=== PATIENT | female | born 1975 | race Caucasian/White ===

== ENCOUNTER → 2022-05-06 | Outpatient (CLI) | payer BC, SELFPAY ==
[2022-05-06 10:30] LABS: Anion Gap 6 (5-15); BUN 9 mg/dL (7-18); BUN/Creat Ratio 14.8 RATIO (10-20); Calcium,Total 8.9 mg/dL (8.5-10.1); Chloride 103 mmol/L (98-107); Creatinine, Serum 0.61 mg/dL (0.55-1.02); EST Glomerular Filtration Rate 112 mL/min (>60); Est Glom Filt Rate - Afr Amer 135 mL/min (>60); Glucose 79 mg/dL (74-106); Potassium 4.4 mmol/L (3.5-5.1); Sodium Level 136 mmol/L (136-145)
== END | disposition home or self-care (01) ==
LOC: MTLAB 08:48
PROVIDERS: PCP Internal Medicine; Referring Provider Urology; Visit Provider Urology
DX: R35.1 Nocturia (principal)
CPT/HCPCS: 36415; 80048

== ENCOUNTER → 2022-05-27 | Outpatient (CLI) | payer BC, SELFPAY ==
[2022-05-27 10:25] LABS: Anion Gap 8 (5-15); BUN 15 mg/dL (7-18); BUN/Creat Ratio 20.7 RATIO (10-20); Calcium,Total 9.2 mg/dL (8.5-10.1); Chloride 109 mmol/L (98-107); Creatinine, Serum 0.72 mg/dL (0.55-1.02); EST Glomerular Filtration Rate 91 mL/min (>60); Est Glom Filt Rate - Afr Amer 110 mL/min (>60); Glucose 100 mg/dL (74-106); Potassium 4.6 mmol/L (3.5-5.1); Sodium Level 141 mmol/L (136-145)
== END | disposition home or self-care (01) ==
LOC: MTLAB 07:46
PROVIDERS: PCP Internal Medicine; Referring Provider Urology; Visit Provider Urology
DX: N32.81 Overactive bladder (principal); N39.41 Urge incontinence
CPT/HCPCS: 36415; 80048

== ENCOUNTER → 2022-09-02 | Outpatient (CLI) | payer BC, SELFPAY ==
[2022-09-02 10:19] LABS: Anion Gap 3 (5-15); BUN 14 mg/dL (7-18); BUN/Creat Ratio 19.2 RATIO (10-20); Calcium,Total 9.6 mg/dL (8.5-10.1); Chloride 103 mmol/L (98-107); Creatinine, Serum 0.73 mg/dL (0.55-1.02); EST Glomerular Filtration Rate 91 mL/min (>60); Est Glom Filt Rate - Afr Amer 110 mL/min (>60); Glucose 106 mg/dL (74-106); Sodium Level 136 mmol/L (136-145)
== END | disposition home or self-care (01) ==
LOC: MTLAB 08:19
PROVIDERS: PCP Internal Medicine; Referring Provider Urology; Visit Provider Urology
DX: R35.1 Nocturia (principal)
CPT/HCPCS: 36415; 80048

== ENCOUNTER → 2022-12-17 | Outpatient (CLI) | payer BC, SELFPAY | END | disposition home or self-care (01) | PROVIDERS: PCP Nurse Practitioner Family; Referring Provider Nurse Practitioner Family; Visit Provider Nurse Practitioner Family | DX: R06.83 Snoring (principal); E66.01 Morbid (severe) obesity due to excess calories; Z68.41 Body mass index [BMI] 40.0-44.9, adult; I10 Essential (primary) hypertension; G47.30 Sleep apnea, unspecified | CPT/HCPCS: 95806 ==

== ENCOUNTER → 2023-09-08 | Outpatient (CLI) | payer BC, SELFPAY ==
[2023-09-08 10:16] LABS: Anion Gap 5 (5-15); BUN 17 mg/dL (7-18); Calcium,Total 9.6 mg/dL (8.5-10.1); Chloride 110 mmol/L (98-107); Creatinine, Serum 0.81 mg/dL (0.55-1.02); EST Glomerular Filtration Rate 80 mL/min (>60); Est Glom Filt Rate - Afr Amer 97 mL/min (>60); Glucose 91 mg/dL (74-106); Potassium 4.2 mmol/L (3.5-5.1); Sodium Level 141 mmol/L (136-145)
== END | disposition home or self-care (01) ==
LOC: MTLAB 08:29
PROVIDERS: PCP Nurse Practitioner Family; Referring Provider Urology; Visit Provider Urology
DX: R35.1 Nocturia (principal)
CPT/HCPCS: 36415; 80048

== ENCOUNTER → 2024-09-13 | Outpatient (CLI) | payer BC, SELFPAY ==
[2024-09-13 11:06] LABS: Anion Gap 11 (5-15); BUN 19 mg/dL (4-19); BUN/Creat Ratio 22.1 RATIO (10-20); Carbon Dioxide 25.6 mmol/L (21.0-32.0); Chloride 103 mmol/L (98-108); Creatinine, Serum 0.84 mg/dL (0.70-1.20); EST Glomerular Filtration Rate 85 (>60); Glucose 86 mg/dL (70-99); Potassium 4.4 mmol/L (3.3-5.1); Sodium Level 139 mmol/L (133-145)
== END | disposition home or self-care (01) ==
LOC: MTLAB 08:19
PROVIDERS: PCP Nurse Practitioner Family; Referring Provider Urology; Visit Provider Urology
DX: R35.1 Nocturia (principal)
CPT/HCPCS: 36415; 80048

== ENCOUNTER 2024-10-28 06:37 | Day surgery (SDC) | payer BC, SELFPAY ==
[2024-10-28] VITALS (9 sets, daily range): BP systolic 112–139; BP diastolic 63–87; PULSE 74–82; RESP 16; TEMP 36.2–36.6; O2SAT 96–100; BMI 32.8
--- OUTSIDE RECORDS SUMMARY | 2024-10-28 06:43 | XMS RPT_ITS | CCD ---
Author Organization [facility] Team Providers Care Inspector Aluminum Boat Name Role Phone Helen Guthrie Unavailable Zack Garcia S Unavailable Marcie Beaulieu Unavailable Unavailable Unavailable Unavailable Helen Guthrie Unavailable Jose Zack S Unavailable Melisa Mario Unavailable Unavailable Unavailable Unavailable Rafal Harris Unavailable Unavailable Messenger, Marcie Unavailable Unavailable Xuan Davidson E Unavailable Agnes Kennedy Unavailable Unavailable Rafal Dixon Unavailable Unavailable Luna Pastrana Unavailable Rafal Harris Unavailable Unavailable Gris Harris L Unavailable Unavailable Stuart NOLASCO, Nereyda Unavailable Zack Garcia DO S Unavailable Rafal Dixon LPN Unavailable Unavailable Luna Pastrana MD Unavailable Unavailable Unavailable Sanaz Byers MA Unavailable Unavailable Unavailable Unavailable Stuart Xuan Unavailable Luna Pastrana MD Primary Care Provider Pascual Mccall CNP Attending Unavailable Pascual Mccall CNP Referring Unavailable Pascual Mccall CNP Consulting Unavailable Pascual Mccall CNP Unavailable Pascual Mccall CNP Unavailable [phone] Jose Luo MA Unavailable Unavailable Xuan Davidson Unavailable Luna Pastrana MD Primary Care Provider [phone] Slarb DIRECTOR, Ayesha Unavailable Unavailable Cal KITCHEN UTILITY ASSOCIATE, Pascual Primary Care Provider Cal MAMMOGRAPHY TECHNOLOGIST-C, Pascual Primary Care Provider Cal MAMMOGRAPHY TECHNOLOGIST-C, Pascual Referring Provider Kain MAMMOGRAPHY TECHNOLOGIST-C, Jennifer Attending Provider Bethany STROUD, Dr. Calle Attending Provider [phone] Alva Sims MD Referring Provider Cal, Pascual Primary Care Unavailable Alva Sims Referring Unavailable Alva Sims Attending Unavailable Cal, Pascual Primary Care Unavailable Tony Melgar Attending Unavailable Cal, Pascual Primary Care Unavailable Jennifer Finnegan Attending Unavailable Cal, Pascual Referring Unavailable MONROYANA HERNÁNDEZ Attending Unavailable CAL, PASCUAL Primary Care Unavailable MONROYANA HERNÁNDEZ Attending Unavailable CAL, PASCUAL Primary Care Unavailable ANA MONROY Attending Unavailable CAL, PASCUAL Primary Care Unavailable JUAN FRANCISCO MELVIN Attending Unavailable CAL, PASCUAL Primary Care Unavailable ANA MONROY Attending Unavailable CAL, PASCUAL Primary Care Unavailable CAL, PASCUAL Referring Unavailable CAL, PASCUAL Primary Care Unavailable AMPARO VERA Attending Unavailable AMPARO VERA Referring Unavailable CAL, PASCUAL Primary Care Unavailable Allergies Allergy Classification Reported Allergen(s) Allergy Type Date of Onset Reaction(s) Facility Adhesive Tape (1 source) Adhesive Tape; Translations: [Adhesive Tape] Substance Allergy [facility]; [facility] Work Phone: Comment on above: paper tape (20 sources) Adhesive Tape; Translations: [Adhesive Tape] allergy to substance 09-09-19 25 Rash [facility] Work Phone: Comment on above: paper tape (20 sources) Morphine Derivatives; Translations: [Morphine Derivatives] allergy to substance [facility] Work Phone: Comment on above: Elevated heart rate, chest pain (20 sources) Morphine; Translations: [MORPHINE] Drug Allergy 02-04-20 05 GI Upset [facility] Work Phone: (10 sources) PAPER TAPE [Other] Propensity to adverse reactions 07-28-19 07 Hives, Itching [facility] Work Phone: (12 sources) Adhesive Tape; Translations: [ADHESIVE TAPE (ROSINS)] Allergy to substance 03-26-20 Itching [facility] Work Phone: (1 source) Morphine Drug Allergy 09-09-19 [facility] Repository Medications Current Medications Medication Drug Class(es) Dates Sig (Normalized) Sig (Original) amLODIPine 5 mg / olmesartan medoxomil 20 mg oral tablet (20 sources) Dihydropyridine Calcium Channel Pelon, Angiotensin 2 Receptor Pelon Start: 02-21-2021 End: 01-27-2023 take 1 tablet by mouth once daily amlodipine-olmes jeyson 5-20 mg oral tablet 1 (one) Tablet daily for 0 days Quantity: 90 {Tablet} Refills: 3 Ordered: 27-Jan-2023 Ayesha Zambrano LPN Start : 16-Apr-2022 End : 27-Jan-2023 Inactive Comment on above: Take 1 tablet by akbar th once daily. 24 hr buPROPion hydrochloride 300 mg extended release oral tablet (11 sources) Aminoketone Start: 04-22-2024 take 1 tablet by mouth once daily in the morning buPROPion XL (WELLBUTRIN XL) 300 mg 24 hr tablet Take 300 mg by mouth every morning. 04/22/2024 Active Start: 09-02-2023 End: 06-24-2024 buPROPion XL (WELLBUTRIN XL) 150 mg 24 hr tablet 09/02/2023 06/24/2024 Discontinued cholecalciferol 0.125 mg oral capsule (3 sources) Vitamin D Start: 09-08-2024 take 1 capsule by mouth once daily Cholecalciferol (Vitamin D3) 125 mcg (5,000 unit) capsule Active 125 ug PO daily September 08, 2024 12:00am Start: 12-31-2022 End: 09-08-2024 take 1 capsule by mouth once daily Cholecalciferol (Vitamin D3) 250 mcg (10,000 unit) capsule Discontinued 250 ug PO DAILY December 31, 2022 12:00am September 08, 2024 8:15am cholecalciferol, vitamin D3, (VITAMIN D3 ORAL) (20 sources) cholecalciferol, vitamin D3, (VITAMIN D3 ORAL) Take by mouth once daily. Active cholecalciferol, vitamin D3, (VITAMIN D3 ORAL) Take by mouth once daily. 0 Active cholecalciferol, vitamin D3, (VITAMIN D3 ORAL) Vitamin D3 Active 0 Active Comment on above: Vitamin D3 Active Take by mouth once d aily. Cranberry (1 source) Non-Standardized Food Allergenic Extract, Non-Standardized Plant Allergenic Extract Start: 09-09-19 take 1 capsule by mouth twice daily at mealtime Cranberry 500 mg capsule Active 500 mg PO TWICE A DAY September 08, 2024 12:00am administer with meals desmopressin acetate 0.2 mg oral tablet (20 sources) Vasopressin Analog, Factor VIII Activator Start: 01-01-20 take 1 tablet by mouth at bedtime Desmopressin 0.2 mg tablet Active 0.4 mg PO AT BEDTIME December 31, 2022 12:00am Start: 12-31-2022 take 0.4 mg by mouth at bedtim e Desmopressin Active 0.4 MG PO AT BEDTIME December 31, 2022 12:00am take 0.1 mg by mouth once daily at bedtime desmopressin acetate (DDAVP) 0.2 mg tablet Take 0.1 mg by mouth daily at bedtime. 2 tabs Active take 2 tablets by mo uth once daily at bedtime desmopressin 0.2 mg oral tablet 2 qhs (0.2 mg) Active Comment on above: Take 0.1 mg by mouth daily at bedtime. 2 tabs docusate sodium 100 mg oral capsule (1 source) Start: 09-09-19 take 2 capsules by mouth at bedtime Docusate Sodium (Colace) 100 mg capsule Active 200 mg PO AT BEDTIME September 08, 2024 12:00am docusate sodium 50 mg / sennosides, prison 8.6 mg oral tablet (4 sources) take 1 tablet by mouth once daily senna-docusate (SENNA-S) 8.6-50 mg per tablet Take 1 tablet by mouth once daily. Active famotidine 40 mg oral tablet (3 sources) Histamine-2 Receptor Antagonist Start: 09-09-19 take 1 tablet by mouth once daily at bedtime famotidine (PEPCID) 40 mg tablet Take 40 mg by mouth daily at bedtime. 09/08/2024 Active 24 hr fesoterodine fumarate 4 mg extended release oral tablet (4 sources) Start: 06-19-19 take 1 tablet by mouth once daily at breakfast fesoterodine (TOVIAZ) 4 mg Tb24 extended release tablet Take 4 mg by mouth daily with breakfast. 06/19/2024 Active levomefolate (DEPLIN) 7.5 mg capsule (1 source) End: 09-24-19 take 2 capsules by mouth once daily levomefolate (DEPLIN) 7.5 mg capsule Take 15 mg by mouth once daily. 0 09/23/2022 Discontinued Comment on above: Take 15 mg by mouth once daily. 24 hr metFORMIN hydrochloride 500 mg extended release oral tablet (20 sources) Biguanide Start: 03-24-20 End: 03-15-20 take 40-44.9 tablets by mouth twice daily at mealtime metFORMIN ER (GLUCOPHAGE XR) 500 mg 24 hr tablet Indications: IFG (impaired fasting glucose) , Class 3 severe obesity with serious comorbidity and body mass index (BMI) of 40.0 to 44.9 in adult, unspecified obesity type (HCC) Take 2 tablets by mouth two times a day with meals. 360 tablet 1 09/16/2024 03/15/2025 Active Start: 03-26-2023 End: 03-24-2024 take 40-44.9 tablets by mouth twice daily at mealtime metFORMIN (GLUCOPHAGE) 1,000 mg tablet Indications: Essential hypertension , Gastroesophageal reflux disease without esophagitis , IFG (impaired fasting glucose) , Class 3 severe obesity with serious comorbidity and body mass index (BMI) of 40.0 to 44.9 in adult, unspecified obesity type (HCC) Take 1 tablet by mouth two times a day with meals. 180 tablet 1 09/24/2023 03/24/2024 Discontinued Start: 12-31-2022 End: 09-08-2024 take 1 tablet by mouth three times daily Metformin 500 mg tablet Discontinued 500 mg PO THREE TIMES A DAY December 31, 2022 12:00am September 08, 2024 8:17am Start: 11-07-2022 End: 04-02-2023 take 40-44.9 tablets by mouth twice daily at mealtime metFORMIN (GLUCOPHAGE) 500 mg tablet Indications: Essential hypertension , Gastroesophageal reflux disease without esophagitis , IFG (impaired fasting glucose) , Class 3 severe obesity with serious comorbidity and body mass index (BMI) of 40.0 to 44.9 in adult, unspecified obesity type (HCC) Take 2 tablets by mouth twice daily with meals. 360 tablet 0 01/02/2023 03/26/2023 Discontinued take 4 tablets by mo ut once daily metFORMIN 500 mg oral tablet 4 tabs daily (500 mg) Active Comment on above: Take 1 tablet by akbar th twice daily with meals. Take 2 tablets by mo [facility] twice daily with meals. Take 1 tablet by akbar th two times a day with meals. 24 hr mirabegron 50 mg extended release oral tablet (1 source) beta3-Adrenergic Agonist Start: 09-16-2024 take 1 tablet by mouth once daily mirabegron (MYRBETRIQ) 50 mg Tb24 Take 1 tablet by mouth once daily. 09/16/2024 Active Multi Vitamin 9 mg iron/15 mL oral liquid (2 sources) Start: 04-16-2022 End: 01-27-2023 Multi Vitamin 9 mg iron/15 mL oral liquid for 0 days Refills: 0 Ordered: 27-Jan-2023 Ayesha Zambrano LPN Start : 16-Apr-2022 End : 27-Jan-2023 Inactive Multivitamin (Daily Multi-Vitamin) tablet (2 sources) Start: 12-31-2022 Multivitamin (Daily Multi-Vitamin) tablet Active 1 {tbl} PO DAILY December 31, 2022 12:00am Start: 12-31-2022 take 1 tablet by akbar once daily Multivitamin (Daily Multi-Vitamin) tablet Active 1 TABLET PO DAILY December 31, 2022 12:00am multivitamins(DAILY MULTIPLE TAB) (20 sources) Start: 07-06-2008 multivitamins(DAILY MULTIPLE TAB) Take one(1) tablet daily. 0 07/06/2008 Active Comment on above: Take one(1) tablet d aily. pantoprazole 40 mg delayed release oral tablet (20 sources) Proton Pump Inhibitor Start: 09-08-2024 take 1 tablet by mouth twice daily 30 minutes before breakfast pantoprazole DR (PROTONIX) 40 mg tablet TAKE 1 TABLET BY MOUTH TWICE A DAY TAKE 30 MINUTES BEFORE BREAKFAST AND DINNER 09/08/2024 Active Start: 09-08-2024 End: 09-08-2024 take 1 tablet by mouth once daily in the morning Pantoprazole 40 mg tablet,delayed release (DR/EC) Discontinued 40 mg PO EVERY MORNING September 08, 2024 12:00am September 08, 2024 8:33am Start: 06-22-2008 End: 11-09-2012 PROTONIX, 40MG (Oral Tablet Delayed Release) Tablet DR QD for 0 days Quantity: 90 {Tablet_DR} Refills: 3 Ordered: 09-Nov-2012 NARCISO Melvin LPN Start : 22-Jun-2008 End : 09-Nov-2012 Inactive Start: 06-22-2008 End: 11-09-2012 PROTONIX, 40MG (Oral Tablet Delayed Release) Tablet DR QD for 0 days Quantity: 90 {Tablet_DR} Refills: 3 Ordered: 09-Nov-2012 NARCISO Melvin Start : 22-Jun-2008 End : 09-Nov-2012 Inactive phentermine hydrochloride 15 mg oral capsule (20 sources) Sympathomimetic Amine Anorectic Start: 06-24-2024 End: 12-15-2024 take 40-44.9 capsules by mouth once daily before breakfast Phentermine HCl 15 mg capsule Indications: MICHELLE on CPAP , Essential hypertension , Gastroesophageal reflux disease without esophagitis , IFG (impaired fasting glucose) , Binge eating disorder, unspecified severity , Class 3 severe obesity with serious comorbidity and body mass index (BMI) of 40.0 to 44.9 in adult, unspecified obesity type (HCC) Take 1 capsule by mouth daily before breakfast for 90 days. 90 capsule 09/16/2024 12/15/2024 Active Start: 02-06-2023 End: 06-22-2024 take 40-44.9 capsules by mouth once daily before breakfast Phentermine HCl 15 mg capsule Indications: MICHELLE on CPAP , Essential hypertension , Gastroesophageal reflux disease without esophagitis , IFG (impaired fasting glucose) , Binge eating disorder , Class 3 severe obesity with serious comorbidity and body mass index (BMI) of 40.0 to 44.9 in adult, unspecified obesity type (HCC) Take 1 capsule by mouth daily before breakfast for 90 days. 90 capsule 12/24/2023 03/23/2024 Discontinued Start: 12-31-2022 take 15 mg by mouth once daily Phentermine Active 15 MG PO daily December 31, 2022 12:00am Start: 10-10-2022 End: 02-01-2023 take 40-44.9 capsules by mouth once daily before breakfast Phentermine HCl 15 mg capsule Indications: Class 3 severe obesity with serious comorbidity and body mass index (BMI) of 40.0 to 44.9 in adult, unspecified obesity type (HCC) , IFG (impaired fasting glucose) , Gastroesophageal reflux disease without esophagitis , Essential hypertension Take 1 capsule by mouth daily before breakfast for 30 days. 30 capsule 0 12/05/2022 01/02/2023 Discontinued Start: 10-17-2019 End: 11-16-2019 take 1 tablet by mouth in the morning Adipex-P 37.5 MG Oral Tablet 1 (one) Tablet in am for 30 days Quantity: 30 {Tablet} Refills: 0 Ordered: 17-Oct-2019 Helen Guthrie DO Start : 17-Oct-2019 End : 16-Nov-2019 Inactive Comments: bmi 40.47 Start: 07-07-2018 End: 08-06-2018 take 1 capsule by mouth once daily in the morning Phentermine HCl 37.5 MG Oral Capsule 1 (one) Capsule qam for 30 days Quantity: 30 {Capsule} Refills: 0 Ordered: 07-Jul-2018 Helen Guthrie DO Start : 07-Jul-2018 End : 06-Aug-2018 Inactive Comments: thirtyBMI 37wt 225R63.5BMI 36WT 218 Start: 06-10-2018 take 1 capsule by mo uth once daily in the morning Phentermine HCl 37.5 MG Oral Capsule 1 (one) Capsule qam for 30 days Quantity: 30 {Capsule} Refills: 0 Ordered: 10-Jun-2018 Melisa Mario Start : 10-Jun-2018 Active Comments: thirtyBMI 37wt 225R63.5 Start: 05-13-2018 take 1 capsule by mo uth once daily in the morning Phentermine HCl 37.5 MG Oral Capsule 1 (one) Capsule Capsule qam for 0 days Quantity: 30 {Capsule} Refills: 0 Ordered: 13-May-2018 Melisa Mario Start : 13-May-2018 Active Comments: thirtyBMI 38wt 232R63.5 Start: 06-11-2016 End: 05-13-2018 take 1 tablet by mouth in the morning Adipex-P 37.5 MG Oral Tablet 1 (one) Tablet in am for 0 days Quantity: 30 {Tablet} Refills: 0 Ordered: 13-May-2018 Marcie Beaulieu LPN Start : 11-Jun-2016 End : 13-May-2018 Inactive Comments: thirty BMI: 37weigtht 222wt 210 bmi 34 Comment on above: thirtyBMI 38wt 232R6 3.5 thirty BMI: 37weigth t 222wt 210 bmi 34 thirtyBMI 37wt 225R6 3.5 thirtyBMI 37wt 225R6 3.5BMI 36WT 218 bmi 40.47 Take 1 capsule by mo uth daily before breakfast for 30 days. Ana Saravia Take 1 capsule by mo uth daily before breakfast for 90 days. Take 1 capsule by mo uth daily before breakfast for 60 days. Phentermine 15 mg tablet,disintegratin g (1 source) Start: 01-01-20 take 1 tablet by mouth once daily Phentermine 15 mg tablet,disintegrating Active 15 mg PO daily December 31, 2022 12:00am topiramate 50 mg oral tablet (20 sources) Start: 09-24-19 End: 03-15-20 take 40-44.9 tablets by mouth twice daily topiramate (TOPAMAX) 50 mg tablet Indications: Essential hypertension , Gastroesophageal reflux disease without esophagitis , IFG (impaired fasting glucose) , Binge eating disorder, unspecified severity , Class 3 severe obesity with serious comorbidity and body mass index (BMI) of 40.0 to 44.9 in adult, unspecified obesity type (HCC) Take 1 tablet by mouth two times a day. 180 tablet 1 09/16/2024 03/15/2025 Active Start: 12-31-2022 take 1 capsule by mo uth twice daily Topiramate 25 mg capsule, sprinkle Active 25 mg PO TWICE A DAY December 31, 2022 12:00am Start: 10-10-2022 End: 11-07-2023 take 40-44.9 tablets by mouth once daily at bedtime topiramate (TOPAMAX) 25 mg tablet Indications: Class 3 severe obesity with serious comorbidity and body mass index (BMI) of 40.0 to 44.9 in adult, unspecified obesity type (HCC) , Binge eating disorder , IFG (impaired fasting glucose) , Gastroesophageal reflux disease without esophagitis , Essential hypertension Take 2 tablets by mouth daily at bedtime. 180 tablet 3 11/07/2022 09/23/2023 Discontinued take 2 tablets by mo uth once daily topiramate 25 mg oral tablet 2 daily (25 mg) Active Comment on above: Take 2 tablets by [facility] daily at bedtime. VITAMIN B COMPLEX ORAL (3 sources) End: 09-23-2022 VITAMIN B COMPLEX ORAL Vitamin B complex Active 0 09/23/2022 Discontinued VITAMIN B COMPLE X ORAL Vitamin B complex Active 0 Active Comment on above: Vitamin B complex Ac tive Completed/Discontinued Medications Medication Drug Class(es) Dates Sig (Normalized) Sig (Original) [id number] 200 actuat albuterol 0.09 mg/actuat metered dose inhaler (20 sources) beta2-Adrenergic Agonist Start: 02-20-2020 End: 03-28-2022 Proventil HFA 108 (90 Base) MCG/ACT Inhalation Aerosol Solution 2 (two) Aerosol Soln tid prn for 0 days Quantity: 1 {Inhaler} Refills: 0 Ordered: 28-Mar-2022 Pascual Mccall CNP Start : 20-Feb-2020 End : 28-Mar-2022 Discontinued Start: 02-20-2020 Proventil HFA 108 (90 Base) MCG/ACT Inhalation Aerosol Solution 2 (two) Aerosol Soln tid prn for 0 days Quantity: 1 {Inhaler} Refills: 0 Ordered: 20-Feb-2020 Luna Pastrana MD Start : 20-Feb-2020 Active Start: 05-28-2009 End: 11-09-2012 PROVENTIL HFA, 108 (90 Base) MCG/ACT (Inhalation Aerosol Solution) 2 (two) Aerosol Soln tid prn for 0 days Quantity: 1 {Aerosol_Soln} Refills: 0 Ordered: 09-Nov-2012 NARCISO Melvin LPN Start : 28-May-2009 End : 09-Nov-2012 Inactive amLODIPine 5 mg oral tablet (20 sources) Dihydropyridine Calcium Channel Pelon Start: 02-04-2021 End: 02-21-2021 take 1 tablet by mouth once daily Norvasc 5 MG Oral Tablet 1 (one) Tablet daily as directed for 0 days Quantity: 30 {Tablet} Refills: 2 Ordered: 21-Feb-2021 Ayesha Zambrano LPN Start : 04-Feb-2021 End : 21-Feb-2021 Inactive Comments: or generic Start: 03-07-2016 End: 05-13-2018 take 1 tablet by mouth once daily AmLODIPine Besylate 5 MG Oral Tablet 1 (one) Tablet Tablet qd for 0 days Quantity: 30 {Tablet} Refills: 2 Ordered: 13-May-2018 Marcie Beaulieu RN Start : 07-Mar-2016 End : 13-May-2018 Inactive Comment on above: or generic amLODIPine 5 mg / atorvastatin 20 mg oral tablet (2 sources) Dihydropyridine Calcium Channel Pelon, HMG-CoA Reductase Inhibitor Start: 12-31-2022 End: 03-18-2023 Amlodipine-Atorvastatin 5-20 mg tablet Discontinued 1 {tbl} PO DAILY December 31, 2022 12:00am March 18, 2023 8:35am Start: 12-31-2022 End: 03-18-2023 take 1 tablet by mouth once daily Amlodipine-Atorvastatin Discontinued 1 TABLET PO DAILY December 31, 2022 12:00am March 18, 2023 8:35am amoxicillin 875 mg / clavulanate 125 mg oral tablet (20 sources) Penicillin-class Antibacterial Start: 06-11-2016 End: 05-13-2018 take 1 tablet by mouth twice daily Augmentin 875-125 MG Oral Tablet 1 (one) Tablet bid for 0 days Quantity: 20 {Tablet} Refills: 0 Ordered: 13-May-2018 Marcie Beaulieu RN Start : 11-Jun-2016 End : 13-May-2018 Inactive Atropine / Benzoate / Hyoscyamine / Methenamine / Methylene blue / phenyl salicylate (20 sources) Anticholinergic, Cholinergic Muscarinic Antagonist, Nitrogen Binding Agent, Oxidation-Reduction Agent Start: 02-28-2008 End: 03-01-2008 take 1 tablet by mouth twice daily as needed URISED (Oral Tablet) Tablet BID/PRN for 0 days Quantity: 30 {Tablet} Refills: 3 Ordered: 28-Feb-2008 NARCISO Melvin LPN Start : 28-Feb-2008 End : 01-Mar-2008 Inactive Start: 02-28-2008 End: 03-01-2008 take 1 tablet by mouth twice daily as needed URISED (Oral Tablet) Tablet BID/PRN for 0 days Quantity: 30 {Tablet} Refills: 3 Ordered: 28-Feb-2008 NARCISO Melvin LPN Start : 28-Feb-2008 End : 01-Mar-2008 Inactive azithromycin 250 mg oral tablet (16 sources) Macrolide Antimicrobial Start: 02-20-2020 End: 01-04-2021 Zithromax Z-Woo 250 MG Oral Tablet 1 (one) Tablet uad for 0 days Quantity: 1 {Package} Refills: 0 Ordered: 04-Jan-2021 Kenya MOOREAyesha Start : 20-Feb-2020 End : 04-Jan-2021 Inactive benzonatate 100 mg oral capsule (20 sources) Non-narcotic Antitussive Start: 08-29-2014 End: 03-15-2015 take 1 capsule by mouth three times daily as needed for cough TESSALON PERLES, 100MG (Oral Capsule) 1 (one) Capsule tid prn for cough for 0 days Quantity: 30 {Capsule} Refills: 0 Ordered: 15-Mar-2015 Brad MOORENARCISO Start : 29-Aug-2014 End : 15-Mar-2015 Inactive biotin 10 mg oral capsule (20 sources) Start: 12-31-2022 End: 09-08-2024 Biotin 10,000 mcg capsule Discontinued ug PO daily December 31, 2022 12:00am September 08, 2024 8:18am Start: 12-31-2022 take 1 ug by mouth once daily Biotin Active MCG PO daily December 31, 2022 12:00am End: 10-24-2024 biotin 1 mg cap Take by mout h once daily. 10/24/2024 Discontinued (Other) Comment on above: Take by mouth. Take by mouth once d aily. calcium chloride 0.0014 meq/ml / potassium chloride 0.004 meq/ml / sodium chloride 0.103 meq/ml / sodium lactate 0.028 meq/ml injectable solution (1 source) Start: 024 End: take 75 mL intravenously every hour 75 mL/hr, INTRAVENOUS, CONTINUOUS, Starting on Thu01/08/24 at 0830, Until Thu01/08/24 at 0933, Preprocedure CBD oil (3 sources) CBD oil Active clarithromycin 500 mg oral tablet (20 sources) Macrolide Antimicrobial Start: 015 End: take 2 tablets by mouth once daily CLARITHROMYCIN, 500MG (Oral Tablet) 2 (two) Tablet daily for 10 days Quantity: 20 {QS} Refills: 0 Ordered: 29-Aug-2014 Xuan Davidson Start : 29-Aug-2014 End : 08-Sep-2014 Inactive Start: 05-28-2009 End: 06-07-2009 take 2 tablets by mouth once daily BIAXIN XL PAC, 500MG (Oral Tablet Extended Release 24 Hour) 2 (two) Tablet ER 24HR daily for 10 days Quantity: 20 {Tablet_ER_24HR} Refills: 0 Ordered: 22-Oct-2009 Xuan Davidson Start : 28-May-2009 End : 07-Jun-2009 Inactive Start: 05-28-2009 End: 06-07-2009 take 2 tablets by mouth once daily BIAXIN XL PAC, 500MG (Oral Tablet Extended Release 24 Hour) 2 (two) Tablet ER 24HR daily for 10 days Quantity: 20 {Tablet_ER_24HR} Refills: 0 Ordered: 22-Oct-2009 Stuart GAURAVXuan Start : 28-May-2009 End : 07-Jun-2009 Inactive Deplin 15 15-90.314 MG Oral Capsule (12 sources) Start: 01-04-2021 End: 01-18-2021 take 1 capsule by mouth once daily Deplin 15 15-90.314 MG Oral Capsule 1 (one) Capsule daily for 14 days Refills: 0 Ordered: 18-Jan-2021 Xuan Davidson Start : 04-Jan-2021 End : 18-Jan-2021 Inactive Comments: can order infuture via brand direct Start: 01-04-2021 End: 01-18-2021 take 1 capsule by mouth once daily Deplin 15 15-90.314 MG Oral Capsule 1 (one) Capsule daily for 14 days Refills: 0 Ordered: 18-Jan-2021 Xuan Davidson Mary Start : 04-Jan-2021 End : 18-Jan-2021 Inactive Comments: can order infuture via brand direct Start: 01-04-2021 End: 01-18-2021 take 1 capsule by mouth once daily Deplin 15 15-90.314 MG Oral Capsule 1 (one) Capsule daily for 14 days Refills: 0 Ordered: 18-Jan-2021 Xuan Davidson CNP LoriXuan crabtree CNP Start : 04-Jan-2021 End : 18-Jan-2021 Inactive Comments: can order infuture via brand direct Comment on above: can order infuture v ia brand direct Deplin 7.5 7.5-90.314 MG Oral Capsule (20 sources) Start: 07-16-2021 End: 03-28-2022 take 1 capsule by mouth once daily Deplin 7.5 7.5-90.314 MG Oral Capsule 1 (one) Capsule daily for 0 days Quantity: 90 {Capsule} Refills: 0 Ordered: 28-Mar-2022 Pascual Mccall CNP Start : 16-Jul-2021 End : 28-Mar-2022 Discontinued Comments: Mail order. Start: 07-16-2021 End: 03-28-2022 take 1 capsule by mouth once daily Deplin 7.5 7.5-90.314 MG Oral Capsule 1 (one) Capsule daily for 0 days Quantity: 90 {Capsule} Refills: 3 Ordered: 28-Mar-2022 Pascual Mccall CNP Start : 16-Jul-2021 End : 28-Mar-2022 Discontinued Start: 07-16-2021 take 1 capsule by mo uth once daily Deplin 7.5 7.5-90.314 MG Oral Capsule 1 (one) Capsule daily for 0 days Quantity: 90 {Capsule} Refills: 0 Ordered: 16-Jul-2021 Xuan Davidson Mary Start : 16-Jul-2021 Active Comments: Mail order. Start: 07-16-2021 take 1 capsule by mo uth once daily Deplin 7.5 7.5-90.314 MG Oral Capsule 1 (one) Capsule daily for 0 days Quantity: 90 {Capsule} Refills: 3 Ordered: 16-Jul-2021 Xuan Davidson Mary Start : 16-Jul-2021 Active Start: 07-16-2021 take 1 capsule by mo uth once daily Deplin 7.5 7.5-90.314 MG Oral Capsule 1 (one) Capsule daily for 0 days Quantity: 90 {Capsule} Refills: 0 Ordered: 16-Jul-2021 Xuan Davidson CNP, CNP, Mary E Start : 16-Jul-2021 Active Comments: Mail order. Start: 07-16-2021 take 1 capsule by mo uth once daily Deplin 7.5 7.5-90.314 MG Oral Capsule 1 (one) Capsule daily for 0 days Quantity: 90 {Capsule} Refills: 3 Ordered: 16-Jul-2021 Xuan Davidson CNP, CNP, Mary E Start : 16-Jul-2021 Active Start: 04-23-2021 take 1 capsule by [facility] once daily Deplin 7.5 7.5-90.314 MG Oral Capsule 1 (one) Capsule daily for 0 days Quantity: 90 {Capsule} Refills: 0 Ordered: 23-Apr-2021 Xuan Davidson CNP, CNP, Mary E Start : 23-Apr-2021 Active Comments: Mail order. Start: 04-23-2021 take 1 capsule by [facility] once daily Deplin 7.5 7.5-90.314 MG Oral Capsule 1 (one) Capsule daily for 0 days Quantity: 90 {Capsule} Refills: 3 Ordered: 23-Apr-2021 Stuart NOLASCO, Xuan Davidson CNP, Xuan Burroughs Start : 23-Apr-2021 Active Comment on above: Mail order. desoximetasone 2.5 mg/ml topical cream (20 sources) Corticosteroid Start: 10-22-2009 End: 11-09-2012 TOPICORT, 0.25% (External Cream) 1 Cream bid for 0 days Quantity: 1 {Cream} Refills: 0 Ordered: 09-Nov-2012 NARCISO Melvin LPN Start : 22-Oct-2009 End : 09-Nov-2012 Inactive diphenhydrAMINE (1 source) Histamine-1 Receptor Antagonist Start: 01-08-2024 End: 01-08-2024 12.5-50 mg, INTRAVENOUS, DIRECTED, Starting on Thu01/08/24 at 0900, Until Thu01/08/24 at 1259, DOSING DIRECTED BY PHYSICIAN FOR PROCEDURAL SEDATION ONLY, Intraprocedure DULoxetine 60 mg delayed release oral capsule (20 sources) Serotonin and Norepinephrine Reuptake Inhibitor Start: 01-07-2023 DULoxetine 60 mg oral capsule,delayed release (enteric coated) 1 (one) Capsule DR Part qd for 0 days Quantity: 90 {Capsule} Refills: 1 Ordered: 07-Jan-2023 Pascual Mccall CNP Start : 07-Jan-2023 Active Comments: pt needs appt. Start: 10-07-2022 DULoxetine 60 mg oral capsule,delayed release (enteric coated) 1 (one) Capsule DR Part qd for 0 days Quantity: 90 {Capsule} Refills: 0 Ordered: 07-Oct-2022 Pascual Mccall CNP Start : 07-Oct-2022 Active Comments: pt needs appt. Start: 05-20-2022 take 10 capsules by mouth once daily DULoxetine 60 mg oral capsule,delayed release (enteric coated) 1 (one) Capsule DR Part qd for 0 days Quantity: 90 {Capsule} Refills: 0 Ordered: 20-May-2022 Pascual Mccall CNP Start : 20-May-2022 Active Comments: pt needs appt. Start: 12-16-2021 take 8 capsules by m outh once daily DULoxetine HCl 60 MG Oral Capsule Delayed Release Particles 1 (one) Capsule DR Part qd for 0 days Quantity: 90 {Capsule} Refills: 0 Ordered: 16-Dec-2021 Pascual Mccall CNP Start : 16-Dec-2021 Active Comments: pt needs appt. Start: 01-04-2021 DULoxetine HCl 60 MG Oral Capsule Delayed Release Particles 1 (one) Capsule DR Part qd for 0 days Quantity: 90 {Capsule} Refills: 3 Ordered: 04-Jan-2021 Xuan Davidson CNP, CNP Xuan Burroughs Start : 04-Jan-2021 Active Start: 10-28-2020 DULoxetine HCl 60 MG Oral Capsule Delayed Release Particles 1 (one) Capsule DR Part qd for 0 days Quantity: 90 {Capsule} Refills: 3 Ordered: 28-Oct-2020 Stuart NOLASCO NereydaManjeet Davidson CNP Xuan Burroughs Start : 28-Oct-2020 Active Start: 10-14-2019 take 5 capsules by m outh once daily DULoxetine HCl 60 MG Oral Capsule Delayed Release Particles 1 (one) Capsule DR Part qd for 0 days Quantity: 90 {Capsule} Refills: 3 Ordered: 14-Oct-2019 Rafal Dixon LPN Start : 14-Oct-2019 Active Start: 06-12-2017 End: 09-08-2024 take 1 capsule by mouth once daily Duloxetine (Cymbalta) 60 mg capsule,delayed release(DR/EC) Discontinued 60 mg PO DAILY December 31, 2022 12:00am September 08, 2024 8:18am Start: 06-12-2017 take 2 capsules by m outh once daily DULoxetine HCl 60 MG Oral Capsule Delayed Release Particles 1 (one) Capsule DR Part qd for 0 days Quantity: 90 {Capsule} Refills: 3 Ordered: 12-Jun-2017 Helen Guthrie DO, DO, Kathleen Start : 12-Jun-2017 Active Start: 03-07-2016 End: 05-14-2016 take 4 capsules by mouth once daily DULoxetine HCl 30 MG Oral Capsule Delayed Release Particles 1 (one) Capsule DR Part qd for 0 days Quantity: 7 {Capsule} Refills: 0 Ordered: 14-May-2016 Marcie Beaulieu RN Start : 07-Mar-2016 End : 14-May-2016 Inactive Start: 03-07-2016 End: 05-14-2016 take 1 capsule by mouth once daily DULoxetine HCl 30 MG Oral Capsule Delayed Release Particles 1 (one) Capsule DR Part qd for 0 days Quantity: 7 {Capsule} Refills: 0 Ordered: 14-May-2016 Marcie Beaulieu LPN Start : 07-Mar-2016 End : 14-May-2016 Inactive Comment on above: pt needs appt. Take 60 mg by mouth once daily. AVIANE, 0.1-20MG-MCG (Oral Tablet) (20 sources) Progestin, Estrogen, Progestin-containing Intrauterine Device End: 11-09-2012 take 1 tablet by mouth once daily AVIANE, 0.1-20MG-MCG (Oral Tablet) QD for 0 days Refills: 0 Ordered: 09-Nov-2012 NARCISO Melvin LPN End : 09-Nov-2012 Inactive End: 11-09-2012 take 1 tablet by mouth once daily AVIANE, 0.1-20MG-MCG (Oral Tablet) QD for 0 days Refills: 0 Ordered: 09-Nov-2012 NARCISO Melvin End : 09-Nov-2012 Inactive 1 ml fentaNYL 0.05 mg/ml injection (1 source) Opioid Agonist Start: 01-08-2024 End: 01-08-2024 25-100 mcg, INTRAVENOUS, DIRECTED, Starting on Thu01/08/24 at 0900, Until Thu01/08/24 at 1259, DOSING DIRECTED BY PHYSICIAN FOR PROCEDURAL SEDATION ONLY, Intraprocedure flavoxATE hydrochloride 100 mg oral tablet (20 sources) Cholinergic Muscarinic Antagonist End: 05-09-2008 take 1 tablet by mouth three times daily as needed URISPAS, 100MG (Oral Tablet) 1 Tablet tid/prn for 0 days Quantity: 30 {Tablet} Refills: 2 Ordered: 01-Mar-2008 NARCISO Melvin LPN End : 09-May-2008 Inactive FLUoxetine 20 mg oral capsule (20 sources) Serotonin Reuptake Inhibitor Start: 03-07-2016 End: 05-13-2018 take 3 capsules by mouth once daily FLUoxetine HCl 20 MG Oral Capsule 3 (three) Capsule qd for 0 days Quantity: 90 {Capsule} Refills: 0 Ordered: 13-May-2018 Marcie Beaulieu RN Start : 07-Mar-2016 End : 13-May-2018 Inactive Gemtesa 75 mg oral tablet (2 sources) Gemtesa 75 mg or al tablet (75 mg) Active GEMTESA 75 mg tablet (17 sources) Start: 06-15-2022 End: 06-24-2024 take 1 tablet by mouth once daily GEMTESA 75 mg tablet Take 75 mg by mouth once daily. 06/15/2022 06/24/2024 Discontinued Start: 06-15-2022 take 1 tablet by akbar th once daily GEMTESA 75 mg tablet Take 75 mg by mouth once daily. 06/15/2022 Active Start: 06-15-2022 take 1 tablet by akbar th once daily GEMTESA 75 mg tablet Take 75 mg by mouth once daily. 0 06/15/2022 Active Comment on above: Take 75 mg by mouth once daily. imipramine hydrochloride 50 mg oral tablet (20 sources) Tricyclic Antidepressant Start: 008 End: 009 take 4 tablets by mouth once daily at bedtime IMIPRAMINE HCL, 50MG (Oral Tablet) 4 Tablet QHS / HS for 0 days Quantity: 120 {Tablet} Refills: 3 Ordered: 03-Jul-2008 NARCISO Melvin LPN Start : 28-Mar-2008 End : 03-Jul-2008 Inactive levomefolate (DEPLIN, ALGAL OIL,) 7.5 mg capsule (2 sources) take 2 capsules by mouth once daily levomefolate (DEPLIN, ALGAL OIL,) 7.5 mg capsule Take 15 mg by mouth once daily. 0 Active Comment on above: Take 15 mg by mouth once daily. 5 ml midazolam 1 mg/ml injection (1 source) Benzodiazepine Start: 024 End: 024 1-5 mg, INTRAVENOUS, DIRECTED, Starting on Thu01/08/24 at 0900, Until Thu01/08/24 at 1259, DOSING DIRECTED BY PHYSICIAN FOR PROCEDURAL SEDATION ONLY, Intraprocedure Multivitamin preparation (20 sources) Start: 022 MULTIVITAMIN (Oral Liquid) for 0 days Refills: 0 Ordered: 16-Apr-2022 Slarb DIRECTOR, Ayesha Start : 16-Apr-2022 Active MULTIVITAMIN (Or al Liquid) for 0 days Refills: 0 Ordered: 28-Mar-2022 Jose Luo MA Active MULTIVITAMIN (Or al Liquid) for 0 days Refills: 0 Ordered: 04-Jan-2021 Slarb DIRECTOR, Ayesha Active MULTIVITAMIN (Or al Liquid) for 0 days Refills: 0 Ordered: 13-Feb-2020 Brent PEDRAZANAgnes Active MULTIVITAMIN (Or al Liquid) for 0 days Refills: 0 Ordered: 14-Oct-2019 Steven MOORE, Rafal Active MULTIVITAMIN (Or al Liquid) for 0 days Refills: 0 Ordered: 24-Jun-2018 Rafal Harris Active MULTIVITAMIN (Or al Liquid) for 0 days Refills: 0 Ordered: 13-May-2018 Marcie Beaulieu LPN Active omeprazole 20 mg delayed release oral capsule (20 sources) Proton Pump Inhibitor Start: 04-16-2022 End: 09-08-2024 take 1 capsule by mouth once daily Omeprazole 20 mg capsule,delayed release(DR/EC) Discontinued 20 mg PO DAILY December 31, 2022 12:00am September 08, 2024 8:18am Start: 03-28-2022 End: 09-16-2024 omeprazole (PRILOSEC) 20 mg capsule Take by mouth q 24 HR. 03/28/2022 09/16/2024 Discontinued Start: 03-28-2022 take 1 capsule by [facility] once daily Omeprazole 20 MG Oral Capsule Delayed Release 1 (one) Capsule daily for 90 days Quantity: 90 {Capsule} Refills: 2 Ordered: 28-Mar-2022 Pascual Mccall CNP Start : 28-Mar-2022 Active Comment on above: Take by mouth q 24 H R. 2 ml ondansetron 2 mg/ml injection (1 source) Serotonin-3 Receptor Antagonist Start: 01-08-20 24 End: 01-08-20 24 4 mg, INTRAVENOUS, DIRECTED, Starting on Thu01/08/24 at 0900, Until Thu01/08/24 at 1259, Dosing as directed for intraprocedural use only, Intraprocedure polyethylene glycol 3350 341477 mg / potassium chloride 2970 mg / sodium bicarbonate 6740 mg / sodium chloride 5860 mg / sodium sulfate 93281 mg powder for oral solution (1 source) Osmotic Laxative Start: 09-08-19 End: 09-08-19 peg 3350-Electrolytes (GOLYTELY) 236-22.74-6.74 -5.86 gram suspension Indications: Screening for colon cancer Take 4,000 mL by mouth one time only for 1 dose. Refer to printed prep instructions from your provider. 4000 mL 0 09/08/2023 09/08/2023 predniSONE 20 mg oral tablet (20 sources) Start: 02-20-20 End: 01-05-20 take 2 tablets by mouth once daily, then take 1 tablet by mouth once daily, then take 0.5 tablet by mouth once daily predniSONE 20 MG Oral Tablet 1 (one) Tablet uad for 0 days Quantity: 18 {Tablet} Refills: 0 Ordered: 04-Jan-2021 Ayesha Zambrano LPN Start : 20-Feb-2020 End : 04-Jan-2021 Inactive Comments: 2 a d for 5 d, 1 a d for 5d, 1/2 a d for 6 d Start: 10-20-2013 End: 10-30-2013 take 2 tablets by mouth once daily, then take 1 tablet by mouth once daily, then take 0.5 tablet by mouth once daily PREDNISONE, 10MG (Oral Tablet) 1 (one) Tablet uad for 10 days Refills: 0 Ordered: 20-Oct-2013 Luna Pastrana MD Start : 20-Oct-2013 End : 30-Oct-2013 Inactive Comments: 2 a d for 5 d, 1 a d for 5d, 1/2 a d for 5 d Comment on above: 2 a d for 5 d, 1 a d for 5d, 1/2 a d for 5 d 2 a d for 5 d, 1 a d for 5d, 1/2 a d for 6 d Vibegron (2 sources) Start: 12-31-2022 End: 09-08-2024 take 1 tablet by mouth once daily Vibegron (Gemtesa) 75 mg tablet Discontinued 75 mg PO DAILY December 31, 2022 12:00am September 08, 2024 8:18am Start: 12-31-2022 take 1 tablet by akbar th once daily Vibegron (Gemtesa) 75 mg tablet Active 75 MG PO DAILY December 31, 2022 12:00am Vitamin B Complex (3 sources) Vitamin B comple x Active Vitamin D3 (3 sources) Vitamin D3 Activ e Problems Active Problems Problem Classification Problem Date Documented Da te Episodic/Chronic Abdominal pain (20 sources) Epigastric pain; Translations: [Epigastric pain] Resolved: 3 11-09-2012 Episodic Comment on above: best felt in long ti me--first time in 2 years not felt Administrative/social admission (20 sources) Medical examinations/reports status; Translations: [Counseling procedure with explicit context] Resolved: 5 03-27-2015 Episodic Comment on above: Dr. rivas once hus[place] nd has vasectomy. 6- colonscopy good. mammo 2013 Allergic reactions (20 sources) Contact dermatitis due to poison kristina; Translations: [Poison kristina] Resolved: 5 03-15-2015 Episodic Anal and rectal conditions (20 sources) Anal fissure; Translations: [Anal fissure] Resolved: 3 11-09-2012 Episodic Comment on above: at 14 yo had polyp-- rectal thought not percancerous. no change in bowel habit Anxiety disorders (20 sources) Mixed anxiety and depressive disorder; Translations: [Depression with anxiety] 05-13-2018 Chronic Calculus of urinary tract (20 sources) Kidney stone; Translations: [History of calculus of kidney] 05-13-2018 Episodic Comment on above: 1989 Chronic obstructive pulmonary disease and bronchiectasis (20 sources) Bronchitis; Translations: [Bronchitis] Resolved: 3 03-26-2015 Episodic Disorders of lipid metabolism (1 source) Hypercholesterolemia; Translations: [Pure hypercholesterolemia, unspecified] 09-08-2024 Chronic Endometriosis (20 sources) Endometriosis (clinical); Translations: [Endometriosis] 05-13-2018 Chronic Comment on above: laposcopy past, brow n Esophageal disorders (20 sources) Gastroesophageal reflux disease; Translations: [GERD (gastroesophageal reflux disease)] Onset: 3 03-28-2022 Chronic Essential hypertension (20 sources) Hypertensive disorder; Translations: [Hypertension] Onset: 3 01-18-2021 Chronic Comment on above: d/c meds last week o f Dec 2022. BP now normal w/ the weight loss. monitor periodically at home, otherwise no medswas on amlodipine /olmesartan but lost over 30# and was symptomatic hypotension Fever of unknown origin (20 sources) Fever with chills; Translations: [Fever and chills] 05-13-2018 Episodic Fluid and electrolyte disorders (20 sources) Hyperkalemia; Translations: [Hyperkalemia] Resolved: 1 06-10-2018 Episodic Gastrointestinal hemorrhage (20 sources) Blood in stool; Translations: [Blood stool] Resolved: 5 03-15-2015 Episodic Comment on above: pt afraid of colon c ancer because in family. Genitourinary symptoms and ill-defined conditions (17 sources) Female stress incontinence; Translations: [Stress incontinence (female) (male)] Chronic Comment on above: maggie Sims sl ing Genitourinary symptoms and ill-defined conditions (1 source) Nocturia; Translations: [Nocturia] Onset: 5 Episodic Headache; including migraine (20 sources) Tension-type headache; Translations: [Acute non intractable tension-type headache] 02-20-2020 Chronic Headache; including migraine (16 sources) Tension-type headache; Translations: [Acute non intractable tension-type headache] 05-13-2018 Episodic Headache; including migraine (20 sources) Headache; including migraine Immunizations and screening for infectious disease (20 sources) Need for prophylactic vaccination and inoculation against influenza; Translations: [Anti-nuclear factor positive] Onset: 5 06-10-2018 Episodic Comment on above: Day#5 Positve for Co Vid. On Day #4 she lost sense of taste and smell. Daughter very sick last week, daughter is MA at [employer] pt rec at work Malaise and fatigue (20 sources) Fatigue; Translations: [Fatigue] Resolved: 9 05-13-2018 Episodic Miscellaneous mental health disorders (20 sources) Binge eating disorder; Translations: [Binge eating disorder] Onset: 3 09-26-2022 Chronic Mood disorders (16 sources) Depressive disorder; Translations: [Other specified depressive episodes] Onset: 4 03-23-2023 Chronic Mood disorders (20 sources) Mood disorders Neoplasms of unspecified nature or uncertain behavior (20 sources) Neoplasm of uncertain behavior of skin; Translations: [Atypical Spitz nevus] Resolved: 3 03-28-2015 Episodic Comment on above: in toes and feet--se iain jaswant Nutritional deficiencies (20 sources) Vitamin D deficiency; Translations: [Vitamin D deficiency] 06-10-2018 Chronic Osteoarthritis (1 source) Arthritis; Translations: [Unspecified osteoarthritis, unspecified site] 09-08-2024 Chronic Other and unspecified benign neoplasm (1 source) History of polyp of colon; Translations: [Personal history of colonic polyps] 09-09-2023 Episodic Other circulatory disease (20 sources) Elevated blood-pressure reading without diagnosis of hypertension; Translations: [Elevated BP without diagnosis of hypertension] Resolved: 9 05-13-2018 Episodic Other circulatory disease (20 sources) Elevated blood pressure; Translations: [Elevated blood pressure reading] Resolved: 2 01-18-2021 Episodic Other gastrointestinal disorders (1 source) Irritable bowel syndrome; Translations: [Irritable bowel syndrome without diarrhea] 09-08-2024 Chronic Other gastrointestinal disorders (1 source) Gastrointestinal tract problem; Translations: [Other specified symptoms and signs involving the digestive system and abdomen] 09-08-2024 Episodic Other infections; including parasitic (20 sources) Personal history of other infectious and parasitic diseases; Translations: [History of COVID-19] 01-18-2021 Episodic Other lower respiratory disease (20 sources) Wheezing; Translations: [Wheezing] Resolved: 5 03-15-2015 Episodic Other lower respiratory disease (20 sources) Cough; Translations: [Cough] Resolved: 5 03-15-2015 Episodic Other nervous system disorders (20 sources) Loss of sense of smell; Translations: [Anosmia] Resolved: 1 02-17-2020 Episodic Comment on above: loss of taste and sm ell Other non-traumatic joint disorders (17 sources) Knee pain; Translations: [Chronic pain of left knee] 05-13-2018 Episodic Other non-traumatic joint disorders (20 sources) Pain in left knee; Translations: [Chronic pain of left knee] 01-18-2021 Episodic Other nutritional; endocrine; and metabolic disorders (20 sources) Body mass index 30+ - obesity; Translations: [BMI 33.0-33.9,adult] 05-13-2018 Chronic Other nutritional; endocrine; and metabolic disorders (20 sources) Obesity, unspecified; Translations: [Obesity] Chronic Other nutritional; endocrine; and metabolic disorders (20 sources) Obesity; Translations: [Obesity, unspecified] 05-13-2018 Chronic Comment on above: not loosig as much. needs to add 30 min 5 days a week cardio exercise. incrase water. my fitness pal Other nutritional; endocrine; and metabolic disorders (20 sources) Body mass index 40+ - severely obese; Translations: [BMI 40.0-44.9, adult] Resolved: 3 02-13-2020 Chronic Other nutritional; endocrine; and metabolic disorders (20 sources) Severe obesity; Translations: [Morbid (severe) obesity due to excess calories] Onset: 3 09-26-2022 Chronic Other nutritional; endocrine; and metabolic disorders (1 source) Obese class I; Translations: [Obesity, Class I, BMI 30-34.9] Onset: 5 10-24-2024 Chronic Other nutritional; endocrine; and metabolic disorders (2 sources) Body mass index (BMI) 40.0-44.9, adult; Translations: [Class 3 severe obesity with serious comorbidity and body mass index (BMI) of 40.0 to 44.9 in adult, unspecified obesity type] Onset: 3 Chronic Other nutritional; endocrine; and metabolic disorders (1 source) Morbid (severe) obesity due to excess calories; Translations: [Class 3 severe obesity with serious comorbidity and body mass index (BMI) of 40.0 to 44.9 in adult, unspecified obesity type (HCC)] Onset: 3 Chronic Other nutritional; endocrine; and metabolic disorders (20 sources) Weight gain; Translations: [Weight gain] 05-13-2018 Episodic Other nutritional; endocrine; and metabolic disorders (2 sources) Weight loss; Translations: [Weight loss] 01-27-2023 Episodic Comment on above: on adipex Other screening for suspected conditions (not mental disorders or infectious disease) (20 sources) Patient encounter status; Translations: [Screening for lipid disorders] Onset: 4 02-20-2020 Episodic Other upper respiratory disease (20 sources) Pain in throat Episodic Other upper respiratory disease (8 sources) Epistaxis; Translations: [Epistaxis, recurrent] 05-13-2018 Episodic Other upper respiratory disease (20 sources) Bleeding from nose; Translations: [Epistaxis, recurrent] 02-13-2020 Episodic Other upper respiratory disease (18 sources) Epistaxis; Translations: [Epistaxis, recurrent] 03-28-2022 Episodic Other upper respiratory infections (20 sources) Sinusitis; Translations: [Sinusitis] Resolved: 5 03-15-2015 Chronic Other upper respiratory infections (20 sources) Sinusitis; Translations: [Sore throat symptom] Resolved: 5 03-15-2015 Episodic Residual codes; unclassified (20 sources) Obstructive sleep apnea syndrome; Translations: [Obstructive sleep apnea (adult) (pediatric)] Onset: 3 01-02-2023 Chronic Comment on above: On CPAP, seeing [facility] feels much better on papOn CPAP, seeing [facility] AHI 5.6 Residual codes; unclassified (1 source) Obstructive sleep apnea (adult) (pediatric); Translations: [MICHELLE on CPAP] Onset: 3 Chronic Residual codes; unclassified (20 sources) Family history of cancer of colon; Translations: [Family history of colon cancer] 05-13-2018 Episodic Comment on above: grandfather and uncl e Residual codes; unclassified (16 sources) Needs influenza immunization; Translations: [Need for prophylactic vaccination and inoculation against influenza (Renamed from Need for immunization against influenza)] 05-13-2018 Episodic Comment on above: pt rec at work Residual codes; unclassified (20 sources) Current non-smoker ; Translations: [Current nonsmoker (Renamed from Current non-smoker)] 02-20-2020 Episodic Residual codes; unclassified (20 sources) Non-smoker; Translations: [Current nonsmoker (Renamed from Current non-smoker)] 03-28-2022 Episodic Unclassified (20 sources) Unclassified (20 sources) Current non-smoker ; Translations: [Current nonsmoker (Renamed from Current non-smoker)] 05-13-2018 Unclassified (20 sources) Well Female (Younger Female) (V72.31) Unclassified (20 sources) Blood stool (578.1) Unclassified (20 sources) SCREENING FOR LIPID DISORDERS (V77.91) Unclassified (20 sources) Patient encounter status; Translations: [Screening for lipid disorders] Resolved: 5 04-02-2015 Unclassified (20 sources) History of kidney stones Unclassified (20 sources) BMI 38.0-38.9,adult Unclassified (20 sources) Nutritional counseling Unclassified (20 sources) Weight gain Unclassified (20 sources) Elevated BP without diagnosis of hypertension Unclassified (20 sources) Family history of colon cancer Unclassified (20 sources) Body mass index 37.0-37.9, adult Unclassified (20 sources) Chronic pain of left knee Unclassified (20 sources) Body mass index 35.0-35.9, adult Unclassified (20 sources) Epistaxis, recurrent Unclassified (20 sources) BMI 40.0-44.9, adult Unclassified (12 sources) Screening for thyroid disorder Unclassified (3 sources) Elevated blood pressure reading Unclassified (1 source) Class 3 severe obesity with serious comorbidity and body mass index (BMI) of 40.0 to 44.9 in adult, unspecified obesity type; Translations: [Class 3 severe obesity with serious comorbidity and body mass index (BMI) of 40.0 to 44.9 in adult, unspecified obesity type] Onset: 5 Unclassified (1 source) Binge eating disorder, unspecified severity; Translations: [Binge eating disorder, unspecified severity] Onset: 3 Unclassified (1 source) Class 3 severe obesity with serious comorbidity and body mass index (BMI) of 40.0 to 44.9 in adult, unspecified obesity type (HCC); Translations: [Class 3 severe obesity with serious comorbidity and body mass index (BMI) of 40.0 to 44.9 in adult, unspecified obesity type (HCC)] Onset: 3 Urinary tract infections (20 sources) Chronic interstitial cystitis; Translations: [Interstitial cystitis (chronic) without hematuria] Onset: 9 07-06-2008 Chronic Urinary tract infections (20 sources) Cystitis, unspecified; Translations: [CYSTITIS, NOS] Resolved: 3 11-09-2012 Episodic Viral infection (20 sources) Coronavirus infection; Translations: [SARS-associated coronavirus infection] Resolved: 3 02-20-2020 Episodic Comment on above: she in not worsening but it just is staying in lungs. will add steriods. on vitamin C D and will add pepcid. inhalers if PO drops or worsen to EER sheis now turning th e corner steriod,inhalers and zpak helped. still weak. eating well and drink fluids. she is done with quaratine she is not physically not strong enough. she works [employer] will try go back next week. Past or Other Problems Problem Classification Problem Date Documented Date Episodic/Chronic Chronic obstructive pulmonary disease and bronchiectasis (20 sources) Chronic obstructive pulmonary disease and bronchiectasis Conditions associated with dizziness or vertigo (2 sources) Conditions associated with dizziness or vertigo Diabetes mellitus without complication (19 sources) Impaired fasting glycemia; Translations: [Impaired fasting glucose] Onset: 09-24-2023 Episodic Endometriosis (20 sources) Endometriosis Resolved: 11-17-2008 11-09-2012 Comment on above: had lap and endometr iosis removal 2005. imipr helping some think related to bladder Hemorrhoids (20 sources) Hemorrhoids; Translations: [Hemorrhoids] Onset: 02-04-2007 Resolved: 04-25-2020 02-20-2015 Episodic Comment on above: thrombosed 2006 Other female genital disorders (9 sources) Postcoital bleeding; Translations: [Postcoital bleeding] Onset: 04-06-2012 Resolved: 04-25-2020 04-25-2020 Chronic Other lower respiratory disease (19 sources) Snoring; Translations: [Snoring] Onset: 09-26-2022 09-26-2022 Episodic Other and delivery including normal (9 sources) Normal ; Translations: [Encounter for supervision of other normal , unspecified trimester] Onset: 07-27-2006 Resolved: 02-24-2012 02-24-2012 Episodic Residual codes; unclassified (20 sources) History of endometrial ablation; Translations: [Other specified postprocedural states] Onset: 02-24-2012 02-24-2012 Episodic Unclassified (20 sources) Abortions/Miscarriage s; Translations: [Abortions/Miscarriag es] 05-13-2018 Comment on above: 1 Unclassified (20 sources) Deliveries (Parity); Translations: [Deliveries (Parity)] 05-13-2018 Comment on above: 2 Unclassified (20 sources) CYSTITIS, NOS (595.9) Unclassified (20 sources) dysparenia Unclassified (20 sources) Pregnancies (); Translations: [Pregnancies ()] 05-13-2018 Comment on above: 3 Unclassified (20 sources) Poison kristina (692.6) Unclassified (20 sources) BMI 33.0-33.9,adult Unclassified (20 sources) Unspecified Diagnosis Resolved: 03-15-2015 03-15-2015 Unclassified (20 sources) Atypical Nevus(238.2) Unclassified (20 sources) BMI 34.0-34.9,adult Unclassified (18 sources) Positive MATTHEW (antinuclear antibody) Unclassified (20 sources) BMI 36.0-36.9,adult Unclassified (10 sources) Screening status; Translations: [Screening for lipid disorders] 02-13-2020 Unclassified (20 sources) Exposure to SARS virus Unclassified (12 sources) SARS-associated coronavirus infection Unclassified (3 sources) History of COVID-19 Results Test Name Value Interpretation Reference Range Facility [facility] 10-24-2024 CNOV Office Visit (OBGYWM ) -- VANDANAPACO ([id number]) 1975 F Date Time Provider Department 10/24/24 1:40 PM JUAN FRANCISCO MELVIN OBGYWM During your visit today, we recorded the following information about you: Blood pressure Weight Height 126/74 86.2 kg 1.588 m Juan Francisco Melvin MD 10/24/2024 1:56 PM Signed Paco is a 49 year old who presents for an annual gynecologic exam without complaints. some hot flahses, not that bothersome Age at Menarche: 9 Still get period: No LMP: n/a Menses: no menses- ablation Menstrual flow: N/A Bleeding amount bothersome: N/A Bleeding between periods: N/A Period symptoms: N/A Sexually active: Yes Contraception: Vasectomy Contraception frequency: Always HPV vaccine: No HPV:negative Last pap smear: 2019 History of abnormal pap: No Colposcopy: No. Leep: No. Cone biopsy: No. Bothersome pelvic pain: No Last mammogram: bnormal, Right follow up scheduled 11/01/2024 Sexually active: Yes OB History Gravida3 Para2 Term2 Preterm0 AB1 Living2 SAB1 IAB0 Ectopic0 Multiple0 Live Births2 Babcock Tester History LMP: 05/05/2016, Ablation Age at Menarche: Age at First : Age at Menopause: Babcock Tester History Comments: Sexual Activity: Yes; Male; ablation Contraception: Vasectomy, Surgical PAST MEDICAL HISTORY Diagnosis Date Acid reflux Binge eating disorder Chronic interstitial cystitis Depression Endometriosis, site unspecified Endometriosis Essential hypertension Obesity MICHELLE on CPAP auto CPAP PMH - PAST MEDICAL HISTORY OF INTERSTITIAL CYSTITIS Snoring Urinary calculus, unspecified Renal stones PAST SURGICAL HISTORY Procedure Laterality Date CATH AND SALINE/CONTRAST SONOHYSTER/HYSTEROSALPI COLONOSCOPY 02/24/2018 COLONOSCOPY FLX DX W/COLLJ SPEC WHEN PFRMD 03/03/2013 Colonoscopy CYSTOURETHROSCOPY Cystoscopy DILATION AND CURETTAGE DXAND/THER NONOBSTETRIC 2000 Dilation AND curettage DILATION AND CURETTAGE DXAND/THER NONOBSTETRIC 2004 Dilation AND curettage EXTRACTION, ERUPTED TOOTH OR EXPOSED ROOT (ELEVATION AND/OR FORCEPS REMOVAL) 1991 LAPS ABD PRTMANDOMENTUM DX W/WO SPEC BR/WA SPX 1996 Laparoscopy LAPS ABD PRTMANDOMENTUM DX W/WO SPEC BR/WA SPX 2005 Laparoscopy,REMOVAL OF ADHESIONS AND ENDOMETRIOSIS ADDISON 2012 THERMAL ENDOMETRIAL ABLATION FAMILY HISTORY Problem Relation Age of Onset Hypertension Mother Arthritis Mother Lipids Mother Obesity Mother Alzheimer's Disease Mother Heart disease Mother a fib Colon Polyps Mother Hypertension Father Obesity Father Heart disease Father Hypertension Sister Stroke Maternal Grandmother Alzheimer's Disease Maternal Grandmother Obesity Maternal Grandmother Colon Cancer Maternal Grandfather 50 Heart Paternal Grandfather CT Obesity Paternal Grandfather No Known Problems Daughter No Known Problems Son Colon Cancer Maternal Uncle 50 SOCIAL HISTORY Social History Tobacco Use Smoking status: Never Smokeless tobacco: Never Vaping Use Vaping status: Never Used Substance Use Topics Alcohol use: Yes Comment: occ Drug use: No REVIEW OF SYSTEMS Abdomen: No abdominal pain, nausea, vomiting, diarrhea, or . Some constipation w/ wt loss meds No bloating, early satiety, indigestion, or increased flatulence. Bladder: No dysuria, gross hematuria, urinary frequency, urinary urgency, or incontinence. Breast: No breast lumps, nipple d/c, overlying skin changes, redness or skin retraction. Allergies and current medication updated:Yes SENSITIVE EXAM: The sensitive examination was discussed with the Patient or Patient's Authorized Mandrel Cleaner. As applicable, any other physician, advance practice provider, medical student, or other health professional student that will be observing or involved in the sensitive examination for educational or training purposes was discussed with the Patient or Authorized Mandrel Cleaner. The Patient or Authorized Mandrel Cleaner has agreed to proceed with the sensitive examination. (Sensitive examination includes inspection and/or palpation of the breasts, pelvis, prostate and anorectal regions). EXAM: BP 126/74 Ht 5' 2.5 (1.59m) Wt 190 lb (86.2kg) LMP 05/05/2016 BMI 34.18 kg/(m2). GENERAL: pleasant, female in no apparent distress HEENT: Normocephalic, atraumatic, mucus membranes moist, and no lesions NECK: Supple, full range of motion, no adenopathy, and thyroid normal DERMATOLOGY: Normal, without lesions, non-icteric, and non-hirsute BREAST: soft, non-tender, symmetric, no dominant mass, normal nipple-areolar complex, no lymphadenopathy, and no nipple discharge CHEST: Normal inspiratory effort ABDOMEN: soft, non-tender, and no masses PELVIC: external genitalia normal, normal Bartholin's glands, urethra, Amery's glands, no vulvar lesions, no cervical lesions, good (more content not included)... Normal [facility] CNOVon 09-16-2024 CNOV Office Visit (OBGYWM ) -- PACO ROSS ([id number]) 1975 F Date Time Provider Department 09/16/24 7:30 AM ANA MONROY During your visit today, we recorded the following information about you: Pulse Blood pressure Weight 80/minute 105/72 81.6 kg Ana Monroy APRN.KITCHEN UTILITY ASSOCIATE 09/16/2024 8:20 AM Addendum Shira protein bars - 28 gm protein IQ bars - 12 gm LC wraps - Whole food balanced protein, controlled carbohydrate nutrition plan - 30 g of protein 3 times a day and up to 30 g of carbs at lunch and dinner only. 1st meal of the day- 30g protein with limit of 2 gm carbohydrates. Premier Protein or generic 30 gm protein 1 gm sugar 2-3 eggs and some unbreaded meat and/or cheese. 2-3 eggs and 1/2 of protein shake or one of the yogurts below: :ratio, KETO Friendly Dairy Snack 1 single svg - 15g protein AND 2g carb Two Good Lowfat Belarusian Yogurt, Archie, Lower Sugar - 12g protein AND 2g carb No fruit, vegetables, bread, grain, yogurt, Smoothies, etc. Lunch and dinner - 30 gm protein is the goal with less than 30 gm carbohydrates Snacks - all protein or more protein than carbs Protein - no carbs Egg 1 large - 6g Egg white 1 large 3.6g 3 oz is approximately the size of a deck of cards and equals 21 g protein so 4 oz is 28 gm protein Beef, Chicken, Franklin, Pork, Sultana 1 oz 7g Fish, Tuna Fish 1 oz 7g (Starkist tuna packet 2.6 oz 17 gm protein) Seafood (Crabmeat, Shrimp, Lobster) 1 oz 6g Protein shakes (read labels) Premier Protein or generic [employer] Equate, Meijer High Performance- 30g protein AND 1g carb - meal replacement Premier Protein powder or generic- 30 g protein, 1g carb Fairlife 30 gram protein - 30g protein AND 3g carb BOOST Glucose Control Max 30g Protein Nutritional Drink - 30g protein AND 1 carb - meal replacement Slimfast High Protein - 20g protein AND 1g carb Ensure Max Protein Nutrition Shake 30g protein AND 2 carb OWYN plant based 100 % vegan no dairy, soy, wheat/gluten 32g protein 0 net carb (not a meal replacement) Premier Protein plant protein powder - 25g protein, 0 sugar/2g carb Vanilla and chocolate (not a meal replacement) Protein AND carbs Beef/Franklin Jerky 1 oz dried 10-15g protein - check carb count, can be high if sugar added Slim Suman - 6 gm protein and 4 net carb Great Value original turkey sausage sticks - 7 gm protein and 2 gm carb Reji (at [facility]) Original smoked sausage sticks - 8 gm protein and 0 carb Imitation Crab Meat 1 oz - 2g protein AND 4g carb Milk, skim 2% or 1% 8 oz - 8g protein AND 12g carb Fairlife 2% milk 8 oz -13g protein AND 6g car Bel[place]ian yogurt Full Fat Bel[place]ian Yogurt 1 cup - 20.4g protein AND 9.1g carb 2% Belarusian Yogurt 1 cup - 22.7g protein AND 9.1g carb 0% (fat-free) Belarusian Yogurt - 1 cup 24g protein AND 9.3g carb Aldi Protein Belarusian yogurt single svg - 13/g15g protein AND 7g carb Chobani Zero Sugar single svg: - 12g protein AND 5g carb Dannon Belarusian Light + Fit 1 single svg - 12g protein AND 9g carb Oikos Pro single svg - 20g protein AND 8g carb Oikos Triple Zero Bel[place]ian Nonfat Yogurt 1 single svg - 15g protein AND 7g carb :ratio, KETO Friendly Dairy Snack 1 single svg - 15g protein AND 2g carb :ratio Protein 1 single svg - 25g protein AND 8g carb Two Good Lowfat Bel[place]ian Yogurt, Archie, Lower Sugar - 12g protein AND 2g carb Yoplait Protein 1 single svg 15g protein AND 5g carb Dairy Free - [place] unsweetened Belarusian almond/soy 15g protein AND 3g carb Dairy Free - True Goodness by [facility] coconut-based yogurt alternative 1 g protein 1 g net carb 180 tyrese Drinkable yogurts: Chobani drinkable 15g, 20g and 30g protein AND 18 carb (too many carbs for breakfast) Chobani Zero Sugar 10g protein 6g carbs 50 calories Oikos Pro drinkable yogurt 1 single svg - 23g protein AND 8g carb :ratio Protein 26g protein 9g carb Cheese each oz Brie 5.9g protein AND 0.1g carb Cheddar 7g protein AND 0.4g carb Tristian 6.7g protein AND 0.7g carb Cream Cheese 1.7g protein AND 1.2g carb [employer] whipped Belarusian cream cheese (WM) 2 T 3g protein 2g carb Feta 4g protein AND 1.2g carb Mozzarella 6.3g protein AND 0.6g carb Parmesan 10g protein AND 0.9g carb Kyrgyz 7.6g protein AND 1.5g carb Cottage Cheese 1/2 c Breakstone 2% 13g protein 7g carb Glenis 2% 13g protein 5 g carb Good Culture 2% 14g protein 3g carb Harris?s Low Fat 12g protein AND 4g carb Legumes Lentils ? cup 9g protein AND 20g carb Mcnair beans ? cup 7g protein AND 20g carb Kidney, Black, Likely, Cannellini beans ? cup 8g protein AND 20g carb Chickpeas 1/2 c 6g protein AND 15g carb Soybeans 1/2 c 14g complete protein AND 8.5g carb Montgomery milk, unsweetened 8 oz 1g protein AND 2g carb Soy milk 8 oz 3.5g protein AND 1.6g carb Tofu 1/2 cup 10g protein AND 2.3g carb Peanut butter, natural 2 Tbsp 7-8g prote (more content not included)... Normal [facility] Anion gap in Serum or Plasma Ordered By: Alva Sims on 09-13-2024 Anion gap [Moles/Vol] 11 mmol/L - [facility] BUN/creatinine ratioOrdered By: Alva Sims on 09-13-2024 Urea nitrogen/Creatinine [Mass ratio] 22.1 mg/mg High - [facility] Basic Metabolic Profile (BMP )on 09-13-2024 BUN/CRE 22.1 RATIO High 02-27 [facility] Comment on above: Performed By: #### L 500.2500 #### [facility] [address] [place], [address] Calcium [Mass/Vol] 10.0 mg/dL Normal 7.6-11.0 [facility] Comment on above: Performed By: #### L 500.2500 #### [facility] [address] [place], [address] Chloride [Moles/Vol] 103 mmol/L Normal 98-108 [facility] Comment on above: Performed By: #### L 500.2500 #### [facility] [address] [place], [address] CO2 [Moles/Vol] 25.6 mmol/L Normal 21.0-32.0 [facility] Comment on above: Performed By: #### L 500.2500 #### [facility] [address] [place], [address] Creatinine [Mass/Vol] 0.84 mg/dL Normal 0.70-1.20 [facility] Comment on above: Performed By: #### L 500.2500 #### [facility] [address] [place], [address] GAP 11 Normal 5-15 [facility] Comment on above: Performed By: #### L 500.2500 #### [facility] [address] [place], [address] GFR/1.73 sq M.predicted among non-blacks MDRD (S/P/Bld) [Vol rate/Area] 85 mL/min/{1.73_m2} Normal >60 [facility] Comment on above: Result Comment: mL/m in/1.73m2 CKD-EPI Creatinine Equation (2020) Performed By: #### L 500.2500 #### [facility] [address] [place], [address] Glucose [Mass/Vol] 86 mg/dL Normal 70-99 [facility] Comment on above: Performed By: #### L 500.2500 #### [facility] [address] [place], [address] Potassium [Moles/Vol] 4.4 mmol/L Normal 3.3-5.1 [facility] Comment on above: Performed By: #### L 500.2500 #### [facility] [address] [place], [place], [id number] Sodium [Moles/Vol] 139 mmol/L Normal 133-145 [facility] Comment on above: Performed By: #### L 500.2500 #### [facility] [address] [place], [place], [id number] Urea nitrogen [Mass/Vol] 19 mg/dL Normal 4-19 [facility] Comment on above: Performed By: #### L 500.2500 #### [facility] [address] [place], [place], [id number] Carbon dioxide, total [Moles /volume] in Central venous bloodOrdered By: Alva Sims on 09-13-2024 CO2 [Moles/Vol] 25.6 mmol/L 21.0-32.0 [facility] Chloride assayOrdered By: Asim Sims on 09-13-2024 Chloride [Moles/Vol] 103 mmol/L 98-108 [facility] Glomerular filtration rate ( GFR) estimation/1.73 sq m using serum, plasma, or whole bOrdered By: Alva Sims on 09-13-2024 GFR/1.73 sq M.predicted among non-blacks MDRD (S/P/Bld) [Vol rate/Area] 85 mL/min/{1.73_m2} >60 [facility] Comment on above: mL/min/1.73m2 CKD-EP I Creatinine Equation (2020) Potassium measurement (mass/ volume)Ordered By: Alva Sims on 09-13-2024 Potassium (Unsp spec) [Mass/Vol] 4.4 mmol/L 3.3-5.1 [facility] Serum creatinine measurement (mass/volume)Ordered By: Alva Sims on 09-13-2024 Creatinine [Mass/Vol] 0.84 mg/dL 0.70-1.20 [facility] Serum glucose measurement (m ass/volume)Ordered By: Alva Sims on 09-13-2024 Glucose [Mass/Vol] 86 mg/dL 70-99 [facility] Serum or plasma calcium jay jay urement (mass/volume)Ordered By: Alva Sims on 09-13-2024 Calcium [Mass/Vol] 10.0 mg/dL 7.6-11.0 [facility] Serum or plasma urea nitroge n measurement (mass/volume)Ordered By: Alva Sims on 09-13-2024 Urea nitrogen [Mass/Vol] 19 mg/dL 4-19 [facility] Sodium levelOrdered By: Ginny Sims on 09-13-2024 Sodium [Moles/Vol] 139 mmol/L 133-145 [facility] Gastroenterology Visit Repor ton 09-08-2024 Gastroenterology Visit Report [facility] [address] [place] [address] OFFICE VISIT Date of Service: 09/08/24 MR#: [id number] Acct: [id number] Name: PACO ROSS Rep #: [id number] : 1975 Provider: IMAN ayala Age/Sex: 49/F [place] [facility] [place] Status: Signed Intake Vital Signs 03/18/23 06:19 Height 5 ft 3 in Intake Visit Reasons: Acid reflux Chief Complaint: f/u Tier In Required: No Accompanied by: Self Is patient in pain?: No Allergies adhesive tape (paper tape) Allergy (Verified 09/08/24 08:15) Rash morphine Adverse Reaction (Verified 09/08/24 08:15) Nausea/Vom Medications ???Medication ???Instructions ???Recorded ???Confirmed ???Type desmopressin 0.2 mg tablet 0.4 mg PO QHS 12/31/22 09/08/24 Hi story multivitamin (Daily Multi-Vitamin 1 tab PO DAILY 12/31/22 09/08/24 History tablet) phentermine 15 mg disintegrating 15 mg PO QDAY 12/31/22 09/08/24 Hi story tablet topiramate 25 mg sprinkle capsule 25 mg PO BID 12/31/22 09/08/24 Hi story bupropion HCl 300 mg 24 hr tablet, 300 mg PO QAM 09/08/24 09/08/24 History extended release cholecalciferol (vitamin D3) 125 125 mcg PO QDAY 09/08/24 09/08/24 History mcg (5,000 unit) capsule cranberry 500 mg capsule 500 mg PO BID 09/08/24 09/08/24 Hi story docusate sodium 100 mg capsule 200 mg PO QHS 09/08/24 09/08/24 Hi story (Colace) famotidine 40 mg tablet 40 mg PO QHS #30 tabs 09/08/2406/04 Rx fesoterodine 4 mg tablet,extended 4 mg PO QAM 09/08/24 09/08/24 His tory release 24 hr metformin 500 mg tablet,extended 500 mg PO BID 09/08/24 09/08/24 Hi story release 24 hr pantoprazole 40 mg tablet,delayed 40 mg PO BID #60 tabs 09/08/24 Rx release Nurse's Note: GI Est 09.08.24 for concerns related to acid reflux. Takes pantoprazole 40 mg qday started recently. Had taken Omeprazole for years that had become ineffective. Reports dx with ulcer like condition since 9 year old. Started having burning sensation of throat and esophagus and cough. Acid reflux worse in summer such as with bending of frequently in flower bed. Denies hx of EGD. COUNT INCLUDES THE [facility] Medical History Anxiety Anesthesia complication Status post hysteroscopy GERD (gastroesophageal reflux disease) Kidney stones IBS (irritable bowel syndrome) Hypercholesterolemia Hypertension Gastrointestinal problem Frequent UTI Arthritis Surgical History S/P endometrial ablation S/P dilation and curettage S/P laparoscopic appendectomy S/P wisdom tooth extraction Family History Mother Anemia Anesthesia complication Anxiety Arthritis Depression Hypertension Hypercholesterolemia Osteoporosis Grandmother Anemia Arthritis Hypertension Sister Anxiety Daughter Anxiety Father Arthritis Hypertension Hypercholesterolemia Grandfather Arthritis Colon cancer Myocardial infarction, Onset Age: 53 CVA (cerebral vascular accident) Social History Smoking Status: Never smoker second hand exposure: Yes alcohol intake: current alcohol intake frequency: a few times a week Alcohol type: wine and hard liquor substance use type: does not use what type of physical activity do you participate in: walking frequency: 3-4 times per week HPI HPI Chief Complaint: f/u Details: PACO ROSS, is a 49 F who presents to the office today for establishment with [facility] for chronic concerns of heartburn. She had been on omeprazole for years but was weaning herself off of this medication d/t strong family traits for dementia. PCP recently placed her pantoprazole 40mg daily and she has been taking this for 2 wks. She reports frequent use of Tums throughout the day, worsening heartburn at HS, and waking up nauseous several times a wk. She reports a frequent cough and major throat burning from behind her tongue to the top of her stomach, history of IBS w/bloating, cramping, and occasional diarrhea. She states that when she's gardening, or leaning forward, she notices an increase in symptoms. She denies difficulty chewing and swallowing, throat clearing, sinus drainage, reflux, vomiting, abdominal pain, constipation, hematochezia, and melena. She denies food sensitivities or allergies. She states that she eats no later than 7p and stays up until 10:30p. ROS Const Constitutional: No chills, fatigue, fever(s), frequent falls, headache(s), weakness or weight change Eyes Eyes: No blurry vision or change in vision ENT ENT: No abnormal hearing, headache(s) or difficulty swallowing Resp Respiratory: Positive for cough Cardio Cardiolog (more content not included)... Normal [facility] BD DXA - AXIAL SKELETONon BD DXA - AXIAL SKELETON * * *Final Report* * * DATE OF EXAM: Sep 01 2024 8:42AM [facility] 0804 - BD DXA - AXIAL SKELETON B / PROCEDURE REASON: Z78.0 * * * * Physician Interpretation * * * * EXAMINATION: DXA BONE DENSITOMETRY BD DXA - AXIAL SKELETON PATIENT DEMOGRAPHICS: Age: 49 years, Gender: Female SCANNER INFORMATION: DXA Model: [facility] [place] [facility] [id number] Date Scanned: 09/01/2024 8:42 AM CLINICAL HISTORY: SCREENING Z78.0. RISK FACTORS FOR OSTEOPOROSIS AND ASSOCIATED FRACTURES REPORTED BY THIS PATIENT: Please refer to Bone Health Questionnaire in the EMR CURRENT THERAPY: Please refer to Bone Health Questionnaire in the EMR TECHNICAL LIMITATIONS: RESULTS: Lumbar spine (L1, L2, L3, L4): 0.949 g/cm2, T-score -0.9 , Z-score -0.1 Left Femoral Neck: 0.822 g/cm2, T-score -0.2 , Z-score 0.5 Left Total Hip: 1.014 g/cm2, T-score 0.6 , Z-score 1.1 No comparison data - the patient has not had a previous bone density in the [facility] or the previous bone density was performed on a different DXA machine (new, updated model or different location) within the [facility]. VERTEBRAL FRACTURE ASSESSMENT Not performed. TRABECULAR BONE ASSESSMENT TBS not performed: IMPRESSION: THE LOWEST T-SCORE IS -0.9 IN THE SPINE 1) DIAGNOSIS (based on BMD alone): NORMAL BONE DENSITY Caution: Medical conditions other than osteoporosis may cause low bone density, such as osteomalacia or renal osteodystrophy. Clinical correlation is necessary. 2) FRACTURE RISK (based on FRAX): 10-year absolute fracture risk: - major osteoporotic fracture = 3.5 % - hip fracture = 0.1 % - A diagnosis of Osteoporosis, a 10 year probability of hip fracture greater than or equal to 3% or a 10 year probability of any major osteoporosis-related fracture greater than or equal to 20% should be considered for treatment. - DXA scanner generated FRAX calculations may slightly differ from online FRAX calculations due to differences in software versions. - All recommendations and calculations are to be considered as guidelines and should not replace sound clinical judgement - Caution: Fracture risk may be increased independent of BMD in patients with corticosteroid use, age greater than 65 years, or a history of prior fragility fracture. RECOMMENDATIONS: Follow-up in 2 years or as clinically indicated. Patients that are taking corticosteroids, are transplant recipients or have hyperparathyroidism should have annual follow-up. Follow-up scans should always be done on the same machine for accurate comparison. FOR MORE INFORMATION ABOUT DIAGNOSIS AND TREATMENT: [facility]:? www.ccf.org/arthritis/oste o National Osteoporosis Foundation:? www.nof.org International Society of Clinical Densitometry www.iscd.org Tree Puller: JOE Transcribe Date/Time: Sep 01 2024 8:45A Dictated by : STEPHANIE ESTEBAN MD This examination was interpreted and the report reviewed and electronically signed by: STEPHANIE ESTEBAN MD on Sep 01 2024 8:47AM EST [id number] Normal [facility] JON SCREENING W TOMOon 09-01 JON SCREENING W ANH * * *Final Report* * * DATE OF EXAM: Sep 01 2024 8:53AM [facility] [id number] - JON SCREENING W ANH / PROCEDURE REASON: screening * * * * Physician Interpretation * * * * RESULT: [place] [address] #[id number] - JON SCREENING W ANH HISTORY: 49 year-old patient seen for screening. Patient is asymptomatic in both breasts. Patient states no personal history of breast cancer. COMPARISON STUDIES: The present examination has been compared to prior imaging studies dated 11/03/2018 (mammogram), 01/12/2020 (mammogram), 01/17/2021 (mammogram), 01/23/2022 (mammogram) and 02/04/2023 (mammogram). MAMMOGRAM TECHNIQUE: The study was acquired using full field digital technology and interpreted from soft copy. Digital Breast Tomosynthesis (DBT) images were obtained and used to assist in the interpretation of this examination. MAMMOGRAM FINDINGS: The breasts are almost entirely fatty. There are calcifications in the right breast at 9 o'clock, middle depth. No suspicious masses, calcifications or other abnormalities are seen in the left breast. IMPRESSION: Calcifications in the right breast at 9 o'clock, middle depth require additional evaluation. Diagnostic mammogram is recommended. BI-RADS Category 0: Incomplete: Needs Additional Imaging Evaluation RISK: Based on the Tyrer-Cuzick (TC) risk assessment model, this patient has a 5.1% lifetime risk of developing breast cancer, meaning they are at average risk for developing breast cancer. However, this is only an estimate based on available history provided on the patient's questionnaire. We encourage all patients to talk with their providers about these results, further recommendations for managing breast health, and appropriate supplemental screening options if the patient has dense breast tissue. Interpreting Radiologist: Jose Fountain M.D. Electronically signed on: 09/02/2024 Tree Puller: CLARI Transcribe Date/Time: Sep 01 2024 8:43A Dictated by: JOSE FOUNTAIN MD This examination was interpreted and the report reviewed and electronically signed by: JOSE FOUNTAIN MD on Sep 02 2024 7:25AM EST [id number] [facility] CNOVon 06-24-2024 CNOV Office Visit (OBGYWM ) -- VANDANAPACO Kobi ([id number]) 1975 F Date Time Provider Department 06/24/24 11:30 AM ANA MONROY During your visit today, we recorded the following information about you: Pulse Blood pressure Weight 81/minute 120/84 79.8 kg Ana Monroy APRN.K[employer]ILITY [employer]OCIATE 06/24/2024 12:36 PM Signed Documentation from previous visit of 03/24/2024 was copied and pasted, documentation has been reviewed and edited as necessary for today's visit. Patient Summary: Paco is a 49 year old Female who presents for follow-up evaluation of obesity/weight management to treat MICHELLE, BED, HTN,GERD and prevent co-morbidities. In our previous visits we have discussed lifestyle intervention including a nutrition recommendations and physical activity optimization. Her last office visit was 3 months ago. Assessment/plan from last visit: - Topiramate 50 mg 1000 and 1700 - no BED episodes - Phentermine 15 mg 1000 - Metformin 1 gm with lunch and dinner - Bupropion 300 mg 24/hr Antihypertensive DC'd by PCP mild MICHELLE - auto CPAP. CPAP was optional and she sometimes does not use. Interval History constipation improved with Clementina-colace and colace-and the oil in her belly button which fully manages Diet recall 0800 - 1130 coffee with SF creamer B - 30 gm protein shake, drinks a lot of water S - none L - 1200 Adkin's bar if home - 23 g [place] drinkable yogurt or 1 cup cottage cheese with fruit or salad with cheese and 1 HB egg and sometimes grilled chicken. S - HB eggs or deer bologna D - 5-7 pm 4 oz protein, unbreaded and grilled, varying vegetables, water S - rare- veg or deer bologna or nuts Fluids - coffee and water Exercise: 5-7,000 steps/daily Stress: stable Sleep: stable 7 hours on auto CPAP - more rested Weight loss since last vist: 2 lbs for total of 69 lbs Date: Weight: BMI: Medications: 06/24/2024 176 lb 30.69 03/24/2024 178 lb 31.04 12/24/2023 181 lb 31.56 09/24/2023 192 lb 33.48 topiramate 50 mg 06/17/2023 195 lb 33.84 03/26/2023 205 lb 35.43 WC 45 in 02/06/2023 211 lb 36.57 long-term phentermine 01/02/2023 217 lb 12/05/2022 226 lb 11/07/2022 233 lb Metformin 10/10/2022 239 lb Topiramate/phentermine 09/26/2022 245 lb 42.36 WC 50 in [place] body weight: 119 lb 7.6 oz (54.2 kg) Adjusted ideal body weight: 153 lb 11 oz (69.7 kg) Current contraception: vasectomy Phentermine Start date: ?10/10/2022 Start weight: ?239 lbs. Dose: 15mg capsule -- Patient reports suppression of her appetite and increase in satiety since starting -- Patient reports SE of constipation Topiramate Start date: ?10/10/2022 Start weight: ?239 lbs. Dose:25 mg, increased to bid 10/27/2022 -- Patient reports some suppression of her appetite and some increase in satiety since -- Patient reports no side effects after starting topiramate Metformin Start date: ?11/07/2022 Start weight: ?233 lbs. Dose:1.5 gm at dinner - increased to 1 gm twice a day -- Patient reports suppression of appetite and increase in satiety since starting -- Patient reports no side effects after starting metformin CrCl cannot be calculated (Patient's most recent lab result is older than the maximum 180 days allowed.). PAST MEDICAL HISTORY Diagnosis Date Acid reflux Binge eating disorder Chronic interstitial cystitis Depression Endometriosis, site unspecified Endometriosis Essential hypertension Obesity MICHELLE on CPAP auto CPAP PMH - PAST MEDICAL HISTORY OF INTERSTITIAL CYSTITIS Snoring Urinary calculus, unspecified Renal stones Current Outpatient Medications Medication Sig Dispense Refill topiramate (TOPAMAX) 50 mg tablet Take 1 tablet by mouth two times a day. 180 tablet 1 metFORMIN ER (GLUCOPHAGE XR) 500 mg 24 hr tablet Take 2 tablets by mouth two times a day with meals. 360 tablet 1 senna-docusate (SENNA-S) 8.6-50 mg per tablet Take 1 tablet by mouth once daily. buPROPion XL (WELLBUTRIN XL) 150 mg 24 hr tablet biotin 1 mg cap Take by mouth once daily. desmopressin acetate (DDAVP) 0.2 mg tablet Take 0.1 mg by mouth daily at bedtime. 2 tabs GEMTESA 75 mg tablet Take 75 mg by mouth once daily. omeprazole (PRILOSEC) 20 mg capsule Take by mouth q 24 HR. cholecalciferol, vitamin D3, (VITAMIN D3 ORAL) Take by mouth once daily. multivitamins(DAILY MULTIPLE TAB) Take one(1) tablet daily. 0 No current facility-administered medications for this visit. Current contraception: vasectomy ROS pertinent Chest pain: yes, occasional palpitations HTN: yes well-controlled with medication GI: GERD:yes well-controlled with PPI MSK: Joint Pain:yes, knees : Nephrolithiasis: yes - once age 13 BP 120/84 Pulse 81 Wt 79.8 kg (176 lb) LMP 05/05/2016 SpO2 99% BMI 30.69 kg/m? Paco Ross is a 49 year old yo with Class III obesity who presented today for follow up for supervised jing (more content not included)... [facility] CNOVon 03-24-2024 CNOV Office Visit (OBGYWM ) -- PACO ROSS ([id number]) 1975 F Date Time Provider Department 03/24/24 10:30 AM ANA MONROY During your visit today, we recorded the following information about you: Pulse Blood pressure Weight 81/minute 120/74 80.7 kg Ana Monroy APRN.CNP 03/24/2024 7:55 PM Signed Documentation from previous visit of 12/24/2023 was copied and pasted, documentation has been reviewed and edited as necessary for today's visit. Patient Summary: Paco is a 48 year old Female who presents for follow-up evaluation of obesity/weight management to treat MICHELLE, BED, HTN,GERD and prevent co-morbidities. In our previous visits we have discussed lifestyle intervention including a nutrition recommendations and physical activity optimization. Her last office visit was 3 months ago. Assessment/plan from last visit: - Topiramate 50 mg 1000 and 1700 - no BED episodes - Phentermine 15 mg 1000 - Metformin 1 gm with lunch and dinner - Bupropion 150 24/hr Antihypertensive DC'd by PCP mild MICHELLE - auto CPAP Interval History constipation improved with Clementina-colace and colace- 2 apricot seeds a day and the oil in her belly button Diet recall 0800 - 1130 coffee with SF creamer B - 30 gm protein shake, drinks a lot of water S - none L - 1200 protein shake or Adkin's bar if home - 1 tuna pouch or [place] yogurt or 1 cup cottage cheese with fruit or salad with cheese and 1 HB egg and sometimes grilled chicken. S - HB eggs or deer bologna D - 6-8 pm 4 oz protein, unbreaded and grilled, varying vegetables, water S - rare- veg or deer bologna or nuts Fluids - coffee and water Exercise: 5-7,000 steps/daily Stress: stable Sleep: stable 7 hours on auto CPAP - more rested Weight loss since last vist: 3 lbs for total of 67 lbs Date: Weight: BMI: Medications: 03/24/2024 178 lb 31.04 12/24/2023 181 lb 31.56 09/24/2023 192 lb 33.48 topiramate 50 mg 06/17/2023 195 lb 33.84 03/26/2023 205 lb 35.43 WC 45 in 02/06/2023 211 lb 36.57 long-term phentermine 01/02/2023 217 lb 12/05/2022 226 lb 11/07/2022 233 lb Metformin 10/10/2022 239 lb Topiramate/phentermine 09/26/2022 245 lb 42.36 WC 50 in [place] body weight: 119 lb 7.6 oz (54.2 kg) Adjusted ideal body weight: 153 lb 11 oz (69.7 kg) Current contraception: vasectomy Phentermine Start date: ?10/10/2022 Start weight: ?239 lbs. Dose: 15mg capsule -- Patient reports suppression of her appetite and increase in satiety since starting -- Patient reports SE of constipation Topiramate Start date: ?10/10/2022 Start weight: ?239 lbs. Dose:25 mg, increased to bid 10/27/2022 -- Patient reports some suppression of her appetite and some increase in satiety since -- Patient reports no side effects after starting topiramate Metformin Start date: ?11/07/2022 Start weight: ?233 lbs. Dose:1.5 gm at dinner - increased to 1 gm twice a day -- Patient reports suppression of appetite and increase in satiety since starting -- Patient reports no side effects after starting metformin CrCl cannot be calculated (Patient's most recent lab result is older than the maximum 180 days allowed.). PAST MEDICAL HISTORY Diagnosis Date Acid reflux Binge eating disorder Depression Endometriosis, site unspecified Endometriosis Essential hypertension Obesity MICHELLE on CPAP auto CPAP PMH - PAST MEDICAL HISTORY OF INTERSTITIAL CYSTITIS Snoring Urinary calculus, unspecified Renal stones Current Outpatient Medications Medication Sig Dispense Refill Phentermine HCl 15 mg capsule Take 1 capsule by mouth daily before breakfast for 90 days. 90 capsule 0 topiramate (TOPAMAX) 50 mg tablet Take 1 tablet by mouth two times a day. 180 tablet 1 metFORMIN (GLUCOPHAGE) 1,000 mg tablet Take 1 tablet by mouth two times a day with meals. 180 tablet 1 buPROPion XL (WELLBUTRIN XL) 150 mg 24 hr tablet biotin 1 mg cap Take by mouth once daily. desmopressin acetate (DDAVP) 0.2 mg tablet Take 0.1 mg by mouth daily at bedtime. 2 tabs GEMTESA 75 mg tablet Take 75 mg by mouth once daily. omeprazole (PRILOSEC) 20 mg capsule Take by mouth q 24 HR. cholecalciferol, vitamin D3, (VITAMIN D3 ORAL) Take by mouth once daily. DULoxetine (CYMBALTA) 60 mg capsule Take 60 mg by mouth once daily. (Patient not taking: Reported on 09/24/2023) multivitamins(DAILY MULTIPLE TAB) Take one(1) tablet daily. 0 No current facility-administered medications for this visit. Current contraception: vasectomy ROS pertinent Chest pain: yes, occasional palpitations HTN: yes well-controlled with medication GI: GERD:yes well-controlled with PPI MSK: Joint Pain:yes, knees : Nephrolithiasis: yes - once age 13 BP 120/74 Pulse 81 Wt 80.7 kg (178 lb) LMP 05/05/2016 SpO2 99% BMI 31.04 kg/m? Paco Ross is a 48 year old yo with Class III obesity who presented t (more content not included)... [facility] [id number] 01-08-2024 [id number] HNO ID: [id number] Author: KATY URIBE RN Service: ? Author Type: Registered Nurse Type: [id number] Filed: 01/08/2024 09:36 Note Text: The patient received a copy of Colonoscopy discharge instructions that contain information for how to contact the physician who performed the procedure and when to seek medical care. [facility]oscopy[facility]-08-20[facility] Patient Name: Paco Ross Procedure Date: 01/08/2024 8:50 AM Date of : 1975 Admit Type: Outpatient Age: 48 Gender: Female Note Status: Finalized Procedure: Colonoscopy - screening Indications: High risk colon cancer surveillance: Personal history of colonic polyps Providers: Amparo Vera MD Patient Profile: Refer to note in patient chart for documentation of history and physical. Last Colonoscopy: 2018. Referring Physician: Amparo Vera MD (Referring MD), Pascual Mccall (Referring MD) Medicines: Midazolam 5 mg IV, Fentanyl 100 micrograms IV, Diphenhydramine 50 mg IV, Ondansetron 4 mg IV Complications: No immediate complications. Requesting Provider: Procedure: Pre-Anesthesia Assessment: - Prior to the procedure, a History and Physical was performed, and patient medications and allergies were reviewed. The patient is competent. The risks and benefits of the procedure and the sedation options and risks were discussed with the patient. All questions were answered and informed consent was obtained. Patient identification and proposed procedure were verified by the physician in the pre-procedure area. Mental Status Examination: alert and oriented. Airway Examination: normal oropharyngeal airway and neck mobility. Respiratory Examination: clear to auscultation. CV Examination: normal. Prophylactic Antibiotics: The patient does not require prophylactic antibiotics. Prior Anticoagulants: The patient has taken no anticoagulant or antiplatelet agents. ASA Grade Assessment: III - A patient with severe systemic disease. After reviewing the risks and benefits, the patient was deemed in satisfactory condition to undergo the procedure. The anesthesia plan was to use moderate sedation / analgesia (conscious sedation). Immediately prior to administration of medications, the patient was re-assessed for adequacy to receive sedatives. The heart rate, respiratory rate, oxygen saturations, blood pressure, adequacy of pulmonary ventilation, and response to care were monitored throughout the procedure. The physical status of the patient was re-assessed after the procedure. After I obtained informed consent, the scope was passed under direct vision. Throughout the procedure, the patient's blood pressure, pulse, and oxygen saturations were monitored continuously. The Colonoscope was introduced through the anus and advanced to the cecum, identified by the appendiceal orifice, ileocecal valve and palpation. The colonoscopy was performed without difficulty. The patient tolerated the procedure well. The quality of the bowel preparation was adequate to identify polyps greater than 5 mm in size. The appendiceal orifice and the rectum were photographed. Moderate Sedation: The administration of moderate sedation was initiated at 08:57 AM. Moderate (conscious) sedation was personally administered by the endoscopist. The following parameters were monitored: oxygen saturation, heart rate, blood pressure, respiratory rate, EKG, adequacy of pulmonary ventilation, and response to care. Total physician intraservice time was 24 minutes. Findings: The perianal and digital rectal examinations were normal. Non-bleeding external and internal hemorrhoids were found. Impression: - Non-bleeding external and internal hemorrhoids. - No specimens collected. Recommendation: - Repeat colonoscopy in 5 years for surveillance (suboptimal colon cleansing preparation). - Return to primary care physician PRN. - Patient has a contact number available for emergencies. The signs and symptoms of potential delayed complications were discussed with the patient. Return to normal activities tomorrow. Written discharge instructions were provided to the patient. - Continue present medications. - Resume previous diet. Procedure Code(s): --- Professional --- 29936, Colonoscopy, flexible; diagnostic, including collection of specimen(s) by brushing or washing, when performed (separate procedure) 98643, 59, Moderate sedation services provided by the same physician or other qualified health healthcare receptionist performing the diagnostic or therapeutic service that the sedation supports, requiring the presence of an independent trained observer to assist in the monitoring of the patient's level of consciousness and physiological status; initial 15 minutes of intraservice time, patient age 5 years or older [address], Moderate sedation; each additional 15 minutes intraservice time Diagnosis Code(s): --- Professional --- K64.8, Other hemorrhoids Z86.010, Personal history of colonic polyps Z12.11, Encounter for screening for malignant neoplasm of colon CPT copyright 2020 [employer]. All rights reserved. The codes documented in this report are preliminary and upon assembler for puller over hand review may be revised (more content not included)... [facility] Colonoscopy Study observatio non 01-08-2024 [facility] Gastrointestinal Endoscopy Patient Name: Paco Ross Procedure Date: 01/08/2024 8:50 AM Date of : 1975 Admit Type: Outpatient Age: 48 Gender: Female Note Status: Finalized Procedure: Colonoscopy - screening Indications: High risk colon cancer surveillance: Personal history of colonic polyps Providers: Amparo Vera MD Patient Profile: Refer to note in patient chart for documentation of history and physical. Last Colonoscopy: 2017. Referring Physician: Amparo Vera MD (Referring MD), Pascual Mccall (Referring ) Medicines: Midazolam 5 mg IV, Fentanyl 100 micrograms IV, Diphenhydramine 50 mg IV, Ondansetron 4 mg IV Complications: No immediate complications. Requesting Provider: Procedure: Pre-Anesthesia Assessment: - Prior to the procedure, a History and Physical was performed, and patient medications and allergies were reviewed. The patient is competent. The risks and benefits of the procedure and the sedation options and risks were discussed with the patient. All questions were answered and informed consent was obtained. Patient identification and proposed procedure were verified by the physician in the pre-procedure area. Mental Status Examination: alert and oriented. Airway Examination: normal oropharyngeal airway and neck mobility. Respiratory Examination: clear to auscultation. CV Examination: normal. Prophylactic Antibiotics: The patient does not require prophylactic antibiotics. Prior Anticoagulants: The patient has taken no anticoagulant or antiplatelet agents. ASA Grade Assessment: III - A patient with severe systemic disease. After reviewing the risks and benefits, the patient was deemed in satisfactory condition to undergo the procedure. The anesthesia plan was to use moderate sedation / analgesia (conscious sedation). Immediately prior to administration of medications, the patient was re-assessed for adequacy to receive sedatives. The heart rate, respiratory rate, oxygen saturations, blood pressure, adequacy of pulmonary ventilation, and response to care were monitored throughout the procedure. The physical status of the patient was re-assessed after the procedure. After I obtained informed consent, the scope was passed under direct vision. Throughout the procedure, the patient's blood pressure, pulse, and oxygen saturations were monitored continuously. The Colonoscope was introduced through the anus and advanced to the cecum, identified by the appendiceal orifice, ileocecal valve and palpation. The colonoscopy was performed without difficulty. The patient tolerated the procedure well. The quality of the bowel preparation was adequate to identify polyps greater than 5 mm in size. The appendiceal orifice and the rectum were photographed. Moderate Sedation: The administration of moderate sedation was initiated at 08:57 AM. Moderate (conscious) sedation was personally administered by the endoscopist. The following parameters were monitored: oxygen saturation, heart rate, blood pressure, respiratory rate, EKG, adequacy of pulmonary ventilation, and response to care. Total physician intraservice time was 24 minutes. Findings: The perianal and digital rectal examinations were normal. Non-bleeding external and internal hemorrhoids were found. Impression: - Non-bleeding external and internal hemorrhoids. - No specimens collected. Recommendation: - Repeat colonoscopy in 5 years for surveillance (suboptimal colon cleansing preparation). - Return to primary care physician PRN. - Patient has a contact number available for emergencies. The signs and symptoms of potential (more content not included)... PROVATION [facility] Radiology Study observation (narrative) [facility] HISTORY PHYSICALon HISTORY PHYSICAL HNO ID: [id number] Author: AMPARO VERA MD Service: General Surgery Author Type: Physician Type: H&P Filed: 01/08/2024 08:12 Note Text: HISTORY AND PHYSICAL Paco Ross 1975 REFERRING PHYSICIAN: Pascual Mccall CNP CHIEF COMPLAINT: Consult (colonoscopy) HPI: The patient is a 48 year old female presents for screening for colon cancer via colonoscopy She had a colonoscopy in 2018 with findings of hyperplastic polyp. Her mother had colon polyps. She notes no family history of colon cancer The patient denies blood in stools, denies abdominal pain, and denies changes in bowel habits. Patient's medical issues include hypertension and MICHELLE. BMI is 34. She is an ASA III PAST MEDICAL HISTORY PAST MEDICAL HISTORY Diagnosis Date Acid reflux Binge eating disorder Depression Endometriosis, site unspecified Endometriosis Essential hypertension Obesity MICHELLE on CPAP auto CPAP PMH - PAST MEDICAL HISTORY OF INTERSTITIAL CYSTITIS Snoring Urinary calculus, unspecified Renal stones PAST SURGICAL HISTORY PAST SURGICAL HISTORY Procedure Laterality Date CATH AND SALINE/CONTRAST SONOHYSTER/HYSTEROSALPI COLONOSCOPY 02/24/2018 COLONOSCOPY FLX DX W/COLLJ SPEC WHEN PFRMD 03/03/2013 Colonoscopy CYSTOURETHROSCOPY Cystoscopy DILATION AND CURETTAGE DXAND/THER NONOBSTETRIC 2000 Dilation AND curettage DILATION AND CURETTAGE DXAND/THER NONOBSTETRIC 2004 Dilation AND curettage EXTRACTION, ERUPTED TOOTH OR EXPOSED ROOT (ELEVATION AND/OR FORCEPS REMOVAL) 1991 LAPS ABD PRTMANDOMENTUM DX W/WO SPEC BR/WA SPX 1996 Laparoscopy LAPS ABD PRTMANDOMENTUM DX W/WO SPEC BR/WA SPX 2005 Laparoscopy,REMOVAL OF ADHESIONS AND ENDOMETRIOSIS ADDISON 2011 THERMAL ENDOMETRIAL ABLATION CURRENT MEDICATIONS Current Outpatient Medications Medication Sig buPROPion XL (WELLBUTRIN XL) 150 mg 24 hr tablet Phentermine HCl 15 mg capsule Take 1 capsule by mouth daily before breakfast for 90 days. metFORMIN (GLUCOPHAGE) 1,000 mg tablet Take 1 tablet by mouth two times a day with meals. topiramate (TOPAMAX) 25 mg tablet Take 2 tablets by mouth daily at bedtime. biotin 1 mg cap Take by mouth once daily. desmopressin acetate (DDAVP) 0.2 mg tablet Take 0.1 mg by mouth daily at bedtime. 2 tabs GEMTESA 75 mg tablet Take 75 mg by mouth once daily. omeprazole (PRILOSEC) 20 mg capsule Take by mouth q 24 HR. cholecalciferol, vitamin D3, (VITAMIN D3 ORAL) Take by mouth once daily. DULoxetine (CYMBALTA) 60 mg capsule Take 60 mg by mouth once daily. multivitamins(DAILY MULTIPLE TAB) Take one(1) tablet daily. No current facility-administered medications for this visit. ALLERGIES: Morphine and Tape [Adhesive Tape (Rosins)] PERSONAL HISTORY: SOCIAL HISTORY Social History Tobacco Use Smoking status: Never Smokeless tobacco: Never Vaping Use Vaping Use: Never used Substance Use Topics Alcohol use: Yes Comment: occ Drug use: No FAMILY HISTORY FAMILY HISTORY Problem Relation Age of Onset Hypertension Mother Arthritis Mother Lipids Mother Obesity Mother Alzheimer's Disease Mother Heart disease Mother a fib Colon Polyps Mother Hypertension Father Obesity Father Heart disease Father Hypertension Sister Stroke Maternal Grandmother Alzheimer's Disease Maternal Grandmother Obesity Maternal Grandmother Colon Cancer Maternal Grandfather 50 Heart Paternal Grandfather CT Obesity Paternal Grandfather No Known Problems Daughter No Known Problems Son Colon Cancer Maternal Uncle 50 REVIEW OF SYSTEMS: Denies fevers Denies shortness of breath Denies chest pain PHYSICAL EXAMINATION: General: The patient is 48 year old female, well nourished, well hydrated in no acute distress. The patient is oriented to time, place, and person. VITALS: Blood pressure 114/72, pulse 93, temperature 36.2 ?C (97.2 ?F), height 161.3 cm (5' 3.5), weight 89.3 kg (196 lb 12.8 oz), last menstrual period 05/05/2016, SpO2 100%. Body mass index is 34.31 kg/m?. Head: Normal cephalic, atraumatic Eyes: pupils are equally round, sclera are clear/anicteric Neck is supple with no tracheal deviation Cardiac: normal heart sounds, regular Respiratory: Normal respiratory excursion and pattern. Abdominal exam: benign Extremities: no clubbing, cyanosis or edema. Neuro: non focal Psych: normal mood IMPRESSION: history of colon polyp PLAN: I have discussed the above with the patient. I have offered colonoscopy , possible biopsies I have explained the procedure to the patient. I have counseled the patient as to the risks of the procedure, including but not limited to: infection, bleeding, injury to any intrabdominal organs such as liver/spleen, perforation of the GI tract, inability to complete the procedure, complications of anesthesia, etc. - the patient understands. The patient wishes to proceed. I have answered all questions to the patient?s satisfaction an (more content not included)... Normal [facility] NURSING PROGon 01-08-2024 NURSING PROG HNO ID: [id number] Author: KATY URIBE RN Service: ? Author Type: Registered Nurse Type: Nursing Progress Note Filed: 01/08/2024 09:37 Note Text: pt arrived to phase 2 resting on left side. SR up x 2, call light in reach. Katy Uribe RN [facility] CNOVon 12-24-2023 CNOV Office Visit (OBGYWM ) -- PACO ROSS ([id number]) 1975 F Date Time Provider Department 12/24/23 9:30 AM ANA MONROY During your visit today, we recorded the following information about you: Pulse Blood pressure Weight 76/minute 110/74 82.1 kg Ana Monroy APRN.CNP 12/24/2023 9:59 AM Signed Documentation from previous visit of 09/24/2023 was copied and pasted, documentation has been reviewed and edited as necessary for today's visit. Patient Summary: Paco is a 48 year old Female who presents for follow-up evaluation of obesity/weight management to treat MICHELLE, BED, HTN,GERD and prevent co-morbidities. In our previous visits we have discussed lifestyle intervention including a nutrition recommendations and physical activity optimization. Her last office visit was 3 months ago. Assessment/plan from last visit: Increased stress with care of mother mild MICHELLE - auto CPAP Binge eating, mild- BED was completely controlled with increased dose of Topiramate 50 mg 1000 and 1700 -Phentermine 15 mg 1000 -Metformin 1 gm with lunch and dinner Antihypertensive DC'd by PCP Cymbalta weaned completely last month. -Bupropion 150 24/hr Continues with constipation - 2 apricot seeds a day and the oil in her belly button Vacation - aware of protein, lots of seafood, protein shake in am. Missed a few phentermine doses and was more hungry. Interval History 0800 - 1130 coffee with SF creamer B - skip 3 days a week OR protein shake if not working, drinks a lot of water S - carrots or raw vegetable with her protein shake/Aldi regular yogurt if at work L - 1200 protein shake or Adkin's bar if home - tuna pouch or Belarusian yogurt with fruit or salad with cheese. Has been eating tomato sandwich on wheat bread with guzman with protein. Occasionally eats out. S - HB eggs or deer bologna D - 1900 - 2100 4 oz protein, unbreaded and grilled, varying vegetables, water S - 2/7 days - laughing cow cheese. [place] zero sugar romario lite beer Fluids - coffee and water Exercise: 5-7,000 steps/daily Stress: stable Sleep: stable 7 hours on auto CPAP - more rested Weight loss since last vist: 11 lbs for total of 64 lbs Date: Weight: BMI: Medications: 12/24/2023 181 lb 31.56 09/24/2023 192 lb 33.48 topiramate 50 mg 06/17/2023 195 lb 33.84 03/26/2023 205 lb 35.43 WC 45 in 02/06/2023 211 lb 36.57 long-term phentermine 01/02/2023 217 lb 12/05/2022 226 lb 11/07/2022 233 lb Metformin 10/10/2022 239 lb 14.4 oz (108.8 kg) Topiramate/phentermine 09/26/2022 245 lb 42.36 WC 50 in [place] body weight: 119 lb 7.6 oz (54.2 kg) Adjusted ideal body weight: 153 lb 11 oz (69.7 kg) Current contraception: vasectomy Phentermine Start date: ?10/10/2022 Start weight: ?239 lbs. Dose: 15mg capsule -- Patient reports suppression of her appetite and increase in satiety since starting -- Patient reports SE of constipation Topiramate Start date: ?10/10/2022 Start weight: ?239 lbs. Dose:25 mg, increased to bid 10/27/2022 -- Patient reports some suppression of her appetite and some increase in satiety since -- Patient reports no side effects after starting topiramate Metformin Start date: ?11/07/2022 Start weight: ?233 lbs. Dose:1.5 gm at dinner - increased to 1 gm twice a day -- Patient reports suppression of appetite and increase in satiety since starting -- Patient reports no side effects after starting metformin CrCl cannot be calculated (Patient's most recent lab result is older than the maximum 180 days allowed.). PAST MEDICAL HISTORY No date: Acid reflux No date: Binge eating disorder No date: Depression No date: Endometriosis, site unspecified Comment: Endometriosis No date: Essential hypertension No date: Obesity No date: MICHELLE on CPAP Comment: auto CPAP No date: PMH - PAST MEDICAL HISTORY OF Comment: INTERSTITIAL CYSTITIS No date: Snoring No date: Urinary calculus, unspecified Comment: Renal stones Current Outpatient Medications Medication Sig Dispense Refill topiramate (TOPAMAX) 50 mg tablet Take 1 tablet by mouth two times a day. 180 tablet 1 metFORMIN (GLUCOPHAGE) 1,000 mg tablet Take 1 tablet by mouth two times a day with meals. 180 tablet 1 Phentermine HCl 15 mg capsule Take 1 capsule by mouth daily before breakfast for 90 days. 90 capsule 0 buPROPion XL (WELLBUTRIN XL) 150 mg 24 hr tablet biotin 1 mg cap Take by mouth once daily. desmopressin acetate (DDAVP) 0.2 mg tablet Take 0.1 mg by mouth daily at bedtime. 2 tabs GEMTESA 75 mg tablet Take 75 mg by mouth once daily. omeprazole (PRILOSEC) 20 mg capsule Take by mouth q 24 HR. cholecalciferol, vitamin D3, (VITAMIN D3 ORAL) Take by mouth once daily. DULoxetine (CYMBALTA) 60 mg capsule Take 60 mg by mouth once daily. (Patient not taking: Reported on 09/24/2023) multivitamins(DAILY MULTIPLE TAB) Take one(1) tablet (more content not included)... Normal [facility] Basophil percentageOrdered B y: Alva Bethany on 09-08-2023 Chloride [Moles/Vol] 110 mmol/L 98-107 [facility] Glucose [Mass/Vol] 91 mg/dL 74-106 [facility] Potassium [Moles/Vol] 4.2 mmol/L 3.5-5.1 [facility] Sodium [Moles/Vol] 141 mmol/L 136-145 [facility] Laboratory - Chemistry and C hemistry - challengeOrdered By: Alva Sims on 09-08-2023 CO2 [Moles/Vol] 26.0 mmol/L 21.0-32.0 [facility] Urea nitrogen/Creatinine [Mass ratio] 21.0 mg/mg 10-20 [facility] No Panel InformationOrdered By: Alva Sims on 09-08-2023 Estimated GFR (MDRD) Amer 97 mL/min >60 [facility] Comment on above: GFR Calc Estimated GFR (MDRD) Non-Af Amer 80 mL/min >60 [facility] Comment on above: Non- GFR Calc Serum or plasma calcium jay jay urement (mass/volume)Ordered By: Alva Sims on 09-08-2023 Calcium [Mass/Vol] 9.6 mg/dL 8.5-10.1 [facility] Serum or plasma creatinine m easurement (mass/volume)Ordered By: Alva Sims on 09-08-2023 Creatinine [Mass/Vol] 0.81 mg/dL 0.55-1.02 [facility] Comment on above: The validity of the calculated GFR & GFRAA in patients over 70 years has not been determined. Clinical correlation is essential. Serum or plasma urea nitroge n measurement (mass/volume)Ordered By: Alva Sims on 09-08-2023 Urea nitrogen [Mass/Vol] 17 mg/dL 7-18 [facility] Thin prep Papanicolaou smear with manual screeningOrdered By: Alva Sims on 09-08-2023 Thin prep Papanicolaou smear with manual screening 5 5-15 [facility] Basophil percentageOrdered B y: Dr. Sims on 09-02-2022 Chloride [Moles/Vol] 103 mmol/L 98-107 [facility] Glucose [Mass/Vol] 106 mg/dL 74-106 [facility] Comment on above: Fasting Glucose resu lt from 100 to 125 mg/dL suggests IMPAIRED HOMEOSTASIS per A.D.A. criteria. Potassium [Moles/Vol] 4.0 mmol/L 3.5-5.1 [facility] Sodium [Moles/Vol] 136 mmol/L 136-145 [facility] Laboratory - Chemistry and C hemistry - challengeOrdered By: Dr. Sims on 09-02-2022 CO2 [Moles/Vol] 30.0 mmol/L 21.0-32.0 [facility] Urea nitrogen/Creatinine [Mass ratio] 19.2 mg/mg 10-20 [facility] No Panel InformationOrdered By: Dr. Sims on 09-02-2022 Estimated GFR (MDRD) Amer 110 mL/min >60 [facility] Comment on above: GFR Calc Estimated GFR (MDRD) Non-Af Amer 91 mL/min >60 [facility] Comment on above: Non- GFR Calc Serum or plasma calcium jay jay urement (mass/volume)Ordered By: Dr. Sims on 09-02-2022 Calcium [Mass/Vol] 9.6 mg/dL 8.5-10.1 [facility] Serum or plasma creatinine m easurement (mass/volume)Ordered By: Dr. Sims on 09-02-2022 Creatinine [Mass/Vol] 0.73 mg/dL 0.55-1.02 [facility] Comment on above: The validity of the calculated GFR & GFRAA in patients over 70 years has not been determined. Clinical correlation is essential. Serum or plasma urea nitroge n measurement (mass/volume)Ordered By: Dr. Sims on 09-02-2022 Urea nitrogen [Mass/Vol] 14 mg/dL 7-18 [facility] Thin prep Papanicolaou smear with manual screeningOrdered By: Dr. Sims on 09-02-2022 Thin prep Papanicolaou smear with manual screening 3 5-15 [facility] Basophil percentageOrdered B y: Dr. Sims on 05-27-2022 Chloride [Moles/Vol] 109 mmol/L 98-107 [facility] Glucose [Mass/Vol] 100 mg/dL 74-106 [facility] Comment on above: Fasting Glucose resu lt from 100 to 125 mg/dL suggests IMPAIRED HOMEOSTASIS per A.D.A. criteria. Potassium [Moles/Vol] 4.6 mmol/L 3.5-5.1 [facility] Sodium [Moles/Vol] 141 mmol/L 136-145 [facility] Laboratory - Chemistry and C hemistry - challengeOrdered By: Dr. Sims on 05-27-2022 CO2 [Moles/Vol] 24.0 mmol/L 21.0-32.0 [facility] Urea nitrogen/Creatinine [Mass ratio] 20.7 mg/mg 10-20 [facility] No Panel InformationOrdered By: Dr. Sims on 05-27-2022 Estimated GFR (MDRD) Amer 110 mL/min >60 [facility] Comment on above: GFR Calc Estimated GFR (MDRD) Non-Af Amer 91 mL/min >60 [facility] Comment on above: Non- GFR Calc Serum or plasma calcium jay jay urement (mass/volume)Ordered By: Dr. Sims on 05-27-2022 Calcium [Mass/Vol] 9.2 mg/dL 8.5-10.1 [facility] Serum or plasma creatinine m easurement (mass/volume)Ordered By: Dr. Sims on 05-27-2022 Creatinine [Mass/Vol] 0.72 mg/dL 0.55-1.02 [facility] Comment on above: The validity of the calculated GFR & GFRAA in patients over 70 years has not been determined. Clinical correlation is essential. Serum or plasma urea nitroge n measurement (mass/volume)Ordered By: Dr. Sims on 05-27-2022 Urea nitrogen [Mass/Vol] 15 mg/dL 7-18 [facility] Thin prep Papanicolaou smear with manual screeningOrdered By: Dr. Sims on 05-27-2022 Thin prep Papanicolaou smear with manual screening 8 5-15 [facility] Basophil percentageon 2021 Chloride [Moles/Vol] 103 mmol/L 98-107 [facility] Work Phone: Glucose [Mass/Vol] 79 mg/dL 74-106 [facility] Work Phone: Potassium [Moles/Vol] 4.4 mmol/L 3.5-5.1 [facility] Work Phone: Sodium [Moles/Vol] 136 mmol/L 136-145 [facility] Work Phone: Laboratory - Chemistry and C hemistry - challengeon 05-06-2022 CO2 [Moles/Vol] 27.0 mmol/L 21.0-32.0 [facility] Work Phone: Urea nitrogen/Creatinine [Mass ratio] 14.8 mg/mg 10-20 [facility] Work Phone: No Panel Informationon 05-06 Estimated GFR (MDRD) Amer 135 mL/min >60 [facility] Work Phone: Comment on above: GFR Calc Estimated GFR (MDRD) Non-Af Amer 112 mL/min >60 [facility] Work Phone: Comment on above: Non- GFR Calc Serum or plasma calcium jay jay urement (mass/volume)on 05-06-2022 Calcium [Mass/Vol] 8.9 mg/dL 8.5-10.1 [facility] Work Phone: Serum or plasma creatinine m easurement (mass/volume)on 05-06-2022 Creatinine [Mass/Vol] 0.61 mg/dL 0.55-1.02 [facility] Work Phone: Comment on above: The validity of the calculated GFR & GFRAA in patients over 70 years has not been determined. Clinical correlation is essential. Serum or plasma urea nitroge n measurement (mass/volume)on 05-06-2022 Urea nitrogen [Mass/Vol] 9 mg/dL 7-18 [facility] Work Phone: Thin prep Papanicolaou smear with manual screeningon 05-06-2022 Thin prep Papanicolaou smear with manual screening 6 5-15 [facility] Work Phone: CALCIFEDIOL ([id number])Ordered B y: Medical Imaging Tech on 03-28-2022 25-hydroxyvitamin D [Mass/Vol] 48.5 ng/mL Normal 30.0-100.0 [facility]; [facility] Work Phone: Comment on above: Vitamin D deficiency has been defined by the [place] ofMedicine and an Endocrine Society practice guideline as alevel of serum 25-OH vitamin D less than 20 ng/mL (1,2).The Endocrine Society went on to further define vitamin Dinsufficiency as a level between 21 and 29 ng/mL (2).1. IOM ([place] of Medicine). 2010. Dietary reference intakes for calcium and D. [place]: The National Academies Press.2. Don MF, Jorje SOLORIO, Addy HARVEY, et al. Evaluation, treatment, and prevention of vitamin D deficiency: an Endocrine Society clinical practice guideline. JCEM. 2010; 96(7):1911-30. PATIENT WAS FASTINGP ERFORMED BY: [facility] [id number] Reyna RoadDublin [place] [id number] CBC & PLATELETS (AUTO) ([id number])Ordered By: Medical Imaging Tech on 03-28-2022 Erythrocyte distribution width (RBC) [Ratio] 12.0 % Normal 11.7-15.4 [facility]; [facility] Work Phone: Comment on above: PATIENT WAS FASTINGP ERFORMED BY: [facility] Lxaone8580 Reyna RoadDublin [place] [id number] Hematocrit (Bld) [Volume fraction] 42.1 % Normal 34.0-46.6 [facility]; [facility] Work Phone: Comment on above: PATIENT WAS FASTINGP ERFORMED BY: [facility] Ohhyli2576 Reyna RoadDublin [place] [id number] Hemoglobin (Bld) [Mass/Vol] 14.3 g/dL Normal 11.1-15.9 [facility]; [facility] Work Phone: Comment on above: PATIENT WAS FASTINGP ERFORMED BY: [facility] Wqfsrt2677 [address] RoadDublin [place] [id number] MCH (RBC) [Entitic mass] 30.0 pg Normal 26.6-33.0 [facility]; [facility] Work Phone: Comment on above: PATIENT WAS FASTINGP ERFORMED BY: [facility] Wubynk0925 [address] RoadDublin [place] [id number] MCHC (RBC) [Mass/Vol] 34.0 g/dL Normal 31.5-35.7 [facility]; [facility] Work Phone: Comment on above: PATIENT WAS FASTINGP ERFORMED BY: Y[facility] Uaciso7963 [address] RoadDublin [place] [id number] MCV (RBC) [Entitic vol] 88 fL Normal 79-97 [facility]; [facility] Work Phone: Comment on above: PATIENT WAS FASTINGP ERFORMED BY: [facility] Tlafss0549 [address] RoadDublin [place] [id number] Platelets (Bld) [#/Vol] 369 10*3/uL Normal 150-450 [facility]; [facility] Work Phone: Comment on above: PATIENT WAS FASTINGP ERFORMED BY: [facility] Onytaj2259 Reyn[address] RoadDublin [place] [id number] RBC (Bld) [#/Vol] 4.76 10*6/uL Normal 3.77-5.28 [facility]; [facility] Work Phone: Comment on above: PATIENT WAS FASTINGP ERFORMED BY: [facility] Wubmuv8576 [address] RoadDublin [place] [id number] WBC (Bld) [#/Vol] 8.7 10*3/uL Normal 3.4-10.8 [facility]; [facility] Work Phone: Comment on above: PATIENT WAS FASTINGP ERFORMED BY: [facility] Cfefjy4453 [address] RoadDublin [place] [id number] LIPID PANEL ([id number])Ordered B y: Medical Imaging Tech on 03-28-2022 Cholesterol [Mass/Vol] 203 mg/dL Abnormal 100-199 [facility]; [facility] Work Phone: Comment on above: PATIENT WAS FASTINGP ERFORMED BY: [facility] Stswov2913 [address] RoadDublin [place] [id number] Cholesterol in HDL [Mass/Vol] 69 mg/dL Normal [facility]; [facility] Work Phone: Comment on above: PATIENT WAS FASTINGP ERFORMED BY: [facility] Nbslyq9367 [address] RoadDublin [place] [id number] Triglyceride [Mass/Vol] 89 mg/dL Normal 0-149 [facility]; [facility] Work Phone: Comment on above: PATIENT WAS FASTINGP ERFORMED BY: [facility] ManPpssjp6410 [address] [facility] [place] [id number] LIPID PANEL ([id number]) 16 mg/dL Normal 5-40 [facility]; [facility] Work Phone: Comment on above: PATIENT WAS FASTINGP ERFORMED BY: [facility] Cfpqno3665 [address] [facility] [id number] LIPID PANEL (30707) 118 mg/dL Abnormal 0-99 [facility]; [facility] Work Phone: Comment on above: PATIENT WAS FASTINGP ERFORMED BY: YEN Labgi[facility] ManCmvegr1892 Renya [facility] [id number] LIPID PANEL (71654) 1.7 {ratio} Normal 0.0-3.2 [facility]; [facility] Work Phone: Comment on above: LDL/HDL Ratio Men Wo men 1/2 Avg.Risk 1.0 1.5 Avg.Risk 3.6 3.2 2X Avg.Risk 6.2 5.0 3X Avg.Risk 8.0 6.1 PATIENT WAS FASTINGP ERFORMED BY: [facility] [id number] [facility] [id number] METABOLIC PANEL, COMPREHENSI VE ([id number])Ordered By: Medical Imaging Tech on 03-28-2022 Albumin [Mass/Vol] 4.6 g/dL Normal 3.8-4.8 [facility]; [facility] Work Phone: Comment on above: PATIENT WAS FASTINGP ERFORMED BY: [facility] Hfudqz2725 Reyn[address] [facility] [place] [id number] Albumin/Globulin [Mass ratio] 1.8 {ratio} Normal 1.2-2.2 [facility]; [facility] Work Phone: Comment on above: PATIENT WAS FASTINGP ERFORMED BY: YEN [facility] [id number] Reyn[address] RoadDublin [place] [id number] ALP [Catalytic activity/Vol] 97 U/L Normal 44-121 [facility]; [facility] Work Phone: Comment on above: PATIENT WAS FASTINGP ERFORMED BY: [facility] Fvmsqs8569 [address] RoadDublin [place] [id number] ALT [Catalytic activity/Vol] 30 U/L Normal 0-32 [facility]; [facility] Work Phone: Comment on above: PATIENT WAS FASTINGP ERFORMED BY: CB [facility] Jjzgir7063 [address] RoadDublin [place] [id number] AST [Catalytic activity/Vol] 26 U/L Normal 0-40 [facility]; [facility] Work Phone: Comment on above: PATIENT WAS FASTINGP ERFORMED BY: [facility] Rbfcbv4791 [address] RoadDublin [place] [id number] Bilirubin [Mass/Vol] 0.4 mg/dL Normal 0.0-1.2 [facility]; [facility] Work Phone: Comment on above: PATIENT WAS FASTINGP ERFORMED BY: Y[facility] Vlynhj8377 [address] RoadDublin [place] [id number] Calcium [Mass/Vol] 9.6 mg/dL Normal 8.7-10.2 [facility]; [facility] Work Phone: Comment on above: PATIENT WAS FASTINGP ERFORMED BY: [facility] Gnofac8299 [address] RoadDublin [place] [id number] Chloride [Moles/Vol] 102 mmol/L Normal 96-106 [facility]; [facility] Work Phone: Comment on above: PATIENT WAS FASTINGP ERFORMED BY: CB [facility] Mcvjzm3950 [address] RoadDublin [place] [id number] CO2 [Moles/Vol] 27 mmol/L Normal 20-29 [facility]; [facility] Work Phone: Comment on above: PATIENT WAS FASTINGP ERFORMED BY: CB [facility] Zvqrdc6226 [address] RoadDublin [place] [id number] Creatinine [Mass/Vol] 0.72 mg/dL Normal 0.57-1.00 [facility]; [facility] Work Phone: Comment on above: PATIENT WAS FASTINGP ERFORMED BY: [facility] Dlxilp8733 [facility] [id number] GFR/1.73 sq M.predicted among non-blacks MDRD (S/P/Bld) [Vol rate/Area] 104 mL/min/{1.73_m2} Normal [facility]; [facility] Work Phone: Comment on above: PATIENT WAS FASTINGP ERFORMED BY: [facility]6370 [facility] [id number] Globulin (S) [Mass/Vol] 2.6 g/dL Normal 1.5-4.5 [facility]; [facility] Work Phone: Comment on above: PATIENT WAS FASTINGP ERFORMED BY: [facility]6370 [facility] [id number] Glucose [Mass/Vol] 97 mg/dL Normal 70-99 [facility]; [facility] Work Phone: Comment on above: PATIENT WAS FASTINGP ERFORMED BY: [facility]6370 [facility] [id number] Potassium [Moles/Vol] 4.8 mmol/L Normal 3.5-5.2 [facility]; [facility] Work Phone: Comment on above: PATIENT WAS FASTINGP ERFORMED BY: [facility]6370 [facility] [id number] Protein [Mass/Vol] 7.2 g/dL Normal 6.0-8.5 [facility]; [facility] Work Phone: Comment on above: PATIENT WAS FASTINGP ERFORMED BY: [facility]6370 [facility] [id number] Sodium [Moles/Vol] 141 mmol/L Normal 134-144 [facility]; [facility] Work Phone: Comment on above: PATIENT WAS FASTINGP ERFORMED BY: YEN [facility] Cubsia8221 [address] 8 SecuritiesAtrium Health Carol[facility] Rehabilitation Charlottein [place] [id number] Urea nitrogen [Mass/Vol] 14 mg/dL Normal 6-24 [facility]; [facility] Work Phone: Comment on above: PATIENT WAS FASTINGP ERFORMED BY: [facility] Ctazkr9381 [address] RoadDublin [place] [id number] Urea nitrogen/Creatinine [Mass ratio] 19 mg/mg Normal 9-23 [facility]; [facility] Work Phone: Comment on above: PATIENT WAS FASTINGP ERFORMED BY: [facility] Yoitsm3139 [address] [facility] [place] [id number] TSH (THYROID STIMULATING HOR BETH) ([id number])Ordered By: Medical Imaging Tech on 03-28-2022 TSH Qn 3.190 {uIU/mL} Normal 0.450-4.50 0 [facility]; [facility] Work Phone: Comment on above: PATIENT WAS FASTINGP ERFORMED BY: [facility] [id number] [address] [facility] [place] [id number] CBC with auto diff ([id number])Or dered By: Medical Imaging Tech on 01-04-2021 Basophils (Bld) [#/Vol] 0.0 10*3/uL Normal 0.0-0.2 [facility]; [facility] Work Phone: Comment on above: PATIENT WAS FASTINGP ERFORMED BY: YEN [facility] Zuxwhj4009 [address] [facility] [place] [id number] Basophils/100 WBC (Bld) 0 % Normal [facility]; [facility] Work Phone: Comment on above: PATIENT WAS FASTINGP ERFORMED BY: YEN [facility] Xzlvgz8869 Reyna RoadDublin [place] [id number] Eosinophils (Bld) [#/Vol] 0.1 10*3/uL Normal 0.0-0.4 [facility]; [facility] Work Phone: Comment on above: PATIENT WAS FASTINGP ERFORMED BY: YEN Santos Ncwgpj5462 Reyna [facility] [id number] Eosinophils/100 WBC (Bld) 1 % Normal [facility]; [facility] Work Phone: Comment on above: PATIENT WAS FASTINGP ERFORMED BY: YEN Foss6370 [facility] [id number] Erythrocyte distribution width (RBC) [Ratio] 12.2 % Normal 11.7-15.4 [facility]; [facility] Work Phone: Comment on above: PATIENT WAS FASTINGP ERFORMED BY: [facility]laSt. [facility] Bcgpea7064 [facility] [id number] Hematocrit (Bld) [Volume fraction] 45.0 % Normal 34.0-46.6 [facility]; [facility] Work Phone: Comment on above: PATIENT WAS FASTINGP ERFORMED BY: GaylaSt. [facility] Ypwcvq6205 [facility] [id number] Hemoglobin (Bld) [Mass/Vol] 14.8 g/dL Normal 11.1-15.9 [facility]; [facility] Work Phone: Comment on above: PATIENT WAS FASTINGP ERFORMED BY: Danielle Hcaacu5070 [facility] [id number] Immature granulocytes (Bld) [#/Vol] 0.0 10*3/uL Normal 0.0-0.1 [facility]; [facility] Work Phone: Comment on above: PATIENT WAS FASTINGP ERFORMED BY: GaylaSt. [facility] Ylfmns3086 [facility] [id number] Immature granulocytes/100 WBC (Bld) 1 % Normal [facility]; [facility] Work Phone: Comment on above: PATIENT WAS FASTINGP ERFORMED BY: Danielle Brcsso5253 [facility] [id number] Lymphocytes (Bld) [#/Vol] 1.4 10*3/uL Normal 0.7-3.1 [facility]; [facility] Work Phone: Comment on above: PATIENT WAS FASTINGP ERFORMED BY: YEN LabCochun ManXcxwtq3288 Reyna [facility] [place] [id number] Lymphocytes/100 WBC (Bld) 19 % Normal [facility]; [facility] Work Phone: Comment on above: PATIENT WAS FASTINGP ERFORMED BY: YEN [facility] Pbhkcj7218 Reyn[address] [facility] [place] [id number] MCH (RBC) [Entitic mass] 30.0 pg Normal 26.6-33.0 [facility]; [facility] Work Phone: Comment on above: PATIENT WAS FASTINGP ERFORMED BY: LabSt. [facility] Fpquup3629 Reyna Roadblin [place] [id number] MCHC (RBC) [Mass/Vol] 32.9 g/dL Normal 31.5-35.7 [facility]; [facility] Work Phone: Comment on above: PATIENT WAS FASTINGP ERFORMED BY: LabSt. [facility] Nlrfpg4405 Reyna [facility] [place] [id number] MCV (RBC) [Entitic vol] 91 fL Normal 79-97 [facility]; [facility] Work Phone: Comment on above: PATIENT WAS FASTINGP ERFORMED BY: Danielle Ovrtqe5399 Reyna [facility] [place] [id number] Monocytes (Bld) [#/Vol] 0.6 10*3/uL Normal 0.1-0.9 [facility]; [facility] Work Phone: Comment on above: PATIENT WAS FASTINGP ERFORMED BY: [facility] Hzlyha8586 Reyn[address] Roadblin [place] [id number] Monocytes/100 WBC (Bld) 8 % Normal [facility]; [facility] Work Phone: Comment on above: PATIENT WAS FASTINGP ERFORMED BY: LabAdonay Uywjqe5018 Reyn[address] [facility]bl[facility] [place] [id number] Neutrophils (Bld) [#/Vol] 5.1 10*3/uL Normal 1.4-7.0 [facility]; [facility] Work Phone: Comment on above: PATIENT WAS FASTINGP ERFORMED BY: CB [facility] Glogpr1473 Reyna RoadDublin [place] [id number] Neutrophils/100 WBC (Bld) 71 % Normal [facility]; [facility] Work Phone: Comment on above: PATIENT WAS FASTINGP ERFORMED BY: CB [facility] Zxihiv2877 Reyna RoadDublin [place] [id number] Platelets (Bld) [#/Vol] 356 10*3/uL Normal 150-450 [facility]; [facility] Work Phone: Comment on above: PATIENT WAS FASTINGP ERFORMED BY: CB [facility] Xukpmy9496 Reyna RoadDublin [place] [id number] RBC (Bld) [#/Vol] 4.93 10*6/uL Normal 3.77-5.28 Compr ehensive Internal Medicine; [facility] Work Phone: Comment on above: PATIENT WAS FASTINGP ERFORMED BY: CB [facility] Aoiflx6809 Reyna RoadDublin [place] [id number] WBC (Bld) [#/Vol] 7.2 10*3/uL Normal 3.4-10.8 Compre [facility]; [facility] Work Phone: Comment on above: PATIENT WAS FASTINGP ERFORMED BY: YEN [facility] Bozznv3907 Reyna RoadDublin [place] [id number] LIPID PANEL (60461)Ordered B y: Medical Imaging Tech on 01-04-2021 Cholesterol [Mass/Vol] 198 mg/dL Normal 100-199 [facility]; [facility] Work Phone: Comment on above: PATIENT WAS FASTINGP ERFORMED BY: CB [facility] Pbupiz6038 Reyna RoadDublin [place] [id number] Cholesterol in HDL [Mass/Vol] 73 mg/dL Normal [facility]; [facility] Work Phone: Comment on above: PATIENT WAS FASTINGP ERFORMED BY: CB [facility] Aawzmz1351 Reyna RoadDublin [place] [id number] Triglyceride [Mass/Vol] 76 mg/dL Normal 0-149 [facility]; [facility] Work Phone: Comment on above: PATIENT WAS FASTINGP ERFORMED BY: YEN LabGiovani ManVekmrb8438 Reyna [facility] [place] [id number] LIPID PANEL (02136) 14 mg/dL Normal 5-40 [facility] Internal Medicine; [facility] Work Phone: Comment on above: PATIENT WAS FASTINGP ERFORMED BY: YEN LabCochun ManDmutbv6702 Reyna [facility] [id number] LIPID PANEL (02269) 111 mg/dL Abnormal 0-99 [facility]; [facility] Work Phone: Comment on above: PATIENT WAS FASTINGP ERFORMED BY: YEN Manlin6370 Reyna [facility] [id number] LIPID PANEL (11269) 1.5 {ratio} Normal 0.0-3.2 [facility] Internal Medicine; [facility] Work Phone: Comment on above: LDL/HDL Ratio Men Wo men 1/2 Avg.Risk 1.0 1.5 Avg.Risk 3.6 3.2 2X Avg.Risk 6.2 5.0 3X Avg.Risk 8.0 6.1 PATIENT WAS FASTINGP ERFORMED BY: YEN Fountain Wprgnc5042 [facility] [id number] METABOLIC PANEL, COMPREHENSI VE ([id number])Ordered By: Medical Imaging Tech on 01-04-2021 Albumin [Mass/Vol] 4.6 g/dL Normal 3.8-4.8 [facility] Internal [facility]; [facility] Work Phone: Comment on above: PATIENT WAS FASTINGP ERFORMED BY: YEN LabCochun Vgdcju8341 Reyna [facility] [place] [id number] Albumin/Globulin [Mass ratio] 1.7 {ratio} Normal 1.2-2.2 [facility] Internal Medicine; [facility] Work Phone: Comment on above: PATIENT WAS FASTINGP ERFORMED BY: YEN LabCochun Nxmcxh8734 Reyna [facility] [place] [id number] ALP [Catalytic activity/Vol] 115 U/L Normal 48-121 [facility]; [facility] Work Phone: Comment on above: PATIENT WAS FASTINGP ERFORMED BY: CB [facility] Tdrwoq8533 Reyna RoadDublin [place] [id number] ALT [Catalytic activity/Vol] 17 U/L Normal 0-32 [facility]; [facility] Work Phone: Comment on above: PATIENT WAS FASTINGP ERFORMED BY: CB [facility] Thitth7014 Reyna RoadDublin [place] [id number] AST [Catalytic activity/Vol] 19 U/L Normal 0-40 [facility]; [facility] Work Phone: Comment on above: PATIENT WAS FASTINGP ERFORMED BY: CB [facility] Ylvzeg4628 Reyna RoadDublin [place] [id number] Bilirubin [Mass/Vol] 0.4 mg/dL Normal 0.0-1.2 Comp rehensive Internal Medicine; [facility] Work Phone: Comment on above: PATIENT WAS FASTINGP ERFORMED BY: [facility] Gcbtds4293 Reyna RoadDublin [place] [id number] Calcium [Mass/Vol] 10.0 mg/dL Normal 8.7-10.2 [facility] Internal [facility]; [facility] Work Phone: Comment on above: PATIENT WAS FASTINGP ERFORMED BY: [facility] Tgqewt4071 Reyna RoadDublin [place] [id number] Chloride [Moles/Vol] 103 mmol/L Normal 96-106 Comp [facility]; [facility] Work Phone: Comment on above: PATIENT WAS FASTINGP ERFORMED BY: CB [facility] Ybtbvw7287 Reyn[address] RoadDublin [place] [id number] CO2 [Moles/Vol] 26 mmol/L Normal 20-29 [facility] Internal Medicine; [facility] Work Phone: Comment on above: PATIENT WAS FASTINGP ERFORMED BY: CB [facility] Essihx4976 Reyna RoadDublin [place] [id number] Creatinine [Mass/Vol] 0.76 mg/dL Normal 0.57-1.00 [facility]; [facility] Work Phone: Comment on above: PATIENT WAS FASTINGP ERFORMED BY: GaylaSt. [facility] Behavior[facility] Txauac7952 [facility] [id number] GFR/1.73 sq M.predicted among blacks CKD-EPI (S/P/Bld) [Vol rate/Area] 109 mL/min/1.73 Normal [facility]; [facility] Work Phone: Comment on above: [facility] currently reports eGFR in compliance with the current recommendations of the National Kidney Foundation. [facility] will update reporting as new guidelines are published from the NKF-ASN Task force. PATIENT WAS FASTINGP ERFORMED BY: [facility] Bhggcj2748 [facility] [id number] GFR/1.73 sq M.predicted among non-blacks CKD-EPI (S/P/Bld) [Vol rate/Area] 94 mL/min/1.73 Normal [facility]; [facility] Work Phone: Comment on above: PATIENT WAS FASTINGP ERFORMED BY: [facility]6370 [facility] [id number] Globulin (S) [Mass/Vol] 2.7 g/dL Normal 1.5-4.5 [facility]; [facility] Work Phone: Comment on above: PATIENT WAS FASTINGP ERFORMED BY: [facility]6370 [facility] [id number] Glucose [Mass/Vol] 90 mg/dL Normal 65-99 [facility] Internal [facility]; [facility] Work Phone: Comment on above: PATIENT WAS FASTINGP ERFORMED BY: [facility]6370 [facility] [id number] Potassium [Moles/Vol] 5.1 mmol/L Normal 3.5-5.2 [facility]; [facility] Work Phone: Comment on above: PATIENT WAS FASTINGP ERFORMED BY: [facility]6370 [facility] [id number] Protein [Mass/Vol] 7.3 g/dL Normal 6.0-8.5 [facility]; [facility] Work Phone: Comment on above: PATIENT WAS FASTINGP ERFORMED BY: YEN [facility] Dhfdzv6226 Reyna RoadDublin [place] [id number] Sodium [Moles/Vol] 141 mmol/L Normal 134-144 [facility] Internal [facility]; [facility] Work Phone: Comment on above: PATIENT WAS FASTINGP ERFORMED BY: YEN [facility] Mixghi0303 Reyna RoadDublin [place] [id number] Urea nitrogen [Mass/Vol] 14 mg/dL Normal 6-24 [facility]; [facility] Work Phone: Comment on above: PATIENT WAS FASTINGP ERFORMED BY: YEN [facility] Pejflb0486 Reyna RoadDublin [place] [id number] Urea nitrogen/Creatinine [Mass ratio] 18 mg/mg Normal 9-23 [facility]; [facility] Work Phone: Comment on above: PATIENT WAS FASTINGP ERFORMED BY: YEN [facility] Zdecav9514 Reyn[address] RoadDublin [place] [id number] MICROALBUMIN URINE QUANT ([id number] 043)Ordered By: Medical Imaging Tech on 01-04-2021 Albumin DL <= 20 mg/L (U) [Mass/Vol] 28.7 ug/mL Normal Comprehensiv e Internal Medicine; [facility] Work Phone: Comment on above: PATIENT WAS FASTINGP ERFORMED BY: [facility] Gowcye5534 Reyna RoadDublin [place] [id number] Albumin/Creatinine (U) [Mass ratio] 13 {mg/g_creat} Normal 0-29 [facility]; [facility] Work Phone: Comment on above: Normal: 0 - 29 Moder ately increased: 30 - 300 Severely increased: >300 PATIENT WAS FASTINGP ERFORMED BY: YEN [facility] Dqfyte7187 Reyna RoadDublin [place] [id number] Creatinine (U) [Mass/Vol] 219.4 mg/dL Normal [facility]; [facility] Work Phone: Comment on above: PATIENT WAS FASTINGP ERFORMED BY: LimundoMountainside HospitalHzodgj9267 [facility] [id number] TSH ([id number])Ordered By: Laticínios Bom Gosto/LBRe Sandag Arabic Professor on 01-04-2021 TSH Qn 1.990 {uIU/mL} Normal 0.450-4.50 0 [facility]; [facility] Work Phone: Comment on above: PATIENT WAS FASTINGP ERFORMED BY: LabCoMountainside HospitalUyrpqj5929 [facility] [id number] 2018 Novel Coronavirus (COVI D-19), [place] ([id number])Ordered By: Medical Imaging Tech on 02-13-20202018 Novel Coronavirus (COVID-19), [place] ([id number]) Detected Abnormal [facility] Work Phone: Comment on above: Client Requested [facility] nucleic acid amplification test was developed and its performancecharacteristics determined by [employer]. Nucleic acidamplification tests include PCR and TMA. This test has not been FDAcleared or approved. This test has been authorized by FDA under anEmergency Use Authorization (EUA). This test is only authorized forthe duration of time the declaration that circumstances existjustifying the authorization of the emergency use of in vitrodiagnostic tests for detection of SARS-CoV-2 virus and/or diagnosisof COVID-19 infection under section 564(b)(1) of the Act, 21 U.S.C.360bbb-3(b) (1), unless the authorization is terminated or revokedsooner.When diagnostic testing is negative, the possibility of a falsenegative result should be considered in the context of a patient'srecent exposures and the presence of clinical signs and symptomsconsistent with COVID-19. An individual without symptoms of COVID-19and who is not shedding SARS-CoV-2 virus would expect to have anegative (not detected) result in this assay. PATIENT NOT FASTINGP ERFORMED BY: [employer] [facility] Iwpzklewgr2305 [employer] [place] [id number] Information: NASAL 2019 Novel Coronavirus (COVID-19), [place] ([id number]) Detected Abnormal [facility]; [facility] Work Phone: Comment on above: Client Requested Stephen Pierce nucleic acid amplification test was developed and its performancecharacteristics determined by [employer]. Nucleic acidamplification tests include PCR and TMA. This test has not been FDAcleared or approved. This test has been authorized by FDA under anEmergency Use Authorization (EUA). This test is only authorized forthe duration of time the declaration that circumstances existjustifying the authorization of the emergency use of in vitrodiagnostic tests for detection of SARS-CoV-2 virus and/or diagnosisof COVID-19 infection under section 564(b)(1) of the Act, 21 U.S.C.360bbb-3(b) (1), unless the authorization is terminated or revokedsooner.When diagnostic testing is negative, the possibility of a falsenegative result should be considered in the context of a patient'srecent exposures and the presence of clinical signs and symptomsconsistent with COVID-19. An individual without symptoms of COVID-19and who is not shedding SARS-CoV-2 virus would expect to have anegative (not detected) result in this assay. PATIENT NOT FASTINGP ERFORMED BY: [facility] Zusfkyqwcp7256 [facility] [place] [id number] Information: NASAL CALCIFEDIOL ([id number])Ordered B y: Medical Imaging Tech on 10-14-2019 25-Hydroxyvitamin D2+25-Hydroxyvitamin D3 [Mass/Vol] 25.3 ng/mL Abnormal 30.0-100.0 [facility] Work Phone: Comment on above: Vitamin D deficiency has been defined by the [place] ofMedicine and an Endocrine Society practice guideline as alevel of serum 25-OH vitamin D less than 20 ng/mL (1,2).The Endocrine Society went on to further define vitamin Dinsufficiency as a level between 21 and 29 ng/mL (2).1. IOM ([place] of Medicine). 2010. Dietary reference intakes for calcium and D. [place]: The National Academies Press.2. Don ARAUJO, Jorje SOLORIO, Addy HARVEY, et al. Evaluation, treatment, and prevention of vitamin D deficiency: an Endocrine Society clinical practice guideline. JCEM. 2010; 96(7):1911-30. PATIENT WAS FASTINGP ERFORMED BY: [facility] Jsjnto3446 Reyna RoadDublin [place] [id number] CBC, Platelets & Auto Diff ( [id number])Ordered By: Medical Imaging Tech on 10-14-2019 Basophils (Bld) [#/Vol] 0.0 {x10E3/uL} Normal 0.0-0.2 [facility] Work Phone: Comment on above: PATIENT WAS FASTINGP ERFORMED BY: [facility] Tdzuyb1178 Reyna RoadDublin [place] [id number] Basophils (Bld) [#/Vol] 0.0 10*3/uL Normal 0.0-0.2 [facility]; [facility] Work Phone: Comment on above: PATIENT WAS FASTINGP ERFORMED BY: LabSt. [facility] Jfxwcb4610 Reyna RoadDublin [place] [id number] Basophils/100 WBC (Bld) 0 % Normal [facility] Work Phone: Comment on above: PATIENT WAS FASTINGP ERFORMED BY: LabSt. [facility] Zfelvx6412 Reyna [facility] HospitalDublin [place] [id number] Eosinophils (Bld) [#/Vol] 0.1 {x10E3/uL} Normal 0.0-0.4 [facility] Work Phone: Comment on above: PATIENT WAS FASTINGP ERFORMED BY: LabSt. [facility] Dvrmqb1032 Reyna RoadDublin [place] [id number] Eosinophils (Bld) [#/Vol] 0.1 10*3/uL Normal 0.0-0.4 [facility]; [facility] Work Phone: Comment on above: PATIENT WAS FASTINGP ERFORMED BY: LabSt. [facility] Lwovon2367 Reyna RoadDublin [place] [id number] Eosinophils/100 WBC (Bld) 2 % Normal [facility] Work Phone: Comment on above: PATIENT WAS FASTINGP ERFORMED BY: [facility] Ocscmz7653 Reyn[address] Roadblin [place] [id number] Erythrocyte distribution width (RBC) [Ratio] 12.1 % Normal 11.7-15.4 [facility] Work Phone: Comment on above: PATIENT WAS FASTINGP ERFORMED BY: [facility] Ylruba4670 Reyn[address] Roadblin [place] [id number] Hematocrit (Bld) [Volume fraction] 43.3 % Normal 34.0-46.6 [facility] Work Phone: Comment on above: PATIENT WAS FASTINGP ERFORMED BY: [facility] Hznnii1695 Reyn[address] Roadblin [place] [id number] Hemoglobin (Bld) [Mass/Vol] 14.2 g/dL Normal 11.1-15.9 [facility] Work Phone: Comment on above: PATIENT WAS FASTINGP ERFORMED BY: [facility] Yoonwt4192 Reyna RoadDublin [place] [id number] Immature granulocytes (Bld) [#/Vol] 0.0 {x10E3/uL} Normal 0.0-0.1 [facility] Work Phone: Comment on above: PATIENT WAS FASTINGP ERFORMED BY: [facility] Orsmkm1630 Reyn[address] RoadDublin [place] [id number] Immature granulocytes (Bld) [#/Vol] 0.0 10*3/uL Normal 0.0-0.1 [facility]; [facility] Work Phone: Comment on above: PATIENT WAS FASTINGP ERFORMED BY: [facility] Lcvjkt3535 Reyna RoadDublin [place] [id number] Immature granulocytes/100 WBC (Bld) 1 % Normal [facility] Work Phone: Comment on above: PATIENT WAS FASTINGP ERFORMED BY: [facility] Apohuh3484 Reyn[address] RoadDublin [place] [id number] Lymphocytes (Bld) [#/Vol] 1.4 {x10E3/uL} Normal 0.7-3.1 [facility] Work Phone: Comment on above: PATIENT WAS FASTINGP ERFORMED BY: LabHelen [facility]6370 [address] [facility] [place] [id number] Lymphocytes (Bld) [#/Vol] 1.4 10*3/uL Normal 0.7-3.1 [facility]; [facility] Work Phone: Comment on above: PATIENT WAS FASTINGP ERFORMED BY: LabHelen [facility]6370 [facility] [id number] Lymphocytes/100 WBC (Bld) 21 % Normal [facility] Work Phone: Comment on above: PATIENT WAS FASTINGP ERFORMED BY: LabHelen [facility]6370 [facility] [id number] MCH (RBC) [Entitic mass] 29.6 pg Normal 26.6-33.0 [facility] Work Phone: Comment on above: PATIENT WAS FASTINGP ERFORMED BY: LabHelen [facility]6370 [facility] [id number] MCHC (RBC) [Mass/Vol] 32.8 g/dL Normal 31.5-35.7 [facility] Work Phone: Comment on above: PATIENT WAS FASTINGP ERFORMED BY: LabHelen [facility]6370 [facility]in [place] [id number] MCV (RBC) [Entitic vol] 90 fL Normal 79-97 [facility] Work Phone: Comment on above: PATIENT WAS FASTINGP ERFORMED BY: LabHelen [facility]6370 [facility] Companyin [place] [id number] Monocytes (Bld) [#/Vol] 0.5 {x10E3/uL} Normal 0.1-0.9 [facility] Work Phone: Comment on above: PATIENT WAS FASTINGP ERFORMED BY: LabHelen [facility]6370 [address] [facility] [place] [id number] Monocytes (Bld) [#/Vol] 0.5 10*3/uL Normal 0.1-0.9 [facility]; [facility] Work Phone: Comment on above: PATIENT WAS FASTINGP ERFORMED BY: YEN [facility] Ddlzyl7317 [address]a RoadDublin [place] [id number] Monocytes/100 WBC (Bld) 7 % Normal [facility] Work Phone: Comment on above: PATIENT WAS FASTINGP ERFORMED BY: [facility] Trngqm8278 Reyn[address] RoadDublin [place] [id number] Neutrophils (Bld) [#/Vol] 4.6 {x10E3/uL} Normal 1.4-7.0 [facility] Work Phone: Comment on above: PATIENT WAS FASTINGP ERFORMED BY: CB [facility] Pphcck4353 [address] RoadDublin [place] [id number] Neutrophils (Bld) [#/Vol] 4.6 10*3/uL Normal 1.4-7.0 [facility]; [facility] Work Phone: Comment on above: PATIENT WAS FASTINGP ERFORMED BY: [facility] Jwvawm1644 [address] RoadDublin [place] [id number] Neutrophils/100 WBC (Bld) 69 % Normal [facility] Work Phone: Comment on above: PATIENT WAS FASTINGP ERFORMED BY: LabCochun Uayocd0939 Reyn[address] RoadDublin [place] [id number] Platelets (Bld) [#/Vol] 359 {x10E3/uL} Normal 150-450 [facility] Work Phone: Comment on above: PATIENT WAS FASTINGP ERFORMED BY: [facility] Epchpt4595 [address] RoadDublin [place] [id number] Platelets (Bld) [#/Vol] 359 10*3/uL Normal 150-450 [facility]; [facility] Work Phone: Comment on above: PATIENT WAS FASTINGP ERFORMED BY: CB [facility] Ecklwn5795 [address] RoadDublin [place] [id number] RBC (Bld) [#/Vol] 4.79 {x10E6/uL} Normal 3.77-5.28 Co mprehensive Internal Medicine Work Phone: Comment on above: PATIENT WAS FASTINGP ERFORMED BY: YEN [facility] Tbeuzo4990 [address] RoadDublin [place] [id number] RBC (Bld) [#/Vol] 4.79 10*6/uL Normal 3.77-5.28 [facility] Internal Medicine; [facility] Work Phone: Comment on above: PATIENT WAS FASTINGP ERFORMED BY: CB [facility] Drfihf2064 [address] RoadDublin [place] [id number] WBC (Bld) [#/Vol] 6.6 {x10E3/uL} Normal 3.4-10.8 [facility] Internal Medicine Work Phone: Comment on above: PATIENT WAS FASTINGP ERFORMED BY: CB [facility] Itaeyj1690 [address] RoadDublin [place] [id number] WBC (Bld) [#/Vol] 6.6 10*3/uL Normal 3.4-10.8 [facility] Internal Medicine; [facility] Work Phone: Comment on above: PATIENT WAS FASTINGP ERFORMED BY: YEN [facility] Qsbuns6604 [address] RoadDublin [place] [id number] LIPID PANEL ([id number])Ordered B y: Medical Imaging Tech on 10-14-2019 Cholesterol [Mass/Vol] 222 mg/dL Abnormal 100-199 [facility] Work Phone: Comment on above: PATIENT WAS FASTINGP ERFORMED BY: CB [facility] Lsdcbr9138 Reyna RoadDublin [place] [id number] Cholesterol in HDL [Mass/Vol] 74 mg/dL Normal [facility] Work Phone: Comment on above: PATIENT WAS FASTINGP ERFORMED BY: CB [facility] Zyvxno2204 Reyna RoadDublin [place] [id number] Cholesterol in LDL [Mass/Vol] 129 mg/dL Abnormal 0-99 [facility] Work Phone: Comment on above: PATIENT WAS FASTINGP ERFORMED BY: CB [facility] Tenkfr9651 Reyna RoadDublin [place] [id number] Cholesterol in LDL/Cholesterol in HDL [Mass ratio] 1.7 {ratio} Normal 0.0-3.2 [facility] Work Phone: Comment on above: LDL/HDL Ratio Men Wo men 1/2 Avg.Risk 1.0 1.5 Avg.Risk 3.6 3.2 2X Avg.Risk 6.2 5.0 3X Avg.Risk 8.0 6.1 PATIENT WAS FASTINGP ERFORMED BY: YEN [facility] Khadvh4175 Reyna RoadDublin [place] [id number] Cholesterol in VLDL [Mass/Vol] 19 mg/dL Normal 5-40 [facility] Work Phone: Comment on above: PATIENT WAS FASTINGP ERFORMED BY: YEN [facility] Fossrh9615 Reyna RoadDublin [place] [id number] Triglyceride [Mass/Vol] 95 mg/dL Normal 0-149 [facility] Work Phone: Comment on above: PATIENT WAS FASTINGP ERFORMED BY: YEN [facility] Yyofrz9697 [address] SecuritiesDublin [place] [id number] Metabolic Panel, Comprehensi ve ([id number])Ordered By: Medical Imaging Tech on 10-14-2019 Albumin [Mass/Vol] 4.6 g/dL Normal 3.8-4.8 [facility] Medicine Work Phone: Comment on above: PATIENT WAS FASTINGP ERFORMED BY: YEN [facility] Etejtp2178 [address] SecuritiesDublin [place] [id number] Albumin/Globulin [Mass ratio] 1.8 {ratio} Normal 1.2-2.2 [facility] Work Phone: Comment on above: PATIENT WAS FASTINGP ERFORMED BY: CB [facility] Bkeohh6669 Reyna RoadDublin [place] [id number] ALP [Catalytic activity/Vol] 89 [iU]/L Normal 39-117 [facility] Work Phone: Comment on above: PATIENT WAS FASTINGP ERFORMED BY: CB [facility] Ietbkd2518 [address] SecuritiesDublin [place] [id number] ALP [Catalytic activity/Vol] 89 U/L Normal 39-117 [facility]; [facility] Work Phone: Comment on above: PATIENT WAS FASTINGP ERFORMED BY: YEN Essie Nqaiyh2995 Reyna RoadDublin [place] [id number] ALT [Catalytic activity/Vol] 20 [iU]/L Normal 0-32 [facility] Work Phone: Comment on above: PATIENT WAS FASTINGP ERFORMED BY: YEN Danielle Okxvad6735 Reyna RoadDublin [place] [id number] ALT [Catalytic activity/Vol] 20 U/L Normal 0-32 [facility]; [facility] Work Phone: Comment on above: PATIENT WAS FASTINGP ERFORMED BY: YEN Daniellechun ManBgxxrm2222 Reyna RoadDublin [place] [id number] AST [Catalytic activity/Vol] 20 [iU]/L Normal 0-40 [facility] Internal Medicine Work Phone: Comment on above: PATIENT WAS FASTINGP ERFORMED BY: YEN ShuklaSt. [facility] Ejjpbr5790 Reyn[address] Roadblin [place] [id number] AST [Catalytic activity/Vol] 20 U/L Normal 0-40 [facility]; [facility] Work Phone: Comment on above: PATIENT WAS FASTINGP ERFORMED BY: YEN GaylaGiovani ManStmmjv8330 Reyna [facility]bl[facility] [place] [id number] Bilirubin [Mass/Vol] 0.4 mg/dL Normal 0.0-1.[address] [facility] Work Phone: Comment on above: PATIENT WAS FASTINGP ERFORMED BY: YEN GaylaSt. [facility] Behavioral [facility] Institute Nbvbrg4682 Reyna [facility] [place] [id number] Calcium [Mass/Vol] 9.5 mg/dL Normal 8.7-10.2 [facility] Internal Medicine Work Phone: Comment on above: PATIENT WAS FASTINGP ERFORMED BY: YEN LabAdonay Wiadld2031 Reyn[address] RoadDublin [place] [id number] Chloride [Moles/Vol] 101 mmol/L Normal 96-[address] [facility] Work Phone: Comment on above: PATIENT WAS FASTINGP ERFORMED BY: CB [facility] Hezuvb7040 Reyna RoadDublin [place] [id number] CO2 [Moles/Vol] 26 mmol/L Normal 20-29 [facility] Internal Medicine Work Phone: Comment on above: PATIENT WAS FASTINGP ERFORMED BY: CB [facility] Ibmgjp6750 Reyn[address] RoadDublin [place] [id number] Creatinine [Mass/Vol] 0.85 mg/dL Normal 0.57-1.00 [facility] Work Phone: Comment on above: PATIENT WAS FASTINGP ERFORMED BY: CB [facility] Getkgg9074 Reyna RoadDublin [place] [id number] GFR/1.73 sq M predicted among blacks CKD-EPI (S/P/Bld) [Vol rate/Area] 96 mL/min/1.73 Normal [facility] Work Phone: Comment on above: PATIENT WAS FASTINGP ERFORMED BY: [facility] Zbfjnq8169 Reyna RoadDublin [place] [id number] GFR/1.73 sq M predicted among non-blacks CKD-EPI (S/P/Bld) [Vol rate/Area] 83 mL/min/1.73 Normal [facility] Work Phone: Comment on above: PATIENT WAS FASTINGP ERFORMED BY: CB [facility] Gctgxv5066 Reyna RoadDublin [place] [id number] Globulin (S) [Mass/Vol] 2.5 g/dL Normal 1.5-4.5 [facility] Work Phone: Comment on above: PATIENT WAS FASTINGP ERFORMED BY: CB [facility] Votcfi2779 Reyn[address] RoadDublin [place] [id number] Glucose [Mass/Vol] 99 mg/dL Normal 65-99 [facility] Internal Medicine Work Phone: Comment on above: PATIENT WAS FASTINGP ERFORMED BY: CB [facility] Upkelb9899 Reyn[address] RoadDublin [place] [id number] Potassium [Moles/Vol] 4.6 mmol/L Normal 3.5-5.2 [facility] Work Phone: Comment on above: PATIENT WAS FASTINGP ERFORMED BY: YEN LabCochun Hxfewi7525 Reyna RoadDublin [place] [id number] Protein [Mass/Vol] 7.1 g/dL Normal 6.0-8.5 [facility] Internal Medicine Work Phone: Comment on above: PATIENT WAS FASTINGP ERFORMED BY: YEN LabGiovani ManKljxtf4057 Reyna RoadDublin [place] [id number] Sodium [Moles/Vol] 140 mmol/L Normal 134-144 [facility] Internal Medicine Work Phone: Comment on above: PATIENT WAS FASTINGP ERFORMED BY: YEN LabGiovani ManSehiju3082 Reyna RoadDublin [place] [id number] Urea nitrogen [Mass/Vol] 15 mg/dL Normal 6-24 [facility] Internal Medicine Work Phone: Comment on above: PATIENT WAS FASTINGP ERFORMED BY: YEN LabGiovani MnaBqkmaf7770 Reyna RoadDublin [place] [id number] Urea nitrogen/Creatinine [Mass ratio] 18 mg/mg Normal 9-23 [facility] Internal Medicine Work Phone: Comment on above: PATIENT WAS FASTINGP ERFORMED BY: YEN LabGiovani aMnBpwcmu0727 Reyna RoadDublin [place] [id number] TSH (THYROID STIMULATING HOR BETH) ([id number])Ordered By: Medical Imaging Tech on 10-14-2019 TSH Qn 3.180 {uIU/mL} Normal 0.450-4.50 0 [facility] Internal Medicine Work Phone: Comment on above: PATIENT WAS FASTINGP ERFORMED BY: YEN LabGiovani Vizvow7656 Reyna RoadDublin [place] [id number] POTASSIUM SERUM ([id number])Order ed By: Medical Imaging Tech on 06-10-2018 Potassium molar conc 4.9 mmol/L Normal 3.5-5.2 [facility] Internal Medicine Work Phone: Comment on above: PATIENT NOT FASTINGP ERFORMED BY: YEN LabGiovani ManYypaky0768 Reyna RoadDublin [place] [id number] Systemic Lupus Profile (8623 5)Ordered By: Medical Imaging Tech on 06-10-2018 Chromatin Ab Qn <0.2 Normal 0.0-0.9 [facility] Internal Medicine Work Phone: Comment on above: PATIENT NOT FASTINGP ERFORMED BY: YEN Essie Manlin6370 Reyn[address] RoadDublin [place] [id number] DNA double strand Ab Qn (S) [IU]/mL Normal 0-9 [facility] Work Phone: Comment on above: Negative <5 Equivoca l 5 - 9 Positive >9 PATIENT NOT FASTINGP ERFORMED BY: CB [facility] Giqhnn2147 Reyna RoadDublin [place] [id number] DNA double strand Ab Qn (S) [IU]/mL Normal 0-9 [facility]; [facility] Work Phone: Comment on above: Negative <5 Equivoca l 5 - 9 Positive >9 PATIENT NOT FASTINGP ERFORMED BY: YEN Daniellechun ManMxafty5432 Reyna RoadDublin [place] [id number] Rheumatoid factor Qn [IU]/mL Normal 0.0-13.9 Comp rehensive Internal Medicine Work Phone: Comment on above: PATIENT NOT FASTINGP ERFORMED BY: YEN LabCochun Tirwkj2694 Reyna RoadDublin [place] [id number] Rheumatoid factor Qn [IU]/mL Normal 0.0-13.9 Comp rehensive [facility] Medicine; [facility] Work Phone: Comment on above: PATIENT NOT FASTINGP ERFORMED BY: CB [facility] Rgwosv9415 Reyn[address] RoadDublin [place] [id number] Ribonucleoprotein extractable nuclear Ab Qn (S) <0.2 Normal 0.0-0.9 [facility] Work Phone: Comment on above: PATIENT NOT FASTINGP ERFORMED BY: CB [facility] Uyyiyy5323 Reyna RoadDublin [place] [id number] Sjogrens syndrome-A extractable nuclear Ab Qn (S) <0.2 Normal 0.0-0.9 [facility] Work Phone: Comment on above: PATIENT NOT FASTINGP ERFORMED BY: YEN [facility] Iznsxy6583 Reyn[address] RoadDublin [place] [id number] Sjogrens syndrome-B extractable nuclear Ab Qn (S) <0.2 Normal 0.0-0.9 [facility] Work Phone: Comment on above: PATIENT NOT FASTINGP ERFORMED BY: CB [facility] Ljgqvv4580 Reyn[address] RoadDublin [place] [id number] Harris extractable nuclear Ab Qn (S) <0.2 Normal 0.0-0.9 [facility] Work Phone: Comment on above: PATIENT NOT FASTINGP ERFORMED BY: CB [facility] Ieksuv5652 [address] RoadDublin [place] [id number] MATTHEW (ANTINUCLEAR ANTIBODY) ( 06009)Ordered By: Medical Imaging Tech on 05-13-2018 Nuclear Ab Ql (S) Positive Abnormal Compreh ensive Internal Medicine Work Phone: Comment on above: PATIENT NOT FASTINGP ERFORMED BY: CB [facility] Nulhde6997 Reyn[address] RoadDublin [place] [id number] Nuclear Ab Ql (S) Positive Abnormal Compreh ensive Internal Medicine; [facility] Work Phone: Comment on above: PATIENT NOT FASTINGP ERFORMED BY: YEN [facility] Nsxwjt9969 Reyn[address] RoadDublin [place] [id number] C-REACTIVE PROTEIN (09402)Or dered By: Medical Imaging Tech on 05-13-2018 CRP mass conc 15.8 mg/L Abnormal 0.0-4.9 Comprehensi ve Internal Medicine Work Phone: Comment on above: PATIENT NOT FASTINGP ERFORMED BY: CB [facility] Dxggvg2290 Reyn[address] RoadDublin [place] [id number] CALCIFIDIOL (50090) VIT D 25 Ordered By: Medical Imaging Tech on 05-13-2018 25-Hydroxyvitamin D2+25-Hydroxyvitamin D3 mass conc 25.9 ng/mL Abnormal 30.0-100.0 [facility] Work Phone: Comment on above: Vitamin D deficiency has been defined by the [place] ofMedicine and an Endocrine Society practice guideline as alevel of serum 25-OH vitamin D less than 20 ng/mL (1,2).The Endocrine Society went on to further define vitamin Dinsufficiency as a level between 21 and 29 ng/mL (2).1. IOM ([place] of Medicine). 2010. Dietary reference intakes for calcium and D. [place]: The National Academies Press.2. Don MF, Jorje NC, Addy HARVEY, et al. Evaluation, treatment, and prevention of vitamin D deficiency: an Endocrine Society clinical practice guideline. JCEM. 2010; 96(7):1911-30. PATIENT NOT FASTINGP ERFORMED BY: CB [facility] Qbvamu2811 Reyna RoadDublin [place] [id number] CBC (AUTO) (15235)Ordered By : Medical Imaging Tech on 05-13-2018 Erythrocyte distribution width Ratio (RBC) 13.2 % Normal 12.3-15.4 [facility] Work Phone: Comment on above: PATIENT NOT FASTINGP ERFORMED BY: CB [facility] Slxjhn0439 Reyna RoadDublin [place] [id number] Hematocrit Volume Fraction (Bld) 43.0 % Normal 34.0-46.6 [facility] Work Phone: Comment on above: PATIENT NOT FASTINGP ERFORMED BY: CB [facility] Rnkokl4554 Reyn[address] RoadDublin [place] [id number] Hemoglobin mass conc (Bld) 14.3 g/dL Normal 11.1-15.9 [facility] Work Phone: Comment on above: PATIENT NOT FASTINGP ERFORMED BY: CB [facility] Ypcbob7980 Reyn[address] RoadDublin [place] [id number] MCH Entitic mass (RBC) 29.6 pg Normal 26.6-33.0 [facility] Work Phone: Comment on above: PATIENT NOT FASTINGP ERFORMED BY: CB [facility] Vtvjcx2668 Reyn[address] RoadDublin [place] [id number] MCHC mass conc (RBC) 33.3 g/dL Normal 31.5-35.7 [facility] Internal Medicine Work Phone: Comment on above: PATIENT NOT FASTINGP ERFORMED BY: CB [facility] Hzsypg1942 Reyna RoadAt[facility] [place]in [place] [id number] MCV Entitic volume (RBC) 89 fL Normal 79-97 [facility] Work Phone: Comment on above: PATIENT NOT FASTINGP ERFORMED BY: YEN Foss6370 Reyna RoadAtrium Health [facility] Rehabilitation Charlottein [place] [id number] Platelets #/vol (Bld) 361 {x10E3/uL} Normal 150-379 [facility] Work Phone: Comment on above: PATIENT NOT FASTINGP ERFORMED BY: LabCo Invwac6328 [address] [facility] [place] [id number] Platelets (Bld) [#/Vol] 361 10*3/uL Normal 150-379 [facility]; [facility] Work Phone: Comment on above: PATIENT NOT FASTINGP ERFORMED BY: Danielle Ayihze0975 [address] [facility] [id number] RBC #/vol (Bld) 4.83 {x10E6/uL} Normal 3.77-5.28 Comp [facility] Internal Medicine Work Phone: Comment on above: PATIENT NOT FASTINGP ERFORMED BY: Danielle Joxiyg8030 [address] [facility] [place] [id number] RBC (Bld) [#/Vol] 4.83 10*6/uL Normal 3.77-5.28 Compr ensive Internal Medicine; [facility] Work Phone: Comment on above: PATIENT NOT FASTINGP ERFORMED BY: Danielle Tqtsgz4562 [address] [facility] [place] [id number] WBC #/vol (Bld) 7.7 {x10E3/uL} Normal 3.4-10.8 Compr [facility] Internal Medicine Work Phone: Comment on above: PATIENT NOT FASTINGP ERFORMED BY: YEN Santos Kufigc5264 [address] [facility] [place] [id number] WBC (Bld) [#/Vol] 7.7 10*3/uL Normal 3.4-10.8 Compre [facility] Internal Medicine; [facility] Work Phone: Comment on above: PATIENT NOT FASTINGP ERFORMED BY: CB [facility] Qprxoe5432 Reyn[address] RoadDublin [place] [id number] METABOLIC PANEL, COMPREHENSI VE ([id number])Ordered By: Medical Imaging Tech on 05-13-2018 Albumin mass conc 4.5 g/dL Normal 3.5-5.5 Compreh ensive Internal Medicine Work Phone: Comment on above: PATIENT NOT FASTINGP ERFORMED BY: CB [facility] Wbsqzx6709 Reyn[address] RoadDublin [place] [id number] Albumin/Globulin mass ratio 1.7 {ratio} Normal 1.2-2.2 [facility] Work Phone: Comment on above: PATIENT NOT FASTINGP ERFORMED BY: CB [facility] Dxqvro3284 Reyn[address] RoadDublin [place] [id number] ALP [Catalytic activity/Vol] 99 U/L Normal 39-117 [facility]; [facility] Work Phone: Comment on above: PATIENT NOT FASTINGP ERFORMED BY: CB [facility] Pltgoe5433 Reyn[address] RoadDublin [place] [id number] ALP enzyme act/vol 99 [iU]/L Normal 39-117 [facility] Internal Medicine Work Phone: Comment on above: PATIENT NOT FASTINGP ERFORMED BY: CB [facility] Ojgbtu9836 Reyn[address] RoadDublin [place] [id number] ALT [Catalytic activity/Vol] 17 U/L Normal 0-32 [facility]; [facility] Work Phone: Comment on above: PATIENT NOT FASTINGP ERFORMED BY: CB [facility] Sealnp6017 Reyn[address] RoadDublin [place] [id number] ALT enzyme act/vol 17 [iU]/L Normal 0-32 [facility] Internal Medicine Work Phone: Comment on above: PATIENT NOT FASTINGP ERFORMED BY: CB [facility] Snuwah7356 Reyn[address] RoadDublin [place] [id number] AST [Catalytic activity/Vol] 20 U/L Normal 0-40 [facility]; [facility] Work Phone: Comment on above: PATIENT NOT FASTINGP ERFORMED BY: YEN LabAdonayrp Bgnnxb6314 Reyna RoadDublin [place] [id number] AST enzyme act/vol 20 [iU]/L Normal 0-40 Compre hensive Internal Medicine Work Phone: Comment on above: PATIENT NOT FASTINGP ERFORMED BY: YEN Manlin6370 Reyn[address] Roadblin [place] [id number] Bilirubin mass conc 0.4 mg/dL Normal 0.0-1.2 Compr ehensive Internal Medicine Work Phone: Comment on above: PATIENT NOT FASTINGP ERFORMED BY: YEN Foss6370 Reyn[address] RoadAt[facility] [place]in [place] [id number] Calcium mass conc 10.0 mg/dL Normal 8.7-10.2 Compreh ensive Internal Medicine Work Phone: Comment on above: PATIENT NOT FASTINGP ERFORMED BY: YEN Foss6370 [address] [facility] [id number] Chloride molar conc 103 mmol/L Normal 96-106 Compr [facility] Internal Medicine Work Phone: Comment on above: PATIENT NOT FASTINGP ERFORMED BY: YEN Manlin6370 [address] [facility] [id number] CO2 molar conc 26 mmol/L Normal 20-29 [facility] Internal Medicine Work Phone: Comment on above: PATIENT NOT FASTINGP ERFORMED BY: YEN Manlin6370 [address] [facility] [id number] Creatinine mass conc 0.73 mg/dL Normal 0.57-1.00 Comp [facility] Work Phone: Comment on above: PATIENT NOT FASTINGP ERFORMED BY: YEN LabGiovani ManSivtsb5557 Reyn[address] [facility] [place] [id number] GFR/1.73 sq M predicted among blacks CKD-EPI vol rate/area (S/P/Bld) 117 mL/min/1.73 Normal Comprehensiv e Internal Medicine Work Phone: Comment on above: PATIENT NOT FASTINGP ERFORMED BY: YEN Fountain Osrqqr7301 [address] [facility] [id number] GFR/1.73 sq M predicted among non-blacks CKD-EPI vol rate/area (S/P/Bld) 101 mL/min/1.73 Normal [facility] Work Phone: Comment on above: PATIENT NOT FASTINGP ERFORMED BY: YEN LabAdonay Pizdkt5925 [address] [facility] [id number] Globulin mass conc (S) 2.7 g/dL Normal 1.5-4.5 [facility] Work Phone: Comment on above: PATIENT NOT FASTINGP ERFORMED BY: YEN LabAdonaychun ManThopwk7976 [facility] [id number] Glucose mass conc 84 mg/dL Normal 65-99 Compreh ensive Internal Medicine Work Phone: Comment on above: PATIENT NOT FASTINGP ERFORMED BY: YEN Danielle Mhuice9352 [facility] [id number] Potassium molar conc 5.3 mmol/L Abnormal 3.5-5.2 Comp rehensive Internal Medicine Work Phone: Comment on above: PATIENT NOT FASTINGP ERFORMED BY: YNE Daniellechun Ihnkjs4579 [facility] [id number] Protein mass conc 7.2 g/dL Normal 6.0-8.5 Compreh ensive Internal Medicine Work Phone: Comment on above: PATIENT NOT FASTINGP ERFORMED BY: YEN [facility] Mzfvex2796 Reyn[address] [facility] [id number] Sodium molar conc 143 mmol/L Normal 134-144 Compreh ensive Internal Medicine Work Phone: Comment on above: PATIENT NOT FASTINGP ERFORMED BY: YEN [facility] Qmlsoi6756 [facility] [id number] Urea nitrogen mass conc 11 mg/dL Normal 6-24 [facility] Work Phone: Comment on above: PATIENT NOT FASTINGP ERFORMED BY: YEN [facility] Vxijux5268 [facility] [id number] Urea nitrogen/Creatinine mass ratio 15 mg/mg Normal 9-23 [facility] Work Phone: Comment on above: PATIENT NOT FASTINGP ERFORMED BY: YEN [facility] Hapxtk7165 Reyna RoadDublin [place] [id number] SED RATE ERYTHROCYTE ([id number]) Ordered By: Medical Imaging Tech on 05-13-2018 ESR Velocity (Bld) 7 mm/h Normal 0-32 Compre [facility] Internal Medicine Work Phone: Comment on above: PATIENT NOT FASTINGP ERFORMED BY: YEN [facility] Znuxau5585 Reyna RoadDublin [place] [id number] TSH ([id number])Ordered By: Systmanjeet m Arabic Professor on 05-13-2018 Thyrotropin Qn 2.320 {uIU/mL} Normal 0.450-4.50 0 [facility] Work Phone: Comment on above: PATIENT NOT FASTINGP ERFORMED BY: YEN [facility] Udilei2435 Reyn[address] RoadDublin [place] [id number] VITAMIN B-12 (CYANOCOBALAMIN ) ([id number])Ordered By: Medical Imaging Tech on 05-13-2018 Cobalamin (Vitamin B12) mass conc 988 pg/mL Normal 232-1245 [facility] Work Phone: Comment on above: PATIENT NOT FASTINGP ERFORMED BY: YEN [facility] Jfipfa2744 Reyn[address] RoadDublin [place] [id number] Throat Culture ([id number])Ordere d By: Medical Imaging Tech on 06-11-2016 Bacteria identified Respiratory culture Nom (Unsp spec) Final report Abnormal [facility] Work Phone: Comment on above: PATIENT NOT FASTINGP ERFORMED BY: CB [facility] Ugksib9941 Reyna RoadDublin [place] [id number] Information: SRC:TH Bacteria identified Respiratory culture Nom (Unsp spec) BETAGA Abnormal [facility] Work Phone: Comment on above: Beta hemolytic Strep tococcus, group ALight growthPenicillin and ampicillin are drugs of choice for treatment ofbeta-hemolytic streptococcal infections. Susceptibility testing ofpenicillins and other beta-lactam agents approved by the FDA fortreatment of beta-hemolytic streptococcal infections need not beperformed routinely because nonsusceptible isolates are extremelyrare in any beta-hemolytic streptococcus and have not been reportedfor Streptococcus pyogenes (group A). (CLSI 2010) PATIENT NOT FASTINGP ERFORMED BY: YEN ShuklaErica Ville 0352070 [facility] [id number] Information: SRC:TH CBC W/AUTO DIFF WBC ([id number])O rdered By: Medical Imaging Tech on 03-07-2016 Basophils #/vol (Bld) 0.0 {x10E3/uL} Normal 0.0-0.2 [facility] Work Phone: Comment on above: PATIENT NOT FASTINGP ERFORMED BY: [address] [id number] Basophils (Bld) [#/Vol] 0.0 10*3/uL Normal 0.0-0.2 [facility]; [facility] Work Phone: Comment on above: PATIENT NOT FASTINGP ERFORMED BY: [address] [id number] Basophils Auto #/vol (Bld) 0.0 {x10E3/uL} Normal 0.0-0.2 [facility] Work Phone: Basophils/100 WBC (Bld) 0 % Normal [facility] Work Phone: Comment on above: PATIENT NOT FASTINGP ERFORMED BY: [address] [id number] Basophils/100 WBC Auto (Bld) 0 % Normal [facility] Work Phone: Eosinophils #/vol (Bld) 0.1 {x10E3/uL} Normal 0.0-0.4 [facility] Work Phone: Comment on above: PATIENT NOT FASTINGP ERFORMED BY: [address] [id number] Eosinophils (Bld) [#/Vol] 0.1 10*3/uL Normal 0.0-0.4 [facility]; [facility] Work Phone: Comment on above: PATIENT NOT FASTINGP ERFORMED BY: YEN [facility] Xlujsx3565 Reyn[address] [facility] [id number] Eosinophils Auto #/vol (Bld) 0.1 {x10E3/uL} Normal 0.0-0.4 [facility] Work Phone: Eosinophils/100 WBC (Bld) 1 % Normal [facility] Work Phone: Comment on above: PATIENT NOT FASTINGP ERFORMED BY: YEN [facility] Ldpnlx1323 [facility] [id number] Eosinophils/100 WBC Auto (Bld) 1 % Normal [facility] Work Phone: Erythrocyte distribution width Auto Ratio (RBC) 12.6 % Normal 12.3-15.4 [facility] Work Phone: Erythrocyte distribution width Ratio (RBC) 12.6 % Normal 12.3-15.4 [facility] Work Phone: Comment on above: PATIENT NOT FASTINGP ERFORMED BY: YEN LabCoMountainside HospitalXrgdow7210 [facility] [id number] Hematocrit Auto Volume Fraction (Bld) 40.3 % Normal 34.0-46.6 [facility] Work Phone: Hematocrit Volume Fraction (Bld) 40.3 % Normal 34.0-46.6 [facility] Work Phone: Comment on above: PATIENT NOT FASTINGP ERFORMED BY: YEN LabCoMountainside HospitalZwcewy7959 [facility] [id number] Hemoglobin mass conc (Bld) 13.5 g/dL Normal 11.1-15.9 [facility] Work Phone: Comment on above: PATIENT NOT FASTINGP ERFORMED BY: YEN [facility] Xrmgtl3471 Reyn[address] [facility] [id number] Immature granulocytes #/vol (Bld) 0.0 {x10E3/uL} Normal 0.0-0.1 [facility] Work Phone: Comment on above: PATIENT NOT FASTINGP ERFORMED BY: CB [facility] Qhceso3187 Reyn[address] [facility] [id number] Immature granulocytes (Bld) [#/Vol] 0.0 10*3/uL Normal 0.0-0.1 [facility]; [facility] Work Phone: Comment on above: PATIENT NOT FASTINGP ERFORMED BY: YEN Santos Jftlgk6968 [facility] [id number] Immature granulocytes/100 WBC (Bld) 0 % Normal [facility] Work Phone: Comment on above: PATIENT NOT FASTINGP ERFORMED BY: YEN [facility] Rukhqd0939 [facility] [place] [id number] Lymphocytes #/vol (Bld) 1.9 {x10E3/uL} Normal 0.7-3.1 [facility] Work Phone: Comment on above: PATIENT NOT FASTINGP ERFORMED BY: [facility] Rudlrs6604 Reyna [facility] [id number] Lymphocytes (Bld) [#/Vol] 1.9 10*3/uL Normal 0.7-3.1 [facility]; [facility] Work Phone: Comment on above: PATIENT NOT FASTINGP ERFORMED BY: LabAdonay Ojnkll5445 Reyna [facility] [id number] Lymphocytes Auto #/vol (Bld) 1.9 {x10E3/uL} Normal 0.7-3.1 [facility] Work Phone: Lymphocytes/100 WBC (Bld) 25 % Normal [facility] Work Phone: Comment on above: PATIENT NOT FASTINGP ERFORMED BY: LabCoMountainside HospitalQcxhnu7770 [facility] [place] [id number] Lymphocytes/100 WBC Auto (Bld) 25 % Normal [facility] Work Phone: MCH Auto Entitic mass (RBC) 29.6 pg Normal 26.6-33.0 [facility] Work Phone: MCH Entitic mass (RBC) 29.6 pg Normal 26.6-33.0 [facility] Work Phone: Comment on above: PATIENT NOT FASTINGP ERFORMED BY: LabCo Dzvrpt3744 [facility]At[facility] Charlottein [place] [id number] MCHC Auto mass conc (RBC) 33.5 g/dL Normal 31.5-35.7 [facility] Work Phone: MCHC mass conc (RBC) 33.5 g/dL Normal 31.5-35.7 Comp rehensive [facility] Work Phone: Comment on above: PATIENT NOT FASTINGP ERFORMED BY: CB [facility] Rxgiyw3347 Reyna RoadAt[facility] Rehabilitation [place]in [place] [id number] MCV Auto Entitic volume (RBC) 88 fL Normal 79-97 [facility] Work Phone: MCV Entitic volume (RBC) 88 fL Normal 79-97 [facility] Work Phone: Comment on above: PATIENT NOT FASTINGP ERFORMED BY: LabCo Nzxvle8382 Reyna [facility] [id number] Monocytes #/vol (Bld) 0.5 {x10E3/uL} Normal 0.1-0.9 [facility] Work Phone: Comment on above: PATIENT NOT FASTINGP ERFORMED BY: Lab[facility] Hqvjil5420 [facility] [place] [id number] Monocytes (Bld) [#/Vol] 0.5 10*3/uL Normal 0.1-0.9 [facility]; [facility] Work Phone: Comment on above: PATIENT NOT FASTINGP ERFORMED BY: CB [facility] Dfduxr8740 Reyna RoadDuin [place] [id number] Monocytes Auto #/vol (Bld) 0.5 {x10E3/uL} Normal 0.1-0.9 [facility] Work Phone: Monocytes/100 WBC (Bld) 6 % Normal [facility] Work Phone: Comment on above: PATIENT NOT FASTINGP ERFORMED BY: CB [facility] Taqqkm5761 Reyn[facility] RoadAt[facility] [place] [id number] Monocytes/100 WBC Auto (Bld) 6 % Normal [facility] Work Phone: Neutrophils #/vol (Bld) 5.1 {x10E3/uL} Normal 1.4-7.0 [facility] Work Phone: Comment on above: PATIENT NOT FASTINGP ERFORMED BY: YEN [facility] Ybjyzk5678 Reyn[facility] [place] [id number] Neutrophils (Bld) [#/Vol] 5.1 10*3/uL Normal 1.4-7.0 [facility]; [facility] Work Phone: Comment on above: PATIENT NOT FASTINGP ERFORMED BY: YEN LabCochun ManPfqpum3713 Reyn[facility] [place] [id number] Neutrophils Auto #/vol (Bld) 5.1 {x10E3/uL} Normal 1.4-7.0 [facility] Work Phone: Neutrophils/100 WBC (Bld) 68 % Normal [facility] Work Phone: Comment on above: PATIENT NOT FASTINGP ERFORMED BY: YEN LabCochun ManAeszex7878 Reyna [facility] [id number] Neutrophils/100 WBC Auto (Bld) 68 % Normal [facility] Work Phone: Platelets #/vol (Bld) 338 {x10E3/uL} Normal 150-379 [facility] Work Phone: Comment on above: PATIENT NOT FASTINGP ERFORMED BY: YEN [facility] Euwbiq2674 Reyna [facility] [id number] Platelets (Bld) [#/Vol] 338 10*3/uL Normal 150-379 [facility]; [facility] Work Phone: Comment on above: PATIENT NOT FASTINGP ERFORMED BY: CB [facility] Brorec2070 Reyna [facility] [place] [id number] Platelets Auto #/vol (Bld) 338 {x10E3/uL} Normal 150-379 [facility] Work Phone: RBC #/vol (Bld) 4.56 {x10E6/uL} Normal 3.77-5.28 [facility] Internal Medicine Work Phone: Comment on above: PATIENT NOT FASTINGP ERFORMED BY: YEN Foss6370 [facility] [id number] RBC (Bld) [#/Vol] 4.56 10*6/uL Normal 3.77-5.28 [facility]; [facility] Work Phone: Comment on above: PATIENT NOT FASTINGP ERFORMED BY: YEN LabGiovani Foss6370 [facility] [id number] RBC Auto #/vol (Bld) 4.56 {x10E6/uL} Normal 3.77-5.28 [facility] Work Phone: WBC #/vol (Bld) 7.7 {x10E3/uL} Normal 3.4-10.8 [facility] Internal Medicine Work Phone: Comment on above: PATIENT NOT FASTINGP ERFORMED BY: YEN LabGiovani Foss6370 [facility] [id number] WBC (Bld) [#/Vol] 7.7 10*3/uL Normal 3.4-10.8 [facility]; [facility] Work Phone: Comment on above: PATIENT NOT FASTINGP ERFORMED BY: EYN LabGiovani Foss6370 [facility] [id number] WBC Auto #/vol (Bld) 7.7 {x10E3/uL} Normal 3.4-10.8 [facility] Work Phone: METABOLIC PANEL, COMPREHENSI VE ([id number])Ordered By: Medical Imaging Tech on 03-07-2016 Albumin mass conc 4.4 g/dL Normal 3.5-5.5 [facility] Internal Medicine Work Phone: Comment on above: PATIENT NOT FASTINGP ERFORMED BY: YEN [facility] Wfpbvc9343 [facility] [id number] Albumin/Globulin mass ratio 1.6 {ratio} Normal 1.1-2.5 [facility] Work Phone: Comment on above: PATIENT NOT FASTINGP ERFORMED BY: CB [facility] Wgiuwl7174 Reyna RoadDublin [place] [id number] ALP [Catalytic activity/Vol] 79 U/L Normal 39-117 [facility]; [facility] Internal Medicine Work Phone: Comment on above: PATIENT NOT FASTINGP ERFORMED BY: CB [facility] Nedlkc3089 Reyna RoadDublin [place] [id number] ALP enzyme act/vol 79 [iU]/L Normal 39-117 [facility] Internal Medicine Work Phone: Comment on above: PATIENT NOT FASTINGP ERFORMED BY: CB [facility] Iakqkh1966 Reyna RoadDublin [place] [id number] ALT [Catalytic activity/Vol] 13 U/L Normal 0-32 [facility] Internal Medicine; [facility] Work Phone: Comment on above: PATIENT NOT FASTINGP ERFORMED BY: CB [facility] Zjsbid2021 Reyn[address] RoadDublin [place] [id number] ALT enzyme act/vol 13 [iU]/L Normal 0-32 [facility] Internal Medicine Work Phone: Comment on above: PATIENT NOT FASTINGP ERFORMED BY: CB [facility] Uyqsua2281 Reyn[address] RoadDublin [place] [id number] AST [Catalytic activity/Vol] 14 U/L Normal 0-40 [facility] Internal Medicine; [facility] Internal Medicine Work Phone: Comment on above: PATIENT NOT FASTINGP ERFORMED BY: CB [facility] Dztrfw2047 Reyn[address] RoadDublin [place] [id number] AST enzyme act/vol 14 [iU]/L Normal 0-40 [facility] Internal Medicine Work Phone: Comment on above: PATIENT NOT FASTINGP ERFORMED BY: CB [facility] Eipzns6458 Reyn[address] RoadDublin [place] [id number] Bilirubin mass conc 0.3 mg/dL Normal 0.0-1.2 [facility] Internal Medicine Work Phone: Comment on above: PATIENT NOT FASTINGP ERFORMED BY: CB [facility] Mgdzpb7958 Reyn[address] RoadDublin [place] [id number] Calcium mass conc 9.1 mg/dL Normal 8.7-10.2 Compreh ensive [facility] Work Phone: Comment on above: PATIENT NOT FASTINGP ERFORMED BY: YEN [facility] Hvpqom7088 Reyn[facility] RoadAt[facility] [place]in [place] [id number] Chloride molar conc 97 mmol/L Normal 97-106 Compr ehensive [facility] Medicine Work Phone: Comment on above: Please note refere nce interval change PATIENT NOT FASTINGP ERFORMED BY: CB [facility] Bhtuen9885 Reyn[facility] [place] [id number] CO2 molar conc 25 mmol/L Normal 18-29 [facility] Work Phone: Comment on above: PATIENT NOT FASTINGP ERFORMED BY: YEN [facility] Tdnnwg8028 [facility] [id number] Creatinine mass conc 0.63 mg/dL Normal 0.57-1.00 [facility] Work Phone: Comment on above: PATIENT NOT FASTINGP ERFORMED BY: CB [facility] Xzvmmw7858 [facility] [place] [id number] GFR/1.73 sq M predicted among blacks CKD-EPI vol rate/area (S/P/Bld) 129 mL/min/1.73 Normal [facility] Work Phone: Comment on above: PATIENT NOT FASTINGP ERFORMED BY: CB [facility] Fwvwys6947 Reyna [facility] [id number] GFR/1.73 sq M predicted among non-blacks CKD-EPI vol rate/area (S/P/Bld) 112 mL/min/1.73 Normal [facility] Work Phone: Comment on above: PATIENT NOT FASTINGP ERFORMED BY: CB [facility] Bdelwz4624 Reyn[facility] [place] [id number] Globulin Calculated mass conc (S) 2.7 g/dL Normal 1.5-4.5 [facility] Work Phone: Globulin mass conc (S) 2.7 g/dL Normal 1.5-4.5 [facility] Work Phone: Comment on above: PATIENT NOT FASTINGP ERFORMED BY: YEN [facility] Qddytt7408 Reyn[address] RoadDublin [place] [id number] Glucose mass conc 76 mg/dL Normal 65-99 Compreh ensive [facility] Work Phone: Comment on above: PATIENT NOT FASTINGP ERFORMED BY: CB [facility] Hpxbbc8923 Reyn[address] RoadDublin [place] [id number] Potassium molar conc 4.7 mmol/L Normal 3.5-5.2 Comp re[facility] Work Phone: Comment on above: Please note refere nce interval change PATIENT NOT FASTINGP ERFORMED BY: YEN [facility] Nrfwnb6788 Reyn[address] RoadDublin [place] [id number] Protein mass conc 7.1 g/dL Normal 6.0-8.5 Compreh ensive [facility] Work Phone: Comment on above: PATIENT NOT FASTINGP ERFORMED BY: YEN [facility] Rforik7821 Reyn[address] RoadDublin [place] [id number] Sodium molar conc 139 mmol/L Normal 136-144 Compreh ensive [facility] Work Phone: Comment on above: Please note refere nce interval change PATIENT NOT FASTINGP ERFORMED BY: YEN [facility] Htqcnb5601 Reyn[address] RoadDublin [place] [id number] Urea nitrogen mass conc 13 mg/dL Normal 6-24 [facility] Work Phone: Comment on above: PATIENT NOT FASTINGP ERFORMED BY: CB [facility] Lnfamf3428 Reyn[address] RoadDublin [place] [id number] Urea nitrogen/Creatinine mass ratio 21 mg/mg Normal 9-23 [facility] Work Phone: Comment on above: PATIENT NOT FASTINGP ERFORMED BY: CB [facility] Dqjpwx2229 Reyn[address] RoadDublin [place] [id number] MICROALBUMINOrdered By: Syst em Arabic Professor on 03-07-2016 Albumin DL <= 20 mg/L mass conc (U) 5.6 ug/mL Normal [facility] Work Phone: Comment on above: PATIENT NOT FASTINGP ERFORMED BY: CB [facility] Svwrpf4866 Reyn[address] RoadDublin [place] [id number] Albumin/Creatinine mass ratio (U) 16.4 {mg/g_creat} Normal 0.0-30.0 [facility] Work Phone: Comment on above: PATIENT NOT FASTINGP ERFORMED BY: CB [facility] Iujtni5355 [address] RoadDublin [place] [id number] Creatinine mass conc (U) 34.1 mg/dL Normal [facility] Work Phone: Comment on above: PATIENT NOT FASTINGP ERFORMED BY: CB [facility] Ononwg2673 [address] RoadDublin [place] [id number] Microscopic ExaminationOrder ed By: Medical Imaging Tech on 03-07-2016 Bacteria LM.HPF #/area (Urine sed) Few Normal [facility] Work Phone: Comment on above: PATIENT NOT FASTINGP ERFORMED BY: CB [facility] Rsyvtg1265 Reyn[address] RoadDublin [place] [id number] Epithelial cells LM.HPF #/area (Urine sed) 0-10 Normal 0 - 10 [facility] Work Phone: Comment on above: PATIENT NOT FASTINGP ERFORMED BY: CB [facility] Nnagxe7939 [address] RoadDublin [place] [id number] Mucus LM Ql (Urine sed) Present Normal [facility] Work Phone: Mucus Ql (Urine sed) Present Normal Comp rehensive [facility] Medicine Work Phone: Comment on above: PATIENT NOT FASTINGP ERFORMED BY: CB [facility] Ginvkj7469 Reyn[address] RoadDublin [place] [id number] RBC LM.HPF #/area (Urine sed) None seen Normal 0 - 2 [facility] Work Phone: Comment on above: PATIENT NOT FASTINGP ERFORMED BY: CB [facility] Iikmyn7244 [address] RoadDublin [place] [id number] WBC LM.HPF #/area (Urine sed) 6-10 Abnormal 0 - 5 [facility] Work Phone: Comment on above: PATIENT NOT FASTINGP ERFORMED BY: YEN Foss6370 [address] RoadD[address] [place] [id number] URINALYSIS, W/ MICRO ([id number]) Ordered By: Medical Imaging Tech on 03-07-2016 Appearance Nom (U) Cloudy Abnormal Compre hensive [facility] Work Phone: Comment on above: PATIENT NOT FASTINGP ERFORMED BY: YEN Essie Apeflg8931 Reyn[address] RoadDublin [place] [id number] Bilirubin Ql (U) Negative Normal Comprehe nsive [facility] Medicine Work Phone: Comment on above: PATIENT NOT FASTINGP ERFORMED BY: YEN Daniellechun ManZfjtcr6122 [address] RoadDublin [place] [id number] Bilirubin Ql (U) Negative Normal Comprehe nsive [facility]; [facility] Work Phone: Comment on above: PATIENT NOT FASTINGP ERFORMED BY: YEN Daniellechun ManRehkeu9329 Reyn[address] RoadDublin [place] [id number] Color Nom (U) Yellow Normal Comprehensi ve Internal Medicine Work Phone: Comment on above: PATIENT NOT FASTINGP ERFORMED BY: YEN Daniellechun ManItmzhz7453 [address] RoadDublin [place] [id number] Glucose Ql (U) Negative Normal [facility] Work Phone: Comment on above: PATIENT NOT FASTINGP ERFORMED BY: YEN Daniellechun ManElgdkz0402 Reyn[address] RoadDublin [place] [id number] Glucose Ql (U) Negative Normal [facility]; [facility] Work Phone: Comment on above: PATIENT NOT FASTINGP ERFORMED BY: YEN LabAdonaychun ManDdfbuf2495 Reyn[address] RoadDublin [place] [id number] Hemoglobin Ql (U) Negative Normal Compreh ensive [facility] Work Phone: Comment on above: PATIENT NOT FASTINGP ERFORMED BY: YEN LabGiovani ManQctjqn7857 [address] RoadDublin [place] [id number] Hemoglobin Ql (U) Negative Normal Compreh ensive [facility]; [facility] Work Phone: Comment on above: PATIENT NOT FASTINGP ERFORMED BY: YEN LabCochun FossPedrzx9030 Reyn[address] RoadDublin [place] [id number] Hemoglobin Test strip Ql (U) Negative Normal [facility] Work Phone: Ketones Ql (U) Negative Normal [facility] Work Phone: Comment on above: PATIENT NOT FASTINGP ERFORMED BY: YEN [facility] Nyvskw7645 [address] RoadDublin [place] [id number] Ketones Ql (U) Negative Normal [facility]; [facility] Work Phone: Comment on above: PATIENT NOT FASTINGP ERFORMED BY: YEN [facility] Lwhoks8600 [address] RoadDublin [place] [id number] Leukocyte esterase Test strip Ql (U) 2+ Abnormal [facility] Work Phone: Comment on above: PATIENT NOT FASTINGP ERFORMED BY: YEN [facility] Ekbait3741 Reyna [facility] [place] [id number] Microscopic observation LM Nom (Urine sed) See below: Normal [facility] Work Phone: Comment on above: Microscopic was herminio cated and was performed. PATIENT NOT FASTINGP ERFORMED BY: YEN LabAdonay Zxtmpa8931 [address] RoadDublin [place] [id number] Nitrite Ql (U) Negative Normal [facility] Work Phone: Comment on above: PATIENT NOT FASTINGP ERFORMED BY: YEN [facility] Rsnpwb4443 Reyn[address] RoadDuin [place] [id number] Nitrite Ql (U) Negative Normal [facility]; [facility] Work Phone: Comment on above: PATIENT NOT FASTINGP ERFORMED BY: YEN [facility] Gghhhf2777 [address] RoadDublin [place] [id number] Nitrite Test strip Ql (U) Negative Normal [facility] Work Phone: pH (U) 7.0 [pH] Normal 5.0-7.5 [facility] Work Phone: Comment on above: PATIENT NOT FASTINGP ERFORMED BY: YEN LabGiovani Foss6370 [address] RoadDublin [place] [id number] pH Test strip (U) 7.0 [pH] Normal 5.0-7.5 Compreh ensive [facility] Medicine Work Phone: Protein Ql (U) Negative Normal [facility] Work Phone: Comment on above: PATIENT NOT FASTINGP ERFORMED BY: YEN LabGiovani ManRkwahm4190 [address] RoadDublin [place] [id number] Protein Ql (U) Negative Normal [facility]; [facility] Work Phone: Comment on above: PATIENT NOT FASTINGP ERFORMED BY: YEN Manlin6370 [address] RoadDublin [place] [id number] Protein Test strip Ql (U) Negative Normal [facility] Work Phone: Specific gravity Relative Density (U) 1.010 1 Normal 1.005-1.03 0 [facility] Work Phone: Comment on above: PATIENT NOT FASTINGP ERFORMED BY: YEN [facility] Wwqugt6432 [address] RoadDublin [place] [id number] Urobilinogen (U) [Mass/Vol] 0.2 mg/dL Normal 0.2-1.0 [facility]; [facility] Work Phone: Comment on above: PATIENT NOT FASTINGP ERFORMED BY: YEN [facility] Cswldm0472 [address] RoadDublin [place] [id number] Urobilinogen Test strip mass conc (U) 0.2 mg/dL Normal 0.2-1.0 Comprehensiv e [facility] Medicine Work Phone: Comment on above: PATIENT NOT FASTINGP ERFORMED BY: YEN [facility] Rzcqhq8546 [address] RoadDublin [place] [id number] LIPID PANEL ([id number])Ordered B y: Medical Imaging Tech on 02-22-2016 Cholesterol in HDL mass conc 74 mg/dL Normal [facility] Work Phone: Comment on above: According to ATP-III Guidelines, HDL-C >59 mg/dL is considered anegative risk factor for CHD. PATIENT WAS FASTINGP ERFORMED BY: YEN Essie Foss6370 [facility] [id number]; will review on 03/07 Cholesterol in LDL mass conc 119 mg/dL Abnormal 0-99 [facility] Work Phone: Comment on above: PATIENT WAS FASTINGP ERFORMED BY: YEN Danielle Rnkxnd8513 [facility] [id number]; will review on 03/07 Cholesterol in LDL/Cholesterol in HDL mass ratio 1.6 {ratio_units} Normal 0.0-3.2 [facility] Work Phone: Comment on above: LDL/HDL Ratio Men Wo men 1/2 Avg.Risk 1.0 1.5 Avg.Risk 3.6 3.2 2X Avg.Risk 6.2 5.0 3X Avg.Risk 8.0 6.1 PATIENT WAS FASTINGP ERFORMED BY: YEN Danielle Qljang4425 [facility] [id number]; will review on 03/07 Cholesterol in VLDL mass conc 20 mg/dL Normal 5-40 [facility] Work Phone: Comment on above: PATIENT WAS FASTINGP ERFORMED BY: YEN Essie Manlin6370 [facility] [id number]; will review on 03/07 Cholesterol mass conc 213 mg/dL Abnormal 100-199 [facility] Work Phone: Comment on above: PATIENT WAS FASTINGP ERFORMED BY: YEN GaylaErica V[place] 0352070 [facility] [id number]; will review on 03/07 Triglyceride mass conc 99 mg/dL Normal 0-149 [facility] Work Phone: Comment on above: PATIENT WAS FASTINGP ERFORMED BY: YEN Danielle Uasuae5961 [facility] [id number]; will review on 03/07 TSH (THYROID STIMULATING HOR BETH) ([id number])Ordered By: Medical Imaging Tech on 02-22-2016 Thyrotropin Qn 3.220 {uIU/mL} Normal 0.450-4.50 0 [facility] Work Phone: Comment on above: PATIENT WAS FASTINGP ERFORMED BY: YEN GaylaGiovani Vniqsa7618 [facility] [id number] CBC (Auto) ([id number])Ordered By : Medical Imaging Tech on 03-15-2015 Erythrocyte distribution width Auto Ratio (RBC) 12.8 % Normal 12.3-15.4 [facility] Work Phone: Erythrocyte distribution width Ratio (RBC) 12.8 % Normal 12.3-15.4 [facility] Work Phone: Comment on above: PATIENT NOT FASTINGP ERFORMED BY: YEN Manlin6370 [facility] [id number] Hematocrit Auto Volume Fraction (Bld) 40.3 % Normal 34.0-46.6 [facility] Work Phone: Hematocrit Volume Fraction (Bld) 40.3 % Normal 34.0-46.6 [facility] Work Phone: Comment on above: PATIENT NOT FASTINGP ERFORMED BY: YEN Manlin6370 [facility] [id number] Hemoglobin mass conc (Bld) 13.2 g/dL Normal 11.1-15.9 [facility] Work Phone: Comment on above: PATIENT NOT FASTINGP ERFORMED BY: YEN LabGiovani ManGwjhig2164 [facility] [id number] MCH Auto Entitic mass (RBC) 29.3 pg Normal 26.6-33.0 [facility] Work Phone: MCH Entitic mass (RBC) 29.3 pg Normal 26.6-33.0 [facility] Work Phone: Comment on above: PATIENT NOT FASTINGP ERFORMED BY: YEN LabGiovani Yqqwrp1420 [facility] [id number] MCHC Auto mass conc (RBC) 32.8 g/dL Normal 31.5-35.7 [facility] Work Phone: MCHC mass conc (RBC) 32.8 g/dL Normal 31.5-35.7 Comp rehensive [facility] Medicine Work Phone: Comment on above: PATIENT NOT FASTINGP ERFORMED BY: CB [facility] Oneoii8318 [address] RoadDublin [place] [id number] MCV Auto Entitic volume (RBC) 89 fL Normal 79-97 [facility] Work Phone: MCV Entitic volume (RBC) 89 fL Normal 79-97 [facility] Work Phone: Comment on above: PATIENT NOT FASTINGP ERFORMED BY: CB [facility] Vxbqwh5118 [address] RoadDublin [place] [id number] Platelets #/vol (Bld) 379 {x10E3/uL} Normal 150-379 [facility] Work Phone: Comment on above: PATIENT NOT FASTINGP ERFORMED BY: CB [facility] Escgne7456 [address] RoadDublin [place] [id number] Platelets (Bld) [#/Vol] 379 10*3/uL Normal 150-379 [facility]; [facility] Work Phone: Comment on above: PATIENT NOT FASTINGP ERFORMED BY: CB [facility] Irplns2873 [address] RoadDublin [place] [id number] Platelets Auto #/vol (Bld) 379 {x10E3/uL} Normal 150-379 [facility] Work Phone: RBC #/vol (Bld) 4.51 {x10E6/uL} Normal 3.77-5.[address] [facility] Work Phone: Comment on above: PATIENT NOT FASTINGP ERFORMED BY: CB [facility] Ltviis6552 [address] RoadDublin [place] [id number] RBC (Bld) [#/Vol] 4.51 10*6/uL Normal 3.77-5.28 Compr ensive [facility]; [facility] Work Phone: Comment on above: PATIENT NOT FASTINGP ERFORMED BY: CB [facility] Ftismj0676 [address] RoadDublin [place] [id number] RBC Auto #/vol (Bld) 4.51 {x10E6/uL} Normal 3.77-5.28 [facility] Work Phone: WBC #/vol (Bld) 8.1 {x10E3/uL} Normal 3.4-10.8 Compr ehensive Internal Medicine Work Phone: Comment on above: PATIENT NOT FASTINGP ERFORMED BY: YEN [facility] Mddzov9115 Reyna [facility] [id number] WBC (Bld) [#/Vol] 8.1 10*3/uL Normal 3.4-10.8 [facility]; [facility] Work Phone: Comment on above: PATIENT NOT FASTINGP ERFORMED BY: CB [facility] Nyxcol2817 [facility] [id number] WBC Auto #/vol (Bld) 8.1 {x10E3/uL} Normal 3.4-10.8 [facility] Work Phone: Metabolic Panel, Comprehensi ve ([id number])Ordered By: Medical Imaging Tech on 03-15-2015 Albumin mass conc 4.3 g/dL Normal 3.5-5.5 Compreh ensive Internal Medicine Work Phone: Comment on above: PATIENT NOT FASTINGP ERFORMED BY: YEN [facility] Chpepv0462 [facility] [id number] Information: [id number] Albumin/Globulin mass ratio 1.7 {ratio} Normal 1.1-2.5 [facility] Work Phone: Comment on above: PATIENT NOT FASTINGP ERFORMED BY: CB [facility] Uauyvq6346 [facility] [id number] Information: [id number], [id number] ALP [Catalytic activity/Vol] 83 U/L Normal 39-117 [facility]; [facility] Work Phone: Comment on above: PATIENT NOT FASTINGP ERFORMED BY: CB [facility] Giwfnb7989 [facility] [id number] Information: [id number], [id number] ALP enzyme act/vol 83 [iU]/L Normal 39-117 [facility] Internal Medicine Work Phone: Comment on above: PATIENT NOT FASTINGP ERFORMED BY: YEN Foss6370 [facility] [id number] Information: [id number], [id number] ALT [Catalytic activity/Vol] 16 U/L Normal 0-32 [facility] Internal Medicine; [facility] Internal Medicine Work Phone: Comment on above: PATIENT NOT FASTINGP ERFORMED BY: YEN Foss6370 [facility] [id number] Information: [id number], [id number] ALT enzyme act/vol 16 [iU]/L Normal 0-32 [facility] Internal Medicine Work Phone: Comment on above: PATIENT NOT FASTINGP ERFORMED BY: YEN Foss6370 [facility] [id number] Information: [id number], [id number] AST [Catalytic activity/Vol] 18 U/L Normal 0-40 [facility] Internal Medicine; [facility] Internal Medicine Work Phone: Comment on above: PATIENT NOT FASTINGP ERFORMED BY: YEN Foss6370 [facility] [id number] Information: [id number], [id number] AST enzyme act/vol 18 [iU]/L Normal 0-40 [facility] Internal Medicine Work Phone: Comment on above: PATIENT NOT FASTINGP ERFORMED BY: YEN [facility] Eavrjz6605 [facility] [id number] Information: [id number], 073152 Bilirubin mass conc 0.3 mg/dL Normal 0.0-1.2 [facility] Internal Medicine Work Phone: Comment on above: PATIENT NOT FASTINGP ERFORMED BY: YEN Manlin6370 [facility] [id number] Information: [id number], [id number] Calcium mass conc 9.3 mg/dL Normal 8.7-10.2 [facility] Internal Medicine Work Phone: Comment on above: PATIENT NOT FASTINGP ERFORMED BY: CB [facility] Sqwzim2734 Reyna RoadAtrium Health Carol[facility] Rehabilitation [place] [id number] Information: C68174, [id number] Chloride molar conc 98 mmol/L Normal 97-108 Compr ehensive Internal Medicine Work Phone: Comment on above: PATIENT NOT FASTINGP ERFORMED BY: CB [facility] Fdzhth3687 Reyna RoadAtrium Health Carol[facility] Rehabilitation [place] [id number] Information: [id number], [id number] CO2 molar conc 24 mmol/L Normal 18-29 [facility] Internal Medicine Work Phone: Comment on above: PATIENT NOT FASTINGP ERFORMED BY: CB [facility] Qaiklb9931 Reyna [facility] [id number] Information: [id number], [id number] Creatinine mass conc 0.66 mg/dL Normal 0.57-1.00 [facility] Work Phone: Comment on above: PATIENT NOT FASTINGP ERFORMED BY: CB [facility] Nckfiv3937 Reyna [facility] [id number] Information: [id number], 992869 GFR/1.73 sq M predicted among blacks CKD-EPI vol rate/area (S/P/Bld) 128 mL/min/1.73 Normal Com[facility] e Internal Medicine Work Phone: Comment on above: PATIENT NOT FASTINGP ERFORMED BY: CB [facility] Hdvrjv3039 Reyna [facility] [id number] Information: [id number], 670536 GFR/1.73 sq M predicted among non-blacks CKD-EPI vol rate/area (S/P/Bld) 111 mL/min/1.73 Normal [facility] Work Phone: Comment on above: PATIENT NOT FASTINGP ERFORMED BY: CB [facility] Ljbvaj8457 Reyna [facility] [place] [id number] Information: [id number], [id number] Globulin Calculated mass conc (S) 2.6 g/dL Normal 1.5-4.5 [facility] Work Phone: Globulin mass conc (S) 2.6 g/dL Normal 1.5-4.5 [facility] Work Phone: Comment on above: PATIENT NOT FASTINGP ERFORMED BY: YEN Foss6370 [facility] [id number] Information: [id number], [id number] Glucose mass conc 79 mg/dL Normal 65-99 Compreh ensive Internal Medicine Work Phone: Comment on above: PATIENT NOT FASTINGP ERFORMED BY: YEN ShuklaCo Fitljr8910 [facility] [id number] Information: [id number], [id number] Potassium molar conc 5.0 mmol/L Normal 3.5-5.2 Comp rehensive Internal Medicine Work Phone: Comment on above: PATIENT NOT FASTINGP ERFORMED BY: YEN Santos Jikstw5748 [facility] [id number] Information: [id number], 037847 Protein mass conc 6.9 g/dL Normal 6.0-8.5 Compreh ensive Internal Medicine Work Phone: Comment on above: PATIENT NOT FASTINGP ERFORMED BY: YEN Manlin6370 [facility] [id number] Information: [id number], [id number] Sodium molar conc 137 mmol/L Normal 134-144 Compreh ensive Internal Medicine Work Phone: Comment on above: PATIENT NOT FASTINGP ERFORMED BY: YEN ShuklaCo Fzbwls8433 [facility] [id number] Information: [id number], [id number] Urea nitrogen mass conc 12 mg/dL Normal 6-24 [facility] Work Phone: Comment on above: PATIENT NOT FASTINGP ERFORMED BY: YEN Santos Cbxbfr8494 [facility] [id number] Information: [id number], [id number] Urea nitrogen/Creatinine mass ratio 18 mg/mg Normal 9-23 [facility] Work Phone: Comment on above: PATIENT NOT FASTINGP ERFORMED BY: YEN [facility] Uosioi3187 [facility] [id number] Information: [id number], 842080 T3, FREE (TRIDOTHYRONINE) (8 8098)Ordered By: Medical Imaging Tech on 03-15-2015 T3 free mass conc 2.7 pg/mL Normal 2.0-4.4 Compreh ensive Internal Medicine Work Phone: Comment on above: PATIENT NOT FASTINGP ERFORMED BY: YEN [facility] Nnwxwz6577 [facility] [id number] T4, FREE (THYROXINE) ([id number]) Ordered By: Medical Imaging Tech on 03-15-2015 T4 free mass conc 1.08 ng/dL Normal 0.82-1.77 Compreh ensive Internal Medicine Work Phone: Comment on above: PATIENT NOT FASTINGP ERFORMED BY: YEN [facility] Lhuurq3983 [facility] [id number] TSH ([id number])Ordered By: Laticínios Bom Gosto/LBRe m Arabic Professor on 03-15-2015 Thyrotropin Qn 2.460 {uIU/mL} Normal 0.450-4.50 0 [facility] Work Phone: Comment on above: PATIENT NOT FASTINGP ERFORMED BY: YEN Danielle Fvtqmd8346 [facility] [id number] CBC (Auto) (21141)Ordered By : Medical Imaging Tech on 11-12-2012 Erythrocyte distribution width Auto Ratio (RBC) 13.4 % Normal 12.3-15.4 [facility] Work Phone: Erythrocyte distribution width Ratio (RBC) 13.4 % Normal 12.3-15.4 [facility] Work Phone: Comment on above: PATIENT WAS FASTINGP ERFORMED BY: YEN LabSt[facility] Jttpcf1712 [facility] [id number] Hematocrit Auto Volume Fraction (Bld) 40.0 % Normal 34.0-46.6 [facility] Work Phone: Hematocrit Volume Fraction (Bld) 40.0 % Normal 34.0-46.6 [facility] Work Phone: Comment on above: PATIENT WAS FASTINGP ERFORMED BY: YEN [facility] Sogbmu4507 Reyna [facility] [place] [id number] Hemoglobin mass conc (Bld) 13.3 g/dL Normal 11.1-15.9 [facility] Work Phone: Comment on above: PATIENT WAS FASTINGP ERFORMED BY: [facility] Yhftot0475 Reyna [facility] [id number] MCH Auto Entitic mass (RBC) 29.2 pg Normal 26.6-33.0 [facility] Work Phone: MCH Entitic mass (RBC) 29.2 pg Normal 26.6-33.0 [facility] Work Phone: Comment on above: PATIENT WAS FASTINGP ERFORMED BY: YEN [facility] Jxocjp8476 [facility] [id number] MCHC Auto mass conc (RBC) 33.3 g/dL Normal 31.5-35.7 [facility] Work Phone: MCHC mass conc (RBC) 33.3 g/dL Normal 31.5-35.7 Comp [facility] Internal Medicine Work Phone: Comment on above: PATIENT WAS FASTINGP ERFORMED BY: LabHelen [facility]6370 [facility] [id number] MCV Auto Entitic volume (RBC) 88 fL Normal 79-97 [facility] Work Phone: MCV Entitic volume (RBC) 88 fL Normal 79-97 [facility] Work Phone: Comment on above: PATIENT WAS FASTINGP ERFORMED BY: Lab[facility] Dbasip2909 Reyna [facility] [id number] Platelets #/vol (Bld) 332 {x10E3/uL} Normal 140-415 [facility] Work Phone: Comment on above: PATIENT WAS FASTINGP ERFORMED BY: [facility] Cpcxpu4390 Reyna [facility] [place] [id number] Platelets (Bld) [#/Vol] 332 10*3/uL Normal 140-415 [facility]; [facility] Work Phone: Comment on above: PATIENT WAS FASTINGP ERFORMED BY: YEN LabGiovani Foss6370 [facility] [id number] Platelets Auto #/vol (Bld) 332 {x10E3/uL} Normal 140-415 [facility] Work Phone: RBC #/vol (Bld) 4.56 {x10E6/uL} Normal 3.77-5.28 Comp [facility] Internal Medicine Work Phone: Comment on above: PATIENT WAS FASTINGP ERFORMED BY: [facility] Rgokgs5896 [facility] [id number] RBC (Bld) [#/Vol] 4.56 10*6/uL Normal 3.77-5.28 [facility]; [facility] Work Phone: Comment on above: PATIENT WAS FASTINGP ERFORMED BY: GaylaSt. [facility] Ewmask8206 [facility] [id number] RBC Auto #/vol (Bld) 4.56 {x10E6/uL} Normal 3.77-5.28 [facility] Work Phone: WBC #/vol (Bld) 8.0 {x10E3/uL} Normal 4.0-10.5 [facility] Internal Medicine Work Phone: Comment on above: PATIENT WAS FASTINGP ERFORMED BY: Lab[facility] Smuxwk4438 [facility] [id number] WBC (Bld) [#/Vol] 8.0 10*3/uL Normal 4.0-10.5 [facility]; [facility] Work Phone: Comment on above: PATIENT WAS FASTINGP ERFORMED BY: Lab[facility] Sodctj6149 [facility] [id number] WBC Auto #/vol (Bld) 8.0 {x10E3/uL} Normal 4.0-10.5 [facility] Work Phone: Lipid Panel ([id number])Ordered B y: Medical Imaging Tech on 11-12-2012 Cholesterol in HDL mass conc 52 mg/dL Normal [facility] Work Phone: Comment on above: According to ATP-III Guidelines, HDL-C >59 mg/dL is considered anegative risk factor for CHD. PATIENT WAS FASTINGP ERFORMED BY: YEN [facility] Lwcyia6955 Reyna RoadDublin [place] [id number] Cholesterol in LDL mass conc 114 mg/dL Abnormal 0-99 [facility] Work Phone: Comment on above: PATIENT WAS FASTINGP ERFORMED BY: CB [facility] Philai6699 Reyna RoadDublin [place] [id number] Cholesterol in LDL/Cholesterol in HDL mass ratio 2.2 {ratio_units} Normal 0.0-3.2 [facility] Work Phone: Comment on above: PATIENT WAS FASTINGP ERFORMED BY: YEN [facility] Safuky4880 Reyna RoadDublin [place] [id number] Cholesterol in VLDL mass conc 17 mg/dL Normal 5-40 [facility] Work Phone: Comment on above: PATIENT WAS FASTINGP ERFORMED BY: YEN [facility] Xhcwlo5130 Reyna RoadDublin [place] [id number] Cholesterol mass conc 183 mg/dL Normal 100-199 [facility] Work Phone: Comment on above: PATIENT WAS FASTINGP ERFORMED BY: YEN [facility] Bhzlyz2361 Reyna RoadDublin [place] [id number] Triglyceride mass conc 87 mg/dL Normal 0-149 [facility] Work Phone: Comment on above: PATIENT WAS FASTINGP ERFORMED BY: CB [facility] Fjztuv1017 Reyna RoadDublin [place] [id number] Metabolic Panel, Comprehensi ve ([id number])Ordered By: Medical Imaging Tech on 11-12-2012 Albumin mass conc 4.1 g/dL Normal 3.5-5.5 Compreh ensive Internal Medicine Work Phone: Comment on above: PATIENT WAS FASTINGP ERFORMED BY: CB [facility] Wkmnto6246 Reyna RoadDublin [place] [id number] Information: [id number] Albumin/Globulin mass ratio 1.8 {ratio} Normal 1.1-2.5 [facility] Internal Medicine Work Phone: Comment on above: PATIENT WAS FASTINGP ERFORMED BY: LimundoMountainside HospitalWzsgnm4012 [facility] [id number] Information: [id number] ALP [Catalytic activity/Vol] 76 U/L Normal 25-150 [facility]; [facility] Internal Medicine Work Phone: Comment on above: Effective November 22, 2012 the reference interval for Alkaline Phosphatase, S will be changing to: Age Male Female 0 - 1 day 45 - 111 45 - 111 2 - 5 days 46 - 119 46 - 119 6 - 10 days 48 - 229 48 - 229 11 - 30 days 59 - 414 59 - 414 1 - 6 months 91 - 445 91 - 445 7 - 12 months 124 - 341 124 - 341 1 - 3 years 130 - 317 130 - 317 4 - 6 years 133 - 309 133 - 309 7 - 12 years 134 - 349 134 - 349 13 years 143 - 396 68 - 209 14 years 107 - 340 62 - 149 15 years 84 - 254 54 - 121 16 years 71 - 186 49 - 108 17 years 61 - 146 45 - 101 18 years 56 - 127 43 - 101 19 - 60 years 44 - 102 42 - 107 61 - 70 years 44 - 103 47 - 112 >70 years 44 - 105 45 - 108 PATIENT WAS FASTINGP ERFORMED BY: LimundoMountainside HospitalWvgrvx1222 [facility] [id number] Information: [id number] ALP enzyme act/vol 76 [iU]/L Normal 25-150 [facility] Internal Medicine Work Phone: Comment on above: Effective November 22, 2012 the reference interval for Alkaline Phosphatase, S will be changing to: Age Male Female 0 - 1 day 45 - 111 45 - 111 2 - 5 days 46 - 119 46 - 119 6 - 10 days 48 - 229 48 - 229 11 - 30 days 59 - 414 59 - 414 1 - 6 months 91 - 445 91 - 445 7 - 12 months 124 - 341 124 - 341 1 - 3 years 130 - 317 130 - 317 4 - 6 years 133 - 309 133 - 309 7 - 12 years 134 - 349 134 - 349 13 years 143 - 396 68 - 209 14 years 107 - 340 62 - 149 15 years 84 - 254 54 - 121 16 years 71 - 186 49 - 108 17 years 61 - 146 45 - 101 18 years 56 - 127 43 - 101 19 - 60 years 44 - 102 42 - 107 61 - 70 years 44 - 103 47 - 112 >70 years 44 - 105 45 - 108 PATIENT WAS FASTINGP ERFORMED BY: [place] 3179970 [facility] [id number] Information: [id number] ALT [Catalytic activity/Vol] 12 U/L Normal 0-32 [facility]; [facility] Internal Medicine Work Phone: Comment on above: PATIENT WAS FASTINGP ERFORMED BY: [address] [id number] Information: [id number] ALT enzyme act/vol 12 [iU]/L Normal 0-32 [facility] Internal Medicine Work Phone: Comment on above: PATIENT WAS FASTINGP ERFORMED BY: [place] 3179970 [facility] [id number] Information: [id number] AST [Catalytic activity/Vol] 13 U/L Normal 0-40 [facility] Internal Medicine; [facility] Internal Medicine Work Phone: Comment on above: PATIENT WAS FASTINGP ERFORMED BY: [place] 3179970 [facility] [id number] Information: [id number] AST enzyme act/vol 13 [iU]/L Normal 0-40 [facility] Internal Medicine Work Phone: Comment on above: PATIENT WAS FASTINGP ERFORMED BY: [address] [id number] Information: [id number] Bilirubin mass conc 0.4 mg/dL Normal 0.0-1.2 [facility] Internal Medicine Work Phone: Comment on above: PATIENT WAS FASTINGP ERFORMED BY: [facility] Hospitallin6370 [facility] [id number] Information: [id number] Calcium mass conc 9.2 mg/dL Normal 8.7-10.2 Compreh ensive Internal Medicine Work Phone: Comment on above: PATIENT WAS FASTINGP ERFORMED BY: YEN [facility] Ypswkg8378 [facility] [id number] Information: [id number] Chloride molar conc 104 mmol/L Normal 97-108 Compr ehensive Internal Medicine Work Phone: Comment on above: PATIENT WAS FASTINGP ERFORMED BY: YEN [facility] Btcwvi0036 [facility] [id number] Information: [id number] CO2 molar conc 22 mmol/L Normal 19-28 [facility] Internal Medicine Work Phone: Comment on above: PATIENT WAS FASTINGP ERFORMED BY: YEN LabSt. [facility] Mbytxe3540 [facility] [id number] Information: [id number] Creatinine mass conc 0.76 mg/dL Normal 0.57-1.00 Comp [facility] Work Phone: Comment on above: PATIENT WAS FASTINGP ERFORMED BY: YEN ShuklaSt. [facility] Behavioral Medicine Institute Tequmu3192 [facility] [id number] Information: [id number],A31647 GFR/1.73 sq M predicted among blacks CKD-EPI vol rate/area (S/P/Bld) 115 mL/min/1.73 Normal Comprehensiv e Internal Medicine Work Phone: Comment on above: PATIENT WAS FASTINGP ERFORMED BY: YEN [facility] Ialgsu4532 [facility] [id number] Information: [id number],Q32957 GFR/1.73 sq M predicted among non-blacks CKD-EPI vol rate/area (S/P/Bld) 100 mL/min/1.73 Normal [facility] Work Phone: Comment on above: PATIENT WAS FASTINGP ERFORMED BY: YEN [facility]6370 [facility] [id number] Information: 894714,G46401 Globulin Calculated mass conc (S) 2.3 g/dL Normal 1.5-4.5 [facility] Work Phone: Globulin mass conc (S) 2.3 g/dL Normal 1.5-4.5 [facility] Work Phone: Comment on above: PATIENT WAS FASTINGP ERFORMED BY: [address] [id number] Information: [id number],[id number] Glucose mass conc 90 mg/dL Normal 65-99 Compreh ensive Internal Medicine Work Phone: Comment on above: PATIENT WAS FASTINGP ERFORMED BY: YEN [address] [id number] Information: [id number],[id number] Potassium molar conc 4.9 mmol/L Normal 3.5-5.2 Comp rehensive Internal Medicine Work Phone: Comment on above: PATIENT WAS FASTINGP ERFORMED BY: [place] 3179970 [facility] [id number] Information: [id number] Protein mass conc 6.4 g/dL Normal 6.0-8.5 Compreh ensive Internal Medicine Work Phone: Comment on above: PATIENT WAS FASTINGP ERFORMED BY: [place] 3179970 [facility] [id number] Information: [id number],Q49369 Sodium molar conc 138 mmol/L Normal 134-144 Compreh ensive Internal Medicine Work Phone: Comment on above: PATIENT WAS FASTINGP ERFORMED BY: [place] 3179970 [facility] [id number] Information: [id number] Urea nitrogen mass conc 19 mg/dL Normal 6-20 [facility] Work Phone: Comment on above: PATIENT WAS FASTINGP ERFORMED BY: [facility]6370 [facility] [id number] Information: [id number],Q22950 Urea nitrogen/Creatinine mass ratio 25 mg/mg Abnormal 8-20 [facility] Work Phone: Comment on above: PATIENT WAS FASTINGP ERFORMED BY: [facility]6370 [facility] [id number] Information: [id number] TSH ([id number])Ordered By: Laticínios Bom Gosto/LBRe m Arabic Professor on 11-12-2012 Thyrotropin Qn 3.560 {uIU/mL} Normal 0.450-4.50 0 [facility] Work Phone: Comment on above: PATIENT WAS FASTINGP ERFORMED BY: LabHelen [facility]6370 [facility] [id number] AMYOrdered By: System JoyTunes r on 06-22-2008 ANA 59 U/L Normal 25-115 [facility] Work Phone: Comment on above: PLEASE RUN STATRESUL TS CALLED TO BRITTNEY JAIMES 06/22/08 Bridger6 ODALYS PAGE.REPORT READ BACK BY SAME . CBCDOrdered By: System Manag er on 06-22-2008 Basophils/100 WBC (Bld) 0.1 % Normal 0-1 [facility] Work Phone: Comment on above: PLEASE RUN STAT Basophils/100 WBC Auto (Bld) 0.1 % Normal 0-1 [facility] Work Phone: Eosinophils/100 WBC (Bld) 0.4 % Normal 0-5 [facility] Work Phone: Comment on above: PLEASE RUN STAT Eosinophils/100 WBC Auto (Bld) 0.4 % Normal 0-5 [facility] Work Phone: Erythrocyte distribution width Auto Ratio (RBC) 12.4 % Normal 11.6-14.6 [facility] Work Phone: Erythrocyte distribution width Ratio (RBC) 12.4 % Normal 11.6-14.6 [facility] Work Phone: Comment on above: PLEASE RUN STAT Hematocrit Auto Volume Fraction (Bld) 39.8 % Normal 37-47 [facility] Work Phone: Hematocrit Volume Fraction (Bld) 39.8 % Normal 37-47 [facility] Work Phone: Comment on above: PLEASE RUN STAT Hemoglobin mass conc (Bld) 13.5 g/dL Normal 12.0-16.0 [facility] Work Phone: Comment on above: PLEASE RUN STAT Lymphocytes/100 WBC (Bld) 23.3 % Normal 19-41 [facility] Work Phone: Comment on above: PLEASE RUN STAT Lymphocytes/100 WBC Auto (Bld) 23.3 % Normal 19-41 [facility] Work Phone: MCH Auto Entitic mass (RBC) 30.2 pg Normal 27.0-32.0 [facility] Work Phone: MCH Entitic mass (RBC) 30.2 pg Normal 27.0-32.0 [facility] Work Phone: Comment on above: PLEASE RUN STAT MCHC Auto mass conc (RBC) 33.9 g/dL Normal 32-36 [facility] Work Phone: MCHC mass conc (RBC) 33.9 g/dL Normal 32-36 [facility] Work Phone: Comment on above: PLEASE RUN STAT MCV Auto Entitic volume (RBC) 89.1 fL Normal 81-99 [facility] Work Phone: MCV Entitic volume (RBC) 89.1 fL Normal 81-99 [facility] Work Phone: Comment on above: PLEASE RUN STAT Monocytes/100 WBC (Bld) 6.9 % Normal 0-10 [facility] Work Phone: Comment on above: PLEASE RUN STAT Monocytes/100 WBC Auto (Bld) 6.9 % Normal 0-10 [facility] Work Phone: Neutrophils/100 WBC (Bld) 69.3 % Normal 47-70 [facility] Work Phone: Comment on above: PLEASE RUN STAT Neutrophils/100 WBC Auto (Bld) 69.3 % Normal 47-70 [facility] Work Phone: Platelet mean volume Auto Entitic volume (Bld) 8.3 fL Normal 6.5-12.0 [facility] Work Phone: Platelet mean volume Entitic volume (Bld) 8.3 fL Normal 6.5-12.0 Comprehensi ve Internal Medicine Work Phone: Comment on above: PLEASE RUN STAT Platelets #/vol (Bld) 391 10*3/uL Normal 150-450 [facility] Work Phone: Comment on above: PLEASE RUN STAT Platelets Auto #/vol (Bld) 391 10*3/uL Normal 150-450 [facility] Work Phone: RBC #/vol (Bld) 4.47 {M/mm3} Normal 4.2-5.4 Compreh ensive Internal Medicine Work Phone: Comment on above: PLEASE RUN STAT RBC Auto #/vol (Bld) 4.47 {M/mm3} Normal 4.2-5.4 Co mprehensive Internal Medicine Work Phone: WBC #/vol (Bld) 7.6 10*3/uL Normal 4.4-11.0 Comprehe nsive Internal Medicine Work Phone: Comment on above: PLEASE RUN STAT WBC Auto #/vol (Bld) 7.6 10*3/uL Normal 4.4-11.0 [facility] prehensive Internal Medicine Work Phone: COMP METABOLICOrdered By: stem Arabic Professor on 06-22-2008 Albumin mass conc 3.9 g/dL Normal 3.4-5.0 Compreh ensive Internal Medicine Work Phone: Comment on above: PLEASE RUN STATRESUL TS CALLED TO BRITTNEY JAIMES 06/22/08 ODALYS SIMON.REPORT READ BACK BY SAME . Albumin/Globulin mass ratio 1.1 {RATIO} Normal 0.9-2.4 [facility] Work Phone: Comment on above: PLEASE RUN STATRESUL TS CALLED TO BRITTNEY JAIMES 06/22/08 ODALYS SIMON.REPORT READ BACK BY SAME . ALP enzyme act/vol 97 U/L Normal 50-136 [facility] Internal Medicine Work Phone: Comment on above: PLEASE RUN STATRESUL TS CALLED TO [facility] 06/22/08 [facility] ODALYS PAGE.REPORT READ BACK BY SAME . ALT enzyme act/vol 37 U/L Normal 30-65 [facility] Internal Medicine Work Phone: Comment on above: PLEASE RUN STATRESUL TS CALLED TO [facility] 06/22/08 [facility] ODALYS PAGE.REPORT READ BACK BY SAME . Anion gap 3 molar conc 6 mmol/L Normal 5-15 [place] [facility] Work Phone: Anion gap molar conc 6 mmol/L Normal 5-15 [facility] Internal Medicine Work Phone: Comment on above: PLEASE RUN STATRESUL TS CALLED TO [facility] 06/22/08 [facility] ODALYS PAGE.REPORT READ BACK BY SAME . AST enzyme act/vol 17 U/L Normal 15-37 [facility] Internal Medicine Work Phone: Comment on above: PLEASE RUN STATRESUL TS CALLED TO [facility] 06/22/08 [facility] ODALYS PAGE.REPORT READ BACK BY SAME . Bilirubin mass conc 0.25 mg/dL Normal 0.00-1.00 [facility] Internal Medicine Work Phone: Comment on above: PLEASE RUN STATRESUL TS CALLED TO [facility] 06/22/08 [facility] ODALYS PAGE.REPORT READ BACK BY SAME . Calcium mass conc 9.3 mg/dL Normal 8.5-10.1 [facility] Internal Medicine Work Phone: Comment on above: PLEASE RUN STATRESUL TS CALLED TO [facility] 06/22/08 [facility] ODALYS PAGE.REPORT READ BACK BY SAME . Chloride molar conc 98 mmol/L Normal 98-107 [facility] Internal Medicine Work Phone: Comment on above: PLEASE RUN STATRESUL TS CALLED TO [facility] 06/22/08 [facility] ODALYS PAGE.REPORT READ BACK BY SAME . CO2 molar conc 30.0 mmol/L Normal 21.0-32.0 Comprehen [facility] Internal Medicine Work Phone: Comment on above: PLEASE RUN STATRESUL TS CALLED TO [facility] CAR[facility]ALLO[facility] 06/22/08 151Jose ODALYS PAGE.REPORT READ BACK BY SAME . Creatinine mass conc 0.8 mg/dL Normal 0.6-1.0 Comp rehensive Internal Medicine Work Phone: Comment on above: PLEASE RUN STATRESUL TS CALLED TO [facility] CARABALLOARNEY 06/22/08 151 ODALYS PAGE.REPORT READ BACK BY SAME . GFR/1.73 sq M predicted among blacks MDRD vol rate/area (S/P/Bld) 105 mL/min/{1.73_m2} Normal [facility] Work Phone: Comment on above: ESTIMATED GLOMERULAR FILTRATION RATE The National Kidney Foundation (NKF) guidelines forChronic kidney disease (CKD) recommends all laboratoriesestimate the level of glomerular filtration rate (GFR)in patients from age 18 - 70 years of age.The eGFR for patient's is the eGFRmultiplied by 1.212. [facility] Laboratory uses the abbreviated Modification of Diet inRenal Disease (MDRD) study equation to calculate the eGFR.The Estimated GFR equation is not applicable for patients<18 years of age or patients >70 years of age.The following conditions may alter the eGFR calculationresult: extremes in body size, severe malnutrition orobesity, skeletal muscle disease, paraplegia, quadriplegia,vegetarian diet, , certain drug therapy and rapidlychanging kidney function. Association of GFR and Staging of Kidney Disease*GFR (mL/min) With Kidney Disease W/O Kidney Disease>/= 90 Stage One Yjnmxv40 - 89 Stage Two Suspect Decreased GFR30 - 59 Stage Three Stage Three15 - 29 Stage Four Stage Four< 15 or Dialysis Stage Five Stage Five *Each stage assumes the associated GFR level has been ineffect for at least three months.Additional studies & clinical assessments are indicated toconclude diagnosis of Chronic Kidney Disease (CKD). PLEASE RUN STATRESUL TS CALLED TO [facility] CARABALLOARNEY 06/22/08 151 ODALYS PAGE.REPORT READ BACK BY SAME . GFR/1.73 sq M.predicted MDRD (S/P/Bld) [Vol rate/Area] 87 mL/min/{1.73_m2} Normal Comprehensiv e Internal Medicine Work Phone: Comment on above: PLEASE RUN STATRESUL TS CALLED TO [facility] 06/22/08 [facility] ODALYS PAGE.REPORT READ BACK BY SAME . GFR/1.73 sq M.predicted MDRD vol rate/area 87 mL/min/{1.73_m2} Normal Comprehensiv e Internal Medicine Work Phone: Comment on above: PLEASE RUN STATRESUL TS CALLED TO [facility] 06/22/08 [facility] ODALYS PAGE.REPORT READ BACK BY SAME . Globulin Calculated mass conc (S) 3.4 g/dL Normal 2.7-4.2 [facility] Work Phone: Globulin mass conc (S) 3.4 g/dL Normal 2.7-4.2 [facility] Work Phone: Comment on above: PLEASE RUN STATRESUL TS CALLED TO [facility] 06/22/08 [facility] ODALYS PAGE.REPORT READ BACK BY SAME . Glucose mass conc 88 mg/dL Normal 70-110 Compreh ensive Internal Medicine Work Phone: Comment on above: PLEASE RUN STATRESUL TS CALLED TO [facility] 06/22/08 [facility] ODALYS PAGE.REPORT READ BACK BY SAME . Potassium molar conc 5.0 mmol/L Normal 3.5-5.1 Comp rehensive Internal Medicine Work Phone: Comment on above: PLEASE RUN STATRESUL TS CALLED TO [facility] 06/22/08 [facility] ODALYS PAGE.REPORT READ BACK BY SAME . Protein mass conc 7.3 g/dL Normal 6.4-8.2 Compreh ensive Internal Medicine Work Phone: Comment on above: PLEASE RUN STATRESUL TS CALLED TO [facility] 06/22/08 [facility] ODALYS PAGE.REPORT READ BACK BY SAME . Sodium molar conc 134 mmol/L Abnormal 136-145 Compreh ensive Internal Medicine Work Phone: Comment on above: PLEASE RUN STATRESUL TS CALLED TO [facility] [place] 06/22/08 1516 ODALYS PAGE.REPORT READ BACK BY SAME . Urea nitrogen mass conc 9 mg/dL Normal 7-18 [facility] Work Phone: Comment on above: PLEASE RUN STATRESUL TS CALLED TO [facility]ITT[facility] THEODORE 06/22/08 1516 ODALYS PAGE.REPORT READ BACK BY SAME . Urea nitrogen/Creatinine mass ratio 11.3 {RATIO} Normal 10-20 [facility] Work Phone: Comment on above: PLEASE RUN STATRESUL TS CALLED TO [facility] [place] 06/22/08 1516 ODALYS PAGE.REPORT READ BACK BY SAME . H.PYLORI [id number] By: S ystem Arabic Professor on 06-22-2008 H.PYLORI [id number] < 0.9 Normal 0.0-0.8 [facility] Internal Medicine Work Phone: Comment on above: Negative <0.9 Indete rminate 0.9 - 1.0 Positive >1.0Performed At: [address] [place], [place] [id number] LIPASEOrdered By: System Man ager on 06-22-2008 LIPASE 164 U/L Normal 114-286 [facility] Work Phone: Comment on above: PLEASE RUN STATRESUL TS CALLED TO BRITTNEY THEODORE 06/22/08 1516 ODALYS PAGE.REPORT READ BACK BY SAME . CBC (AUTO) ([id number])Ordered By : Luna Pastrana on 03-01-2008 Erythrocyte distribution width Auto Ratio (RBC) 12.6 % Normal 11.7-15.0 [facility] Work Phone: Erythrocyte distribution width Ratio (RBC) 12.6 % Normal 11.7-15.0 [facility] Internal Medicine Work Phone: Comment on above: PATIENT WAS FASTINGP ERFORMED BY: YEN [facility] Mrdsme2568 [facility] [id number] Hematocrit Auto Volume Fraction (Bld) 39.8 % Normal 34.0-44.0 [facility] Work Phone: Hematocrit Volume Fraction (Bld) 39.8 % Normal 34.0-44.0 [facility] Work Phone: Comment on above: PATIENT WAS FASTINGP ERFORMED BY: YEN GaylaGiovani Zqftki1098 [facility] [id number] Hemoglobin mass conc (Bld) 13.6 g/dL Normal 11.5-15.0 [facility] Work Phone: Comment on above: PATIENT WAS FASTINGP ERFORMED BY: YEN [facility] Evniht7843 [facility] [id number] MCH Auto Entitic mass (RBC) 30.4 pg Normal 27.0-34.0 [facility] Work Phone: MCH Entitic mass (RBC) 30.4 pg Normal 27.0-34.0 [facility] Work Phone: Comment on above: PATIENT WAS FASTINGP ERFORMED BY: YEN Manlin6370 [facility] [id number] MCHC Auto mass conc (RBC) 34.2 g/dL Normal 32.0-36.0 [facility] Work Phone: MCHC mass conc (RBC) 34.2 g/dL Normal 32.0-36.0 [facility] Internal Medicine Work Phone: Comment on above: PATIENT WAS FASTINGP ERFORMED BY: YEN [place] Fqwqvl5184 [facility] [id number] MCV Auto Entitic volume (RBC) 89 fL Normal 80-98 [facility] Work Phone: MCV Entitic volume (RBC) 89 fL Normal 80-98 [facility] Work Phone: Comment on above: PATIENT WAS FASTINGP ERFORMED BY: YEN LabE[place] [id number] [facility] [id number] Platelets #/vol (Bld) 387 {x10E3/uL} Normal 140-415 [facility] Work Phone: Comment on above: PATIENT WAS FASTINGP ERFORMED BY: YEN Lab[place] [id number] [facility] [id number] Platelets (Bld) [#/Vol] 387 10*3/uL Normal 140-415 [facility]; [facility] Work Phone: Comment on above: PATIENT WAS FASTINGP ERFORMED BY: YEN Danielle Jphcmj5474 [facility] [id number] Platelets Auto #/vol (Bld) 387 {x10E3/uL} Normal 140-415 [facility] Work Phone: RBC #/vol (Bld) 4.48 {x10E6/uL} Normal 3.80-5.10 [facility] Work Phone: Comment on above: PATIENT WAS FASTINGP ERFORMED BY: YEN [place] [id number] [facility] [id number] RBC (Bld) [#/Vol] 4.48 10*6/uL Normal 3.80-5.10 [facility]; [facility] Work Phone: Comment on above: PATIENT WAS FASTINGP ERFORMED BY: YEN [place] [id number] [facility] [id number] RBC Auto #/vol (Bld) 4.48 {x10E6/uL} Normal 3.80-5.10 [facility] Work Phone: WBC #/vol (Bld) 7.8 {x10E3/uL} Normal 4.0-10.5 [facility] Work Phone: Comment on above: PATIENT WAS FASTINGP ERFORMED BY: [place] [id number] [facility] [id number] WBC (Bld) [#/Vol] 7.8 10*3/uL Normal 4.0-10.5 [facility]; [facility] Work Phone: Comment on above: PATIENT WAS FASTINGP ERFORMED BY: [facility] [id number] WBC Auto #/vol (Bld) 7.8 {x10E3/uL} Normal 4.0-10.5 [facility] Work Phone: Lipid Panel ([id number])Ordered B y: Luna Pastrana on 03-01-2008 Cholesterol in HDL mass conc 67 mg/dL Abnormal 40-59 [facility] Work Phone: Comment on above: EFFECTIVE NOVEMBE R 2007 the reference interval for HDL-C will be changing to: >39 mg/dLHDL cholesterol values >59 mg/dL are associated with reduced cardiacrisk. PATIENT WAS FASTINGP ERFORMED BY: CB [facility] Pymkkw1477 Reyna RoadDublin [place] [id number] Cholesterol in LDL mass conc 145 mg/dL Abnormal 0-99 [facility] Work Phone: Comment on above: PATIENT WAS FASTINGP ERFORMED BY: CB [facility] Pwpdqr5927 Reyna RoadDublin [place] [id number] Cholesterol in LDL/Cholesterol in HDL mass ratio SPRCS Normal [facility] Work Phone: Comment on above: If initial LDL-laquita sterol result is >100 mg/dL, assess forrisk factors. PATIENT WAS FASTINGP ERFORMED BY: CB [facility] Qlhlth3435 Reyna RoadDublin [place] [id number] Cholesterol in LDL/Cholesterol in HDL mass ratio 2.2 {ratio_units} Normal 0.0-3.2 [facility] Work Phone: Comment on above: PATIENT WAS FASTINGP ERFORMED BY: CB [facility] Xhmptf8510 Reyna RoadDublin [place] [id number] Cholesterol in VLDL mass conc 31 mg/dL Normal 5-40 [facility] Work Phone: Comment on above: PATIENT WAS FASTINGP ERFORMED BY: CB [facility] Ohhyfx6449 Reyna RoadDublin [place] [id number] Cholesterol mass conc 243 mg/dL Abnormal 100-199 [facility] Work Phone: Comment on above: PATIENT WAS FASTINGP ERFORMED BY: CB [facility] Gaxrnq8505 Reyna RoadDublin [place] [id number] Triglyceride mass conc 155 mg/dL Abnormal 0-149 [facility] Work Phone: Comment on above: PATIENT WAS FASTINGP ERFORMED BY: CB [facility] Bdmxpi3506 Reyna RoadDublin [place] [id number] METABOLIC PANEL, COMPREHENSI VE ([id number])Ordered By: Luna Pastrana on 03-01-2008 Albumin mass conc 4.3 g/dL Normal 3.5-5.5 Compreh ensive Internal Medicine Work Phone: Comment on above: PATIENT WAS FASTINGC linical Information: ADD DRAW FEE [id number] ADD J0 3378 PERFORMED BY: [facility] Kfmbla9726 [address] [facility] [place] [id number] Albumin/Globulin mass ratio 1.5 {ratio} Normal 1.1-2.5 [facility] Work Phone: Comment on above: PATIENT WAS FASTINGC linical Information: ADD DRAW FEE [id number] ADD J0 3378 PERFORMED BY: [facility] Lnalcr1605 Reyna RoadAt[facility] Health Carol[facility] Rehabilitation Charlottein [place] [id number] ALP [Catalytic activity/Vol] 78 U/L Normal 25-150 [facility]; [facility] Internal Medicine Work Phone: Comment on above: PATIENT WAS FASTINGC linical Information: ADD DRAW FEE [id number] ADD J0 3378 PERFORMED BY: [facility] Hkdsfd6644 Reyn[address] RoadAtrium Health [facility] Rehabilitation [place]in [place] [id number] ALP enzyme act/vol 78 [iU]/L Normal 25-150 [facility] Internal Medicine Work Phone: Comment on above: PATIENT WAS FASTINGC linical Information: ADD DRAW FEE [id number] ADD J0 3378 PERFORMED BY: [facility] Jlbovt8674 [address] [facility] [place] [id number] ALT [Catalytic activity/Vol] 9 U/L Normal 0-40 [facility]; [facility] Work Phone: Comment on above: PATIENT WAS FASTINGC linical Information: ADD DRAW FEE [id number] ADD J0 3378 PERFORMED BY: [facility] Zvysdo8355 [address] [facility] [place] [id number] ALT enzyme act/vol 9 [iU]/L Normal 0-40 [facility] Internal Medicine Work Phone: Comment on above: PATIENT WAS FASTINGC linical Information: ADD DRAW FEE [id number] ADD J0 3378 PERFORMED BY: [facility]EN [facility] [id number] [facility] [id number] AST [Catalytic activity/Vol] 13 U/L Normal 0-40 [facility]; [facility] Work Phone: Comment on above: PATIENT WAS FASTINGC linical Information: ADD DRAW FEE [id number] ADD J0 3378 PERFORMED BY: YEN Lab[address] [id number] AST enzyme act/vol 13 [iU]/L Normal 0-40 Compre hensive Internal Medicine Work Phone: Comment on above: PATIENT WAS FASTINGC linical Information: ADD DRAW FEE [id number] ADD J0 3378 PERFORMED BY: YEN [address] [id number] Bilirubin mass conc 0.4 mg/dL Normal 0.1-1.2 Compr ehensive Internal Medicine Work Phone: Comment on above: PATIENT WAS FASTINGC linical Information: ADD DRAW FEE [id number] ADD J0 3378 PERFORMED BY: YEN [address] [id number] Calcium mass conc 9.7 mg/dL Normal 8.5-10.6 Compreh ensive Internal Medicine Work Phone: Comment on above: PATIENT WAS FASTINGC linical Information: ADD DRAW FEE [id number] ADD J0 3378 PERFORMED BY: YEN [address] [id number] Chloride molar conc 102 mmol/L Normal 97-108 Compr ehensive Internal Medicine Work Phone: Comment on above: PATIENT WAS FASTINGC linical Information: ADD DRAW FEE [id number] ADD J0 3378 PERFORMED BY: Lab[address] [id number] CO2 molar conc 22 mmol/L Normal 20-32 [facility]prehens [facility] Internal Medicine Work Phone: Comment on above: PATIENT WAS FASTINGC linical Information: ADD DRAW FEE [id number] ADD J0 3378 PERFORMED BY: [employer])[address] [employer]P[facility] [id number] Creatinine mass conc 0.80 mg/dL Normal 0.57-1.00 Comp [facility] Internal Medicine Work Phone: Comment on above: PATIENT WAS FASTINGC linical Information: ADD DRAW FEE [id number] ADD J0 3378 PERFORMED BY: [employer]70 [place] 8 [employer] [facility] [id number] GFR/1.73 sq M predicted among blacks MDRD vol rate/area (S/P/Bld) mL/min/{1.73_m2} Normal 60-128 Comprehensi Internal Medicine Work Phone: Comment on above: Note: Persistent red uction for 3 months or more in an eGFR<60 mL/min/1.73 m2 defines CKD. Patients with eGFR values>/=60 mL/min/1.73 m2 may also have CKD if evidence of persistentproteinuria is present. Additional information may be found [email or web address]. PATIENT WAS FASTINGC linical Information: ADD DRAW FEE [id number] ADD J0 3378 PERFORMED BY: [employer]70 [address] SecuritiesPending sale to [facility] [id number] GFR/1.73 sq M.predicted MDRD (S/P/Bld) [Vol rate/Area] mL/min/{1.73_m2} Normal 60-128 [facility] Work Phone: Comment on above: EFFECTIVE MARCH 06, 2008 the reference interval on 'Glom Filt Rate, Est' and 'If -Lithuanian' will be changing to >59 mL/min/1.73. PATIENT WAS FASTINGC linical Information: ADD DRAW FEE [id number] ADD J0 3378 PERFORMED BY: [employer]70 [facility] [id number] GFR/1.73 sq M.predicted MDRD vol rate/area mL/min/{1.73_m2} Normal 60-128 [facility] Work Phone: Comment on above: EFFECTIVE MARCH 06, 2008 the reference interval on 'Glom Filt Rate, Est' and 'If -Lithuanian' will be changing to >59 mL/min/1.73. PATIENT WAS FASTINGC linical Information: ADD DRAW FEE [id number] ADD J0 3378 PERFORMED BY: [place] [id number] [facility] [id number] Globulin Calculated mass conc (S) 2.9 g/dL Normal 1.5-4.5 [facility] Work Phone: Globulin mass conc (S) 2.9 g/dL Normal 1.5-4.5 [facility] Work Phone: Comment on above: PATIENT WAS FASTINGC linical Information: ADD DRAW FEE [id number] ADD J0 3378 PERFORMED BY: Quu[address] [id number] Glucose mass conc 84 mg/dL Normal 65-99 Compreh ensive Internal Medicine Work Phone: Comment on above: PATIENT WAS FASTINGC linical Information: ADD DRAW FEE [id number] ADD J0 3378 PERFORMED BY: [address] [id number] Potassium molar conc 4.6 mmol/L Normal 3.5-5.2 Comp rehensive Internal Medicine Work Phone: Comment on above: PATIENT WAS FASTINGC linical Information: ADD DRAW FEE [id number] ADD J0 3378 PERFORMED BY: [address] [id number] Protein mass conc 7.2 g/dL Normal 6.0-8.5 Compreh ensive Internal Medicine Work Phone: Comment on above: PATIENT WAS FASTINGC linical Information: ADD DRAW FEE [id number] ADD J0 3378 PERFORMED BY: Quu[address] [id number] Sodium molar conc 138 mmol/L Normal 135-145 Compreh ensive Internal Medicine Work Phone: Comment on above: PATIENT WAS FASTINGC linical Information: ADD DRAW FEE [id number] ADD J0 3378 PERFORMED BY: [address] [id number] Urea nitrogen mass conc 13 mg/dL Normal 5-26 [facility] Work Phone: Comment on above: PATIENT WAS FASTINGC linical Information: ADD DRAW FEE [id number] ADD J0 3378 PERFORMED BY: [facility] Aaoppl2040 Reyn[address] [facility] [id number] Urea nitrogen/Creatinine mass ratio 16 mg/mg Normal 8-27 [facility] Work Phone: Comment on above: PATIENT WAS FASTINGC linical Information: ADD DRAW FEE [id number] ADD J0 3378 PERFORMED BY: [facility] Wenztn3294 [facility] [id number] SED RATE ERYTHROCYTE ([id number]) Ordered By: Luna Pastrana on 03-01-2008 ESR Velocity (Bld) 7 mm/h Normal 0-20 [facility] Internal Medicine Work Phone: Comment on above: PATIENT WAS FASTINGP ERFORMED BY: [facility] Pvhbgl5622 [facility] [id number] TSH ([id number])Ordered By: Luna Pastrana on 03-01-2008 Thyrotropin Qn 1.990 {uIU/mL} Normal 0.450-4.50 0 [facility] Work Phone: Comment on above: PATIENT WAS FASTINGP ERFORMED BY: [facility] Obceto2965 [facility] [id number] Vital Signs Date Time Vital Sign Value Performing Clinician Facility 10-24-2024 13:40-0400 Body height 158.8 cm Juan Francisco Melvin MD Work Phone: [facility] 10-24-2024 13:40-0400 Body mass index (BMI) [Ratio] 34.2 kg/m2 Juan Francisco Melvin MD Work Phone: [facility] 10-24-2024 13:40-0400 Body weight 86.18 kg Juan Francisco Melvin MD Work Phone: [facility] 10-24-2024 13:40-0400 Diastolic blood pressure 74 mm[Hg] Juan Francisco Melvin MD Work Phone: [facility] 10-24-2024 13:40-0400 Systolic blood pressure 126 mm[Hg] Juan Francisco Melvin MD Work Phone: [facility] 09-16-2024 07:36-0400 Body mass index (BMI) [Ratio] 31.39 kg/m2 Ana Monroy APRN.[employer] UT[employer] ASSOCIATE Work Phone: [facility] 09-16-2024 07:36-0400 Body weight 81.65 kg Ana Monroy APRN.KITCH[employer] UTILITY ASSOCIATE Work Phone: [facility] 09-16-2024 07:36-0400 Diastolic blood pressure 72 mm[Hg] Ana Monroy APRN.KITCH[employer] UTILITY ASSOCIATE Work Phone: [facility] 09-16-2024 07:36-0400 Heart rate 80 /min Ana Monroy APRN.KITCH[employer] UTILITY ASSOCIATE Work Phone: [facility] 09-16-2024 07:36-0400 SaO2% (BldA) [Mass fraction] 100 % Ana Monroy APRN.K[employer] UTILITY ASSOCIATE Work Phone: [facility] 09-16-2024 07:36-0400 Systolic blood pressure 105 mm[Hg] Ana Monroy APRN.KITCH[employer] UTILITY ASSOCIATE Work Phone: [facility] 06-24-2024 11:36-0500 Body mass index (BMI) [Ratio] 30.69 kg/m2 Ana Monroy APRN.K[employer] UTILITY ASSOCIATE Work Phone: [facility] 06-24-2024 11:36-0500 Body weight 79.83 kg Ana Monroy APRN.KITCH[employer] UTILITY ASSOCIATE Work Phone: [facility] 06-24-2024 11:36-0500 Diastolic blood pressure 84 mm[Hg] Ana Monroy APRN.KITCH[employer] UTILITY ASSOCIATE Work Phone: [facility] 06-24-2024 11:36-0500 Heart rate 81 /min Ana Monroy APRN.KITCH[employer] UTILITY ASSOCIATE Work Phone: [facility] 06-24-2024 11:36-0500 SaO2% (BldA) [Mass fraction] 99 % Ana Monroy APRN.KITCH[employer] UTILITY ASSOCIATE Work Phone: [facility] 06-24-2024 11:36-0500 Systolic blood pressure 120 mm[Hg] Ana Monroy APRN.KITCH[employer] UTILITY ASSOCIATE Work Phone: [facility] 03-24-2024 10:44-0500 Body mass index (BMI) [Ratio] 31.04 kg/m2 Ana Monroy APRN.K[employer] UTILITY ASSOCIATE Work Phone: [facility] 03-24-2024 10:44-0500 Body weight 80.74 kg Ana Monroy APRN.KITCH[employer] UTILITY ASSOCIATE Work Phone: [facility] 03-24-2024 10:44-0500 Diastolic blood pressure 74 mm[Hg] Ana Monroy APRN.KITCH[employer] UTILITY ASSOCIATE Work Phone: [facility] 03-24-2024 10:44-0500 Heart rate 81 /min Ana Monroy APRN.K[employer] UTILITY ASSOCIATE Work Phone: [facility] 03-24-2024 10:44-0500 SaO2% (BldA) [Mass fraction] 99 % Ana Monroy APRN.KITCH[employer] UTILITY ASSOCIATE Work Phone: [facility] 03-24-2024 10:44-0500 Systolic blood pressure 120 mm[Hg] Ana Monroy APRN.K[employer] UTILITY ASSOCIATE Work Phone: [facility] 01-08-2024 09:40-0400 Respiratory rate 16 /min Amparo Vera MD Work Phone: [facility] 01-08-2024 09:20-0400 Diastolic blood pressure 75 mm[Hg] Amparo Vera MD Work Phone: [facility] 01-08-2024 09:20-0400 Heart rate 77 /min Amparo Vera MD Work Phone: [facility] 01-08-2024 09:20-0400 SaO2% (BldA) [Mass fraction] 100 % Amparo Vera MD Work Phone: [facility] 01-08-2024 09:20-0400 Systolic blood pressure 115 mm[Hg] Amparo Vera MD Work Phone: [facility] 01-08-2024 08:31-0400 Body mass index (BMI) [Ratio] 31.56 kg/m2 Amparo Vera MD Work Phone: [facility] 01-08-2024 08:31-0400 Body temperature 97.81 [degF] Amparo Vera MD Work Phone: [facility] 01-08-2024 08:31-0400 Body weight 82.1 kg Amparo Vera MD Work Phone: [facility] 12-24-2023 09:27-0400 Body mass index (BMI) [Ratio] 31.56 kg/m2 Ana Monroy APRN.[employer] UTILITY ASSOCIATE Work Phone: [facility] 12-24-2023 09:27-0400 Body weight 82.1 kg Ana Monroy APRN.K[employer] UTILITY ASSOCIATE Work Phone: [facility] 12-24-2023 09:27-0400 Diastolic blood pressure 74 mm[Hg] Ana Monroy APRN.K[employer] UTILITY ASSOCIATE Work Phone: [facility] 12-24-2023 09:27-0400 Heart rate 76 /min Ana Monroy APRN.K[employer] UT[employer] ASSOCIATE Work Phone: [facility] 12-24-2023 09:27-0400 SaO2% (BldA) [Mass fraction] 97 % Ana Monroy APRN.KITCHEN UTILITY ASSOCIATE Work Phone: [facility] 12-24-2023 09:27-0400 Systolic blood pressure 110 mm[Hg] Ana Monroy APRN.KITCHEN UTILITY ASSOCIATE Work Phone: [facility] 09-24-2023 10:34-0400 Body mass index (BMI) [Ratio] 33.48 kg/m2 Ana Monroy APRN.KITCHEN UTILITY ASSOCIATE Work Phone: [facility] 09-24-2023 10:34-0400 Body weight 87.09 kg Ana Monroy APRN.KITCHEN UTILITY ASSOCIATE Work Phone: [facility] 09-24-2023 10:34-0400 Diastolic blood pressure 88 mm[Hg] Ana Monroy APRN.KITCHEN UTILITY ASSOCIATE Work Phone: [facility] 09-24-2023 10:34-0400 Heart rate 69 /min Ana Monroy APRN.KITCHEN UTILITY ASSOCIATE Work Phone: [facility] 09-24-2023 10:34-0400 SaO2% (BldA) [Mass fraction] 100 % Ana Monroy APRN.KITCHEN UTILITY ASSOCIATE Work Phone: [facility] 09-24-2023 10:34-0400 Systolic blood pressure 126 mm[Hg] Ana Monroy APRN.KITCHEN UTILITY ASSOCIATE Work Phone: [facility] 09-08-2023 09:06-0400 Body height 161.3 cm Amparo Vera MD Work Phone: [facility] 09-08-2023 09:06-0400 Body mass index (BMI) [Ratio] 34.31 kg/m2 Amparo Vera MD Work Phone: [facility] 09-08-2023 09:06-0400 Body temperature 97.2 [degF] Amparo Vera MD Work Phone: [facility] 09-08-2023 09:06-0400 Body weight 89.27 kg Amparo Vera MD Work Phone: [facility] 09-08-2023 09:06-0400 Diastolic blood pressure 72 mm[Hg] Amparo Vera MD Work Phone: [facility] 09-08-2023 09:06-0400 Heart rate 93 /min Amparo Vera MD Work Phone: [facility] 09-08-2023 09:06-0400 SaO2% (BldA) [Mass fraction] 100 % Amparo Vera MD Work Phone: [facility] 09-08-2023 09:06-0400 Systolic blood pressure 114 mm[Hg] Amparo Vera MD Work Phone: [facility] 06-17-2023 07:00-0500 Body weight 88.81 kg Ana Monroy APRN.KITCHEN UTILITY ASSOCIATE Work Phone: [facility] 06-17-2023 07:00-0500 Diastolic blood pressure 72 mm[Hg] Ana Monroy APRN.KITCHEN UTILITY ASSOCIATE Work Phone: [facility] 06-17-2023 07:00-0500 Heart rate 85 /min Ana Monroy APRN.KITCHEN UTILITY ASSOCIATE Work Phone: [facility] 06-17-2023 07:00-0500 SaO2% (BldA) [Mass fraction] 99 % Ana Monroy APRN.KITCHEN UTILITY ASSOCIATE Work Phone: [facility] 06-17-2023 07:00-0500 Systolic blood pressure 112 mm[Hg] Ana Monroy APRN.KITCHEN UTILITY ASSOCIATE Work Phone: [facility] 03-26-2023 09:36-0500 Body weight 92.99 kg Ana Monroy APRN.KITCHEN UTILITY ASSOCIATE Work Phone: [facility] 03-26-2023 09:36-0500 Diastolic blood pressure 82 mm[Hg] Ana Mornoy APRN.KITCHEN UTILITY ASSOCIATE Work Phone: [facility] 03-26-2023 09:36-0500 Heart rate 80 /min Ana Monroy APRN.KITCHEN UTILITY ASSOCIATE Work Phone: [facility] 03-26-2023 09:36-0500 SaO2% (BldA) [Mass fraction] 97 % Ana Monroy APRN.KITCHEN UTILITY ASSOCIATE Work Phone: [facility] 03-26-2023 09:36-0500 Systolic blood pressure 124 mm[Hg] Ana Monroy APRN.KITCHEN UTILITY ASSOCIATE Work Phone: [facility] 01-27-2023 08:15-0400 Body height 165.1 cm Ayesha Zambrano LPN [facility] Work Phone: 01-27-2023 08:15-0400 Body mass index (BMI) [Ratio] 35.94 kg/m2 Ayesha Zambrano LPN [facility]; [facility] Work Phone: 01-27-2023 08:15-0400 Body surface area Derived from formula 2.04 m2 Ayesha Montezrb DIRECTOR [facility]; [facility] Work Phone: 01-27-2023 08:15-0400 Body temperature 97.5 [degF] Ayesha Slarb DIRECTOR [facility]; [facility] Work Phone: Comment on above: Method: Temporal 01-27-2023 08:15-0400 Body weight 97.98 kg Ayesha Montezrb DIRECTOR [facility]; [facility] Work Phone: 01-27-2023 08:15-0400 Diastolic blood pressure 72 mm[Hg] Ayesha Slarb DIRECTOR [facility]; [facility] Work Phone: Comment on above: Patient Position: Sitting; Cuff Location : Left Arm; Cuff Size: Standard 01-27-2023 08:15-0400 Heart rate 69 /min Ayesha Melidarb DIRECTOR [facility]; [facility] Work Phone: Comment on above: Pattern: Regular 01-27-2023 08:15-0400 Respiratory rate 17 /min Ayesha Melidarb DIRECTOR [facility]; [facility] Work Phone: Comment on above: Pattern: Unlabored 01-27-2023 08:15-0400 SaO2% (BldA) [Mass fraction] 97 % Ayesha Slarb DIRECTOR [facility]; [facility] Work Phone: Comment on above: Room air 01-27-2023 08:15-0400 Systolic blood pressure 108 mm[Hg] Ayesha Slarb DIRECTOR [facility]; [facility] Work Phone: Comment on above: Patient Position: Sitting; Cuff Location : Left Arm; Cuff Size: Standard 01-02-2023 09:14-0400 Body weight 98.43 kg Ana Monroy APRN.CNP Work Phone: [facility] 01-02-2023 09:14-0400 Diastolic blood pressure 70 mm[Hg] Ana Monroy APRN.CNP Work Phone: [facility] 01-02-2023 09:14-0400 Heart rate 75 /min Ana Monroy APRN.CNP Work Phone: [facility] 01-02-2023 09:14-0400 SaO2% (BldA) [Mass fraction] 98 % Ana Monroy APRN.KITCHEN UTILITY ASSOCIATE Work Phone: [facility] 01-02-2023 09:14-0400 Systolic blood pressure 96 mm[Hg] Ana oMnroy APRN.KITCHEN UTILITY ASSOCIATE Work Phone: [facility] 12-05-2022 13:02-0400 Body height 162 cm Ana Monroy APRN.KITCHEN UTILITY ASSOCIATE Work Phone: [facility] 12-05-2022 13:02-0400 Body weight 102.78 kg Ana Monroy APRN.KITCHEN UTILITY ASSOCIATE Work Phone: [facility] 12-05-2022 13:02-0400 Diastolic blood pressure 80 mm[Hg] Ana Monroy APRN.KITCHEN UTILITY ASSOCIATE Work Phone: [facility] 12-05-2022 13:02-0400 Heart rate 70 /min Ana Monroy APRN.KITCHEN UTILITY ASSOCIATE Work Phone: [facility] 12-05-2022 13:02-0400 Respiratory rate 12 /min Ana Monroy APRN.KITCHEN UTILITY ASSOCIATE Work Phone: [facility] 12-05-2022 13:02-0400 SaO2% (BldA) [Mass fraction] 98 % Ana Monroy APRN.KITCHEN UTILITY ASSOCIATE Work Phone: [facility] 12-05-2022 13:02-0400 Systolic blood pressure 110 mm[Hg] Ana Monroy APRN.KITCHEN UTILITY ASSOCIATE Work Phone: [facility] 10-10-2022 13:36-0400 Body weight 108.82 kg Ana Monroy APRN.KITCHEN UTILITY ASSOCIATE Work Phone: [facility] 10-10-2022 13:36-0400 Diastolic blood pressure 78 mm[Hg] Ana Monroy APRN.KITCHEN UTILITY ASSOCIATE Work Phone: [facility] 10-10-2022 13:36-0400 Systolic blood pressure 118 mm[Hg] Ana Monroy APRN.CNP Work Phone: [facility] 09-23-2022 08:40-0400 Body height 163.2 cm Juan Francisco Melvin MD Work Phone: [facility] 09-23-2022 08:40-0400 Body weight 111.58 kg Juan Francisco Melvin MD Work Phone: [facility] 09-23-2022 08:40-0400 Diastolic blood pressure 78 mm[Hg] Juan Francisco Melvin MD Work Phone: [facility] 09-23-2022 08:40-0400 Systolic blood pressure 132 mm[Hg] Juan Francisco Melvin MD Work Phone: [facility] 03-28-2022 07:50-0500 Body height 165.1 cm Jose Luo MA [facility]; [facility] Work Phone: 03-28-2022 07:50-0500 Body mass index (BMI) [Ratio] 41.6 kg/m2 Jose Luo MA [facility]; [facility] Work Phone: 03-28-2022 07:50-0500 Body surface area Derived from formula 2.18 m2 Jose Luo MA [facility]; [facility] Work Phone: 03-28-2022 07:50-0500 Body temperature 96.5 [degF] Jose Luo MA [facility]; [facility] Work Phone: 03-28-2022 07:50-0500 Body weight 113.4 kg Jose Luo MA [facility]; [facility] Work Phone: 03-28-2022 07:50-0500 Diastolic blood pressure 80 mm[Hg] Jose Luo MA [facility]; [facility] Work Phone: Comment on above: Patient Position: Sitting; Cuff Location : Left Arm; Cuff Size: Standard 03-28-2022 07:50-0500 Heart rate 74 /min Jose Luo MA [facility]; [facility] Work Phone: Comment on above: Pattern: Regular 03-28-2022 07:50-0500 Respiratory rate 17 /min Jose Luo MA [facility]; [facility] Work Phone: Comment on above: Pattern: Unlabored 03-28-2022 07:50-0500 SaO2% (BldA) [Mass fraction] 98 % Jose Luo MA [facility]; [facility] Work Phone: Comment on above: Room air 03-28-2022 07:50-0500 Systolic blood pressure 120 mm[Hg] Jose Luo MA [facility]; [facility] Work Phone: Comment on above: Patient Position: Sitting; Cuff Location : Left Arm; Cuff Size: Standard 01-18-2021 10:01-0400 Body height 165.1 cm Sanaz Byers MA [facility]; [facility] Work Phone: 01-18-2021 10:01-0400 Body mass index (BMI) [Ratio] 40.12 kg/m2 Sanaz Byers MA [facility]; [facility] Work Phone: 01-18-2021 10:01-0400 Body surface area Derived from formula 2.14 m2 Sanaz Byers MA [facility]; [facility] Work Phone: 01-18-2021 10:01-0400 Body temperature 97.1 [degF] Sanaz Byers MA [facility]; [facility] Work Phone: 01-18-2021 10:01-0400 Body weight 109.37 kg Sanaz Byers MA [facility]; [facility] Work Phone: 01-18-2021 10:01-0400 Diastolic blood pressure 90 mm[Hg] Sanaz Byers MA [facility]; [facility] Work Phone: Comment on above: Patient Position: Sitting; Cuff Location : Left Arm; Cuff Size: Standard 01-18-2021 10:01-0400 Heart rate 74 /min Sanaz Byers MA [facility]; [facility] Work Phone: Comment on above: Pattern: Regular 01-18-2021 10:01-0400 SaO2% (BldA) [Mass fraction] 97 % Sanaz Byers MA [facility]; [facility] Work Phone: Comment on above: Room air 01-18-2021 10:01-0400 Systolic blood pressure 137 mm[Hg] Sanaz Byers MA [facility]; [facility] Work Phone: Comment on above: Patient Position: Sitting; Cuff Location : Left Arm; Cuff Size: Standard 01-04-2021 10:27040 Body height 165.1 cm Ayesha Slarb DIRECTOR [facility]; [facility] Work Phone: 01-04-2021 10:[id number] Body mass index (BMI) [Ratio] 40.12 kg/m2 Ayesha Slarb DIRECTOR [facility]; [facility] Work Phone: 01-04-2021 10:27-040 Body surface area Derived from formula 2.14 m2 Ayesha Slarb DIRECTOR [facility]; [facility] Work Phone: 01-04-2021 10:27-040 Body temperature 97.1 [degF] Ayesha Slarb DIRECTOR [facility]; [facility] Work Phone: 01-04-2021 10:27-040 Body weight 109.37 kg Ayesha Slarb DIRECTOR [facility]; [facility] Work Phone: 01-04-2021 10:27-040 Diastolic blood pressure 88 mm[Hg] Ayesha Slarb DIRECTOR [facility]; [facility] Work Phone: Comment on above: Patient Position: Sitting; Cuff Location : Left Arm; Cuff Size: Standard 01-04-2021 10:27-040 Heart rate 60 /min Ayesha Slarb DIRECTOR [facility]; [facility] Work Phone: Comment on above: Pattern: Regular 01-04-2021 10:27-0400 Respiratory rate 18 /min Ayesha Slarb DIRECTOR [facility]; [facility] Work Phone: Comment on above: Pattern: Unlabored 01-04-2021 10:27-0400 SaO2% (BldA) [Mass fraction] 99 % Ayesha Kenya PEDRAZAN [facility]; [facility] Work Phone: Comment on above: Room air 01-04-2021 10:27-0400 Systolic blood pressure 132 mm[Hg] Ayesha Monteztommy PEDRAZAN [facility]; [facility] Work Phone: Comment on above: Patient Position: Sitting; Cuff Location : Left Arm; Cuff Size: Standard 02-27-2020 10:07-0400 Body Temperature 98 [degF] Luna Pastrana MD Work Phone: [facility] Work Phone: Comment on above: Method: Oral 02-27-2020 10:07-0400 Pulse Oximetry 98 % Xuan Davidson [facility] Work Phone: Comment on above: Room air 02-27-2020 10:07-0400 SaO2% (BldA) [Mass fraction] 98 % Luna Pastrana MD Work Phone: [facility]; [facility] Work Phone: Comment on above: Room air 02-20-2020 11:19-0400 BMI (Body Mass Index) 40.47 kg/m2 Luna Pastrana MD Work Phone: [facility] Work Phone: 02-20-2020 11:19-0400 Body weight 110.32 kg Luna Pastrana MD Work Phone: [facility] Work Phone: 02-20-2020 11:19-0400 BSA (Body Surface Area) 2.15 m2 Luna Pastrana MD Work Phone: [facility] Work Phone: 02-20-2020 11:19-0400 Height 165.1 cm Luna Pastrana MD Work Phone: [facility] Work Phone: 02-20-2020 11:19-0400 Pulse Oximetry 94 % Xuan Ciesa [facility] Work Phone: Comment on above: Room air 02-20-2020 11:19-0400 SaO2% (BldA) [Mass fraction] 94 % Luna Pastrana MD Work Phone: [facility]; [facility] Work Phone: Comment on above: Room air 02-15-2020 07:57-0400 BMI (Body Mass Index) 40.47 kg/m2 Xuan Davidson [employer]EN UTILITY ASSOCIATE Work Phone: [facility] Work Phone: 02-15-2020 07:57-0400 Body Temperature 98.9 [degF] Xuan Davidson KITCHEN UTILITY ASSOCIATE Work Phone: [facility] Work Phone: 02-15-2020 07:57-0400 Body weight 110.32 kg Xuan Davidson [employer]EN UTILITY ASSOCIATE Work Phone: [facility] Work Phone: 02-15-2020 07:57-0400 BSA (Body Surface Area) 2.15 m2 Xuan Davidson KITCHEN UTILITY ASSOCIATE Work Phone: [facility] Work Phone: 02-15-2020 07:57-0400 Height 165.1 cm Xuan Davidson K[employer]EN UTILITY ASSOCIATE Work Phone: [facility] Work Phone: 02-13-2020 09:30-0400 BMI (Body Mass Index) 40.47 kg/m2 Xuan Davidson [employer]EN UTILITY ASSOCIATE Work Phone: [facility] Work Phone: 02-13-2020 09:30-0400 Body Temperature 99.7 [degF] Xuan Barksdalea KITCHEN UTILITY ASSOCIATE Work Phone: [facility] Work Phone: 02-13-2020 09:30-0400 Body weight 110.32 kg Xuan Barksdalea KITCHEN UTILITY ASSOCIATE Work Phone: [facility] Work Phone: 02-13-2020 09:30-0400 BSA (Body Surface Area) 2.15 m2 Xuan Davidson KITCHEN UTILITY ASSOCIATE Work Phone: [facility] Work Phone: 02-13-2020 09:30-0400 Height 165.1 cm Xuan Davidson K[employer]EN UTILITY ASSOCIATE Work Phone: [facility] Work Phone: 10-14-2019 07:44-0400 BMI (Body Mass Index) 40.47 kg/m2 Rafal Dixon LPN [facility] Work Phone: 10-14-2019 07:44-0400 Body Temperature 98.2 [degF] Rafal Dixon LPN [facility] Work Phone: Comment on above: Method: Temporal 10-14-2019 07:44-0400 Body weight 110.32 kg Rafal Dixon LPN [facility] Work Phone: 10-14-2019 07:44-0400 BP Diastolic 78 mm[Hg] Rafal Dixon LPN [facility] Work Phone: Comment on above: Patient Position: Sitting; Cuff Location : Left Arm; Cuff Size: Standard 10-14-2019 07:44-0400 BP Systolic 122 mm[Hg] Rafal Dixon LPN [facility] Work Phone: Comment on above: Patient Position: Sitting; Cuff Location : Left Arm; Cuff Size: Standard 10-14-2019 07:44-0400 BSA (Body Surface Area) 2.15 m2 Rafal Dixon LPN [facility] Work Phone: 10-14-2019 07:44-0400 Height 165.1 cm Rafal Dixon LPN [facility] Work Phone: 10-14-2019 07:44-0400 Pulse (Heart Rate) 86 /min Rafal Dixon LPN [facility] Work Phone: Comment on above: Pattern: Regular 10-14-2019 07:44-0400 Pulse Oximetry 96 % Xuan Stuart [facility] Work Phone: Comment on above: Room air 10-14-2019 07:44-0400 Respiratory Rate 16 /min Rafal Dixon LPN [facility] Work Phone: Comment on above: Pattern: Unlabored 10-14-2019 07:44-0400 SaO2% (BldA) [Mass fraction] 96 % Rafal Dixon LPN [facility]; [facility] Work Phone: Comment on above: Room air 07-21-2018 09:00-0400 BMI (Body Mass Index) 35.78 kg/m2 Marcie Beaulieu RN [facility] Work Phone: 07-21-2018 09:00-0400 Body Temperature 97.7 [degF] Marcie Beaulieu RN [facility] Work Phone: Comment on above: Method: Axillary 07-21-2018 09:00-0400 Body weight 97.52 kg Marcie Beaulieu RN [facility] Work Phone: 07-21-2018 09:00-0400 BP Diastolic 82 mm[Hg] Marcie Beaulieu RN [facility] Work Phone: Comment on above: Patient Position: Sitting; Cuff Location : Left Arm; Cuff Size: Large 07-21-2018 09:00-0400 BP Systolic 123 mm[Hg] Marcie Beaulieu RN [facility] Work Phone: Comment on above: Patient Position: Sitting; Cuff Location : Left Arm; Cuff Size: Large 07-21-2018 09:00-0400 BSA (Body Surface Area) 2.04 m2 Marcie Beaulieu RN [facility] Work Phone: 07-21-2018 09:00-0400 Height 165.1 cm Marcie Beaulieu RN [facility] Work Phone: 07-21-2018 09:00-0400 Pulse (Heart Rate) 88 /min Marcie Beaulieu RN [facility] Work Phone: Comment on above: Pattern: Regular 07-21-2018 09:00-0400 Pulse Oximetry 98 % Helen Guthrie [facility] Work Phone: Comment on above: Room air 07-21-2018 09:00-0400 Respiratory Rate 18 /min Marcie Beaulieu RN [facility] Work Phone: Comment on above: Pattern: Unlabored 07-21-2018 09:00-0400 SaO2% (BldA) [Mass fraction] 98 % Marcie Beaulieu RN [facility]; [facility] Work Phone: Comment on above: Room air 07-21-2018 09:00-0400 Weight 97.52 kg Helen Guthrie [facility] Work Phone: 07-07-2018 08:19-0500 BMI (Body Mass Index) 36.28 kg/m2 Rafal Dixon LPN [facility] Work Phone: 07-07-2018 08:19-0500 Body weight 98.89 kg Rafal Dixon LPN [facility] Work Phone: 07-07-2018 08:19-0500 BP Diastolic 82 mm[Hg] Rafal Dixon LPN [facility] Work Phone: Comment on above: Patient Position: Sitting; Cuff Location : Left Arm; Cuff Size: Standard 07-07-2018 08:19-0500 BP Systolic 118 mm[Hg] Rafal Dixon LPN [facility] Work Phone: Comment on above: Patient Position: Sitting; Cuff Location : Left Arm; Cuff Size: Standard 07-07-2018 08:19-0500 BSA (Body Surface Area) 2.05 m2 Rafal Dixon LPN [facility] Work Phone: 07-07-2018 08:19-0500 Height 165.1 cm Rafal Dixon LPN [facility] Work Phone: 07-07-2018 08:19-0500 Pulse (Heart Rate) 84 /min Rafal Dixon LPN [facility] Work Phone: Comment on above: Pattern: Regular 07-07-2018 08:19-0500 Pulse Oximetry 98 % Helen Cleveland [facility] Work Phone: Comment on above: Room air 07-07-2018 08:19-0500 Respiratory Rate 18 /min Rafal Dixon LPN [facility] Work Phone: Comment on above: Pattern: Unlabored 07-07-2018 08:19-0500 SaO2% (BldA) [Mass fraction] 98 % Rafal Dixon LPN [facility]; [facility] Work Phone: Comment on above: Room air 07-07-2018 08:19-0500 Weight 98.89 kg Helen Guthrie [facility] Work Phone: 06-24-2018 07:53-0500 BMI (Body Mass Index) 36.45 kg/m2 Rafal Dixon LPN [facility] Work Phone: 06-24-2018 07:53-0500 Body weight 99.34 kg Rafal Dixon LPN [facility] Work Phone: 06-24-2018 07:53-0500 BP Diastolic 78 mm[Hg] Rafal Dixon LPN [facility] Work Phone: Comment on above: Patient Position: Sitting; Cuff Location : Left Arm; Cuff Size: Standard 06-24-2018 07:53-0500 BP Systolic 120 mm[Hg] Rafal Dixon LPN [facility] Work Phone: Comment on above: Patient Position: Sitting; Cuff Location : Left Arm; Cuff Size: Standard 06-24-2018 07:53-0500 BSA (Body Surface Area) 2.06 m2 Rafal Dixon LPN [facility] Work Phone: 06-24-2018 07:53-0500 Height 165.1 cm Rafal Dixon LPN [facility] Work Phone: 06-24-2018 07:53-0500 Pulse (Heart Rate) 71 /min Rafal Dixon LPN [facility] Work Phone: Comment on above: Pattern: Regular 06-24-2018 07:53-0500 Pulse Oximetry 97 % Helen Guthrie [facility] Work Phone: Comment on above: Room air 06-24-2018 07:53-0500 Respiratory Rate 18 /min Rafal Dixon LPN [facility] Work Phone: Comment on above: Pattern: Unlabored 06-24-2018 07:53-0500 SaO2% (BldA) [Mass fraction] 97 % Rafal Dixon LPN [facility]; [facility] Work Phone: Comment on above: Room air 06-24-2018 07:53-0500 Weight 99.34 kg Helen Guthrie [facility] Work Phone: 06-10-2018 07:54-0500 BMI (Body Mass Index) 37.44 kg/m2 Melisa Mario [facility] Work Phone: 06-10-2018 07:54-0500 Body Temperature 96.7 [degF] Melisa Mario [facility] Work Phone: Comment on above: Method: Temporal 06-10-2018 07:54-0500 Body weight 102.06 kg Melisa Mario [facility] Work Phone: 06-10-2018 07:54-0500 BP Diastolic 76 mm[Hg] Melisa Mario [facility] Work Phone: Comment on above: Patient Position: Sitting; Cuff Location : Left Arm; Cuff Size: Standard 06-10-2018 07:54-0500 BP Systolic 104 mm[Hg] Melisa Mario [facility] Work Phone: Comment on above: Patient Position: Sitting; Cuff Location : Left Arm; Cuff Size: Standard 06-10-2018 07:54-0500 BSA (Body Surface Area) 2.08 m2 Melisa Mario [facility] Work Phone: 06-10-2018 07:54-0500 Height 165.1 cm Melisa Mario [facility] Work Phone: 06-10-2018 07:54-0500 Pulse (Heart Rate) 77 /min Melisa Mario [facility] Work Phone: Comment on above: Pattern: Regular 06-10-2018 07:54-0500 Pulse Oximetry 98 % Helen Guthrie [facility] Work Phone: Comment on above: Room air 06-10-2018 07:54-0500 Respiratory Rate 18 /min Melisa Mario [facility] Work Phone: Comment on above: Pattern: Unlabored 06-10-2018 07:54-0500 SaO2% (BldA) [Mass fraction] 98 % Melisa Mario [facility] Work Phone: Comment on above: Room air 06-10-2018 07:54-0500 Weight 102.06 kg Helen Guthrie [facility] Work Phone: 05-27-2018 09:03-0500 BMI (Body Mass Index) 37.61 kg/m2 Melisa Mario [facility] [facility] [place] [facility] Work Phone: 05-27-2018 09:03-0500 Body Temperature 97 [degF] Melisa Mario [facility] Work Phone: 05-27-2018 09:03-0500 Body weight 102.51 kg Melisa Mario [facility] Work Phone: 05-27-2018 09:03-0500 BP Diastolic 83 mm[Hg] Melisa Mario [facility] Work Phone: Comment on above: Patient Position: Sitting; Cuff Location : Left Arm; Cuff Size: Standard 05-27-2018 09:03-0500 BP Systolic 123 mm[Hg] Melisa Mario [facility] Work Phone: Comment on above: Patient Position: Sitting; Cuff Location : Left Arm; Cuff Size: Standard 05-27-2018 09:03-0500 BSA (Body Surface Area) 2.08 m2 Melisa Mario [facility] Work Phone: 05-27-2018 09:03-0500 Height 165.1 cm Melisa Mario [facility] Work Phone: 05-27-2018 09:03-0500 Pulse (Heart Rate) 76 /min Melisa Mario [facility] Work Phone: Comment on above: Pattern: Regular 05-27-2018 09:03-0500 Pulse Oximetry 99 % Helen Guthrie [facility] Internal Medicine Work Phone: Comment on above: Room air 05-27-2018 09:03-0500 Respiratory Rate 16 /min Melisa Mario [facility] Work Phone: Comment on above: Pattern: Unlabored 05-27-2018 09:03-0500 SaO2% (BldA) [Mass fraction] 99 % Melisa Mario [facility]; [facility] Work Phone: Comment on above: Room air 05-27-2018 09:03-0500 Weight 102.51 kg Helen Guthrie [facility] Internal Medicine Work Phone: 05-13-2018 11:19-0500 BMI (Body Mass Index) 38.61 kg/m2 Melisa Mario [facility] Internal Medicine Work Phone: Comment on above: recheck bp 121/84 05-13-2018 11:19-0500 Body weight 105.24 kg Melisa Mario [facility] Internal Medicine Work Phone: Comment on above: recheck bp 121/84 05-13-2018 11:19-0500 BP Diastolic 84 mm[Hg] Melisa Mario [facility] Medicine Work Phone: Comment on above: Patient Position: Sitting; Cuff Location : Left Arm; Cuff Size: Standard recheck bp 121/84 05-13-2018 11:19-0500 BP Systolic 142 mm[Hg] Melisa Mario [facility] Internal Medicine Work Phone: Comment on above: Patient Position: Sitting; Cuff Location : Left Arm; Cuff Size: Standard recheck bp 121/84 05-13-2018 11:19-0500 BSA (Body Surface Area) 2.11 m2 Melisa Mario [facility] Internal Medicine Work Phone: Comment on above: recheck bp 121/84 05-13-2018 11:19-0500 Height 165.1 cm Melisa Mario [facility] Internal Medicine Work Phone: Comment on above: recheck bp 121/84 05-13-2018 11:19-0500 Pulse (Heart Rate) 76 /min Melisa Mario [facility] Medicine Work Phone: Comment on above: Pattern: Regular recheck bp 121/84 05-13-2018 11:19-0500 Pulse Oximetry 96 % Helen Guthrie [facility] Internal Medicine Work Phone: Comment on above: Room air recheck bp 121/84 05-13-2018 11:19-0500 Respiratory Rate 18 /min Melisa Mario [facility] Work Phone: Comment on above: Pattern: Unlabored recheck bp 121/84 05-13-2018 11:19-0500 SaO2% (BldA) [Mass fraction] 96 % Melisa Mario [facility]; [facility] Work Phone: Comment on above: Room air recheck bp 121/84 05-13-2018 11:19-0500 Weight 105.24 kg Helen Guthrie [facility] Work Phone: Comment on above: recheck bp 121/84 06-11-2016 09:38-0500 BMI (Body Mass Index) 34.95 kg/m2 Marcie Beaulieu RN [facility] Work Phone: 06-11-2016 09:38-0500 Body Temperature 98.9 [degF] Marcie Beaulieu RN [facility] Work Phone: Comment on above: Method: Oral 06-11-2016 09:38-0500 Body weight 95.26 kg Marcie Beaulieu RN [facility] Work Phone: 06-11-2016 09:38-0500 BP Diastolic 82 mm[Hg] Marcie Beaulieu RN [facility] Work Phone: Comment on above: Patient Position: Sitting; Cuff Location : Left Arm; Cuff Size: Large 06-11-2016 09:38-0500 BP Systolic 122 mm[Hg] Marcie Beaulieu RN [facility] Work Phone: Comment on above: Patient Position: Sitting; Cuff Location : Left Arm; Cuff Size: Large 06-11-2016 09:38-0500 BSA (Body Surface Area) 2.02 m2 Marcie Beaulieu RN [facility] Work Phone: 06-11-2016 09:38-0500 Height 165.1 cm Marcie Beaulieu RN [facility] Work Phone: 06-11-2016 09:38-0500 Pulse (Heart Rate) 99 /min Marcie Beaulieu RN [facility] Work Phone: Comment on above: Pattern: Regular 06-11-2016 09:38-0500 Pulse Oximetry 99 % Helen Guthrie [facility] Work Phone: Comment on above: Room air 06-11-2016 09:38-0500 Respiratory Rate 18 /min Marcie Beaulieu RN [facility] Work Phone: Comment on above: Pattern: Unlabored 06-11-2016 09:38-0500 SaO2% (BldA) [Mass fraction] 99 % Marcie Beaulieu RN [facility]; [facility] Work Phone: Comment on above: Room air 06-11-2016 09:38-0500 Weight 95.26 kg Helen Guthrie [facility] Work Phone: 05-14-2016 09:07-0500 BMI (Body Mass Index) 37.3 kg/m2 Marcie Beaulieu RN [facility] Work Phone: 05-14-2016 09:07-0500 Body weight 101.66 kg Marcie Beaulieu RN [facility] Work Phone: 05-14-2016 09:07-0500 BP Diastolic 86 mm[Hg] Marcie Beaulieu RN [facility] Work Phone: Comment on above: Patient Position: Sitting; Cuff Location : Right Arm; Cuff Size: Large 05-14-2016 09:07-0500 BP Systolic 132 mm[Hg] Marcie Beaulieu RN [facility] Work Phone: Comment on above: Patient Position: Sitting; Cuff Location : Right Arm; Cuff Size: Large 05-14-2016 09:07-0500 BSA (Body Surface Area) 2.08 m2 Marcie Beaulieu RN [facility] Work Phone: 05-14-2016 09:07-0500 Height 165.1 cm Marcie Beaulieu RN [facility] Work Phone: 05-14-2016 09:07-0500 Pulse (Heart Rate) 91 /min Marcie Beaulieu RN [facility] Work Phone: Comment on above: Pattern: Regular 05-14-2016 09:07-0500 Pulse Oximetry 97 % Helengenaro Guthrie [facility] Work Phone: Comment on above: Room air 05-14-2016 09:07-0500 SaO2% (BldA) [Mass fraction] 97 % Marcie Beaulieu RN [facility]; [facility] Work Phone: Comment on above: Room air 05-14-2016 09:07-0500 Weight 101.66 kg Helen Guthrie [facility] Work Phone: 03-07-2016 11:07-0400 BMI (Body Mass Index) 35.98 kg/m2 Marcie Beaulieu RN [facility] Work Phone: 03-07-2016 11:07-0400 Body weight 98.06 kg Marcie Beaulieu RN [facility] Work Phone: 03-07-2016 11:07-0400 BP Diastolic 98 mm[Hg] Marcie Beaulieu RN [facility] Work Phone: Comment on above: Patient Position: Sitting; Cuff Location : Left Arm; Cuff Size: Large 03-07-2016 11:07-0400 BP Systolic 142 mm[Hg] Marcie Beaulieu RN [facility] Work Phone: Comment on above: Patient Position: Sitting; Cuff Location : Left Arm; Cuff Size: Large 03-07-2016 11:07-0400 BSA (Body Surface Area) 2.04 m2 Marcie Beaulieu RN [facility] Work Phone: 03-07-2016 11:07-0400 Height 165.1 cm Marcie Beaulieu RN [facility] Work Phone: 03-07-2016 11:07-0400 Pulse (Heart Rate) 82 /min Marcie Beaulieu RN [facility] Work Phone: Comment on above: Pattern: Regular 03-07-2016 11:07-0400 Pulse Oximetry 98 % Helen Guthrie [facility] Work Phone: Comment on above: Room air 03-07-2016 11:07-0400 Respiratory Rate 18 /min Marcie Beaulieu RN [facility] Work Phone: Comment on above: Pattern: Unlabored 03-07-2016 11:07-0400 SaO2% (BldA) [Mass fraction] 98 % Marcie Beaulieu RN [facility]; [facility] Work Phone: Comment on above: Room air 03-07-2016 11:07-0400 Weight 98.06 kg Heeln Guthrie [facility] Internal Medicine Work Phone: 09-07-2015 11:43-0400 BMI (Body Mass Index) 33.95 kg/m2 Chelsea Chand [facility] Internal Medicine Work Phone: 09-07-2015 11:43-0400 Body weight 92.53 kg Chelsea Chand [facility] Work Phone: 09-07-2015 11:43-0400 BP Diastolic 70 mm[Hg] Chelsea Chand [facility] Internal Medicine Work Phone: Comment on above: Patient Position: Sitting; Cuff Location : Left Arm; Cuff Size: Standard 09-07-2015 11:43-0400 BP Systolic 126 mm[Hg] Chelsea Chand [facility] Internal [facility] Work Phone: Comment on above: Patient Position: Sitting; Cuff Location : Left Arm; Cuff Size: Standard 09-07-2015 11:43-0400 BSA (Body Surface Area) 1.99 m2 Chelsea Chand [facility] Work Phone: 09-07-2015 11:43-0400 Height 165.1 cm Chelsea Chand [facility] Work Phone: 09-07-2015 11:43-0400 Pulse (Heart Rate) 70 /min [facility]: Comment on above: Pattern: Regular 09-07-2015 11:43-0400 Pulse Oximetry 96 % Helen Guthrie [facility] Internal Medicine Work Phone: Comment on above: Room air 09-07-2015 11:43-0400 Respiratory Rate 16 /min Chelsea Chand [facility] Work Phone: Comment on above: Pattern: Unlabored 09-07-2015 11:43-0400 SaO2% (BldA) [Mass fraction] 96 % [facility]; [facility] Work Phone: Comment on above: Room air 09-07-2015 11:43-0400 Weight 92.53 kg Helen Guthrie [facility] Internal Medicine Work Phone: 07-13-2015 08:37-0500 BMI (Body Mass Index) 34.11 kg/m2 NARCISO Melvin [facility] Internal Medicine Work Phone: 07-13-2015 08:37-0500 Body Temperature 97.6 [degF] NARCISO Melvin [facility] Work Phone: Comment on above: Method: Temporal 07-13-2015 08:37-0500 Body weight 92.99 kg NARCISO Melvin [facility] Work Phone: 07-13-2015 08:37-0500 BP Diastolic 68 mm[Hg] NARCISO Melvin [facility] Internal Medicine Work Phone: Comment on above: Patient Position: Sitting; Cuff Location : Left Arm; Cuff Size: Large 07-13-2015 08:37-0500 BP Systolic 117 mm[Hg] NARCISO Melvin [facility] Internal [facility] Work Phone: Comment on above: Patient Position: Sitting; Cuff Location : Left Arm; Cuff Size: Large 07-13-2015 08:37-0500 BSA (Body Surface Area) 2 m2 NARCISO Melvin [facility] Internal Medicine Work Phone: 07-13-2015 08:37-0500 Height 165.1 cm NARCISO Melvin [facility] Internal [facility] Work Phone: 07-13-2015 08:37-0500 Pulse (Heart Rate) 78 /min NARCISO Melvin [facility] Internal Medicine Work Phone: Comment on above: Pattern: Regular 07-13-2015 08:37-0500 Pulse Oximetry 99 % Helen Guthrie [facility] Internal Medicine Work Phone: Comment on above: Room air 07-13-2015 08:37-0500 Respiratory Rate 20 /min NARCISO Melvin [facility] Internal Medicine Work Phone: Comment on above: Pattern: Unlabored 07-13-2015 08:37-0500 SaO2% (BldA) [Mass fraction] 99 % NARCISO Melvin [facility]; [facility] Work Phone: Comment on above: Room air 07-13-2015 08:37-0500 Weight 92.99 kg Helen Guthrie [facility] Internal [facility] Work Phone: 05-17-2015 09:08-0500 BMI (Body Mass Index) 35.11 kg/m2 NARCISO Melvin [facility] Internal [facility] Work Phone: 05-17-2015 09:08-0500 Body Temperature 97.6 [degF] NARCISO Melvin [facility] Internal [facility] Work Phone: Comment on above: Method: Temporal 05-17-2015 09:08-0500 Body weight 95.71 kg NARCISO Melvin [facility] Internal [facility] Work Phone: 05-17-2015 09:08-0500 BP Diastolic 80 mm[Hg] NARCISO Melvin [facility] Work Phone: Comment on above: Patient Position: Sitting; Cuff Location : Left Arm; Cuff Size: Large 05-17-2015 09:08-0500 BP Systolic 120 mm[Hg] NARCISO Melvin [facility] Internal Medicine Work Phone: Comment on above: Patient Position: Sitting; Cuff Location : Left Arm; Cuff Size: Large 05-17-2015 09:08-0500 BSA (Body Surface Area) 2.02 m2 NARCISO Melvin [facility] Internal [facility] Work Phone: 05-17-2015 09:08-0500 Height 165.1 cm NARCISO Brad [facility] Work Phone: 05-17-2015 09:08-0500 Pulse (Heart Rate) 74 /min NARCISO Brad [facility] Internal [facility] Work Phone: Comment on above: Pattern: Regular 05-17-2015 09:08-0500 Pulse Oximetry 97 % Helen Guthrie [facility] Internal Medicine Work Phone: Comment on above: Room air 05-17-2015 09:08-0500 Respiratory Rate 20 /min NARCISO Melvin LPN [facility] Work Phone: Comment on above: Pattern: Unlabored 05-17-2015 09:08-0500 SaO2% (BldA) [Mass fraction] 97 % NARCISO Melvin LPN [facility]; [facility] Work Phone: Comment on above: Room air 05-17-2015 09:08-0500 Weight 95.71 kg Helen Guthrie [facility] Work Phone: 04-11-2015 09:32-0500 BMI (Body Mass Index) 35.94 kg/m2 NARCISO Melvin LPN [facility] Work Phone: 04-11-2015 09:32-0500 Body Temperature 97.6 [degF] NARCISO Melvin LPN [facility] Work Phone: Comment on above: Method: Temporal 04-11-2015 09:32-0500 Body weight 97.98 kg NARCISO Melvin LPN [facility] Work Phone: 04-11-2015 09:32-0500 BP Diastolic 76 mm[Hg] NARCISO Melvin LPN [facility] Work Phone: Comment on above: Patient Position: Sitting; Cuff Location : Left Arm; Cuff Size: Large 04-11-2015 09:32-0500 BP Systolic 130 mm[Hg] NARCISO Melvin LPN [facility] Work Phone: Comment on above: Patient Position: Sitting; Cuff Location : Left Arm; Cuff Size: Large 04-11-2015 09:32-0500 BSA (Body Surface Area) 2.04 m2 NARCISO Melvin LPN [facility] Work Phone: 04-11-2015 09:32-0500 Height 165.1 cm NARCISO Melvin LPN [facility] Work Phone: 04-11-2015 09:32-0500 Pulse (Heart Rate) 80 /min NARCISO Melvin LPN [facility] Work Phone: Comment on above: Pattern: Regular 04-11-2015 09:32-0500 Pulse Oximetry 99 % Helen Guthrie [facility] Work Phone: Comment on above: Room air 04-11-2015 09:32-0500 Respiratory Rate 20 /min NARCISO Melvin LPN [facility] Work Phone: Comment on above: Pattern: Unlabored 04-11-2015 09:32-0500 SaO2% (BldA) [Mass fraction] 99 % NARCISO Melvin LPN [facility]; [facility] Work Phone: Comment on above: Room air 04-11-2015 09:32-0500 Weight 97.98 kg Helen Guthrie [facility] Work Phone: 03-15-2015 10:43-0500 BMI (Body Mass Index) 38.44 kg/m2 NARCISO Melvin LPN [facility] Work Phone: 03-15-2015 10:43-0500 Body Temperature 97.9 [degF] NARCISO Melvin LPN [facility] Work Phone: Comment on above: Method: Temporal 03-15-2015 10:43-0500 Body weight 104.78 kg NARCISO Melvin LPN [facility] Work Phone: 03-15-2015 10:43-0500 BP Diastolic 78 mm[Hg] NARCISO Melvin LPN [facility] Work Phone: Comment on above: Patient Position: Sitting; Cuff Location : Left Arm; Cuff Size: Large 03-15-2015 10:43-0500 BP Systolic 110 mm[Hg] NARCISO Melvin LPN [facility] Work Phone: Comment on above: Patient Position: Sitting; Cuff Location : Left Arm; Cuff Size: Large 03-15-2015 10:43-0500 BSA (Body Surface Area) 2.1 m2 NARCISO Melvin LPN [facility] Work Phone: 03-15-2015 10:43-0500 Height 165.1 cm NARCISO Melvin LPN [facility] Work Phone: 03-15-2015 10:43-0500 Pulse (Heart Rate) 70 /min NARCISO Melvin LPN [facility] Work Phone: Comment on above: Pattern: Regular 03-15-2015 10:43-0500 Pulse Oximetry 98 % Helen Guthrie [facility] Work Phone: Comment on above: Room air 03-15-2015 10:43-0500 Respiratory Rate 18 /min NARCISO Melvin LPN [facility] Work Phone: Comment on above: Pattern: Unlabored 03-15-2015 10:43-0500 SaO2% (BldA) [Mass fraction] 98 % NARCISO Melvin [facility]; [facility] Work Phone: Comment on above: Room air 03-15-2015 10:43-0500 Weight 104.78 kg Helen Guthrie [facility] Internal [facility] Work Phone: 08-29-2014 10:29-0400 BMI (Body Mass Index) 35.94 kg/m2 Ivania Patel DIRECTOR [facility] Work Phone: 08-29-2014 10:29-0400 Body Temperature 97 [degF] Ivania Patel DIRECTOR [facility] Work Phone: Comment on above: Method: Oral 08-29-2014 10:29-0400 Body weight 97.98 kg Ivania Patel DIRECTOR [facility] Work Phone: 08-29-2014 10:29-0400 BP Diastolic 76 mm[Hg] Ivania Patel DIRECTOR [facility] Work Phone: Comment on above: Patient Position: Sitting; Cuff Location : Left Arm; Cuff Size: Standard 08-29-2014 10:29-0400 BP Systolic 122 mm[Hg] Ivania Patel DIRECTOR [facility] Work Phone: Comment on above: Patient Position: Sitting; Cuff Location : Left Arm; Cuff Size: Standard 08-29-2014 10:29-0400 BSA (Body Surface Area) 2.04 m2 Ivania Patel DIRECTOR [facility] Work Phone: 08-29-2014 10:29-0400 Height 165.1 cm Ivania Patel DIRECTOR [facility] Internal Medicine Work Phone: 08-29-2014 10:29-0400 Pulse (Heart Rate) 72 /min Ivania Patel LPN [facility] Work Phone: Comment on above: Pattern: Regular 08-29-2014 10:29-0400 Pulse Oximetry 98 % Helen Cleveland [facility] Work Phone: Comment on above: Room air 08-29-2014 10:29-0400 SaO2% (BldA) [Mass fraction] 98 % Ivania Jorge MO[facility]; [facility] Work Phone: Comment on above: Room air 08-29-2014 10:290400 Weight 97.98 kg Helen Guthrie [facility] Work Phone: 11-22-2013 15:39-0400 BMI (Body Mass Index) 35.94 kg/m2 Gris Harris RN [facility] Work Phone: 11-22-2013 15:39-0400 Body Temperature 97 [degF] Gris Harris RN [facility] Work Phone: Comment on above: Method: Temporal 11-22-2013 15:39-0400 Body weight 97.98 kg Gris Harris RN [facility] Work Phone: 11-22-2013 15:39-0400 BP Diastolic 66 mm[Hg] Gris Harris RN [facility] Work Phone: Comment on above: Patient Position: Sitting; Cuff Location : Left Arm; Cuff Size: Standard 11-22-2013 15:39-0400 BP Systolic 126 mm[Hg] Gris Harris RN [facility] Work Phone: Comment on above: Patient Position: Sitting; Cuff Location : Left Arm; Cuff Size: Standard 11-22-2013 15:39-0400 BSA (Body Surface Area) 2.04 m2 Gris Harris RN [facility] Work Phone: 11-22-2013 15:39-0400 Height 165.1 cm Gris Harris RN [facility] Work Phone: 11-22-2013 15:39-0400 Pulse (Heart Rate) 79 /min Gris Harris RN [facility] Work Phone: Comment on above: Pattern: Regular 11-22-2013 15:39-0400 Pulse Oximetry 99 % Helen Guthrie [facility] Work Phone: Comment on above: Room air 11-22-2013 15:39-0400 Respiratory Rate 16 /min Gris Harris RN [facility] Work Phone: Comment on above: Pattern: Unlabored 11-22-2013 15:39-0400 SaO2% (BldA) [Mass fraction] 99 % Gris Harris RN [facility]; [facility] Work Phone: Comment on above: Room air 11-22-2013 15:39-0400 Weight 97.98 kg Helen Guthrie [facility] Work Phone: 10-20-2013 10:25-0400 BMI (Body Mass Index) 34.95 kg/m2 NARCISO Melvin LPN [facility] Work Phone: 10-20-2013 10:25-0400 Body Temperature 98.5 [degF] NARCISO Melvin LPN [facility] Work Phone: Comment on above: Method: Oral 10-20-2013 10:25-0400 Body weight 95.26 kg NARCISO Melvin LPN [facility] Work Phone: 10-20-2013 10:25-0400 BP Diastolic 78 mm[Hg] NARCISO Melvin LPN [facility] Work Phone: Comment on above: Patient Position: Sitting; Cuff Location : Left Arm; Cuff Size: Large 10-20-2013 10:25-0400 BP Systolic 118 mm[Hg] NARCISO Melvin LPN [facility] Work Phone: Comment on above: Patient Position: Sitting; Cuff Location : Left Arm; Cuff Size: Large 10-20-2013 10:25-0400 BSA (Body Surface Area) 2.02 m2 NARCISO Melvin LPN [facility] Work Phone: 10-20-2013 10:25-0400 Height 165.1 cm NARCISO Melvin LPN [facility] Work Phone: 10-20-2013 10:250400 Pulse (Heart Rate) 76 /min NARCISO Melvin LPN [facility] Work Phone: Comment on above: Pattern: Regular 10-20-2013 10:25-0400 Respiratory Rate 20 /min NARCISO Melvin LPN [facility] Work Phone: Comment on above: Pattern: Unlabored 10-20-2013 10:25-040 Weight 95.26 kg Helen Guthrie [facility] Work Phone: 11-29-2012 10:03-0400 BMI (Body Mass Index) 36.78 kg/m2 Antoinette Questel DIRECTOR [facility] Work Phone: 11-29-2012 10:03040 Body Temperature 98.3 [degF] Antoinette Merazel DIRECTOR [facility] Work Phone: 11-29-2012 10:03-040 Body weight 100.25 kg Antoinette Jeffers DIRECTOR [facility] Work Phone: 11-29-2012 10:03-0400 BP Diastolic 72 mm[Hg] Antoinette Questel DIRECTOR [facility] Work Phone: Comment on above: Patient Position: Sitting; Cuff Location : Left Arm; Cuff Size: Standard 11-29-2012 10:030400 BP Systolic 124 mm[Hg] Antoinette Merazel DIRECTOR [facility] Work Phone: Comment on above: Patient Position: Sitting; Cuff Location : Left Arm; Cuff Size: Standard 11-29-2012 10:030400 BSA (Body Surface Area) 2.06 m2 Antoinette Merazel DIRECTOR [facility] Work Phone: 11-29-2012 10:03040 Height 165.1 cm Antoinette Questel DIRECTOR [facility] Work Phone: 11-29-2012 10:03-0400 Pulse (Heart Rate) 68 /min Antoinette Merazel DIRECTOR [facility] Work Phone: Comment on above: Pattern: Regular 11-29-2012 10:03-0400 Respiratory Rate 28 /min Antoinette Jeffers LPN [facility] Work Phone: Comment on above: Pattern: Unlabored 11-29-2012 10:03-0400 Weight 100.25 kg Helen Guthrie [facility] Internal Medicine Work Phone: 11-09-2012 10:44-0400 BMI (Body Mass Index) 37.44 kg/m2 NARCISO Melvin [facility] Internal Medicine Work Phone: 11-09-2012 10:44-0400 Body Temperature 97.6 [degF] NARCISO Melvin [facility] Work Phone: Comment on above: Method: Oral 11-09-2012 10:44-0400 Body weight 102.06 kg NARCISO Melvin [facility] Medicine Work Phone: 11-09-2012 10:44-0400 BP Diastolic 78 mm[Hg] NARCISO Melvin [facility] Medicine Work Phone: Comment on above: Patient Position: Sitting; Cuff Location : Left Arm; Cuff Size: Large 11-09-2012 10:44-0400 BP Systolic 120 mm[Hg] NARCISO Melvin [facility] Medicine Work Phone: Comment on above: Patient Position: Sitting; Cuff Location : Left Arm; Cuff Size: Large 11-09-2012 10:44-0400 BSA (Body Surface Area) 2.08 m2 NARCISO Melvin [facility] Internal Medicine Work Phone: 11-09-2012 10:44-0400 Height 165.1 cm NARCISO Melvin DIRECTOR [facility] Internal Medicine Work Phone: 11-09-2012 10:44-0400 Pulse (Heart Rate) 70 /min NARCISO Melvin [facility] Internal Medicine Work Phone: Comment on above: Pattern: Regular 11-09-2012 10:44-0400 Respiratory Rate 18 /min NARCISO Melvin [facility] Internal Medicine Work Phone: Comment on above: Pattern: Unlabored 11-09-2012 10:44-0400 Weight 102.06 kg Helen Guthrie [facility] Internal Medicine Work Phone: 12-09-2010 09:04-0400 BMI (Body Mass Index) 34.78 kg/m2 Ivania Patel LPN [facility] Internal Medicine Work Phone: 12-09-2010 09:04-0400 Body Temperature 99.1 [degF] Ivania Patel LPN [facility] Internal Medicine Work Phone: Comment on above: Method: Oral 12-09-2010 09:04-0400 Body weight 94.8 kg Ivania Patel LPN [facility] Work Phone: 12-09-2010 09:04-0400 BP Diastolic 78 mm[Hg] Ivania Patel LPN [facility] Work Phone: Comment on above: Patient Position: Sitting; Cuff Location : Left Arm; Cuff Size: Standard 12-09-2010 09:04-0400 BP Systolic 122 mm[Hg] Ivania Patel LPN [facility] Internal Medicine Work Phone: Comment on above: Patient Position: Sitting; Cuff Location : Left Arm; Cuff Size: Standard 12-09-2010 09:04-0400 BSA (Body Surface Area) 2.02 m2 Ivania Patel LPN [facility] Work Phone: 12-09-2010 09:04-0400 Height 165.1 cm Ivania Patel LPN [facility] Work Phone: 12-09-2010 09:04-0400 Pulse (Heart Rate) 60 /min Ivania Patel LPN [facility] Work Phone: Comment on above: Pattern: Regular 12-09-2010 09:04-0400 Respiratory Rate 16 /min Ivania Patel LPN [facility] Work Phone: Comment on above: Pattern: Unlabored 12-09-2010 09:04-0400 Weight 94.8 kg Helen Guthrie [facility] Internal Medicine Work Phone: 10-22-2009 13:32-0400 BMI (Body Mass Index) 34.78 kg/m2 Ivania Patel LPN [facility] Work Phone: 10-22-2009 13:32-0400 Body Temperature 97.9 [degF] Ivania Patel LPN [facility] Work Phone: Comment on above: Method: Oral 10-22-2009 13:32-0400 Body weight 94.8 kg Ivania Patel LPN [facility] Work Phone: 10-22-2009 13:32-0400 BP Diastolic 78 mm[Hg] Ivania Patel LPN [facility] Work Phone: Comment on above: Patient Position: Sitting; Cuff Location : Left Arm; Cuff Size: Standard 10-22-2009 13:32-0400 BP Systolic 124 mm[Hg] Ivania Patel LPN [facility] Work Phone: Comment on above: Patient Position: Sitting; Cuff Location : Left Arm; Cuff Size: Standard 10-22-2009 13:32-0400 BSA (Body Surface Area) 2.02 m2 Ivania Patel LPN [facility] Work Phone: 10-22-2009 13:32-0400 Height 165.1 cm Ivania Patel LPN [facility] Work Phone: 10-22-2009 13:32-0400 Pulse (Heart Rate) 74 /min Ivania Patel LPN [facility] Work Phone: Comment on above: Pattern: Regular 10-22-2009 13:32-0400 Respiratory Rate 16 /min Ivania Patel LPN [facility] Work Phone: Comment on above: Pattern: Unlabored 10-22-2009 13:32-0400 Weight 94.8 kg Helen Guthrie [facility] Work Phone: 05-28-2009 15:04-0500 BMI (Body Mass Index) 34.78 kg/m2 Ivania Patel LPN [facility] Work Phone: 05-28-2009 15:04-0500 Body Temperature 98.2 [degF] Ivania Patel LPN [facility] Work Phone: Comment on above: Method: Oral 05-28-2009 15:04-0500 Body weight 94.8 kg Ivania Paetl LPN [facility] Work Phone: 05-28-2009 15:04-0500 BP Diastolic 72 mm[Hg] Ivania Patel LPN [facility] Work Phone: Comment on above: Patient Position: Sitting; Cuff Location : Left Arm; Cuff Size: Standard 05-28-2009 15:04-0500 BP Systolic 118 mm[Hg] Ivania Patel [facility] Work Phone: Comment on above: Patient Position: Sitting; Cuff Location : Left Arm; Cuff Size: Standard 05-28-2009 15:04-0500 BSA (Body Surface Area) 2.02 m2 Ivania Patel DIRECTOR [facility] Work Phone: 05-28-2009 15:04-0500 Height 165.1 cm Ivania Patel DIRECTOR [facility] Work Phone: 05-28-2009 15:04-0500 Pulse (Heart Rate) 71 /min Ivania Patel DIRECTOR [facility] Work Phone: Comment on above: Pattern: Regular 05-28-2009 15:04-0500 Pulse Oximetry 97 % Helen Guthrie [facility] Internal Medicine Work Phone: Comment on above: Room air 05-28-2009 15:04-0500 Respiratory Rate 16 /min Ivania Patel DIRECTOR [facility] Work Phone: 05-28-2009 15:04-0500 SaO2% (BldA) [Mass fraction] 97 % Ivania Patel DIRECTOR [facility]; [facility] Work Phone: Comment on above: Room air 05-28-2009 15:04-0500 Weight 94.8 kg Helen Guthrie [facility] Work Phone: 07-03-2008 14:41-0500 Body weight 0 kg NARCISO Brad [facility] Work Phone: 07-03-2008 14:41-0500 BP Diastolic 76 mm[Hg] NARCISO Melvin LPN [facility] Work Phone: Comment on above: Patient Position: Sitting; Cuff Location : Left Arm; Cuff Size: Standard 07-03-2008 14:41-0500 BP Systolic 116 mm[Hg] NARCISO Melvin LPN [facility] Work Phone: Comment on above: Patient Position: Sitting; Cuff Location : Left Arm; Cuff Size: Standard 07-03-2008 14:41-0500 Head Circumference 0 cm Helen Guthrie [facility] Internal Medicine Work Phone: 07-03-2008 14:41-0500 Head Occipital-frontal circumference 0 cm NARCISO Melvin LPN [facility]; [facility] Work Phone: 07-03-2008 14:41-0500 Height 0 cm NARCISO Melvin LPN [facility] Work Phone: 07-03-2008 14:41-0500 Pulse (Heart Rate) 68 /min NARCISO Melvin LPN [facility] Work Phone: Comment on above: Pattern: Regular 07-03-2008 14:41-0500 Respiratory Rate 16 /min NARCISO Melvin LPN [facility] Work Phone: Comment on above: Pattern: Unlabored 07-03-2008 14:41-0500 Weight 0 kg Helen Guthrie [facility] Internal Medicine Work Phone: 06-22-2008 12:55-0500 BMI (Body Mass Index) 34.78 kg/m2 Ivania Patel LPN [facility] Work Phone: 06-22-2008 12:55-0500 Body Temperature 98.1 [degF] Ivania Patel DIRECTOR [facility] Work Phone: Comment on above: Method: Oral 06-22-2008 12:55-0500 Body weight 94.8 kg Ivania Patel LPN [facility] Work Phone: 06-22-2008 12:55-0500 BP Diastolic 80 mm[Hg] Ivania Patel LPN [facility] Work Phone: Comment on above: Patient Position: Sitting; Cuff Location : Left Arm; Cuff Size: Standard 06-22-2008 12:55-0500 BP Systolic 124 mm[Hg] Ivania Patel LPN [facility] Work Phone: Comment on above: Patient Position: Sitting; Cuff Location : Left Arm; Cuff Size: Standard 06-22-2008 12:55-0500 BSA (Body Surface Area) 2.02 m2 Ivania Patel DIRECTOR [facility] Work Phone: 06-22-2008 12:55-0500 Head Circumference 0 cm Helen Guthrie [facility] Internal Medicine Work Phone: 06-22-2008 12:55-0500 Head Occipital-frontal circumference 0 cm Ivania Patel DIRECTOR [facility]; [facility] Work Phone: 06-22-2008 12:55-0500 Height 165.1 cm Ivania Patel DIRECTOR [facility] Work Phone: 06-22-2008 12:55-0500 Pulse (Heart Rate) 78 /min Ivania Patel LPN [facility] Work Phone: Comment on above: Pattern: Regular 06-22-2008 12:55-0500 Respiratory Rate 18 /min Ivania Patel LPN [facility] Work Phone: Comment on above: Pattern: Unlabored 06-22-2008 12:55-0500 Weight 94.8 kg Helen Guthrie [facility] Internal Medicine Work Phone: 05-09-2008 11:24-0500 Body weight 0 kg NARCISO Melvin OSCAR [facility] Work Phone: 05-09-2008 11:24-0500 BP Diastolic 78 mm[Hg] NARCISO Brad MO[facility] Work Phone: Comment on above: Patient Position: Sitting; Cuff Location : Left Arm; Cuff Size: Large 05-09-2008 11:24-0500 BP Systolic 122 mm[Hg] NARCISO Melvin DIRECTOR [facility] Work Phone: Comment on above: Patient Position: Sitting; Cuff Location : Left Arm; Cuff Size: Large 05-09-2008 11:24-0500 Head Circumference 0 cm Helen Guthrie [facility] Internal Medicine Work Phone: 05-09-2008 11:24-0500 Head Occipital-frontal circumference 0 cm NARCISO Melvin LPN [facility]; [facility] Work Phone: 05-09-2008 11:24-0500 Height 0 cm NARCISO Melvin LPN [facility] Work Phone: 05-09-2008 11:24-0500 Pulse (Heart Rate) 72 /min NARCISO Melvin LPN [facility] Work Phone: Comment on above: Pattern: Regular 05-09-2008 11:24-0500 Respiratory Rate 16 /min NARCISO Melvin LPN [facility] Work Phone: Comment on above: Pattern: Unlabored 05-09-2008 11:24-0500 Weight 0 kg Helen Guthrie [facility] Medicine Work Phone: 03-28-2008 14:56-0500 Body Temperature 97.6 [degF] NARCISO Melvin LPN [facility] Work Phone: Comment on above: Method: Oral 03-28-2008 14:56-0500 Body weight 0 kg NARCISO Melvin LPN [facility] Work Phone: 03-28-2008 14:56-0500 BP Diastolic 78 mm[Hg] NARCISO Melvin [facility] Work Phone: Comment on above: Patient Position: Sitting; Cuff Location : Left Arm; Cuff Size: Large 03-28-2008 14:56-0500 BP Systolic 118 mm[Hg] NARCISO Melvin LPN [facility] Work Phone: Comment on above: Patient Position: Sitting; Cuff Location : Left Arm; Cuff Size: Large 03-28-2008 14:56-0500 Head Circumference 0 cm Helen Guthrie [facility] Internal Medicine Work Phone: 03-28-2008 14:56-0500 Head Occipital-frontal circumference 0 cm NARCISO Melvin DIRECTOR [facility]; [facility] Work Phone: 03-28-2008 14:56-0500 Height 0 cm NARCISO Melvin LPN [facility] Work Phone: 03-28-2008 14:56-0500 Pulse (Heart Rate) 72 /min NARCISO Melvin LPN [facility] Work Phone: Comment on above: Pattern: Regular 03-28-2008 14:56-0500 Respiratory Rate 16 /min NARCISO Melvin LPN [facility] Work Phone: Comment on above: Pattern: Unlabored 03-28-2008 14:56-0500 Weight 0 kg Helen Guthrie [facility] Work Phone: 02-28-2008 13:49-0400 BMI (Body Mass Index) 34.78 kg/m2 Luna Pastrana MD Work Phone: [facility] Work Phone: 02-28-2008 13:49-0400 Body Temperature 98.2 [degF] Luna Pastrana MD Work Phone: [facility] Work Phone: Comment on above: Method: Oral 02-28-2008 13:49-0400 Body weight 94.8 kg Luna Pastrana MD Work Phone: [facility] Work Phone: 02-28-2008 13:49-0400 BP Diastolic 80 mm[Hg] Luna Pastrana MD Work Phone: [facility] Work Phone: Comment on above: Patient Position: Sitting; Cuff Location : Left Arm; Cuff Size: Large 02-28-2008 13:49-0400 BP Systolic 118 mm[Hg] Luna Pastrana MD Work Phone: [facility] Work Phone: Comment on above: Patient Position: Sitting; Cuff Location : Left Arm; Cuff Size: Large 02-28-2008 13:49-0400 BSA (Body Surface Area) 2.02 m2 Luna Pastrana MD Work Phone: [facility] Work Phone: 02-28-2008 13:49-0400 Head Circumference 0 cm Helen Guthrie [facility] Work Phone: 02-28-2008 13:49-0400 Head Occipital-frontal circumference 0 cm Luna Pastrana MD Work Phone: [facility]; [facility] Work Phone: 02-28-2008 13:49-0400 Height 165.1 cm Luna Pastrana MD Work Phone: [facility] Work Phone: 02-28-2008 13:49-0400 Pulse (Heart Rate) 70 /min Luna Pastrana MD Work Phone: [facility] Work Phone: Comment on above: Pattern: Regular 02-28-2008 13:49-0400 Respiratory Rate 16 /min Luna Pastrana MD Work Phone: [facility] Work Phone: Comment on above: Pattern: Unlabored 02-28-2008 13:49-0400 Weight 94.8 kg Helen Guthrie [facility] Work Phone: Encounters Encounter Date Encounter Type Care Provider Facility Start: 10-28-2024 [facility] Facility :[facility] Start: 10-24-2024 End: 10-24-2024 Patient encounter procedure Juan Francisco Melvin MD Work Phone: OB/Gynecology Comment on above: Encounter for gyneco logical examination (general) (routine) without abnormal findings (Primary Dx); Screening for cervical cancer; Encounter for screening for human papillomavirus (HPV); Encounter for screening mammogram for breast cancer; Abnormal mammogram Start: 10-24-2024 End: 10-24-2024 Patient encounter status Juan Francisco Melvin MD Work Phone: [facility] Start: 10-24-2024 End: 10-24-2024 ambulatory JUAN FRANCISCO MELVIN Facility:[facility] Start: 10-24-2024 Encounter for gynecological examination (general) (routine) without abnormal findings JUAN FRANCISCO MELVIN [facility] Start: 09-16-2024 End: 09-16-2024 Patient encounter procedure Ana Monroy APRN.[employer] Work Phone: OB/Gynecology Comment on above: MICHELLE on CPAP (Primary Dx); Essential hypertension; Gastroesophageal reflux disease without esophagitis; IFG (impaired fasting glucose); Binge eating disorder, unspecified severity; Other depression; Class 3 severe obesity with serious comorbidity and body mass index (BMI) of 40.0 to 44.9 in adult, unspecified obesity type Start: 09-16-2024 End: 09-16-2024 ambulatory ANA MONROY Facility:[facility] Start: 09-13-2024 End: 09-13-2024 ambulatory Pascual VALERIO Work Phone: [facility] Work Phone: Start: 09-13-2024 End: 09-13-[address] Alva Sims MD -[facility] Work Phone: Start: 09-13-2024 End: 09-13-2024 ambulatory Pascual Mccall Facility:[facility] Start: 09-08-2024 End: 09-08-2024 Patient encounter procedure Jennifer VALERIO -[facility] Work Phone: Start: 09-08-2024 End: 09-08-2024 ambulatory Pascual [place]ccall [place]: 09-01-2024 ambulatory PASCULA MCCALL Facility :[facility] Start: 06-24-2024 End: 06-24-2024 ambulatory ANA MONROY Facility:[facility] Start: 06-24-2024 End: 06-24-2024 Patient encounter procedure Ana Monroy APRN.[employer] Work Phone: OB/Gynecology Comment on above: MICHELLE on CPAP (Primary Dx); Essential hypertension; Gastroesophageal reflux disease without esophagitis; IFG (impaired fasting glucose); Binge eating disorder, unspecified severity; Other depression; Class 3 severe obesity with serious comorbidity and body mass index (BMI) of 40.0 to 44.9 in adult, unspecified obesity type (HCC) Start: 03-24-2024 End: 03-24-2024 ambulatory ANA MONROY Facility:[facility] Start: 03-24-2024 End: 03-24-2024 Patient encounter procedure Ana Monroy APRN.CNP Work Phone: OB/Gynecology Comment on above: MICHELLE on CPAP (Primary Dx); Essential hypertension; Gastroesophageal reflux disease without esophagitis; IFG (impaired fasting glucose); Binge eating disorder, unspecified severity; Other depression; Class 3 severe obesity with serious comorbidity and body mass index (BMI) of 40.0 to 44.9 in adult, unspecified obesity type (HCC) Start: 01-08-2024 End: 01-08-2024 ambulatory AMPARO VERA Facility:[facility] Start: 01-08-2024 End: 01-08-2024 Subsequent hospital visit by physician Amparo Vera MD Work Phone: Ambulatory Surgery Comment on above: Screening for colon cancer [Z12.11] Start: 12-24-2023 End: 12-24-2023 ambulatory ANA MONROY Facility:[facility] Start: 12-24-2023 End: 12-24-2023 Office outpatient visit 25 minutes Ana Monroy APRN.[employer] Work Phone: OB/Gynecology Comment on above: MICHELLE on CPAP (Primary Dx); Essential hypertension; Gastroesophageal reflux disease without esophagitis; IFG (impaired fasting glucose); Binge eating disorder; Other depression; Class 3 severe obesity with serious comorbidity and body mass index (BMI) of 40.0 to 44.9 in adult, unspecified obesity type (HCC) Start: 09-24-2023 End: 09-24-2023 Office outpatient visit 25 minutes Ana Monroy APRN.[employer] Work Phone: OB/Gynecology Comment on above: MICHELLE on CPAP (Primary Dx); Essential hypertension; Gastroesophageal reflux disease without esophagitis; IFG (impaired fasting glucose); Binge eating disorder; Other depression; Class 3 severe obesity with serious comorbidity and body mass index (BMI) of 40.0 to 44.9 in adult, unspecified obesity type (HCC) Start: 09-08-2023 End: 03-15-2024 Telephone encounter Amparo Vera MD Work Phone: General Surgery Comment on above: 11/06/2023 colon asc Start: 09-08-2023 End: 09-08-2023 ambulatory [facility] Work Phone: Start: 09-08-2023 End: 09-08-2023 Patient encounter procedure Amparo Vera MD Work Phone: General Surgery Comment on above: Screening for colon cancer; History of colonic polyps; BMI 34.0-34.9,adult Start: 06-17-2023 End: 06-17-2023 Patient encounter procedure Ana Monroy APRN.CNP Work Phone: OB/Gynecology Comment on above: MICHELLE on CPAP (Primary Dx); Essential hypertension; Gastroesophageal reflux disease without esophagitis; IFG (impaired fasting glucose); Binge eating disorder; Other depression; Class 3 severe obesity with serious comorbidity and body mass index (BMI) of 40.0 to 44.9 in adult, unspecified obesity type (HCC) Start: 03-26-2023 End: 03-26-2023 Patient encounter procedure Ana Monroy APRN.CNP Work Phone: OB/Gynecology Comment on above: MICHELLE on CPAP (Primary Dx); Essential hypertension; Gastroesophageal reflux disease without esophagitis; IFG (impaired fasting glucose); Binge eating disorder; Other depression; Class 3 severe obesity with serious comorbidity and body mass index (BMI) of 40.0 to 44.9 in adult, unspecified obesity type (HCC) Start: 02-05-2023 Documentation procedure Mammog shree Coordinator [facility] Start: 02-05-2023 Letter encounter Mammography Coordinator [facility] Department Start: 01-27-2023 End: 01-27-2023 Office outpatient visit 15 minutes Pascual Mccall CNP Work Phone: [facility] Start: 01-27-2023 Review Pascual Mccall CNP Work Phone: [facility] Start: 01-02-2023 End: 01-02-2023 Patient encounter procedure Ana Monroy APRN.CNP Work Phone: OB/Gynecology Comment on above: MICHELLE on CPAP (Primary Dx); Essential hypertension; Gastroesophageal reflux disease without esophagitis; IFG (impaired fasting glucose); Binge eating disorder; Class 3 severe obesity with serious comorbidity and body mass index (BMI) of 40.0 to 44.9 in adult, unspecified obesity type (HCC) Start: 12-17-2022 End: 12-17-2022 ambulatory [facility] Work Phone: Start: 12-17-2022 End: 12-17-2022 Patient encounter procedure [facility] Work Phone: Start: 12-09-2022 Telephone encounter Ana burroughs APRN.CNP Work Phone: OB/Gynecology Comment on above: Orders Start: 12-05-2022 End: 12-05-2022 Patient encounter procedure Ana Monroy APRN.CNP Work Phone: OB/Gynecology Comment on above: Essential hypertensi on (Primary Dx); Gastroesophageal reflux disease without esophagitis; IFG (impaired fasting glucose); Class 3 severe obesity with serious comorbidity and body mass index (BMI) of 40.0 to 44.9 in adult, unspecified obesity type (HCC) Start: 10-31-2022 Telephone encounter Ana burroughs APRN.CNP Work Phone: OB/Gynecology Comment on above: Patient Update Start: 10-10-2022 End: 10-10-2022 Patient encounter procedure Ana Monroy APRN.[employer] Work Phone: OB/Gynecology Comment on above: Binge eating disorde r (Primary Dx); Gastroesophageal reflux disease without esophagitis; Essential hypertension; Snoring; IFG (impaired fasting glucose); Class 3 severe obesity with serious comorbidity and body mass index (BMI) of 40.0 to 44.9 in adult, unspecified obesity type (HCC) Start: 09-30-2022 Telephone encounter Ana burroughs APRN.[employer] Work Phone: OB/Gynecology Comment on above: Patient Question; Or ders Start: 09-23-2022 End: 09-23-2022 Patient encounter procedure Juan Francisco Melvin MD Work Phone: OB/Gynecology Comment on above: Encounter for gyneco logical examination (general) (routine) without abnormal findings (Primary Dx); Encounter for screening mammogram for breast cancer Start: 09-23-2022 End: 09-23-2022 Patient encounter status Juan Francisco Melvin MD Work Phone: OB/Gynecology Start: 09-02-2022 End: 09-02-2022 ambulatory [facility] Work Phone: Start: 09-02-2022 End: 09-02-2022 Patient encounter procedure [facility] Start: 05-27-2022 End: 05-27-2022 Patient encounter procedure [facility] Start: 05-06-2022 End: 05-06-2022 ambulatory [facility] Work Phone: Start: 05-06-2022 End: 05-06-2022 Patient encounter procedure [facility] Start: 03-28-2022 End: 04-09-2022 Periodic preventive med est patient 40-64yrs Pascual Mccall CNP Work Phone: [facility] Start: 03-28-2022 End: 04-09-2022 Patient encounter procedure Pascual Mccall CNP Work Phone: [facility] Start: 03-28-2022 Review Pascual Mccall CNP Work Phone: [facility] Start: 03-12-2022 ambulatory Pascual Mccall CNP [facility] Start: 03-11-2022 Telephone encounter Juan Francisco Melvin MD Work Phone: OB/Gynecology Comment on above: Consult Order Start: 01-23-2022 Documentation procedure Mammog shree Coordinator [facility] Start: 01-23-2022 Letter encounter Mammography Coordinator [facility] Department Start: 01-18-2021 End: 01-18-2021 Office outpatient visit 15 minutes Xuan Davidson CNP Work Phone: [facility] Start: 01-09-2021 End: 01-09-2021 Annotation/Addendum Xuan Davidson CNP Work Phone: [facility] Start: 01-04-2021 End: 01-04-2021 Office outpatient visit 15 minutes Xuan Ciesa [employer] Work Phone: [facility] Start: 02-27-2020 End: 02-27-2020 Office outpatient visit 10 minutes Xuan [facility] Start: 02-20-2020 End: 02-20-2020 Office outpatient visit 40 minutes Xuan [facility] Start: 02-17-2020 End: 02-17-2020 Office outpatient visit 15 minutes Xuan [facility] Start: 02-15-2020 End: 02-15-2020 Office outpatient visit 15 minutes Xuan [facility] Start: 02-15-2020 Review Xuan Davidson [facility] Start: 02-13-2020 End: 02-13-2020 Office outpatient visit 15 minutes Xuan [facility] Start: 10-17-2019 End: 10-17-2019 Phone Encounter Xuan Apoloniagalindo [facility] Start: 10-14-2019 End: 10-14-2019 Office outpatient visit 25 minutes Xuan [facility] Start: 07-21-2018 End: 07-21-2018 Office outpatient visit 10 minutes Helen [facility] Start: 07-21-2018 Review Helen Henderson [facility] Start: 07-07-2018 End: 07-07-2018 Office outpatient visit 10 minutes Helen [facility] Start: 06-24-2018 End: 06-24-2018 Office outpatient visit 10 minutes Helen [facility] Start: 06-10-2018 End: 06-10-2018 Phone Encounter Helen Reagan Dentistry Teacher al Medicine Start: 06-10-2018 End: 06-10-2018 Office outpatient visit 15 minutes Helen [facility] Start: 05-27-2018 End: 05-27-2018 Office outpatient visit 10 minutes Helen Reagan [facility] Start: 05-13-2018 End: 05-13-2018 Office outpatient visit 15 minutes Helen [facility] Start: 06-11-2016 End: 06-11-2016 Office outpatient visit 15 minutes Helen [facility] Start: 05-14-2016 End: 05-14-2016 Office outpatient visit 15 minutes Helen [facility] Start: 03-07-2016 End: 03-07-2016 Office outpatient visit 40 minutes Helen [facility] Start: 02-18-2016 End: 02-18-2016 Lab Order Helen Reagan Dentistry Teacher al Medicine Start: 09-07-2015 End: 09-07-2015 Office outpatient visit 40 minutes Helen [facility] Start: 07-13-2015 End: 07-13-2015 Periodic preventive med est patient 18-39 yrs Helen Reagan [facility] Start: 05-17-2015 End: 05-17-2015 Office outpatient visit 15 minutes Helen Guthrie [facility] Start: 05-17-2015 End: 05-17-2015 Office outpatient new 10 minutes Helen Guthrie [facility] Start: 04-11-2015 End: 04-11-2015 Office outpatient visit 25 minutes Helen Reagan [facility] Start: 03-15-2015 End: 03-15-2015 Office outpatient visit 5 minutes Helen Guthrie [facility] Start: 08-29-2014 End: 08-29-2014 Office outpatient visit 15 minutes Helen Guthrie [facility] Start: 11-22-2013 End: 11-22-2013 Medical examinations/reports status Xuan Davidson Work Phone: [facility] Start: 11-22-2013 End: 11-22-2013 Patient encounter procedure Helen [facility] Start: 10-20-2013 End: 10-21-2013 Patient encounter procedure Helen Guthrie [facility] Start: 11-29-2012 End: 11-29-2012 Patient encounter procedure Helen Guthrie [facility] Start: 11-09-2012 End: 11-09-2012 Patient encounter procedure Helen Reagan [facility] Start: 12-09-2010 End: 12-09-2010 Patient encounter procedure Helen Guthrie [facility] Start: 10-22-2009 End: 10-22-2009 Office outpatient visit 10 minutes Helen Reagan [facility] Start: 05-28-2009 End: 05-28-2009 Office outpatient visit 25 minutes Helen Reagan [facility] Start: 11-17-2008 End: 11-17-2008 Historical Summary Helen Reagan Dentistry Teacher al Medicine Start: 07-03-2008 End: 07-03-2008 Patient encounter procedure Helen Guthrie [facility] Start: 06-22-2008 End: 06-22-2008 Patient encounter procedure [facility] Start: 05-09-2008 End: 05-09-2008 Office outpatient visit 15 minutes Helen Guthrie [facility] Start: 03-28-2008 End: 03-28-2008 Office outpatient visit 15 minutes Helen Guthrie [facility] Start: 03-01-2008 End: 03-01-2008 Phone Encounter Helen Guth[facility] Start: 02-28-2008 End: 02-28-2008 Medical examinations/reports status Xuan Davidson Work Phone: [facility] Start: 02-28-2008 End: 02-28-2008 Patient encounter procedure Helen Guthrie [facility] Start: 02-02-2008 End: 02-02-2008 Historical Summary Helen Guthrie [facility] End: 03-15-2015 Medical examinations/reports status Claribel Benson [facility]; [facility] Work Phone: Comment on above: Dr. rob membreno [facility] [place] has vasectomy. 6-13 colonscopy good. mammo 2012 Patient encounter procedure Pascual Mccall KITCHEN UTILITY ASSOCIATE Work Phone: [facility]; [facility] Work Phone: Comment on above: sees ROMARIO Dinero seeing Dr. Sims for possible bladder sling Patient encounter procedure Pascual Mccall KITCHEN UTILITY ASSOCIATE Work Phone: [facility]; [facility] Work Phone: Comment on above: sees ROMARIO Dinero seeing Dr. Sims for possible bladder sling Procedures Date Procedure Procedure Detail Performing Clinician Start: 01-08-2024 Colonoscopy flx dx w/collj spec when pfrmd Amparo Vera MD Work Phone: Start: 01-08-2024 Colonoscopy Amparo Vera MD Work Phone: Start: 12-31-2022 End: 12-31-2022 Pulmonary Visit Report Procedure Note: See Note; NOTES: [facility] Pulmonary Medicine of [address] [place] [address] OFFICE VISIT Date of Service: 12/31/22 MR#: [id number] Acct: [id number] Name: PACO ROSS Rep #: [id number] : 1975 Provider: IMAN Ambrose Age/Sex: 47/F [place] [facility] Status: Signed Assessment and Plan Assessment and Plan (1) MICHELLE (obstructive sleep apnea): Status: Acute Comment: AHI 5.6 Plan: New. Lengthy discussion about the pathophysiology of obstructive sleep apnea. We discussed the risks of untreated sleep apnea as well as the benefits. Discussed treatment options such as weight loss, dental appliance or AutoPap therapy. The patient ultimately decided to go with AutoPap therapy. We will prepare an order for AutoPap 5 to 15 cm of water, initial goal will be to wear PAP at least 4 hours nightly. Ultimately, it should be worn any time spent sleeping. I have encouraged the patient to call the office with any difficulties acclimating to PAP therapy. Follow up in the office in 3 months, at which time I anticipate the patient will be on PAP therapy for 4-6 weeks. (2) Obesity: Status: Acute Qualifiers: Obesity type: due to excess calories Obesity classification: adult class 2 (BMI 35 - 39.9) Serious obesity comorbidity presence: with serious comorbidity Body mass index: BMI 38.0-38.9 Qualified Code(s): E66.01 - Morbid (severe) obesity due to excess calories; Z68.38 - Body mass index [BMI] 38.0-38.9, adult Plan: We discussed relationship between obesity and obstructive sleep apnea. The patient reports that she has lost 25 pounds since October working with her primary care doctor. Continue to encourage healthy weight loss. Plan Details Follow Up: 3 Months (DMB) HPI Sleep concern Chief Complaint: Daytime hypersomnia HPI Comments Details: This patient presents to the office today for initial consultation regarding concern for obstructive sleep apnea. She is ambulatory and currently on room air. The patient reports that she is having persistent daytime hypersomnia. She states that no matter how much time she has been sleeping she is not feeling rested. In fact, on the weekends that she can sleep in until 11 or noon and still not feel rested. She sometimes naps 3 or 4 hours on the weekends. Her tells her that she snores. She has about 3-4 episodes of nocturia each night. She has occasional morning headaches. She has a little bit of trouble with some dry mouth. She denies any difficulty nodding off to sleep unintentionally. 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 She is a lifelong never smoker. She is never been prescribed inhalers. Past medical family history is significant for: Mother is obese, has hypertension, hyperlipidemia, untreated sleep apnea and Alzheimer's. Father has hypertension and hyperlipidemia, probably has sleep apnea. Sister has good health. She has 1 son and 1 daughter both have good health. Patient does report some shortness of breath on exertion. She has an occasional dry cough. She denies any sputum production or hemoptysis. She denies any wheezing, chest tightness, chest pain or palpitations. She also denies any fever, chills or body aches. Test results personally reviewed with the patient: Unattended sleep study completed on December 17, 2022. Overall AHI 5.6 events per hour. Diagnosis is mild obstructive sleep apnea. Recommendation is to consider a trial of modest amount of weight loss (10 to 15 pounds), dental appliance or auto adjusting CPAP. Intake Vital Signs 12/31/22 07:45 Height 5 ft 3 in Weight: 219 lb 6 oz BMI 38.8 BP 94/63 Blood Pressure Location Rt brachial Position Sitting Respiration 18 Pulse 79 Pulse Source Monitor Temp 97.2 F L Temperature Source Temporal Artery Pulse Oximetry (%) 99 Oxygen Delivery Method room air Intake Visit Reasons: Sleep problems Tier In Required: No DME Vendor: n/a Accompanied by: Self Is patient in pain?: No Allergies No Known Allergies Allergy (Unverified 12/31/22 07:47) Medications amlodipine 5 mg-atorvastatin 20 mg tablet 1 tab PO DAILY 12/31/22 [History Confirmed 12/31/22] biotin 10,000 mcg capsule mcg PO QDAY 12/31/22 [History Confirmed 12/31/22] cholecalciferol (vitamin D3) 250 mcg (10,000 unit) capsule 250 mcg PO DAILY 12/31/22 [History Confirmed 12/31/22] desmopressin 0.2 mg tablet 0.4 mg PO QHS 12/31/22 [History Confirmed 12/31/22] duloxetine 60 mg capsule,delayed release (Cymbalta) 60 mg PO DAILY 12/31/22 [History Confirmed 12/31/22] metformin 500 mg tablet 500 mg PO TID 12/31/22 [History Confirmed 12/31/22] multivitamin (Daily Multi-Vitamin tablet) 1 tab PO DAILY 12/31/22 [History Confirmed 12/31/22] omeprazole 20 mg capsule,delayed release 20 mg PO DAILY 12/31/22 [History Confirmed 12/31/22] phentermine 15 mg disintegrating tablet 15 mg PO QDAY 12/31/22 [History Confirmed 12/31/22] topiramate 25 mg sprinkle capsule 25 mg PO BID 12/31/22 [History Confirmed 12/31/22] vibegron 75 mg tablet (Gemtesa) 75 mg PO DAILY 12/31/22 [History Confirmed 12/31/22] PFSH Social History (Updated 12/31/22 @ 07:47 by Myrna Ziegler) Smoking Status: Never smoker second hand exposure: Yes alcohol intake: current alcohol intake frequency: holidays/special occasions only Coding Level of Care Code Off vis,new,level 3 Diagnoses MICHELLE (obstructive sleep apnea) G47.33 Class 2 severe obesity due to excess calories with serious comorbidity and body mass index (BMI) of 38.0 to 38.9 in adult E66.01; Z68.38 Obesity type: due to excess calories Obesity classification: adult class 2 (BMI 35 - 39.9) Serious obesity comorbidity presence: with serious comorbidity Body mass index: BMI 38.0-38.9 12/31/22 0831 <Electronically signed by Taylor Ambrose NP MAMMOGRAPHY TECHNOLOGIST-C> Date Taylor Ambrose NP MAMMOGRAPHY TECHNOLOGIST-C Cosigner Signature: Date (if applicable) CC: Pascual Mccall CNP Work Phone: Start: 09-30-2022 Lipid 1996 panel - Serum or Plasma Mammography Coordinator Start: 01-23-2022 Mammography Mammograph y Coordinator Start: 02-24-2018 Colonoscopy Mammograph y Coordinator Start: 03-07-2016 End: 03-07-2016 Knee 4 or More Views Comments: See Note; NOTES: [facility] Imaging Services [address] [place] [address] Verdana 4d Knee 4 or More Views MR#: [id number] Acct: [id number] Name: PACO ROSS Rep #: [id number] : 1975 F 40 From: Jason Phillips MD PCP: Helen Guthrie DO Status: REG CLI Study: Knee 4 or More Views Date of Exam: 03/07/16 Exam# [id number] Ordering Dr: Helen Guthrie DO STUDY: X-RAY - LEFT KNEE REASON FOR EXAM: Female, 40 years old. Pain. TECHNIQUE: 4 view(s) of the knee. COMPARISON: None. FINDINGS: Normal visualized distal femur. Normal visualized proximal tibia and fibula. Normal proximal tibiofibular articulation. Normal medial femorotibial compartment. Normal lateral femorotibial compartment. Normal patellofemoral articulation. The soft tissue structures are unremarkable. RAD/Knee 4 or More Views IMPRESSION: Normal x-ray examination of the knee. Electronically Signed: Jason Phillips MD at 17:06 EDT , Service support [phone], CC: Helen Guthrie DO Tree Puller: Signed Helen Guthrie Work Phone: Appendectomy Marcie Beaulieu Comment on above: 1995 during laporosc opy Appendectomy Melisa Mario Comment on above: 1995 during laporosc opy Appendectomy Melisa Mario Comment on above: 1995 during laporosc opy Appendectomy Rafal Harris Comment on above: 1995 during laporosc opy Appendectomy Rafal Harris Comment on above: 1995 during laporosc opy Appendectomy Marcie Beaulieu Comment on above: 1995 during laporosc opy Appendectomy Agnes Kennedy Comment on above: 1995 during laporosc opy Appendectomy Rafal Dixon Comment on above: 1995 during laporosc opy Appendectomy Rafal Dixon Comment on above: 1995 during laporosc opy Appendectomy Rafal Harris Comment on above: 1995 during laporosc opy Dilation and curetta ge of uterus Marcie Beaulieu Comment on above: 2004 Dilation and curetta ge of uterus Melisa Gravius Comment on above: 2004 Dilation and curetta ge of uterus Melisa Gravius Comment on above: 2000, 2004 Dilation and curetta ge of uterus Rafal Harris Comment on above: 2000, 2004 Dilation and curetta ge of uterus Rafal Harris Comment on above: 2000, 2004 Dilation and curetta ge of uterus Marcie Beaulieu Comment on above: 2004 Dilation and curetta ge of uterus Agnes Kennedy Comment on above: 2000, 2004 Dilation and curetta ge of uterus Rafal Dixon Comment on above: 2004 Dilation and curetta ge of uterus Rafal Dixon Comment on above: 2004 Dilation and curetta ge of uterus Rafal Harris Comment on above: 2004 Dilation and curetta ge of uterus Xuan Davidson KITCHEN UTILITY ASSOCIATE Work Phone: Comment on above: 2004 Dilation and curetta ge of uterus Jose Luo MA Comment on above: 2004 Dilation and curetta ge of uterus Pascual Mccall KITCHEN UTILITY ASSOCIATE Work Phone: Comment on above: 2004 History of appendectomy Rafal Dixon LPN Comment on above: 1995 during laporosc opy History of appendectomy Xuan Barksdalea KITCHEN UTILITY ASSOCIATE Work Phone: Comment on above: 1995 during laporosc opy History of appendectomy Jose Luo MA Comment on above: 1995 during laporosc opy History of appendectomy Pascual Mccall KITCHEN UTILITY ASSOCIATE Work Phone: Comment on above: 1995 during laporosc opy Plan of Treatment Date Care Activity Detail Author Start: 01-07-2034 Screening for malign ant neoplasm of colon [facility] Start: 02-25-2028 Colonoscopy COLONOSCOPY [facility] Start: 02-25-2028 COLORECTAL CANCER SCREENING COLORECTAL CANCER SCREENING [facility] Start: 02-25-2028 Screening for malign ant neoplasm of colon [facility] Start: 10-01-2027 Lipid 1996 panel - Serum or Plasma Lipid Screening [facility] Start: 10-01-2027 Lipid panel Lipid Screening [facility] Start: 10-01-2027 LIPID SCREEN LIPID SCREEN [facility] Start: 10-26-2025 End: 10-26-2025 Patient encounter procedure Mammogram Comment on above: Encounter for screen ing mammogram for breast cancer [Z12.31] Annual Start: 09-30-2025 DIABETES SCREEN DIABETES SCREEN [facility] Start: 09-30-2025 Diabetes Screening Diabetes Screenin g [facility] Start: 09-16-2025 BP Controlled (<130/80) BP Controlle d (<130/80) [facility] Start: 09-01-2025 Screening for malign ant neoplasm of breast Mammogram Screening [facility] Start: 04-25-2025 HPV TESTING HPV TESTING [facility] Start: 04-25-2025 PAP TESTING PAP TESTING [facility] Start: 04-25-2025 Screening for malign ant neoplasm of cervix [facility] Start: 03-31-2025 End: 03-31-2025 Patient encounter procedure 03/31/2025 8:40 AM EST Office Visit OB/Gynecology [address] [place] [address] Juan Francisco Melvin MD [address] [place] [address] Annual OB/Gynecology Comment on above: Annual Start: 03-24-2025 BP Controlled (<130/80) BP Controlle d (<130/80) [facility] Start: 01-09-2025 Influenza vaccination Influenz a Vaccine (Season Ended) [facility] Start: 12-23-2024 BP Controlled (<130/80) BP Controlle d (<130/80) [facility] Start: 12-16-2024 End: 12-16-2024 Patient encounter procedure 12/16/2024 7:00 AM EDT Office Visit OB/Gynecology [address] [place], [place] [address] Ana Monroy, ELLIS.KITCHEN UTILITY ASSOCIATE [address] [place] [address] 3 mo wt mgmt f/u OB/Gynecology Comment on above: 3 mo wt mgmt f/u Start: 11-01-2024 End: 11-01-2024 Patient encounter procedure Mammogram Comment on above: right breast callbac k ( order scanned in Syngo) COMP CALCS CB RT ord er scanned Start: 09-16-2024 End: 09-16-2024 Patient encounter procedure 09/16/2024 7:30 AM EDT Office Visit OB/Gynecology [address] [place] [address] Ana Monroy, PROCESSING MGR.KITCHEN UTILITY ASSOCIATE [address] [place] [address] wt mgmt f/up OB/Gynecology Comment on above: wt mgmt f/up Start: 09-07-2024 BP Controlled (<130/80) BP Controlle d (<130/80) [facility] Start: 06-24-2024 End: 06-24-2024 Patient encounter procedure 06/24/2024 11:30 AM EST Office Visit OB/Gynecology [address] [place] [address] Ana Monroy, PROCESSING MGR.KITCHEN UTILITY ASSOCIATE [address] [place] [address] wt mgmt f/u OB/Gynecology Comment on above: wt mgmt f/u Start: 06-17-2024 BP Controlled (<130/80) BP Controlle d (<130/80) [facility] Start: 2024 Pneumococcal Vaccine : 50+ (1 of 1 - PCV) Pneumococcal Vaccine: 50+ (1 of 1 - PCV) [facility] Start: 2024 Shingrix Vaccine (1 of 2) Shingrix Vaccine (1 of 2) [facility] Start: 03-24-2024 End: 03-24-2024 Patient encounter procedure 03/24/2024 10:30 AM EST Office Visit OB/Gynecology [address] [place] [address] Ana Monroy APRN.KITCHEN UTILITY ASSOCIATE [address] [place] [address] wt mgmt f/u OB/Gynecology Comment on above: wt mgmt f/u Start: 02-07-2024 BP Controlled (<130/80) BP Controlle d (<130/80) [facility] Start: 02-05-2024 Mammography Mammogram Screening [facility] Start: 02-05-2024 Screening for malign ant neoplasm of breast Mammogram Screening [facility] Start: 01-10-2024 Covid-19 Vaccine () Covid-19 Vaccine () [facility] Start: 01-10-2024 Influenza vaccination [facility] Start: 01-08-2024 End: 01-08-2024 Patient encounter procedure 01/08/2024 11:00 AM EDT Appointment Ambulatory Surgery [address] [place] [address] Amparo Vera MD [address] [place] [id number] colon Ambulatory Surgery Comment on above: colon Start: 01-03-2024 BP CONTROLLED (<130/80) BP CONTROLLE D (<130/80) [facility] Start: 12-24-2023 End: 12-24-2023 Patient encounter procedure 12/24/2023 9:30 AM EDT Office Visit OB/Gynecology [address] [place] [address] Ana Monroy PROCESSING MGR.KITCHEN UTILITY ASSOCIATE [address] [place] [address] wt mgnt follow up OB/Gynecology Comment on above: wt mgnt follow up Start: 11-06-2023 End: 11-06-2023 Patient encounter procedure 11/06/2023 7:30 AM EDT Appointment Ambulatory Surgery [address] [place], [place] [id number] Amparo Vera MD [address] [place] [id number] Ambulatory Surgery Start: 10-11-2023 BP CONTROLLED (<130/80) BP CONTROLLE D (<130/80) [facility] Start: 09-24-2023 End: 09-24-2023 Patient encounter procedure 09/24/2023 10:30 AM EDT Office Visit OB/Gynecology [address] [place], [place] [address] Ana Monroy APRN.KITCHEN UTILITY ASSOCIATE [address] [place] [address] wgt mgmt OB/Gynecology Comment on above: wgt mgmt Start: 05-11-2023 Behavioral Health Screening Behavioral Health Screening [facility] Start: 05-11-2023 [facility] Start: 01-27-2023 Procedure Education Eprescribe d prescriptions (G8553) [facility] Work Phone: Start: 01-27-2023 Provider Instruction s for Treatment Follow up in 6 months [facility] Work Phone: Start: 01-23-2023 Mammography MAMMOGRAM [facility] Start: 01-09-2023 Covid-19 Vaccine ( season) Covid-19 Vaccine () [facility] Start: 01-09-2023 Influenza vaccination [facility] Start: 05-11-2022 DEPRESSION ASSESSMENT DEPRESSION ASS ESSMENT [facility] Start: 03-28-2022 Procedure Education Eprescribe d prescriptions (G8553) [facility] Work Phone: Start: 03-28-2022 Provider Instruction s for Treatment Medications - Continue [facility]; [facility] Work Phone: Start: 03-28-2022 Assay of thyroid stimulating hormone tsh TSH (THYROID STIMULATING HORMONE) (30427) [facility]; [facility] Work Phone: Start: 03-28-2022 Lipid panel LIPID PANEL (46728) [facility]; [facility] Work Phone: Start: 03-28-2022 Comprehensive metabo lic panel METABOLIC PANEL, COMPREHENSIVE (60672) [facility]; [facility] Work Phone: Start: 03-28-2022 Blood count complete automated CBC & PLATELETS (AUTO) (32406) [facility]; [facility] Work Phone: Start: 03-28-2022 25 hydroxy includes fractions if performed CALCIFEDIOL (57833) [facility]; [facility] Work Phone: Start: 01-09-2022 Influenza vaccination INFLUENZA (#1) [facility] Start: 05-11-2021 DEPRESSION [facility]ESS[facility] Start: 01-18-2021 Procedure Education Eprescribe d prescriptions (G8553) [facility]; [facility] Work Phone: Start: 01-18-2021 Provider Instruction s for Treatment Follow up in 3 months [facility]; [facility] Work Phone: Start: 01-04-2021 Procedure Education Eprescribe d prescriptions (G8553) [facility]; [facility] Work Phone: Start: 01-04-2021 Provider Instruction s for Treatment [facility]; [facility] Work Phone: Start: 01-04-2021 Comprehensive metabo lic panel Metabolic Panel, Comprehensive (11634) [facility]; [facility] Work Phone: Start: 02-20-2020 Procedure Education Eprescribe d prescriptions (G8553) [facility] Work Phone: Start: 02-15-2020 Procedure Education Eprescribe d prescriptions (G8553) [facility] Work Phone: Start: 02-15-2020 Provider Instruction s for Treatment [facility] Work Phone: Start: 02-13-2020 Procedure Education Eprescribe d prescriptions (G8553) [facility] Work Phone: Start: 02-13-2020 Provider Instruction s for Treatment [facility] Work Phone: Start: 02-13-2020 Iaadiadoo influenza 2019 Novel Coronavirus (COVID-19), [place] (92194) [facility] Work Phone: Start: 10-14-2019 Procedure Education Eprescribe d prescriptions (G8553) [facility] Work Phone: Start: 10-14-2019 Provider Instruction s for Treatment [facility] Work Phone: Start: 2019 COLOGUARD (FIT-DNA) COLOGUARD (FIT-D NA) [facility] Start: [address] COLONOGRAPHY [facility] Start: 2019 DIABETES SCREEN DIABETES SCREEN [facility] Start: 2019 FECAL OCCULT BLOOD FECAL OCCULT BLOO D [facility] Start: 2019 LIPID SCREEN LIPID SCREEN [facility] Start: 2019 Screening for malign ant neoplasm of colon [facility] Start: 2019 SIGMOIDOSCOPY SIGMOIDOSCOPY [facility] Start: 07-21-2018 Provider Instruction s for Treatment Follow up in 3 weeks [facility] Work Phone: Start: 07-07-2018 Procedure Education Eprescribe d prescriptions (G8553) [facility] Work Phone: Start: 06-24-2018 Procedure Education Eprescribe d prescriptions (G8553) [facility] Work Phone: Start: 06-24-2018 Provider Instruction s for Treatment [facility] Work Phone: Start: 06-10-2018 Procedure Education Eprescribe d prescriptions (G8553) [facility] Work Phone: Start: 06-10-2018 Provider Instruction s for Treatment [facility] Work Phone: Start: 06-10-2018 Potassium molar conc POTASSIUM SERUM (15836) [facility] Work Phone: Start: 06-10-2018 Extractable nuclear antigen antibody any method Systemic Lupus Profile (67869) [facility] Work Phone: Start: 06-10-2018 Protein mass conc Systemic Lup us Profile (92170) [facility] Work Phone: Start: 05-27-2018 Procedure Education Eprescribe d prescriptions (G8553) [facility] Work Phone: Start: 05-27-2018 Provider Instruction s for Treatment [facility] Work Phone: Start: 05-13-2018 Provider Instruction s for Treatment [facility] Work Phone: Start: 05-13-2018 25 hydroxy includes fractions if performed CALCIFIDIOL (72720) VIT D 25 [facility] Work Phone: Start: 05-13-2018 Cobalamin (Vitamin B 12) mass conc VITAMIN B-12 (CYANOCOBALAMIN) (11954) [facility] Work Phone: Start: 05-13-2018 Sedimentation rate r bc non-automated SED RATE ERYTHROCYTE (07429) [facility] Work Phone: Start: 05-13-2018 Thyrotropin Qn TSH (37698) [facility] Work Phone: Start: 05-13-2018 Comprehensive metabo lic panel METABOLIC PANEL, COMPREHENSIVE (43602) [facility] Work Phone: Start: 05-13-2018 CRP mass conc C-REACTIVE PRO TEIN (78015) [facility] Work Phone: Start: 05-13-2018 Blood count complete automated CBC (AUTO) (54636) [facility] Work Phone: Start: 05-13-2018 Nuclear Ab IF titer (S) MATTHEW (A NTINUCLEAR ANTIBODY) (27596) [facility] Work Phone: Start: 06-11-2016 Iaadiadoo influenza Rapid Flu (49259 x 2) [facility] Work Phone: Start: 06-11-2016 Iaadiadoo streptococ cus group a Rapid Strep Test, Office (93513) [facility]; [facility] Work Phone: Start: 06-11-2016 S. pyogenes Ag IA Ql (Unsp spec) Rapid Strep Test, Office (78040) [facility] Work Phone: Start: 05-14-2016 Procedure Education Eprescribe d prescriptions (G8553) [facility] Work Phone: Start: 05-14-2016 Provider Instruction s for Treatment Follow up in 4 weeks [facility] Work Phone: Start: 03-07-2016 Procedure Education Eprescribe d prescriptions (G8553) [facility] Work Phone: Start: 03-07-2016 Provider Instruction s for Treatment [facility] Work Phone: Start: 09-07-2015 Procedure Education Eprescribe d prescriptions (G8553) [facility] Work Phone: Start: 11-22-2013 Procedure Education Eprescribe d prescriptions (G8553) [facility] Work Phone: Start: 11-09-2012 Patient Education Depression: Brief Version *: depressed [facility] Work Phone: Start: 12-09-2010 Provider Instruction s for Treatment Poison Kristina Education [facility] Work Phone: Start: 06-22-2008 Assay of lipase Lipase (02740) Compr [facility] Work Phone: Start: 06-22-2008 Amylase enzyme act/vol Amylase (8215 0) [facility] Work Phone: Start: 06-22-2008 Assay of amylase Amylase (52768) [facility] prehens[facility]; [facility] Work Phone: Start: 06-22-2008 Blood count complete auto&auto difrntl wbc CBC, Platelets & Auto Diff (55703) [facility] Work Phone: Start: 06-22-2008 Comprehensive metabo lic panel Metabolic Panel, Comprehensive (62764) [facility] Work Phone: Start: 02-28-2008 Provider Instruction s for Treatment *fatigue education [facility] Work Phone: Start: 1993 Hepatitis B Vaccine (1 of 3 - 19+ 3-dose series) Hepatitis B Vaccine (1 of 3 - 19+ 3-dose series) [facility] Start: 1993 Urine microalbumin profile [facility] Start: 1992 ANNUAL PCP TEAM CORE PLACER IZABEL DISEASE VISIT ANNUAL PCP TEAM CHRONIC DISEASE VISIT [facility] Start: 1992 Anxiety Screening Anxiety Screening [facility] Start: 1992 BP CONTROLLED (<130/80) BP CONTROLLE D (<130/80) [facility] Start: 1992 HEPATITIS C SCREENING HEPATITIS C [facility] Start: 1992 Hepatitis C screening Hepatitis C [facility] Start: 1992 HIV SCREENING HIV SCREENING [facility] Start: 1992 HIV screening HIV Screening [facility] Start: 1986 Adult depression screening assessment DEPRESSION SCREENING [facility] Start: 1974 COVID-19 VACCINE (#1) COVID-19 VACCI NE (#1) [facility] Start: 1974 HEPATITIS B (1 of 3 - 3-dose series) HEPATITIS B (1 of 3 - 3-dose series) [facility] Start: 1974 Hepatitis B Vaccine (1 of 3 - 3-dose series) Hepatitis B Vaccine (1 of 3 - 3-dose series) [facility] End: 11-23-2025 DBT Breast - bilateral screening JON SCREENING W [facility] Radiology Routine Encounter for gynecological examination (general) (routine) without abnormal findings Encounter for screening mammogram for breast cancer 1 Occurrences starting 10/24/2024 until 11/23/2025 [place] Work Phone: Comment on above: 1 Occurrences starti ng 10/24/2024 until 11/23/2025 End: 10-23-2023 JON SCREENING JON SCREENING Radiology Routine Encounter for screening mammogram for breast cancer 1 Occurrences starting 09/23/2022 until 10/23/2023 [place] Work Phone: Comment on above: 1 Occurrences starti ng 09/23/2022 until 10/23/2023 PAP TEST PAP TEST Lab Rou blaise Encounter for gynecological examination (general) (routine) without abnormal findings Screening for cervical cancer Encounter for screening for human papillomavirus (HPV) 10/24/2024 2:00 PM EDT [facility] End: 09-07-2024 Screening colonoscopy COLONOSCOPY SCREENING Endoscopy Routine Screening for colon cancer 1 Occurrences starting 09/08/2023 until 09/07/2024 [place] Work Phone: Comment on above: 1 Occurrences starti ng 09/08/2023 until 09/07/2024 End: 11-23-2025 US Breast - right limited US BREAST LTD RIGHT Radiology Routine Abnormal mammogram 1 Occurrences starting 10/24/2024 until 11/23/2025 [facility] Comment on above: 1 Occurrences starti ng 10/24/2024 until 11/23/2025 [facility] Work Phone: [facility] Work Phone: [facility] Work Phone: [facility] Work Phone: [facility] Work Phone: [facility] Work Phone: [facility] Work Phone: [facility] Work Phone: [facility] Work Phone: [facility] Work Phone: Depression with anxiety : Depression: Brief Version *: depressed [facility] Work Phone: [facility]; [facility] Work Phone: [facility] Immunizations Immunization Date Immunization Notes Care Provider Ashley junior 05-11-2017 influenza, seasonal, injectable Helen Guthrie [facility] Work Phone: 05-11-2017 influenza virus vaccine, unspecified formulation Mammography Coordinator [facility] Payers Date Payer Category Payer Self-pay [id number] 2022 [employer] BLUE CARD POS OOS [id number] 2022 Unknown [id number] 2020 Unknown 2020 Unknown [id number] 2012 Unknown [id number] 2012 Unknown [employer] [id number] 2008 Unknown [id number] 1974 Unknown [id number] Unknown 0 [id number] Unknown [id number] Unknown [id number] Unknown [id number] Social History Date Type Detail Facility Start: 09-23-2022 End: 12-05-2022 Alcohol Use Never smoker [facility] Work Phone: Comment on above: Occasional alcohol u se 2 coffee [facility] [facility], Part-time. 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 [facility] Work Phone: Tobacco use: Tobacco use: [facility]; [facility] Work Phone: Start: 02-19-2011 End: 09-26-2022 Tobacco smoking status NHIS Never smoked tobacco [facility] Start: 02-19-2011 End: 09-26-2022 Tobacco use and exposure Smokeless tobacco non-user [facility] Start: 06-24-2021 End: 10-24-2024 Alcohol intake Current drinker of alcohol (finding) [facility] Start: 06-10-2017 History SDOH Alcohol Comment occ [facility] Start: 1975 Sex Assigned At Female [facility] Start: 01-13-2022 End: 01-23-2022 Exposure to SARS-CoV-2 (event) Not sure [facility] Start: 03-03-2013 End: 03-18-2023 Tobacco smoking status NHIS Unknown if ever smoked [facility] Start: 09-23-2022 End: 12-05-2022 Tobacco use panel [facility] National Score (1-100), lower number is lower risk 43 [facility] Start: 11-07-2021 Gender identity Identifies as female gender (finding) [facility] Start: 11-07-2021 Sexual orientation Heterosexual (charles cedillo) [facility] Functional Status Date Assessment Result Facility 02-27-2014 Are you deaf, or do you have serious difficulty hearing No 02/27/2014 10:51 AM Jennifer Felton Ma No [facility] 02-27-2014 Are you blind, or do you have serious difficulty seeing, even when wearing glasses No 02/27/2014 10:51 AM Jennifer Felton Ma [facility] 02-27-2014 Do you have serious difficulty walking or climbing stairs No 02/27/2014 10:51 AM Jennifer Felton Ma No [facility] 02-27-2014 Do you have difficul ty dressing or bathing No 02/27/2014 10:51 AM Jennifer Felton Ma [facility] 02-27-2014 Because of a physica l, mental, or emotional condition, do you have difficulty doing errands alone such as visiting a physician's office or shopping No 02/27/2014 10:51 AM EDJennifer Light Ma [facility] Mental Status Date Assessment Result Facility 02-27-2014 Because of a physica l, mental, or emotional condition, do you have serious difficulty concentrating, remembering, or making decisions No 02/27/2014 10:51 AM Jennifer Felton Ma [facility] Clinical Notes 04-06-2012 to 10-24-2024 Juan Francisco Melvin MD - 10/24/2024 1:37 PM Ana Alberto APRN.CNP - 09/16/2024 7:30 AM EDTPatient Instructions Note Date & Type Note Facility 10-24-2024 Note HNO ID: [id number] Author: JUAN FRANCISCO MELVIN MD Service: ? Author Type: Physician Type: Progress Notes Filed: 10/24/2024 13:56 Note Text: Paco is a 49 year old who presents for an annual gynecologic exam without complaints. some hot flahses, not that bothersome Age at Menarche: 9 Still get period: No LMP: n/a Menses: no menses- ablation Menstrual flow: N/A Bleeding amount bothersome: N/A Bleeding between periods: N/A Period symptoms: N/A Sexually active: Yes Contraception: Vasectomy Contraception frequency: Always HPV vaccine: No HPV:negative Last pap smear: 2019 History of abnormal pap: No Colposcopy: No. Leep: No. Cone biopsy: No. Bothersome pelvic pain: No Last mammogram: bnormal, Right follow up scheduled 11/01/2024 Sexually active: Yes OB History Gravida3 Para2 Term2 Preterm0 AB1 Living2 SAB1 IAB0 Ectopic0 Multiple0 Live Births2 Babcock Tester History LMP: 05/05/2016, Ablation Age at Menarche: Age at First : Age at Menopause: Babcock Tester History Comments: Sexual Activity: Yes; Male; ablation Contraception: Vasectomy, Surgical PAST MEDICAL HISTORY Diagnosis Date Acid reflux Binge eating disorder Chronic interstitial cystitis Depression Endometriosis, site unspecified Endometriosis Essential hypertension Obesity MICHELLE on CPAP auto CPAP PMH - PAST MEDICAL HISTORY OF INTERSTITIAL CYSTITIS Snoring Urinary calculus, unspecified Renal stones PAST SURGICAL HISTORY Procedure Laterality Date CATH AND SALINE/CONTRAST SONOHYSTER/HYSTEROSALPI COLONOSCOPY 02/24/2018 COLONOSCOPY FLX DX W/COLLJ SPEC WHEN PFRMD 03/03/2013 Colonoscopy CYSTOURETHROSCOPY Cystoscopy DILATION AND CURETTAGE DXAND/THER NONOBSTETRIC 2000 Dilation AND curettage DILATION AND CURETTAGE DXAND/THER NONOBSTETRIC 2005 Dilation AND curettage EXTRACTION, ERUPTED TOOTH OR EXPOSED ROOT (ELEVATION AND/OR FORCEPS REMOVAL) 1991 LAPS ABD PRTMANDOMENTUM DX W/WO SPEC BR/WA SPX 1996 Laparoscopy LAPS ABD PRTMANDOMENTUM DX W/WO SPEC BR/WA SPX 2005 Laparoscopy,REMOVAL OF ADHESIONS AND ENDOMETRIOSIS ADDISON 2011 THERMAL ENDOMETRIAL ABLATION FAMILY HISTORY Problem Relation Age of Onset Hypertension Mother Arthritis Mother Lipids Mother Obesity Mother Alzheimer's Disease Mother Heart disease Mother a fib Colon Polyps Mother Hypertension Father Obesity Father Heart disease Father Hypertension Sister Stroke Maternal Grandmother Alzheimer's Disease Maternal Grandmother Obesity Maternal Grandmother Colon Cancer Maternal Grandfather 50 Heart Paternal Grandfather CT Obesity Paternal Grandfather No Known Problems Daughter No Known Problems Son Colon Cancer Maternal Uncle 50 SOCIAL HISTORY Social History Tobacco Use Smoking status: Never Smokeless tobacco: Never Vaping Use Vaping status: Never Used Substance Use Topics Alcohol use: Yes Comment: occ Drug use: No REVIEW OF SYSTEMS Abdomen: No abdominal pain, nausea, vomiting, diarrhea, or . Some constipation w/ wt loss meds No bloating, early satiety, indigestion, or increased flatulence. Bladder: No dysuria, gross hematuria, urinary frequency, urinary urgency, or incontinence. Breast: No breast lumps, nipple d/c, overlying skin changes, redness or skin retraction. Allergies and current medication updated:Yes SENSITIVE EXAM: The sensitive examination was discussed with the Patient or Patient's Authorized Mandrel Cleaner. As applicable, any other physician, advance practice provider, medical student, or other health professional student that will be observing or involved in the sensitive examination for educational or training purposes was discussed with the Patient or Authorized Mandrel Cleaner. The Patient or Authorized Mandrel Cleaner has agreed to proceed with the sensitive examination. (Sensitive examination includes inspection and/or palpation of the breasts, pelvis, prostate and anorectal regions). EXAM: BP 126/74 Ht 5' 2.5 (1.59m) Wt 190 lb (86.2kg) LMP 05/05/2016 BMI 34.18 kg/(m2). GENERAL: pleasant, female in no apparent distress HEENT: Normocephalic, atraumatic, mucus membranes moist, and no lesions NECK: Supple, full range of motion, no adenopathy, and thyroid normal DERMATOLOGY: Normal, without lesions, non-icteric, and non-hirsute BREAST: soft, non-tender, symmetric, no dominant mass, normal nipple-areolar complex, no lymphadenopathy, and no nipple discharge CHEST: Normal inspiratory effort ABDOMEN: soft, non-tender, and no masses PELVIC: external genitalia normal, normal Bartholin's glands, urethra, Amery's glands, no vulvar lesions, no cervical lesions, good vaginal support, physiologic discharge present, normal appearing perineal body and perianal region BIMANUAL: uterus normal size, shape and consistency, no adnexal masses, and non-tender RECTOVAGINAL: deferred. NEURO: alert and oriented x3,exam g (more content not included)... [facility] 10-24-2024 History of Present illness Narrative Paco is a 49 year old who presents for an annual gynecologic exam without complaints. some hot flahses, not that bothersome Age at Menarche: 9 Still get period: No LMP: n/a Menses: no menses- ablation Menstrual flow: N/A Bleeding amount bothersome: N/A Bleeding between periods: N/A Period symptoms: N/A Sexually active: Yes Contraception: Vasectomy Contraception frequency: Always HPV vaccine: No HPV:negative Last pap smear: 2019 History of abnormal pap: No Colposcopy: No. Leep: No. Cone biopsy: No. Bothersome pelvic pain: No Last mammogram: bnormal, Right follow up scheduled 11/01/2024 Sexually active: Yes OB History Gravida3 Para2 Term2 Preterm0 AB1 Living2 SAB1 IAB0 Ectopic0 Multiple0 Live Births2 Babcock Tester History LMP: 05/05/2016, Ablation Age at Menarche: Age at First : Age at Menopause: Babcock Tester History Comments: Sexual Activity: Yes; Male; ablation Contraception: Vasectomy, Surgical PAST MEDICAL HISTORY Diagnosis Date Acid reflux Binge eating disorder Chronic interstitial cystitis Depression Endometriosis, site unspecified Endometriosis Essential hypertension Obesity MICHELLE on CPAP auto CPAP PMH - PAST MEDICAL HISTORY OF INTERSTITIAL CYSTITIS Snoring Urinary calculus, unspecified Renal stones PAST SURGICAL HISTORY Procedure Laterality Date CATH & SALINE/CONTRAST SONOHYSTER/HYSTEROSALPI COLONOSCOPY 02/24/2018 COLONOSCOPY FLX DX W/COLLJ SPEC WHEN PFRMD 03/03/2013 Colonoscopy CYSTOURETHROSCOPY Cystoscopy DILATION & CURETTAGE DX&/THER NONOBSTETRIC 2000 Dilation & curettage DILATION & CURETTAGE DX&/THER NONOBSTETRIC 2004 Dilation & curettage EXTRACTION, ERUPTED TOOTH OR EXPOSED ROOT (ELEVATION AND/OR FORCEPS REMOVAL) 1991 LAPS ABD PRTM&OMENTUM DX W/WO SPEC BR/WA SPX 1996 Laparoscopy LAPS ABD PRTM&OMENTUM DX W/WO SPEC BR/WA SPX 2005 Laparoscopy,REMOVAL OF ADHESIONS & ENDOMETRIOSIS ADDISON 2011 THERMAL ENDOMETRIAL ABLATION FAMILY HISTORY Problem Relation Age of Onset Hypertension Mother Arthritis Mother Lipids Mother Obesity Mother Alzheimer's Disease Mother Heart disease Mother a fib Colon Polyps Mother Hypertension Father Obesity Father Heart disease Father Hypertension Sister Stroke Maternal Grandmother Alzheimer's Disease Maternal Grandmother Obesity Maternal Grandmother Colon Cancer Maternal Grandfather 50 Heart Paternal Grandfather [address] Obesity Paternal Grandfather No Known Problems Daughter No Known Problems Son Colon Cancer Maternal Uncle 50 SOCIAL HISTORY Social History Tobacco Use Smoking status: Never Smokeless tobacco: Never Vaping Use Vaping status: Never Used Substance Use Topics Alcohol use: Yes Comment: occ Drug use: No REVIEW OF SYSTEMS Abdomen: No abdominal pain, nausea, vomiting, diarrhea, or . Some constipation w/ wt loss meds No bloating, early satiety, indigestion, or increased flatulence. Bladder: No dysuria, gross hematuria, urinary frequency, urinary urgency, or incontinence. Breast: No breast lumps, nipple d/c, overlying skin changes, redness or skin retraction. Allergies and current medication updated:Yes SENSITIVE EXAM: The sensitive examination was discussed with the Patient or Patient's Authorized Mandrel Cleaner. As applicable, any other physician, advance practice provider, medical student, or other health professional student that will be observing or involved in the sensitive examination for educational or training purposes was discussed with the Patient or Authorized Mandrel Cleaner. The Patient or Authorized Mandrel Cleaner has agreed to proceed with the sensitive examination. (Sensitive examination includes inspection and/or palpation of the breasts, pelvis, prostate and anorectal regions). EXAM: BP 126/74 Ht 5' 2.5 (1.59m) Wt 190 lb (86.2kg) LMP 05/05/2016 BMI 34.18 kg/(m^2). GENERAL: pleasant, female in no apparent distress HEENT: Normocephalic, atraumatic, mucus membranes moist, and no lesions NECK: Supple, full range of motion, no adenopathy, and thyroid normal DERMATOLOGY: Normal, without lesions, non-icteric, and non-hirsute BREAST: soft, non-tender, symmetric, no dominant mass, normal nipple-areolar complex, no lymphadenopathy, and no nipple discharge CHEST: Normal inspiratory effort ABDOMEN: soft, non-tender, and no masses PELVIC: external genitalia normal, normal Bartholin's glands, urethra, Amery's glands, no vulvar lesions, no cervical lesions, good vaginal support, physiologic discharge present, normal appearing perineal body and perianal region BIMANUAL: uterus normal size, shape and consistency, no adnexal masses, and non-tender RECTOVAGINAL: deferred. NEURO: alert and oriented x3,exam grossly non-focal EXTREMITIES: normal ASSESSMENT/PLAN: 1) Health maintenance: Pap done with HPV. Mammogram up to date . Colon cancer screening: up to date with screening 2) Contraception: vasectomy. Contraceptive options reviewed and information provided. 3) STD screening: Declined STD check. 4) Follow up one year or sooner as needed had screening mammo, diag imaging pending Juan Francisco Melvin MD documented in this encounter [facility] 09-16-2024 History of Present illness Narrative Documentation from previous visit of 06/24/2024 was copied and pasted, documentation has been reviewed and edited as necessary for today's visit. Patient Summary: Paco is a 49 year old Female who presents for follow-up evaluation of obesity/weight management to treat MICHLELE, BED, HTN,GERD and prevent co-morbidities. In our previous visits we have discussed lifestyle intervention including a nutrition recommendations and physical activity optimization. Her last office visit was 3 months ago. Assessment/plan from last visit: - Topiramate 50 mg 1000 and 1700 - no BED episodes - Phentermine 15 mg 1000 - Metformin 1 gm with lunch and dinner - Bupropion 300 mg 24/hr Antihypertensive DC'd by PCP mild MICHELLE - auto CPAP. CPAP was optional and she sometimes does not use. Interval History constipation improved with 2 Clementina-colace and 1 colace but now becoming more of an issue again Frustrated that she gained weight for the first time and that friends are on higher dose of phentermine. Diet recall 0615 coffee with SF creamer B - 1100 30 gm protein shake, drinks a lot of water S - none L - 2-2:30 pm Adkin's bar or 23 g Oikos drinkable yogurt or Oikos Pro or salad with cheese and/or 1 HB egg OR if at home 2 HB eggs or deer bologna or 30 gm shake S - none D 7-9 pm 4 oz protein, unbreaded and grilled, varying LC vegetables, occasional corn or mashed potato, water S -none Fluids - coffee and water Current Barriers: stress eating resulting in larger portions and snacks/ eating sometimes unstructured and eating on the run. Rebecca - 10 nuggets and excessive hunger Exercise: 5-7,000 up to 17,000 steps/daily Also mulching and gardening Stress: increased personal stress Sleep: stable 7 hours on auto CPAP - does not use regularly Weight loss since last vist: +4 lbs for total of 65 lbs Date: Weight: BMI Medications: 09/16/2024 180 lb 31.39 41.25 WC 26.53 %TBWL 06/24/2024 176 lb 30.69 03/24/2024 178 lb 31.04 12/24/2023 181 lb 31.56 09/24/2023 192 lb 33.48 topiramate 50 mg 06/17/2023 195 lb 33.84 03/26/2023 205 lb 35.43 WC 45 in 02/06/2023 211 lb 36.57 long-term phentermine 01/02/2023 217 lb 12/05/2022 226 lb 11/07/2022 233 lb Metformin 10/10/2022 239 lb Topiramate/phentermine 09/26/2022 245 lb 42.36 WC 50 in [place] body weight: 119 lb 7.6 oz (54.2 kg) Adjusted ideal body weight: 153 lb 11 oz (69.7 kg) Current contraception: vasectomy Phentermine Start date: ?10/10/2022 Start weight: ?239 lbs. Dose: 15mg capsule -- Patient reports suppression of her appetite and increase in satiety since starting -- Patient reports SE of constipation Topiramate Start date: ?10/10/2022 Start weight: ?239 lbs. Dose:25 mg, increased to bid 10/27/2022 -- Patient reports some suppression of her appetite and some increase in satiety since -- Patient reports no side effects after starting topiramate Metformin Start date: ?11/07/2022 Start weight: ?233 lbs. Dose:1.5 gm at dinner - increased to 1 gm twice a day -- Patient reports suppression of appetite and increase in satiety since starting -- Patient reports no side effects after starting metformin CrCl cannot be calculated (Patient's most recent lab result is older than the maximum 180 days allowed.). PAST MEDICAL HISTORY Diagnosis Date Acid reflux Binge eating disorder Chronic interstitial cystitis Depression Endometriosis, site unspecified Endometriosis Essential hypertension Obesity MICHELLE on CPAP auto CPAP PMH - PAST MEDICAL HISTORY OF INTERSTITIAL CYSTITIS Snoring Urinary calculus, unspecified Renal stones Current Outpatient Medications Medication Sig Dispense Refill pantoprazole DR (PROTONIX) 40 mg tablet TAKE 1 TABLET BY MOUTH TWICE A DAY TAKE 30 MINUTES BEFORE BREAKFAST AND DINNER famotidine (PEPCID) 40 mg tablet Take 40 mg by mouth daily at bedtime. fesoterodine (TOVIAZ) 4 mg Tb24 extended release tablet Take 4 mg by mouth daily with breakfast. buPROPion XL (WELLBUTRIN XL) 300 mg 24 hr tablet Take 300 mg by mouth every morning. Phentermine HCl 15 mg capsule Take 1 capsule by mouth daily before breakfast for 90 days. 90 capsule 0 topiramate (TOPAMAX) 50 mg tablet Take 1 tablet by mouth two times a day. 180 tablet 1 metFORMIN ER (GLUCOPHAGE XR) 500 mg 24 hr tablet Take 2 tablets by mouth two times a day with meals. 360 tablet 1 senna-docusate (SENNA-S) 8.6-50 mg per tablet Take 1 tablet by mouth once daily. biotin 1 mg cap Take by mouth once daily. desmopressin acetate (DDAVP) 0.2 mg tablet Take 0.1 mg by mouth daily at bedtime. 2 tabs cholecalciferol, vitamin D3, (VITAMIN D3 ORAL) Take by mouth once daily. multivitamins(DAILY MULTIPLE TAB) Take one(1) tablet daily. 0 omeprazole (PRILOSEC) 20 mg capsule Take by mouth q 24 HR. (Patient not taking: Reported on 09/16/2024) No current facility-administered medications for this visit. Recent outside labs 09/13/2024 CMP WNL Current contraception: vasectomy ROS pertinent Chest pain: yes, occasional palpitations HTN: yes well-controlled with medication GI: GERD:yes well-controlled with PPI MSK: Joint Pain:yes, knees : Nephrolithiasis: yes - once age 13 BP 105/72 Pulse 80 Wt 81.6 kg (180 lb) LMP 05/05/2016 SpO2 100% BMI 31.39 kg/m Paco Ross is a 49 year old yo with Class III obesity who presented today for follow up for supervised weight loss to treat MICHELLE, BED, HTN,GERD and prevent co-morbidities. ASSESSMENT/PLAN: 1. MICHELLE on CPAP - ICD9: 327.23, V46.8, ICD10: G47.33 (primary diagnosis) - mild, treatment with auto CPAP - TOPIRAMATE 50 MG TABLET - PHENTERMINE 15 MG CAPSULE - METFORMIN ER 500 MG TABLET,EXTENDED RELEASE 24 HR 2. Essential hypertension - ICD9: 401.9, ICD10: I10 - All anti-hypertensive medication discontinued. - continue weight loss - TOPIRAMATE 50 MG TABLET - PHENTERMINE 15 MG CAPSULE - METFORMIN ER 500 MG TABLET,EXTENDED RELEASE 24 HR 3. Gastroesophageal reflux disease without esophagitis - ICD9: 530.81, ICD10: K21.9 - well-controlled but symptomatic if weans - PPI - TOPIRAMATE 50 MG TABLET - PHENTERMINE 15 MG CAPSULE - METFORMIN ER 500 MG TABLET,EXTENDED RELEASE 24 HR 4. IFG (impaired fasting glucose) - ICD9: 790.21, ICD10: R73.01 - METFORMIN ER 500 MG TABLET,EXTENDED RELEASE 24 HR 5. Binge eating disorder - ICD9: 307.50, ICD10: F50.81 in remission - TOPIRAMATE 50 MG TABLET 6. Other depression - ICD9: 311, ICD10: F32.89 - bupropion for depression 7. Class 3 severe obesity with serious comorbidity and body mass index (BMI) of 40.0 to 44.9 in adult, unspecified obesity type (HCC) - ICD9: 278.01, V85.41, ICD10: E66.01, Z68.41 - weight increased - at set - Given information on set-point - TOPIRAMATE 50 MG TABLET twice daily with BED in remission - PHENTERMINE 15 MG CAPSULE Patient has met the weight loss requirement of 5% TBW in initial 3 months using phentermine without any adverse side effects. Pt has responded well and would like to continue use for weight management. 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 The patient is currently enrolled in a diet and exercise program The patient has no known history of contraindications The patient is free from drug or ETHO abuse The patient is not or and is aware not to become while using this medication OARS was reviewed. PDMP website checked and validated. All prescriptions have been APPROPRIATELY filled. No suspicious activity was identified. - METFORMIN ER 500 MG TABLET,EXTENDED RELEASE 24 HR - 1 gm twice a day - continue Whole food balanced protein low-carb nutrition. Inadequate protein intake - given suggestions - Given protein/whole food vegetable and fruit/high protein snack lists. - Given information on protein, carbs and processed versus Whole Foods - Continue trying to increase exercise.to goal of 150-200 min/wk. Encouraged strength and resistance training to build lean muscle mass. Follow up in 3 months Ana Monroy APRN.CNP Advanced Education from the [employer] Medical Decision Making: Problems: Moderate: 1+ chronic illnesses with change and 2+ stable chronic illnesses Risk: Moderate: Drug management and Moderate risk from testing/treatment Medical Decision Making Level: 4 - Moderate documented in this encounter [facility] 09-16-2024 Note HNO ID: [id number] Author: ANA MONROY APRN.CNP Service: ? Author Type: Nurse Practitioner Type: Progress Notes Filed: 09/16/2024 16:37 Note Text: Documentation from previous visit of 06/24/2024 was copied and pasted, documentation has been reviewed and edited as necessary for today's visit. Patient Summary: Paco is a 49 year old Female who presents for follow-up evaluation of obesity/weight management to treat MICHELLE, BED, HTN,GERD and prevent co-morbidities. In our previous visits we have discussed lifestyle intervention including a nutrition recommendations and physical activity optimization. Her last office visit was 3 months ago. Assessment/plan from last visit: - Topiramate 50 mg 1000 and 1700 - no BED episodes - Phentermine 15 mg 1000 - Metformin 1 gm with lunch and dinner - Bupropion 300 mg 24/hr Antihypertensive DC'd by PCP mild MICHELLE - auto CPAP. CPAP was optional and she sometimes does not use. Interval History constipation improved with 2 Clementina-colace and 1 colace but now becoming more of an issue again Frustrated that she gained weight for the first time and that friends are on higher dose of phentermine. Diet recall 0615 coffee with SF creamer B - 1100 30 gm protein shake, drinks a lot of water S - none L - 2-2:30 pm Adkin's bar or 23 g Oikos drinkable yogurt or Oikos Pro or salad with cheese and/or 1 HB egg OR if at home 2 HB eggs or deer bologna or 30 gm shake S - none D 7-9 pm 4 oz protein, unbreaded and grilled, varying LC vegetables, occasional corn or mashed potato, water S -none Fluids - coffee and water Current Barriers: stress eating resulting in larger portions and snacks/ eating sometimes unstructured and eating on the run. Rebecca - 10 nuggets and excessive hunger Exercise: 5-7,000 up to 17,000 steps/daily Also mulching and gardening Stress: increased personal stress Sleep: stable 7 hours on auto CPAP - does not use regularly Weight loss since last vist: +4 lbs for total of 65 lbs Date: Weight: BMI Medications: 09/16/2024 180 lb 31.39 41.25 WC 26.53 %TBWL 06/24/2024 176 lb 30.69 03/24/2024 178 lb 31.04 12/24/2023 181 lb 31.56 09/24/2023 192 lb 33.48 topiramate 50 mg 06/17/2023 195 lb 33.84 03/26/2023 205 lb 35.43 WC 45 in 02/06/2023 211 lb 36.57 long-term phentermine 01/02/2023 217 lb 12/05/2022 226 lb 11/07/2022 233 lb Metformin 10/10/2022 239 lb Topiramate/phentermine 09/26/2022 245 lb 42.36 WC 50 in [place] body weight: 119 lb 7.6 oz (54.2 kg) Adjusted ideal body weight: 153 lb 11 oz (69.7 kg) Current contraception: vasectomy Phentermine Start date: ?10/10/2022 Start weight: ?239 lbs. Dose: 15mg capsule -- Patient reports suppression of her appetite and increase in satiety since starting -- Patient reports SE of constipation Topiramate Start date: ?10/10/2022 Start weight: ?239 lbs. Dose:25 mg, increased to bid 10/27/2022 -- Patient reports some suppression of her appetite and some increase in satiety since -- Patient reports no side effects after starting topiramate Metformin Start date: ?11/07/2022 Start weight: ?233 lbs. Dose:1.5 gm at dinner - increased to 1 gm twice a day -- Patient reports suppression of appetite and increase in satiety since starting -- Patient reports no side effects after starting metformin CrCl cannot be calculated (Patient's most recent lab result is older than the maximum 180 days allowed.). PAST MEDICAL HISTORY Diagnosis Date Acid reflux Binge eating disorder Chronic interstitial cystitis Depression Endometriosis, site unspecified Endometriosis Essential hypertension Obesity MICHELLE on CPAP auto CPAP PMH - PAST MEDICAL HISTORY OF INTERSTITIAL CYSTITIS Snoring Urinary calculus, unspecified Renal stones Current Outpatient Medications Medication Sig Dispense Refill pantoprazole DR (PROTONIX) 40 mg tablet TAKE 1 TABLET BY MOUTH TWICE A DAY TAKE 30 MINUTES BEFORE BREAKFAST AND DINNER famotidine (PEPCID) 40 mg tablet Take 40 mg by mouth daily at bedtime. fesoterodine (TOVIAZ) 4 mg Tb24 extended release tablet Take 4 mg by mouth daily with breakfast. buPROPion XL (WELLBUTRIN XL) 300 mg 24 hr tablet Take 300 mg by mouth every morning. Phentermine HCl 15 mg capsule Take 1 capsule by mouth daily before breakfast for 90 days. 90 capsule 0 topiramate (TOPAMAX) 50 mg tablet Take 1 tablet by mouth two times a day. 180 tablet 1 metFORMIN ER (GLUCOPHAGE XR) 500 mg 24 hr tablet Take 2 tablets by mouth two times a day with meals. 360 tablet 1 senna-docusate (SENNA-S) 8.6-50 mg per tablet Take 1 tablet by mouth once daily. biotin 1 mg cap Take by mouth once daily. desmopressin acetate (DDAVP) 0.2 mg tablet Take 0.1 mg by mouth daily at bedtime. 2 tabs cholecalciferol, vitamin D3, (VITAMIN D3 ORAL) Take by mouth once daily. multivitamins(DAILY MULTIPLE TAB) Take one(1) tablet daily. 0 omeprazole (PRILOSEC) 20 mg capsule Take by mouth q 24 HR (more content not included)... [facility] 09-15-2024 Instructions Ana Monroy APRN.KITCHEN UTILITY ASSOCIATE - 09/15/2024 1:27 PM EDT Michael's protein bars - 28 gm protein IQ bars - 12 gm LC wraps - Whole food balanced protein, controlled carbohydrate nutrition plan - 30 g of protein 3 times a day and up to 30 g of carbs at lunch and dinner only. 1st meal of the day- 30g protein with limit of 2 gm carbohydrates. Premier Protein or generic 30 gm protein 1 gm sugar 2-3 eggs and some unbreaded meat and/or cheese. 2-3 eggs and 1/2 of protein shake or one of the yogurts below: :ratio, KETO Friendly Dairy Snack 1 single svg - 15g protein & 2g carb Two Good Lowfat [place]ian Yogurt, Archie, Lower Sugar - 12g protein & 2g carb No fruit, vegetables, bread, grain, yogurt, Smoothies, etc. Lunch and dinner - 30 gm protein is the goal with less than 30 gm carbohydrates Snacks - all protein or more protein than carbs Protein - no carbs Egg 1 large - 6g Egg white 1 large 3.6g 3 oz is approximately the size of a deck of cards and equals 21 g protein so 4 oz is 28 gm protein Beef, Chicken, [place], Pork, Sultana 1 oz 7g Fish, Tuna Fish 1 oz 7g (Starkist tuna packet 2.6 oz 17 gm protein) Seafood (Crabmeat, Shrimp, Lobster) 1 oz 6g Protein shakes (read labels) Premier Protein or generic [employer] Equate, [employer] High Performance- 30g protein & 1g carb - meal replacement Premier Protein powder or generic- 30 g protein, 1g carb Fairlife 30 gram protein - 30g protein & 3g carb BOOST Glucose Control Max 30g Protein Nutritional Drink - 30g protein & 1 carb - meal replacement Slimfast High Protein - 20g protein & 1g carb Ensure Max Protein Nutrition Shake 30g protein & 2 carb OWYN plant based 100 % vegan no dairy, soy, wheat/gluten 32g protein 0 net carb (not a meal replacement) Premier Protein plant protein powder - 25g protein, 0 sugar/2g carb Vanilla and chocolate (not a meal replacement) Protein AND carbs Beef/Franklin Jerky 1 oz dried 10-15g protein - check carb count, can be high if sugar added Slim Suman - 6 gm protein and 4 net carb Great Value original turkey sausage sticks - 7 gm protein and 2 gm carb Emily & Mayco (at [employer]) Original smoked sausage sticks - 8 gm protein and 0 carb Imitation Crab Meat 1 oz - 2g protein & 4g carb Milk, skim 2% or 1% 8 oz - 8g protein & 12g carb Fairlife 2% milk 8 oz -13g protein & 6g car [place]ian yogurt Full Fat [place]ian Yogurt 1 cup - 20.4g protein & 9.1g carb 2% Bel[place]ian Yogurt 1 cup - 22.7g protein & 9.1g carb 0% (fat-free) Bel[place]ian Yogurt - 1 cup 24g protein & 9.3g carb Aldi Protein Bel[place]ian yogurt single svg - 13/g15g protein & 7g carb Chobani Zero Sugar single svg: - 12g protein & 5g carb Dannon Belarusian Light + Fit 1 single svg - 12g protein & 9g carb Oikos Pro single svg - 20g protein & 8g carb Oikos Triple Zero Bel[place]ian Nonfat Yogurt 1 single svg - 15g protein & 7g carb :ratio, KETO Friendly Dairy Snack 1 single svg - 15g protein & 2g carb :ratio Protein 1 single svg - 25g protein & 8g carb Two Good Lowfat [place]ian Yogurt, Archie, Lower Sugar - 12g protein & 2g carb Yoplait Protein 1 single svg 15g protein & 5g carb Dairy Free - [place] unsweetened [place]ian almond/soy 15g protein & 3g carb Dairy Free - True Goodness by Wanda coconut-based yogurt alternative 1 g protein 1 g net carb 180 tyrese Drinkable yogurts: Chobani drinkable 15g, 20g and 30g protein & 18 carb (too many carbs for breakfast) Chobani Zero Sugar 10g protein 6g carbs 50 calories Oikos Pro drinkable yogurt 1 single svg - 23g protein & 8g carb :ratio Protein 26g protein 9g carb Cheese each oz Brie 5.9g protein & 0.1g carb Cheddar 7g protein & 0.4g carb Tristian 6.7g protein & 0.7g carb Cream Cheese 1.7g protein & 1.2g carb Conviva whipped [place]ian cream cheese (WM) 2 T 3g protein 2g carb Feta 4g protein & 1.2g carb Mozzarella 6.3g protein & 0.6g carb Parmesan 10g protein & 0.9g carb Kyrgyz 7.6g protein & 1.5g carb Cottage Cheese 1/2 c Breakstone 2% 13g protein 7g carb Glenis 2% 13g protein 5 g carb Good Culture 2% 14g protein 3g carb Harris s Low Fat 12g protein & 4g carb Legumes Lentils cup 9g protein & 20g carb Mcnair beans cup 7g protein & 20g carb Kidney, Black, Likely, Cannellini beans cup 8g protein & 20g carb Chickpeas 1/2 c 6g protein & 15g carb Soybeans 1/2 c 14g complete protein & 8.5g carb [place] milk, unsweetened 8 oz 1g protein & 2g carb Soy milk 8 oz 3.5g protein & 1.6g carb Tofu 1/2 cup 10g protein & 2.3g carb Peanut butter, natural 2 Tbsp 7-8g protein & 4g net carbs, 190 calories PB2 powder 2 Tbsp 6g protein & 5g carb Nuts and Seeds per oz Almonds - 5.9g protein & 6.1g carb [place] Nuts - 4.0g protein & 3.4g carb Cashews - 5.1g protein & 9.2g carb Hazelnuts - 4.2g protein & 4.7g carb Hemp seeds/hearts 3 T/30 gms - 9.5 gm complete protein and 2.5 gm carb Peanuts - 7g protein & 4.6g carb Pecans - 2.6g protein & 3.9g carb Pistachios - 5.8g protein & 7.8g carb Pumpkin Seeds - 6.9g protein & 5g carb [place] Seeds - 5.8g protein & 5.6g carb Walnuts - 4.3g protein & 3.8g carb Edamame Beans (soybean) snack 1 pack 11 gm complete protein 2 carb 5 (FIVE) gram carb vegetable options 1 cup raw OR cup cooked: Asparagus Lbaoy sprouts Beets Broccoli Brussel sprouts Cabbage Carrots Cauliflower Celery [place] Eggplant Green beans Lettuce Peppers Snap peas Spaghetti squash Spinach Tomato Turnips Zucchini 15 gram carb vegetable options cup cooked corn or hominy corn on the cob, large (5 oz) cup cooked green peas 4.3 gm complete protein cup cooked mcnair beans 1 small potato or sweet potato cup cooked potato, plain cup cooked sweet potato, plain 1 cup winter squash (pumpkin, acorn, butternut) 1 cup marinara or pasta sauce - check label cup tomato juice cup tomato puree Beans, Seeds, Nuts cup cooked beans (kidney, payton, red, green, etc.) cup cooked lentils cup baked beans 4 tablespoons nut butter <15 gram carb fruit options Berries have the lowest sugar content 1/2 medium apple - 12.5 carbs 1/2 medium avocado - 6.5 gm carbs 1/2 medium banana - 15 carbs 1/2 cup blueberries - 11 carbs - may actually help you lose weight 1/2 cup fresh cherries -11 carbs 1 medium Theresa -9 carbs 1/2 cup fresh cranberries - 6.5 carbs 1/2 c grapes - 15 carbs 1/2 medium grapefruit - 10.5 carbs 1/2 cup diced honeydew melon - 8 carbs 1 medium kiwi without skin - 11 carbs 1/2 cup sliced rosario -14 carbs 1 medium nectarine - 15 carbs 1 medium orange -15.5 carbs 1 medium peach -14.5 carbs 1/2 cup fresh pineapple -11 carbs 1 medium plum -7.5 carbs 1 prune - 6 carbs 1/4 c raisins - 31.25 carbs 1/2 cup raspberries -7.5 carbs 1/2 c strawberries - 12.7 carbs 1 medium tangerine -12 carbs 1/2 cup diced watermelon - 6 carbs Grains Brown rice 1/2 c 5.5g protein 24 carb White long-grain rice 1/2 c 2g protein 22.5 carb Quinoa 1/2 c 4 gm complete protein 25 carb Oatmeal, old fashioned 1/2 c 5g protein 27g carb High Protein Snack Ideas 1. Jerky 2. [place] mix without dried fruit 3. Franklin roll-ups 4. Belarusian yogurt 5. Veggies and yogurt dip 6. Tuna 7. Hard-boiled eggs 8. Peanut butter with celery 9. Cheese slices/ Cheese Stick 10. Handful of almonds, peanuts or walnuts 11. Cottage Cheese 12. Beef sticks 13. Protein bars 14. Canned Sisters 15. Pumpkin seeds 16. Nut butter 17. Protein shake or protein bar 18. Avocado and chicken salad 19. Egg muffins 20. Leftover protein or lunch meat 21. 1/2 c blended cottage cheese or Belarusian yogurt with dry ranch/Mrs. Dash/herb seasoning mix to make protein dip- add raw veg 22. 1/2 c blended cottage cheese with 1 Tbsp sugar-free dry cheesecake pudding mix 12g protein 10 carb 23. Pudding - 1 30 gm protein shake with 1/2 pkg sugar-free pudding 4 svgs - 7.8 gm protein, 5 carb each svg 24. SF Sunkist or Root Beer with 1-2 Tablespoons heavy whipping cream 25. Mini frozen dessert bites - layer protein yogurt, skinny syrup and crushed nuts and freeze 26. Edamame Beans (soybean) snack 1 pack (O Beans) 11 gm complete protein 2 carb Why Is Protein So Important for Weight loss? consuming more protein not only reduces body weight but enhances body composition by decreasing fat mass while preserving fat-free mass During weight loss phase protein consumption (with normal kidney function) should be 1-1.6g protein per Kilogram of body weight (1kg=2.2lbs) On average Women need to Aim for a minimum 90g protein per day Consuming higher protein can also prevent weight regain after weight loss Protein consumption increases hormones responsible for satiety (feeling full)- these include Gut hormones like Glucagon-like peptide-1 (GLP-1), Cholecystokinin (CCK), Peptide Tyrosine-Tyrosine (PYY) and decreasing the Gut hormone responsible for causing hunger Ghrelin Protein has an increased thermogenesis effect of food- which means it take more calories to break down protein when consumed compared to carbohydrates or fats Protein also prevents a losing lean mass during weight loss (lose more fat and preserve fat free mass) which helps to increase resting energy expenditure (resting metabolic rate) Every pound of muscle avila ~ 6 kcal per pound/day vs fat avila ~ 2kcal per pound/day Carbohydrates - Why do You Crave Them? Eating too many refined carbohyrdates (sugar beverages, pastries, bread, pizza) which raises your blood glucose levels and therefore releasing insulin which in turn causes increase in hunger Carbohydrates suppress Ghrelin quickly but does not maintain the suppression for very long therefore hunger returns more quickly Consuming carbohydrates leads to a release of Dopamine feel good hormone in our brain So how do you Curb these cravings? Eating Whole Foods with more fiber - High fiber carbs are absorbed and digested slowly so it does not impact blood sugar levels as much and will help in making you feel parmar for longer; fiber also is healthy for your gut bacteria and can help with constipation. Remember- carbohydrates are not the enemy but know what a proper serving size is, choose nutritious carbohydrates and space them out between meals. Always- eat your protein first followed by your non starchy vegetables followed by your carbohydrates- it will help your body with your glucose and insulin regulation Processed Foods vs Whole Foods- Impact on Weight: People who eat Ultra Processed food tend to consume about 500 calories more per day Ultra Processed foods are considered Calorie Dense so when a person feels full they have typically already over eaten and consumed more calories Whole Foods (unprocessed foods) tend to be more more filling and more Nutrient Dense Unprocessed foods can be more expensive and not realistic for everyone however when you have the choice to consume unprocessed vs Ultra processed foods always pick unprocessed. Why can't people stop eating Ultra Processed foods? They are economical and optimized for taste by [employer] - they are designed to make you want to keep eating them- they feed common cravings and bypass the mechanisms that tell your brain you are full Benefits of eating Whole Foods and cutting out Ultra Processed Foods Increased concentration and focus (decreased brain fog), improved mood, better sleep, Decrease in fatigue, improvement in gut health, decreased inflammation, Likely WEIGHT LOSS documented in this encounter [facility] 09-08-2024 Evaluation note Diagnosis Onset Date Resolution Gastroesophageal reflux disease noneactive September 08, 2024 8:09am [facility] Work Phone: [phone]) 745-859304-24-2025 NoteHNO ID: [id number] Author: VÍCTOR PRAJAPATI Mammo Tech Service: ? Author Type: [employer] Principal Solution Specialist Type: Progress Notes Filed: 09/01/2024 09:10 Note Text: Radiology Service Progress Note PATIENT NAME: Paco Ross DATE OF SERVICE: September 01, 2024 TIME: 9:10 AM PATIENT IDENTITY VERIFICATION COMPLETED USING TWO (2) IDENTIFIERS: Name and Date of confirmed by patient verbally. FALL SCREENING: Has the patient had 2 falls in the last year or 1 fall with injury or currently using an Ambulatory Assistive Device (Walker, Cane, Wheelchair, Crutches, etc.)? No PATIENT GENDER DATA: Assigned female at . status: : No status: NO. PATIENT RELEVANT IMPLANT DATA REVIEWED: Not Applicable PATIENT PRESENTS WITH AN IMPLANTABLE OR ATTACHED MONITORING ANALYST: No RADIOLOGY DEPARTMENT: Mammography PERIPHERAL IV DATA: Not applicable SIGNED BY: Magdy Lang September 01, 2024 9:10 [facility]04-24-2025 NoteHNO ID: [id number] Author: CARLOS PACHECO RT(R) Service: ? Author Type: Technologist Type: Progress Notes Filed: 09/01/2024 08:27 Note Text: Radiology Service Progress Note PATIENT NAME: Paco Ross DATE OF SERVICE: September 01, 2024 TIME: 8:20 AM PATIENT IDENTITY VERIFICATION COMPLETED USING TWO (2) IDENTIFIERS: Name and Date of confirmed by patient verbally. FALL SCREENING: Has the patient had 2 falls in the last year or 1 fall with injury or currently using an Ambulatory Assistive Device (Walker, Cane, Wheelchair, Crutches, etc.)? No PATIENT GENDER DATA: Assigned female at . status: : No status: NO. PATIENT RELEVANT IMPLANT DATA REVIEWED: Not Applicable PATIENT PRESENTS WITH AN IMPLANTABLE OR ATTACHED MONITORING ANALYST: No RADIOLOGY DEPARTMENT: Bone Density PERIPHERAL IV DATA: Not applicable SIGNED BY: RT Jb(R) September 01, 2024 8:20 [facility]02-14-2025 Instructions* Patient Instructions* Ana Monroy APRN.KITCHEN UTILITY ASSOCIATE - 06/24/2024 12:02 PM EST - Whole food balanced protein, controlled carbohydrate nutrition plan - 30 g of protein 3 times a day and up to 30 g of carbs at lunch and dinner only. Breakfast - 30 gm protein with limit of 2 gm carbohydrates. Options include: Premier Protein or generic 30 gm protein 1 gm sugar or 5 eggs or 2-3 eggs and some unbreaded meat and/or cheese. No fruit,vegetables, bread, grain, yogurt, Smoothies, etc. Lunch and dinner - 30 gm protein is the goal with less than 30 gm carbohydrates Snacks - all protein or more protein than carbs Protein - no carbs Egg 1 large - 6g Egg white 1 large 3.6g 3 oz is approximately the size of a deck of cards and equals 21 g protein so 4 oz is 28 gm protein Beef, Chicken, [place], Pork, Sultana 1 oz 7g Fish, Tuna Fish 1 oz 7g (Starkist tuna packet 2.6 oz 17 gm protein) Seafood (Crabmeat, Shrimp, Lobster) 1 oz 6g Protein shakes (read labels) Premier Protein or generic WalMart Equate, Meijer High Performance- 30g protein & 1g carb - meal replacement Premier Protein powder or generic- 30 gm protein, 1g carb Premier Protein plant protein powder - 25 gm protein, 0 sugar/2 carb Vanilla and chocolate (not a meal replacement) Fairlife 30 gram protein - 30g protein & 3g carb BOOST Glucose Control Max 30g Protein Nutritional Drink - 30g protein & 1 carb - meal replacement Slimfast High Protein - 20g protein & 1g carb Ensure Max Protein Nutrition Shake 30g protein & 2 carb Protein AND carbs Beef/[place] Jerky 1 oz dried 10-15g protein - check carb count, can be high if sugar added Slim Suman - 6 gm protein and 4 net carb Great Value original turkey sausage sticks - 7 gm protein and 2 gm carb Emily & Mayco (at [facility]) Original smoked sausage sticks - 8 gm protein and 0 carb Imitation Crab Meat 1 oz - 2g protein & 4g carb Milk, skim 2% or 1% 8 oz - 8g protein & 12g carb Fairlife 2% milk 8 oz -13 g protein & 6g carb [place]ian yogurt Full Fat [place]ian Yogurt 1 cup - 20.4g protein & 9.1g carb 2% [place]ian Yogurt 1 cup - 22.7g protein & 9.1g carb 0% (fat-free) [place]ian Yogurt - 1 cup 24g protein & 9.3g carb Aldi Protein [place] yogurt single svg - 15g protein & 7g carb Chobani Zero Sugar single svg: - 12g protein & 5g carb Dannon Bel[place]ian Light + Fit 1 single svg - 12g protein & 9g carb Oikos Pro single svg - 20g protein & 8g carb Oikos Triple Zero [place] Nonfat Yogurt 1 single svg - 15g protein & 7g carb :ratio, KETO Friendly Dairy Snack 1 single svg - 15g protein & 2g carb :ratio Protein 1 single svg - 25g protein & 8g carb Two Good Lowfat [place] Yogurt, Archie, Lower Sugar - 12g protein & 2g carb Yoplait Protein 1 single svg 15gm protein & 5gm carb Dairy Free - [place] unsweetened [place]ian almond/soy 15 gm protein & 3 gm carb Dairy Free - True Goodness by [facility] coconut-based yogurt alternative 1 gm protein 1 gm net carb 180 tyrese Cheese each oz Brie 5.9g protein & 0.1g carb Cheddar 7g protein & 0.4g carb Tristian 6.7g protein & 0.7g carb Cream Cheese 1.7g protein & 1.2g carb Feta 4g protein & 1.2g carb Mozzarella 6.3g protein & 0.6g carb Parmesan 10g protein & 0.9g carb Kyrgyz 7.6g protein & 1.5g carb Cottage Cheese 1/2 c Breakstone 2% 13g protein 7g carb Glenis 2% 13g protein 5 g carb Good Culture 2% 14g protein 3g carb Harris s Low Fat 12g protein & 4g carb Legumes Lentils cup 9g protein & 20g carb Mcnair beans cup 7g protein & 20g carb Kidney, Black, Likely, Cannellini beans cup 8g protein & 20g carb Soybeans 1/2 c 14g complete protein & 8.5g carb [place] milk, unsweetened 8 oz 1g protein & 2g carb Soy milk 8 oz 3.5g protein & 1.6g carb Tofu 1/2 cup 10g protein & 2.3g carb Peanut butter, natural 2 Tbsp 7-8g protein & 4g net carbs, 190 calories PB2 powder 2 Tbsp 6g protein & 5g carb Nuts and Seeds per oz Almonds - 5.9g protein & 6.1g carb [place] Nuts - 4.0g protein & 3.4g carb Cashews - 5.1g protein & 9.2g carb Hazelnuts - 4.2g protein & 4.7g carb Hemp seeds/hearts 3 T/30 gms - 9.5 gm complete protein and 2.5 gm carb Peanuts - 7g protein & 4.6g carb Pecans - 2.6g protein & 3.9g carb Pistachios - 5.8g protein & 7.8g carb Pumpkin Seeds - 6.9g protein & 5g carb [place] Seeds - 5.8g protein & 5.6g carb Walnuts - 4.3g protein & 3.8g carb Edamame Beans (soybean) snack 1 pack 11 gm complete protein 2 carb 5 (FIVE) gram carb vegetable options 1 cup raw OR cup cooked: Asparagus [place] sprouts Beets Broccoli Brussel sprouts Cabbage Carrots Cauliflower Celery [place] Eggplant Green beans Lettuce Peppers Snap peas Spaghetti squash Spinach Tomato Turnips Zucchini 15 gram carb vegetable options cup cooked corn or hominy corn on the cob, large (5 oz) cup cooked green peas 4.3 gm complete protein cup cooked mcnair beans 1 small potato or sweet potato cup cooked potato, plain cup cooked sweet potato, plain 1 cup winter squash (pumpkin, acorn, butternut) 1 cup marinara or pasta sauce - check label cup tomato juice cup tomato puree Beans, Seeds, Nuts cup cooked beans (kidney, payton, red, green, etc.) cup cooked lentils cup baked beans 4 tablespoons nut butter <15 gram carb fruit options Berries have the lowest sugar content 1/2 medium apple - 12.5 carbs 1/2 medium avocado - 6.5 gm carbs 1/2 medium banana - 15 carbs 1/2 cup blueberries - 11 carbs - may actually help you lose weight 1/2 cup fresh cherries -11 carbs 1 medium Theresa -9 carbs 1/2 cup fresh cranberries - 6.5 carbs 1/2 c grapes - 15 carbs 1/2 medium grapefruit - 10.5 carbs 1/2 cup diced honeydew melon - 8 carbs 1 medium kiwi without skin - 11 carbs 1/2 cup sliced rosario -14 carbs 1 medium nectarine - 15 carbs 1 medium orange -15.5 carbs 1 medium peach -14.5 carbs 1/2 cup fresh pineapple -11 carbs 1 medium plum -7.5 carbs 1 prune - 6 carbs 1/4 c raisins - 31.25 carbs 1/2 cup raspberries -7.5 carbs 1/2 c strawberries - 12.7 carbs 1 medium tangerine -12 carbs 1/2 cup diced watermelon - 6 carbs Grains Brown rice 1/2 c 5.5g protein 24 carb White long-grain rice 1/2 c 2g protein 22.5 carb Quinoa 1/2 c 4 gm complete protein 25 carb Oatmeal, old fashioned 1/2 c 5g protein 27g carb High Protein Snack Ideas 1. Jerky 2. [place] mix without dried fruit 3. [place] roll-ups 4. [place]ian yogurt 5. Veggies and yogurt dip 6. Tuna 7. Hard-boiled eggs 8. Peanut butter with celery 9. Cheese slices/ Cheese Stick 10. Handful of almonds, peanuts or walnuts 11. Cottage Cheese 12. Beef sticks 13. Protein bars 14. Canned Sisters 15. Pumpkin seeds 16. Nut butter 17. Protein shakes 18. Avocado and chicken salad 19. Egg muffins 20. Leftover protein or lunch meat 21. 1/2 c blended cottage cheese or [place]ian yogurt with dry ranch/Mrs. Dash/herb seasoning mix to make protein dip 22. 1/2 c blended cottage cheese with 1 Tbsp sugar-free dry cheesecake pudding mix 12g protein 10 carb 23. Pudding - 1 30 gm protein shake with 1/2 pkg sugar-free pudding 4 svgs - 7.8 gm protein, 5 carbeach svg 24. SF Sunkist or Root Beer with 1-2 Tablespoons heavy whipping cream 25. Mini frozen dessert bites - layer protein yogurt, skinny syrup and crushed nuts and freeze [facility] of Present illness Narrative* Ana Monroy APRN.CNP - 06/24/2024 11:30 AM EST Documentation from previous visit of 03/24/2024 was copied and pasted, documentation has been reviewed and edited as necessary for today's visit. Patient Summary: Paco is a 49 year old Female who presents for follow-up evaluation of obesity/weight management to treat MICHELLE, BED, HTN,GERD and prevent co-morbidities. In our previous visits we have discussed lifestyle intervention including a nutrition recommendations and physical activity optimization. Her last office visit was 3 months ago. Assessment/plan from last visit: - Topiramate 50 mg 1000 and 1700 - no BED episodes - Phentermine 15 mg 1000 - Metformin 1 gm with lunch and dinner - Bupropion 300 mg 24/hr Antihypertensive DC'd by PCP mild MICHELLE - auto CPAP. CPAP was optional and she sometimes does not use. Interval History constipation improved with Clementina-colace and colace-and the oil in her belly button which fully manages Diet recall 0800 - 1130 coffee with SF creamer B - 30 gm protein shake, drinks a lot of water S - none L - 1200 Adkin's bar if home - 23 g Oikos drinkable yogurt or 1 cup cottage cheese with fruit or salad with cheese and 1 HB egg and sometimes grilled chicken. S - HB eggs or deer bologna D - 5-7 pm 4 oz protein, unbreaded and grilled, varying vegetables, water S - rare- veg or deer bologna or nuts Fluids - coffee and water Exercise: 5-7,000 steps/daily Stress: stable Sleep: stable 7 hours on auto CPAP - more rested Weight loss since last vist: 2 lbs for total of 69 lbs Date: Weight: BMI: Medications: 06/24/2024 176 lb 30.69 03/24/2024 178 lb 31.04 12/24/2023 181 lb 31.56 09/24/2023 192 lb 33.48 topiramate 50 mg 06/17/2023 195 lb 33.84 03/26/2023 205 lb 35.43 WC 45 in 02/06/2023 211 lb 36.57 long-term phentermine 01/02/2023 217 lb 12/05/2022 226 lb 11/07/2022 233 lb Metformin 10/10/2022 239 lb Topiramate/phentermine 09/26/2022 245 lb 42.36 WC 50 in [place] body weight: 119 lb 7.6 oz (54.2 kg) Adjusted ideal body weight: 153 lb 11 oz (69.7 kg) Current contraception: vasectomy Phentermine Start date: ?10/10/2022 Start weight: ?239 lbs. Dose: 15mg capsule -- Patient reports suppression of her appetite and increase in satiety since starting -- Patient reports SE of constipation Topiramate Start date: ?10/10/2022 Start weight: ?239 lbs. Dose:25 mg, increased to bid 10/27/2022 -- Patient reports some suppression of her appetite and some increase in satiety since -- Patient reports no side effects after starting topiramate Metformin Start date: ?11/07/2022 Start weight: ?233 lbs. Dose:1.5 gm at dinner - increased to 1 gm twice a day -- Patient reports suppression of appetite and increase in satiety since starting -- Patient reports no side effects after starting metformin CrCl cannot be calculated (Patient's most recent lab result is older than the maximum 180 days allowed.). PAST MEDICAL HISTORY Diagnosis Date Acid reflux Binge eating disorder Chronic interstitial cystitis Depression Endometriosis, site unspecified Endometriosis Essential hypertension Obesity MICHELLE on CPAP auto CPAP PMH - PAST MEDICAL HISTORY OF INTERSTITIAL CYSTITIS Snoring Urinary calculus, unspecified Renal stones Current Outpatient Medications Medication Sig Dispense Refill topiramate (TOPAMAX) 50 mg tablet Take 1 tablet by mouth two times a day. 180 tablet 1 metFORMIN ER (GLUCOPHAGE XR) 500 mg 24 hr tablet Take 2 tablets by mouth two times a day with meals. 360 tablet 1 senna-docusate (SENNA-S) 8.6-50 mg per tablet Take 1 tablet by mouth once daily. buPROPion XL (WELLBUTRIN XL) 150 mg 24 hr tablet biotin 1 mg cap Take by mouth once daily. desmopressin acetate (DDAVP) 0.2 mg tablet Take 0.1 mg by mouth daily at bedtime. 2 tabs GEMTESA 75 mg tablet Take 75 mg by mouth once daily. omeprazole (PRILOSEC) 20 mg capsule Take by mouth q 24 HR. cholecalciferol, vitamin D3, (VITAMIN D3 ORAL) Take by mouth once daily. multivitamins(DAILY MULTIPLE TAB) Take one(1) tablet daily. 0 No current facility-administered medications for this visit. Current contraception: vasectomy ROS pertinent Chest pain: yes, occasional palpitations HTN: yes well-controlled with medication GI: GERD:yes well-controlled with PPI MSK: Joint Pain:yes, knees : Nephrolithiasis: yes - once age 13 BP 120/84 Pulse 81 Wt 79.8 kg (176 lb) LMP 05/05/2016 SpO2 99% BMI 30.69 kg/m Paco Ross is a 49 year old yo with Class III obesity who presented today for follow up forsupervised weight loss to treat MICHELLE, BED, HTN,GERD and prevent co-morbidities. ASSESSMENT/PLAN: 1. MICHELLE on CPAP - ICD9: 327.23, V46.8, ICD10: G47.33 (primary diagnosis) - mild, treatment with auto CPAP - TOPIRAMATE 50 MG TABLET - PHENTERMINE 15 MG CAPSULE - METFORMIN ER 500 MG TABLET,EXTENDED RELEASE 24 HR 2. Essential hypertension - ICD9: 401.9, ICD10: I10 - All anti-hypertensive medication discontinued. - continue weight loss - TOPIRAMATE 50 MG TABLET - PHENTERMINE 15 MG CAPSULE - METFORMIN ER 500 MG TABLET,EXTENDED RELEASE 24 HR 3. Gastroesophageal reflux disease without esophagitis - ICD9: 530.81, ICD10: K21.9 - well-controlled - Continue omeprazole - TOPIRAMATE 50 MG TABLET - PHENTERMINE 15 MG CAPSULE - METFORMIN ER 500 MG TABLET,EXTENDED RELEASE 24 HR 4. IFG (impaired fasting glucose) - ICD9: 790.21, ICD10: R73.01 - METFORMIN ER 500 MG TABLET,EXTENDED RELEASE 24 HR 5. Binge eating disorder - ICD9: 307.50, ICD10: F50.81 in remission - TOPIRAMATE 50 MG TABLET 6. Other depression - ICD9: 311, ICD10: F32.89 - bupropion for depression 7. Class 3 severe obesity with serious comorbidity and body mass index (BMI) of 40.0 to 44.9 in adult, unspecified obesity type (HCC) - ICD9: 278.01, V85.41, ICD10: E66.01, Z68.41 - weight loss of 67 lbs - TOPIRAMATE 50 MG TABLET twice daily with BED in remission - PHENTERMINE 15 MG CAPSULE Patient has met the weight loss requirement of 5% TBW in initial 3 months using phentermine withoutany adverse side effects. Pt has responded well and would like to continue use for weight management. 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 The patient is currently enrolled in a diet and exercise program The patient has no known history of contraindications The patient is free from drug or ETHO abuse The patient is not or and is aware not to become while using this medication [place] was reviewed. PDMP website checked and validated. All prescriptions have been APPROPRIATELY filled. No suspicious activity was identified. - METFORMIN ER 500 MG TABLET,EXTENDED RELEASE 24 HR - 1 gm twice a day - continue Whole food balanced protein low-carb nutrition. - Continue trying to increase exercise.to goal of 150-200 min/wk. Encouraged strength and resistance training to build lean muscle mass. Follow up in 3 months Ana Monroy APRN.CNP Advanced Education from the [employer] Medical Decision Making: Problems: Moderate: 1+ chronic illnesses with change and 2+ stable chronic illnesses Risk: Moderate: Drug management and Moderate risk from testing/treatment Medical Decision Making Level: 4 - Moderate documented in [facility] NoteHNO ID: [id number] Author: ANA MONROY APRN.CNP Service: ? Author Type: Nurse Practitioner Type: Progress Notes Filed: 06/24/2024 12:36 Note Text: Documentation from previous visit of 03/24/2024 was copied and pasted, documentation has been reviewed and edited as necessary for today's visit. Patient Summary: Paco is a 49 year old Female who presents for follow-up evaluation of obesity/weight management to treat MICHELLE, BED, HTN,GERD and prevent co-morbidities. In our previous visits we have discussed lifestyle intervention including a nutrition recommendations and physical activity optimization. Her last office visit was 3 months ago. Assessment/plan from last visit: - Topiramate 50 mg 1000 and 1700 - no BED episodes - Phentermine 15 mg 1000 - Metformin 1 gm with lunch and dinner - Bupropion 300 mg 24/hr Antihypertensive DC'd by PCP mild MICHELLE - auto CPAP. CPAP was optional and she sometimes does not use. Interval History constipation improved with Clementina-colace and colace-and the oil in her belly button which fully manages Diet recall 0800 - 1130 coffee with SF creamer B - 30 gm protein shake, drinks a lot of water S - none L - 1200 Adkin's bar if home - 23 g Oikos drinkable yogurt or 1 cup cottage cheese with fruit or salad with cheese and 1 HB egg and sometimes grilled chicken. S - HB eggs or deer bologna D - 5-7 pm 4 oz protein, unbreaded and grilled, varying vegetables, water S - rare- veg or deer bologna or nuts Fluids - coffee and water Exercise: 5-7,000 steps/daily Stress: stable Sleep: stable 7 hours on auto CPAP - more rested Weight loss since last vist: 2 lbs for total of 69 lbs Date: Weight: BMI: Medications: 06/24/2024 176 lb 30.69 03/24/2024 178 lb 31.04 12/24/2023 181 lb 31.56 09/24/2023 192 lb 33.48 topiramate 50 mg 06/17/2023 195 lb 33.84 03/26/2023 205 lb 35.43 WC 45 in 02/06/2023 211 lb 36.57 long-term phentermine 01/02/2023 217 lb 12/05/2022 226 lb 11/07/2022 233 lb Metformin 10/10/2022 239 lb Topiramate/phentermine 09/26/2022 245 lb 42.36 WC 50 in [place] body weight: 119 lb 7.6 oz (54.2 kg) Adjusted ideal body weight: 153 lb 11 oz (69.7 kg) Current contraception: vasectomy Phentermine Start date: ?10/10/2022 Start weight: ?239 lbs. Dose: 15mg capsule -- Patient reports suppression of her appetite and increase in satiety since starting -- Patient reports SE of constipation Topiramate Start date: ?10/10/2022 Start weight: ?239 lbs. Dose:25 mg, increased to bid 10/27/2022 -- Patient reports some suppression of her appetite and some increase in satiety since -- Patient reports no side effects after starting topiramate Metformin Start date: ?11/07/2022 Start weight: ?233 lbs. Dose:1.5 gm at dinner - increased to 1 gm twice a day -- Patient reports suppression of appetite and increase in satiety since starting -- Patient reports no side effects after starting metformin CrCl cannot be calculated (Patient's most recent lab result is older than the maximum 180 days allowed.). PAST MEDICAL HISTORY Diagnosis Date Acid reflux Binge eating disorder Chronic interstitial cystitis Depression Endometriosis, site unspecified Endometriosis Essential hypertension Obesity MICHELLE on CPAP auto CPAP PMH - PAST MEDICAL HISTORY OF INTERSTITIAL CYSTITIS Snoring Urinary calculus, unspecified Renal stones Current Outpatient Medications Medication Sig Dispense Refill topiramate (TOPAMAX) 50 mg tablet Take 1 tablet by mouth two times a day. 180 tablet 1 metFORMIN ER (GLUCOPHAGE XR) 500 mg 24 hr tablet Take 2 tablets by mouth two times a day with meals. 360 tablet 1 senna-docusate (SENNA-S) 8.6-50 mg per tablet Take 1 tablet by mouth once daily. buPROPion XL (WELLBUTRIN XL) 150 mg 24 hr tablet biotin 1 mg cap Take by mouth once daily. desmopressin acetate (DDAVP) 0.2 mg tablet Take 0.1 mg by mouth daily at bedtime. 2 tabs GEMTESA 75 mg tablet Take 75 mg by mouth once daily. omeprazole (PRILOSEC) 20 mg capsule Take by mouth q 24 HR. cholecalciferol, vitamin D3, (VITAMIN D3 ORAL) Take by mouth once daily. multivitamins(DAILY MULTIPLE TAB) Take one(1) tablet daily. 0 No current facility-administered medications for this visit. Current contraception: vasectomy ROS pertinent Chest pain: yes, occasional palpitations HTN: yes well-controlled with medication GI: GERD:yes well-controlled with PPI MSK: Joint Pain:yes, knees : Nephrolithiasis: yes - once age 13 BP 120/84 Pulse 81 Wt 79.8 kg (176 lb) LMP 05/05/2016 SpO2 99% BMI 30.69 kg/m? Paco Ross is a 49 year old yo with Class III obesity who presented today for follow up for supervised weight loss to treat MICHELLE, BED, HTN,GERD and prevent co-morbidities. ASSESSMENT/PLAN: 1. MICHELLE on CPAP - ICD9: 327.23, V46.8, ICD10: G47.33 (primary diagnosis) - mild, treatment with auto CPAP - TOPIRAMATE 50 MG TABLET - PHENTERMINE 15 M (more content not included)...[facility] 03-24-2024 Instructions* Patient Instructions* Ana Monroy APRN.[facility] - 03/24/2024 11:11 AM EST - Eat primarily whole foods. Limit carbs, especially processed carbs. Eat - Meat, vegetables and fruits with skin on if possible, eggs, cheese. - Do not drink your calories - 30 grams of protein for your first meal of the day decreases your hunger during the day by up to 40 %. Options include: Premier Protein or generic 30 gm protein 1 gm sugar or 5 eggs or 2-3 eggs andsome unbreaded meat and/or cheese. No fruit, vegetables, bread, grain, yogurt, Smoothies, etc. - Walk for 15 minutes immediately after meal - Whole food balanced protein, controlled carbohydrate nutrition plan - 30 g of protein 3 times a day and up to 30 g of carbs at lunch and dinner only. Breakfast - 30 gm protein with limit of 2 gm carbohydrates. Options include: Premier Protein or generic 30 gm protein 1 gm sugar or 5 eggs or 2-3 eggs and some unbreaded meat and/or cheese. No fruit,vegetables, bread, grain, yogurt, Smoothies, etc. Lunch and dinner - 30 gm protein is the goal with less than 30 gm carbohydrates Snacks - all protein or more protein than carbs Protein - no carbs Egg 1 large - 6g Egg white 1 large 3.6g 3 oz is approximately the size of a deck of cards and equals 21 g protein so 4 oz is 28 gm protein Beef, Chicken, [place], Pork, Sultana 1 oz 7g Fish, Tuna Fish 1 oz 7g (Starkist tuna packet 2.6 oz 17 gm protein) Seafood (Crabmeat, Shrimp, Lobster) 1 oz 6g Protein shakes (read labels) Premier Protein or generic [employer] Equate, [facility] High Performance- 30g protein & 1g carb - meal replacement Premier Protein powder or generic- 30 gm protein, 1g carb Premier Protein plant protein powder - 25 gm protein, 0 sugar/2 carb Vanilla and chocolate (not a meal replacement) Fairlife 30 gram protein - 30g protein & 3g carb BOOST Glucose Control Max 30g Protein Nutritional Drink - 30g protein & 1 carb - meal replacement Slimfast High Protein - 20g protein & 1g carb Ensure Max Protein Nutrition Shake 30g protein & 2 carb Protein AND carbs Beef/[place] Jerky 1 oz dried 10-15g protein - check carb count, can be high if sugar added Slim Suman - 6 gm protein and 4 net carb Great Value original turkey sausage sticks - 7 gm protein and 2 gm carb Emily & Mayco (at [facility]) Original smoked sausage sticks - 8 gm protein and 0 carb Imitation Crab Meat 1 oz - 2g protein & 4g carb Milk, skim 2% or 1% 8 oz - 8g protein & 12g carb [place]ian yogurt Full Fat [place] Yogurt 1 cup - 20.4g protein & 9.1g carb 2% [place] Yogurt 1 cup - 22.7g protein & 9.1g carb 0% (fat-free) [place] Yogurt - 1 cup 24g protein & 9.3g carb Aldi Protein [place] yogurt single svg - 15g protein & 7g carb Chobani Zero Sugar single svg: - 12g protein & 5g carb Dannon [place] Light + Fit 1 single svg - 12g protein & 9g carb Oikos Pro single svg - 20g protein & 8g carb Oikos Triple Zero [place] Nonfat Yogurt 1 single svg - 15g protein & 7g carb :ratio, KETO Friendly Dairy Snack 1 single svg - 15g protein & 2g carb :ratio Protein 1 single svg - 25g protein & 8g carb Two Good Lowfat [place] Yogurt, Archie, Lower Sugar - 12g protein & 2g carb Yoplait Protein 1 single svg 15gm protein & 5gm carb Dairy Free - [place] unsweetened [place] almond/soy 15 gm protein & 3 gm carb Dairy Free - True Goodness by [facility] coconut-based yogurt alternative 1 gm protein 1 gm net carb 180 tyrese Cheese each oz Brie 5.9g protein & 0.1g carb Cheddar 7g protein & 0.4g carb Tristian 6.7g protein & 0.7g carb Cream Cheese 1.7g protein & 1.2g carb Feta 4g protein & 1.2g carb Mozzarella 6.3g protein & 0.6g carb Parmesan 10g protein & 0.9g carb Kyrgyz 7.6g protein & 1.5g carb Cottage Cheese 1/2 c Breakstone 2% 13g protein 7g carb Glenis 2% 13g protein 5 g carb Good Culture 2% 14g protein 3g carb Harris s Low Fat 12g protein & 4g carb Legumes Lentils cup 9g protein & 20g carb Mcnair beans cup 7g protein & 20g carb Kidney, Black, Likely, Cannellini beans cup 8g protein & 20g carb Soybeans 1/2 c 14g complete protein & 8.5g carb [place] milk, unsweetened 8 oz 1g protein & 2g carb Soy milk 8 oz 3.5g protein & 1.6g carb Tofu 1/2 cup 10g protein & 2.3g carb Peanut butter, natural 2 Tbsp 7-8g protein & 4g net carbs, 190 calories PB2 powder 2 Tbsp 6g protein & 5g carb Nuts and Seeds per oz Almonds - 5.9g protein & 6.1g carb [place] Nuts - 4.0g protein & 3.4g carb Cashews - 5.1g protein & 9.2g carb Hazelnuts - 4.2g protein & 4.7g carb Hemp seeds/hearts 3 T/30 gms - 9.5 gm complete protein and 2.5 gm carb Peanuts - 7g protein & 4.6g carb Pecans - 2.6g protein & 3.9g carb Pistachios - 5.8g protein & 7.8g carb Pumpkin Seeds - 6.9g protein & 5g carb [place] Seeds - 5.8g protein & 5.6g carb Walnuts - 4.3g protein & 3.8g carb Edamame Beans (soybean) snack 1 pack 11 gm complete protein 2 carb 5 (FIVE) gram carb vegetable options 1 cup raw OR cup cooked: Asparagus [place] sprouts Beets Broccoli Brussel sprouts Cabbage Carrots Cauliflower Celery [place] Eggplant Green beans Lettuce Peppers Snap peas Spaghetti squash Spinach Tomato Turnips Zucchini 15 gram carb vegetable options cup cooked corn or hominy corn on the cob, large (5 oz) cup cooked green peas 4.3 gm complete protein cup cooked mcnair beans 1 small potato or sweet potato cup cooked potato, plain cup cooked sweet potato, plain 1 cup winter squash (pumpkin, acorn, butternut) 1 cup marinara or pasta sauce - check label cup tomato juice cup tomato puree Beans, Seeds, Nuts cup cooked beans (kidney, payton, red, green, etc.) cup cooked lentils cup baked beans 4 tablespoons nut butter <15 gram carb fruit options Berries have the lowest sugar content 1/2 medium apple - 12.5 carbs 1/2 medium avocado - 6.5 gm carbs 1/2 medium banana - 15 carbs 1/2 cup blueberries - 11 carbs - may actually help you lose weight 1/2 cup fresh cherries -11 carbs 1 medium Theresa -9 carbs 1/2 cup fresh cranberries - 6.5 carbs 1/2 c grapes - 15 carbs 1/2 medium grapefruit - 10.5 carbs 1/2 cup diced honeydew melon - 8 carbs 1 medium kiwi without skin - 11 carbs 1/2 cup sliced rosario -14 carbs 1 medium nectarine - 15 carbs 1 medium orange -15.5 carbs 1 medium peach -14.5 carbs 1/2 cup fresh pineapple -11 carbs 1 medium plum -7.5 carbs 1 prune - 6 carbs 1/4 c raisins - 31.25 carbs 1/2 cup raspberries -7.5 carbs 1/2 c strawberries - 12.7 carbs 1 medium tangerine -12 carbs 1/2 cup diced watermelon - 6 carbs Grains Brown rice 1/2 c 5.5g protein 24 carb White long-grain rice 1/2 c 2g protein 22.5 carb Quinoa 1/2 c 4 gm complete protein 25 carb Oatmeal, old fashioned 1/2 c 5g protein 27g carb High Protein Snack Ideas 1. Jerky 2. [place] mix without dried fruit 3. [place] roll-ups 4. [place] yogurt 5. Veggies and yogurt dip 6. Tuna 7. Hard-boiled eggs 8. Peanut butter with celery 9. Cheese slices/ Cheese Stick 10. Handful of almonds, peanuts or walnuts 11. Cottage Cheese 12. Beef sticks 13. Protein bars 14. Canned Sisters 15. Pumpkin seeds 16. Nut butter 17. Protein shakes 18. Avocado and chicken salad 19. Egg muffins 20. Leftover protein or lunch meat 21. 1/2 c blended cottage cheese or [place]ian yogurt with dry ranch/Mrs. Dash/herb seasoning mix to make protein dip 22. 1/2 c blended cottage cheese with 1 Tbsp sugar-free dry cheesecake pudding mix 12g protein 10 carb 23. Pudding - 1 30 gm protein shake with 1/2 pkg sugar-free pudding 4 svgs - 7.8 gm protein, 5 carbeach svg 24. SF Sunkist or Root Beer with 1-2 Tablespoons heavy whipping cream 25. Mini frozen dessert bites - layer protein yogurt, skinny syrup and crushed nuts and freeze The Role of Exercise in Weight Management No one can deny the psychological and physical benefits of exercise. Regular physical exercise aidsin stress reduction, blood sugar control, cholesterol reduction, and improved sleep. It s also beneficial for weight control. both aerobic and strength training is beneficial for weight control. The ACSM ([employer]) advises 200-300 minutes of moderate- intensity exercise to lose weight and sustain the loss. Aerobic exercise (walking, jogging, swimming, cycling) uses glucose (from glycogen) and triglycerides (from fat in storage) for energy. Strength or resistance training helps build muscle, which is more metabolic at rest than fat tissue. Both are beneficial to weight management. According to the 2018 Physical Activity Guidelines for Americans, Americans are advised to do a minimum of 30 minutes of physical activity most days of the week. This equates to 150 minutes of moderate activity or 75 minutes of vigorous exercise per week for general health. This should include bothaerobic and strength training exercises. However, without calorie restriction, this isn t enough for weight loss or weight maintenance in most people. Currently, 53 % of Americans over 18 do adequate aerobic exercise while only 23% get both aerobic and muscle-strengthening activity. Most [place] adults are still too sedentary. A sedentary lifestyle is associated with cardiovascular disease, type 2 diabetes, and certain types of cancer including endometrial, colon, and lung cancer. Which types of exercise aid in weight control? How much should I do? In addition to caloric restriction, both aerobic and strength training is beneficial for weight control. The ACSM ([employer]) advises 200-300 minutes of moderate-intensity exercise to lose weight and sustain the loss.Moderate-intensity exercises include brisk walking, jogging, using a rowing machine, or doing a 50-60 minute dance class. To installer soft top the level of intensity you should aim for, think of it this way: a person should be able to carry a conversation but not be able to sing. HIIT (high-intensity interval training) is one method of exercise that may be beneficial to those who are trying to lose weight and are short on time. One way to do HIIT involves doing high-intensityexercise (such as sprinting) for 60 seconds followed by 60 seconds of low-intensity exercise (walking) or rest. Exercises are repeated 8 times with rest for a few minutes, then repeated until 30 minutes of exercise is completed. A meta-analysis of 39 studies with 671 participants showed that HIIT reduced total, abdominal, and visceral fat mass in both men and women aged 38.8 +/- 14.4. Running was more effective than cycling in lowering total and visceral fat mass while low-intensity exercise (like walking) also resulted inabdominal and visceral fat loss. The latter took more time. HIIT training is typically done a few days a week. Individuals are advised to choose less intense exercises in between HIIT training days. More muscle matters! One of the biggest reasons (no pun intended) that adults gain weight over time is due to muscle loss. A comparison study of various methods of exercise was performed with older subjects with obesity.Subjects got randomly assigned to a weight control program along with one of four programs: aerobictraining, resistance training, combined aerobic and resistance training, or a control group (no treatment). The initial outcome was the change in Physical Performance Test Scores from the start to 6 months after the study began, while secondary outcomes included changes in body composition, bone mineral density, and physical function. There were 141 total subjects that finished the study. Physical Performance Test score was higher in the combination group than in the aerobic and resistance groups. Bodyweight decreased in all exercise groups (9%) but not in the control group. Lean mass and bone density were maintained the most in the combination and resistance groups. Strength also increased in the resistance training and combination training groups. As muscle is more metabolic than fat, maintaining muscle mass is important to long-term weight control. It s important for individuals who have been sedentary to check with their doctors before embarkingon a new exercise program. While HIIT training may be appropriate for younger individuals and/or those without comorbidities like cardiovascular disease, it s important to find an exercise that s enjoyable. Physical activities could include: Multiple bouts of moderately paced walking a few times per day. Use of an elliptical or rowing machine or a water aerobics class A walking video to use at home Playing tennis or pickleball Trying a regular or stationary bike or a spin class Joining a kickboxing or Sherrell class at a gym or rec center Resistance training may include: Use of stretch bands Multiple reps of small hand weights Use of nautilus machines A pilates class (in person or at home) [facility] of Present illness Narrative* Ana Monroy APRN.CNP - 03/24/2024 10:30 AM EST Documentation from previous visit of 12/24/2023 was copied and pasted, documentation has been reviewed and edited as necessary for today's visit. Patient Summary: Paco is a 48 year old Female who presents for follow-up evaluation of obesity/weight management to treat MICHELLE, BED, HTN,GERD and prevent co-morbidities. In our previous visits we have discussed lifestyle intervention including a nutrition recommendations and physical activity optimization. Her last office visit was 3 months ago. Assessment/plan from last visit: - Topiramate 50 mg 1000 and 1700 - no BED episodes - Phentermine 15 mg 1000 - Metformin 1 gm with lunch and dinner - Bupropion 150 24/hr Antihypertensive DC'd by PCP mild MICHELLE - auto CPAP Interval History constipation improved with Clementina-colace and colace- 2 apricot seeds a day and the oil in her belly button Diet recall 0800 - 1130 coffee with SF creamer B - 30 gm protein shake, drinks a lot of water S - none L - 1200 protein shake or Adkin's bar if home - 1 tuna pouch or [place] yogurt or 1 cup cottage cheese with fruit or salad with cheese and 1 HB egg and sometimes grilled chicken. S - HB eggs or deer bologna D - 6-8 pm 4 oz protein, unbreaded and grilled, varying vegetables, water S - rare- veg or deer bologna or nuts Fluids - coffee and water Exercise: 5-7,000 steps/daily Stress: stable Sleep: stable 7 hours on auto CPAP - more rested Weight loss since last vist: 3 lbs for total of 67 lbs Date: Weight: BMI: Medications: 03/24/2024 178 lb 31.04 12/24/2023 181 lb 31.56 09/24/2023 192 lb 33.48 topiramate 50 mg 06/17/2023 195 lb 33.84 03/26/2023 205 lb 35.43 WC 45 in 02/06/2023 211 lb 36.57 long-term phentermine 01/02/2023 217 lb 12/05/2022 226 lb 11/07/2022 233 lb Metformin 10/10/2022 239 lb Topiramate/phentermine 09/26/2022 245 lb 42.36 WC 50 in [place] body weight: 119 lb 7.6 oz (54.2 kg) Adjusted ideal body weight: 153 lb 11 oz (69.7 kg) Current contraception: vasectomy Phentermine Start date: ?10/10/2022 Start weight: ?239 lbs. Dose: 15mg capsule -- Patient reports suppression of her appetite and increase in satiety since starting -- Patient reports SE of constipation Topiramate Start date: ?10/10/2022 Start weight: ?239 lbs. Dose:25 mg, increased to bid 10/27/2022 -- Patient reports some suppression of her appetite and some increase in satiety since -- Patient reports no side effects after starting topiramate Metformin Start date: ?11/07/2022 Start weight: ?233 lbs. Dose:1.5 gm at dinner - increased to 1 gm twice a day -- Patient reports suppression of appetite and increase in satiety since starting -- Patient reports no side effects after starting metformin CrCl cannot be calculated (Patient's most recent lab result is older than the maximum 180 days allowed.). PAST MEDICAL HISTORY Diagnosis Date Acid reflux Binge eating disorder Depression Endometriosis, site unspecified Endometriosis Essential hypertension Obesity MICHELLE on CPAP auto CPAP PMH - PAST MEDICAL HISTORY OF INTERSTITIAL CYSTITIS Snoring Urinary calculus, unspecified Renal stones Current Outpatient Medications Medication Sig Dispense Refill Phentermine HCl 15 mg capsule Take 1 capsule by mouth daily before breakfast for 90 days. 90 capsule 0 topiramate (TOPAMAX) 50 mg tablet Take 1 tablet by mouth two times a day. 180 tablet 1 metFORMIN (GLUCOPHAGE) 1,000 mg tablet Take 1 tablet by mouth two times a day with meals. 180 tablet 1 buPROPion XL (WELLBUTRIN XL) 150 mg 24 hr tablet biotin 1 mg cap Take by mouth once daily. desmopressin acetate (DDAVP) 0.2 mg tablet Take 0.1 mg by mouth daily at bedtime. 2 tabs GEMTESA 75 mg tablet Take 75 mg by mouth once daily. omeprazole (PRILOSEC) 20 mg capsule Take by mouth q 24 HR. cholecalciferol, vitamin D3, (VITAMIN D3 ORAL) Take by mouth once daily. DULoxetine (CYMBALTA) 60 mg capsule Take 60 mg by mouth once daily. (Patient not taking: Reported on 09/24/2023) multivitamins(DAILY MULTIPLE TAB) Take one(1) tablet daily. 0 No current facility-administered medications for this visit. Current contraception: vasectomy ROS pertinent Chest pain: yes, occasional palpitations HTN: yes well-controlled with medication GI: GERD:yes well-controlled with PPI MSK: Joint Pain:yes, knees : Nephrolithiasis: yes - once age 13 BP 120/74 Pulse 81 Wt 80.7 kg (178 lb) LMP 05/05/2016 SpO2 99% BMI 31.04 kg/m Paco Ross is a 48 year old yo with Class III obesity who presented today for follow up forsupervised weight loss to treat MICHELLE, BED, HTN,GERD and prevent co-morbidities. ASSESSMENT/PLAN: 1. MICHELLE on CPAP - ICD9: 327.23, V46.8, ICD10: G47.33 (primary diagnosis) - mild, treatment with auto CPAP - TOPIRAMATE 50 MG TABLET - PHENTERMINE 15 MG CAPSULE - METFORMIN ER 500 MG TABLET,EXTENDED RELEASE 24 HR 2. Essential hypertension - ICD9: 401.9, ICD10: I10 - All anti-hypertensive medication discontinued. - continue weight loss - TOPIRAMATE 50 MG TABLET - PHENTERMINE 15 MG CAPSULE - METFORMIN ER 500 MG TABLET,EXTENDED RELEASE 24 HR 3. Gastroesophageal reflux disease without esophagitis - ICD9: 530.81, ICD10: K21.9 - well-controlled - Continue omeprazole - TOPIRAMATE 50 MG TABLET - PHENTERMINE 15 MG CAPSULE - METFORMIN ER 500 MG TABLET,EXTENDED RELEASE 24 HR 4. IFG (impaired fasting glucose) - ICD9: 790.21, ICD10: R73.01 - METFORMIN ER 500 MG TABLET,EXTENDED RELEASE 24 HR 5. Binge eating disorder - ICD9: 307.50, ICD10: F50.81 in remission - TOPIRAMATE 50 MG TABLET 6. Other depression - ICD9: 311, ICD10: F32.89 - bupropion for depression and weaned off Cymbalta 7. Class 3 severe obesity with serious comorbidity and body mass index (BMI) of 40.0 to 44.9 in adult, unspecified obesity type (HCC) - ICD9: 278.01, V85.41, ICD10: E66.01, Z68.41 - weight loss of 67 lbs - TOPIRAMATE 50 MG TABLET twice daily with BED in remission - PHENTERMINE 15 MG CAPSULE Patient has met the weight loss requirement of 5% TBW in initial 3 months using phentermine withoutany adverse side effects. Pt has responded well and would like to continue use for weight management. She understands that continued use is off label for senior living management of weight control. The patient is currently enrolled in a diet and exercise program The patient has no known history of contraindications The patient is free from drug or ETHO abuse The patient is not or and is aware not to become while using this medication [place] was reviewed. PDMP website checked and validated. All prescriptions have been APPROPRIATELY filled. No suspicious activity was identified. - METFORMIN ER 500 MG TABLET,EXTENDED RELEASE 24 HR - 1 gm twice a day - continue Whole food balanced protein low-carb nutrition. Given protein/whole food vegetable and fruit/high protein snack lists. - Discussed holiday eating strategies. - Continue trying to increase exercise.to goal of 150-200 min/wk. Discussed and given information on the importance of exercise in weight loss. Follow up in 3 and 6 months. Ana Monroy APRN.CNP Advanced Education from the [employer] Medical Decision Making: Problems: Moderate: 1+ chronic illnesses with change and 2+ stable chronic illnesses Risk: Moderate: Drug management and Moderate risk from testing/treatment Medical Decision Making Level: 4 - Moderate documented in [facility] NoteHNO ID: [id number] Author: ANA MONROY APRN.CNP Service: ? Author Type: Nurse Practitioner Type: Progress Notes Filed: 03/24/2024 19:55 Note Text: Documentation from previous visit of 12/24/2023 was copied and pasted, documentation has been reviewed and edited as necessary for today's visit. Patient Summary: Paco is a 48 year old Female who presents for follow-up evaluation of obesity/weight management to treat MICHELLE, BED, HTN,GERD and prevent co-morbidities. In our previous visits we have discussed lifestyle intervention including a nutrition recommendations and physical activity optimization. Her last office visit was 3 months ago. Assessment/plan from last visit: - Topiramate 50 mg 1000 and 1700 - no BED episodes - Phentermine 15 mg 1000 - Metformin 1 gm with lunch and dinner - Bupropion 150 24/hr Antihypertensive DC'd by PCP mild MICHELLE - auto CPAP Interval History constipation improved with Clementina-colace and colace- 2 apricot seeds a day and the oil in her belly button Diet recall 0800 - 1130 coffee with SF creamer B - 30 gm protein shake, drinks a lot of water S - none L - 1200 protein shake or Adkin's bar if home - 1 tuna pouch or [place] yogurt or 1 cup cottage cheese with fruit or salad with cheese and 1 HB egg and sometimes grilled chicken. S - HB eggs or deer bologna D - 6-8 pm 4 oz protein, unbreaded and grilled, varying vegetables, water S - rare- veg or deer bologna or nuts Fluids - coffee and water Exercise: 5-7,000 steps/daily Stress: stable Sleep: stable 7 hours on auto CPAP - more rested Weight loss since last vist: 3 lbs for total of 67 lbs Date: Weight: BMI: Medications: 03/24/2024 178 lb 31.04 12/24/2023 181 lb 31.56 09/24/2023 192 lb 33.48 topiramate 50 mg 06/17/2023 195 lb 33.84 03/26/2023 205 lb 35.43 WC 45 in 02/06/2023 211 lb 36.57 long-term phentermine 01/02/2023 217 lb 12/05/2022 226 lb 11/07/2022 233 lb Metformin 10/10/2022 239 lb Topiramate/phentermine 09/26/2022 245 lb 42.36 WC 50 in [place] body weight: 119 lb 7.6 oz (54.2 kg) Adjusted ideal body weight: 153 lb 11 oz (69.7 kg) Current contraception: vasectomy Phentermine Start date: ?10/10/2022 Start weight: ?239 lbs. Dose: 15mg capsule -- Patient reports suppression of her appetite and increase in satiety since starting -- Patient reports SE of constipation Topiramate Start date: ?10/10/2022 Start weight: ?239 lbs. Dose:25 mg, increased to bid 10/27/2022 -- Patient reports some suppression of her appetite and some increase in satiety since -- Patient reports no side effects after starting topiramate Metformin Start date: ?11/07/2022 Start weight: ?233 lbs. Dose:1.5 gm at dinner - increased to 1 gm twice a day -- Patient reports suppression of appetite and increase in satiety since starting -- Patient reports no side effects after starting metformin CrCl cannot be calculated (Patient's most recent lab result is older than the maximum 180 days allowed.). PAST MEDICAL HISTORY Diagnosis Date Acid reflux Binge eating disorder Depression Endometriosis, site unspecified Endometriosis Essential hypertension Obesity MICHELLE on CPAP auto CPAP PMH - PAST MEDICAL HISTORY OF INTERSTITIAL CYSTITIS Snoring Urinary calculus, unspecified Renal stones Current Outpatient Medications Medication Sig Dispense Refill Phentermine HCl 15 mg capsule Take 1 capsule by mouth daily before breakfast for 90 days. 90 capsule 0 topiramate (TOPAMAX) 50 mg tablet Take 1 tablet by mouth two times a day. 180 tablet 1 metFORMIN (GLUCOPHAGE) 1,000 mg tablet Take 1 tablet by mouth two times a day with meals. 180 tablet 1 buPROPion XL (WELLBUTRIN XL) 150 mg 24 hr tablet biotin 1 mg cap Take by mouth once daily. desmopressin acetate (DDAVP) 0.2 mg tablet Take 0.1 mg by mouth daily at bedtime. 2 tabs GEMTESA 75 mg tablet Take 75 mg by mouth once daily. omeprazole (PRILOSEC) 20 mg capsule Take by mouth q 24 HR. cholecalciferol, vitamin D3, (VITAMIN D3 ORAL) Take by mouth once daily. DULoxetine (CYMBALTA) 60 mg capsule Take 60 mg by mouth once daily. (Patient not taking: Reported on 09/24/2023) multivitamins(DAILY MULTIPLE TAB) Take one(1) tablet daily. 0 No current facility-administered medications for this visit. Current contraception: vasectomy ROS pertinent Chest pain: yes, occasional palpitations HTN: yes well-controlled with medication GI: GERD:yes well-controlled with PPI MSK: Joint Pain:yes, knees : Nephrolithiasis: yes - once age 13 BP 120/74 Pulse 81 Wt 80.7 kg (178 lb) LMP 05/05/2016 SpO2 99% BMI 31.04 kg/m? Paco Ross is a 48 year old yo with Class III obesity who presented today for follow up for supervised weight loss to treat MICHELLE, BED, HTN,GERD and prevent co-morbidities. ASSESSMENT/PLAN: 1. MICHELLE on CPAP - ICD9: 327.23, V46.8, ICD10: G47.33 (primary diagnosis) - mild, treatment with auto CPAP - TOPIRAMA (more content not included)...[facility]08-30-[facility]24 Attending History and physical note* Amparo Vera MD - 01/08/2024 9:45 AM EDT UPDATED PROCEDURAL SEDATION HISTORY AND PHYSICAL EXAMINATION SERVICE DATE: 01/08/2024 SERVICE TIME: 8:22 PHYSICAL EXAM MUST BE COMPLETED ON ADMISSION PROCEDURE: colonosocpy, possible biopsies Procedure Indications: screning for colon cacer The History and Physical (completed in the past 30 days) has been reviewed and the patient has beenexamined. The contents accurately reflect the patient's condition with the following additions or revisions since the H&P was completed. ASA Class: ASA Class: Patient with mild systemic disease Examination indicates no changes. AIRWAY: Airway Visualization of Uvula: Yes Mouth opening greater than 2 fingerbreadths: Yes Neck Full Range of Motion: Yes LUNGS: Lungs clear to auscultation CARDIAC: Regular rhythm,Regular rate Provisional Diagnosis/Treatment Plan: colonoscopy, possible biosies Sedation Goal: Moderate This H&P can be found in the Electronic Medical Record. SIGNATURE: Amparo Vera MD PATIENT NAME: Paco Ross DATE: January 08, 2024 TIME: 8:22 AM Source Note - Amparo Vera MD - 01/08/2024 9:45 AM EDT HISTORY AND PHYSICAL Paco Ross 1975 REFERRING PHYSICIAN: Pascual Mccall CNP CHIEF COMPLAINT: Consult (colonoscopy) HPI: The patient is a 48 year old female presents for screening for colon cancer via colonoscopy She had a colonoscopy in 2018 with findings of hyperplastic polyp. Her mother had colon polyps. She notes no family history of colon cancer The patient denies blood in stools, denies abdominal pain, and denies changes in bowel habits. Patient's medical issues include hypertension and MICHELLE. BMI is 34. She is an ASA III PAST MEDICAL HISTORY PAST MEDICAL HISTORY Diagnosis Date Acid reflux Binge eating disorder Depression Endometriosis, site unspecified Endometriosis Essential hypertension Obesity MICHELLE on CPAP auto CPAP PMH - PAST MEDICAL HISTORY OF INTERSTITIAL CYSTITIS Snoring Urinary calculus, unspecified Renal stones PAST SURGICAL HISTORY PAST SURGICAL HISTORY Procedure Laterality Date CATH & SALINE/CONTRAST SONOHYSTER/HYSTEROSALPI COLONOSCOPY 02/24/2018 COLONOSCOPY FLX DX W/COLLJ SPEC WHEN PFRMD 03/03/2013 Colonoscopy CYSTOURETHROSCOPY Cystoscopy DILATION & CURETTAGE DX&/THER NONOBSTETRIC 2000 Dilation & curettage DILATION & CURETTAGE DX&/THER NONOBSTETRIC 2004 Dilation & curettage EXTRACTION, ERUPTED TOOTH OR EXPOSED ROOT (ELEVATION AND/OR FORCEPS REMOVAL) 1991 LAPS ABD PRTM&OMENTUM DX W/WO SPEC BR/WA SPX 1996 Laparoscopy LAPS ABD PRTM&OMENTUM DX W/WO SPEC BR/WA SPX 2005 Laparoscopy,REMOVAL OF ADHESIONS & ENDOMETRIOSIS ADDISON 2011 THERMAL ENDOMETRIAL ABLATION CURRENT MEDICATIONS Current Outpatient Medications Medication Sig buPROPion XL (WELLBUTRIN XL) 150 mg 24 hr tablet Phentermine HCl 15 mg capsule Take 1 capsule by mouth daily before breakfast for 90 days. metFORMIN (GLUCOPHAGE) 1,000 mg tablet Take 1 tablet by mouth two times a day with meals. topiramate (TOPAMAX) 25 mg tablet Take 2 tablets by mouth daily at bedtime. biotin 1 mg cap Take by mouth once daily. desmopressin acetate (DDAVP) 0.2 mg tablet Take 0.1 mg by mouth daily at bedtime. 2 tabs GEMTESA 75 mg tablet Take 75 mg by mouth once daily. omeprazole (PRILOSEC) 20 mg capsule Take by mouth q 24 HR. cholecalciferol, vitamin D3, (VITAMIN D3 ORAL) Take by mouth once daily. DULoxetine (CYMBALTA) 60 mg capsule Take 60 mg by mouth once daily. multivitamins(DAILY MULTIPLE TAB) Take one(1) tablet daily. No current facility-administered medications for this visit. ALLERGIES: Morphine and Tape [Adhesive Tape (Rosins)] PERSONAL HISTORY: SOCIAL HISTORY Social History Tobacco Use Smoking status: Never Smokeless tobacco: Never Vaping Use Vaping Use: Never used Substance Use Topics Alcohol use: Yes Comment: occ Drug use: No FAMILY HISTORY FAMILY HISTORY Problem Relation Age of Onset Hypertension Mother Arthritis Mother Lipids Mother Obesity Mother Alzheimer's Disease Mother Heart disease Mother a fib Colon Polyps Mother Hypertension Father Obesity Father Heart disease Father Hypertension Sister Stroke Maternal Grandmother Alzheimer's Disease Maternal Grandmother Obesity Maternal Grandmother Colon Cancer Maternal Grandfather 50 Heart Paternal Grandfather CT Obesity Paternal Grandfather No Known Problems Daughter No Known Problems Son Colon Cancer Maternal Uncle 50 REVIEW OF SYSTEMS: Denies fevers Denies shortness of breath Denies chest pain PHYSICAL EXAMINATION: General: The patient is 48 year old female, well nourished, well hydrated in no acute distress. Thepatient is oriented to time, place, and person. VITALS: Blood pressure 114/72, pulse 93, temperature 36.2 C (97.2 F), height 161.3 cm (5' 3.5), weight 89.3 kg (196 lb 12.8 oz), last menstrual period 05/05/2016, SpO2 100%. Body mass index is 34.31kg/m . Head: Normal cephalic, atraumatic Eyes: pupils are equally round, sclera are clear/anicteric Neck is supple with no tracheal deviation Cardiac: normal heart sounds, regular Respiratory: Normal respiratory excursion and pattern. Abdominal exam: benign Extremities: no clubbing, cyanosis or edema. Neuro: non focal Psych: normal mood IMPRESSION: history of colon polyp PLAN: I have discussed the above with the patient. I have offered colonoscopy , possible biopsies I have explained the procedure to the patient. I have counseled the patient as to the risks of the procedure, including but not limited to: infection, bleeding, injury to any intrabdominal organs such as liver/spleen, perforation of the GI tract,inability to complete the procedure, complications of anesthesia, etc. - the patient understands. The patient wishes to proceed. I have answered all questions to the patient s satisfaction and the patient has no further questions. Diagnoses: (Z12.11) Screening for colon cancer (Z86.010) History of colonic polyps (Z68.34) BMI 34.0-34.9,adult [facility]08-30-2024 History and physical note* Amparo Vera MD - 01/08/2024 9:45 AM EDT HISTORY AND PHYSICAL Paco Ross 1975 REFERRING PHYSICIAN: Pascual Mccall CNP CHIEF COMPLAINT: Consult (colonoscopy) HPI: The patient is a 48 year old female presents for screening for colon cancer via colonoscopy She had a colonoscopy in 2018 with findings of hyperplastic polyp. Her mother had colon polyps. She notes no family history of colon cancer The patient denies blood in stools, denies abdominal pain, and denies changes in bowel habits. Patient's medical issues include hypertension and MICHELLE. BMI is 34. She is an ASA III PAST MEDICAL HISTORY PAST MEDICAL HISTORY Diagnosis Date Acid reflux Binge eating disorder Depression Endometriosis, site unspecified Endometriosis Essential hypertension Obesity MICHELLE on CPAP auto CPAP PMH - PAST MEDICAL HISTORY OF INTERSTITIAL CYSTITIS Snoring Urinary calculus, unspecified Renal stones PAST SURGICAL HISTORY PAST SURGICAL HISTORY Procedure Laterality Date CATH & SALINE/CONTRAST SONOHYSTER/HYSTEROSALPI COLONOSCOPY 02/24/2018 COLONOSCOPY FLX DX W/COLLJ SPEC WHEN PFRMD 03/03/2013 Colonoscopy CYSTOURETHROSCOPY Cystoscopy DILATION & CURETTAGE DX&/THER NONOBSTETRIC 2000 Dilation & curettage DILATION & CURETTAGE DX&/THER NONOBSTETRIC 2005 Dilation & curettage EXTRACTION, ERUPTED TOOTH OR EXPOSED ROOT (ELEVATION AND/OR FORCEPS REMOVAL) 1991 LAPS ABD PRTM&OMENTUM DX W/WO SPEC BR/WA SPX 1996 Laparoscopy LAPS ABD PRTM&OMENTUM DX W/WO SPEC BR/WA SPX 2005 Laparoscopy,REMOVAL OF ADHESIONS & ENDOMETRIOSIS ADDISON 2011 THERMAL ENDOMETRIAL ABLATION CURRENT MEDICATIONS Current Outpatient Medications Medication Sig buPROPion XL (WELLBUTRIN XL) 150 mg 24 hr tablet Phentermine HCl 15 mg capsule Take 1 capsule by mouth daily before breakfast for 90 days. metFORMIN (GLUCOPHAGE) 1,000 mg tablet Take 1 tablet by mouth two times a day with meals. topiramate (TOPAMAX) 25 mg tablet Take 2 tablets by mouth daily at bedtime. biotin 1 mg cap Take by mouth once daily. desmopressin acetate (DDAVP) 0.2 mg tablet Take 0.1 mg by mouth daily at bedtime. 2 tabs GEMTESA 75 mg tablet Take 75 mg by mouth once daily. omeprazole (PRILOSEC) 20 mg capsule Take by mouth q 24 HR. cholecalciferol, vitamin D3, (VITAMIN D3 ORAL) Take by mouth once daily. DULoxetine (CYMBALTA) 60 mg capsule Take 60 mg by mouth once daily. multivitamins(DAILY MULTIPLE TAB) Take one(1) tablet daily. No current facility-administered medications for this visit. ALLERGIES: Morphine and Tape [Adhesive Tape (Rosins)] PERSONAL HISTORY: SOCIAL HISTORY Social History Tobacco Use Smoking status: Never Smokeless tobacco: Never Vaping Use Vaping Use: Never used Substance Use Topics Alcohol use: Yes Comment: occ Drug use: No FAMILY HISTORY FAMILY HISTORY Problem Relation Age of Onset Hypertension Mother Arthritis Mother Lipids Mother Obesity Mother Alzheimer's Disease Mother Heart disease Mother a fib Colon Polyps Mother Hypertension Father Obesity Father Heart disease Father Hypertension Sister Stroke Maternal Grandmother Alzheimer's Disease Maternal Grandmother Obesity Maternal Grandmother Colon Cancer Maternal Grandfather 50 Heart Paternal Grandfather [address] Obesity Paternal Grandfather No Known Problems Daughter No Known Problems Son Colon Cancer Maternal Uncle 50 REVIEW OF SYSTEMS: Denies fevers Denies shortness of breath Denies chest pain PHYSICAL EXAMINATION: General: The patient is 48 year old female, well nourished, well hydrated in no acute distress. Thepatient is oriented to time, place, and person. VITALS: Blood pressure 114/72, pulse 93, temperature 36.2 C (97.2 F), height 161.3 cm (5' 3.5), weight 89.3 kg (196 lb 12.8 oz), last menstrual period 05/05/2016, SpO2 100%. Body mass index is 34.31kg/m . Head: Normal cephalic, atraumatic Eyes: pupils are equally round, sclera are clear/anicteric Neck is supple with no tracheal deviation Cardiac: normal heart sounds, regular Respiratory: Normal respiratory excursion and pattern. Abdominal exam: benign Extremities: no clubbing, cyanosis or edema. Neuro: non focal Psych: normal mood IMPRESSION: history of colon polyp PLAN: I have discussed the above with the patient. I have offered colonoscopy , possible biopsies I have explained the procedure to the patient. I have counseled the patient as to the risks of the procedure, including but not limited to: infection, bleeding, injury to any intrabdominal organs such as liver/spleen, perforation of the GI tract,inability to complete the procedure, complications of anesthesia, etc. - the patient understands. The patient wishes to proceed. I have answered all questions to the patient s satisfaction and the patient has no further questions. Diagnoses: (Z12.11) Screening for colon cancer (Z86.010) History of colonic polyps (Z68.34) BMI 34.0-34.9,adult [facility]08-30-2024 History and physical note* Amparo Vera MD - 01/08/2024 9:45 AM EDT UPDATED PROCEDURAL SEDATION HISTORY AND PHYSICAL EXAMINATION SERVICE DATE: 01/08/2024 SERVICE TIME: 8:22 PHYSICAL EXAM MUST BE COMPLETED ON ADMISSION PROCEDURE: colonosocpy, possible biopsies Procedure Indications: screning for colon cacer The History and Physical (completed in the past 30 days) has been reviewed and the patient has beenexamined. The contents accurately reflect the patient's condition with the following additions or revisions since the H&P was completed. ASA Class: ASA Class: Patient with mild systemic disease Examination indicates no changes. AIRWAY: Airway Visualization of Uvula: Yes Mouth opening greater than 2 fingerbreadths: Yes Neck Full Range of Motion: Yes LUNGS: Lungs clear to auscultation CARDIAC: Regular rhythm,Regular rate Provisional Diagnosis/Treatment Plan: colonoscopy, possible biosies Sedation Goal: Moderate This H&P can be found in the Electronic Medical Record. SIGNATURE: Amparo Vera MD PATIENT NAME: Paco Cifuentesford DATE: January 08, 2024 TIME: 8:22 AM Source Note - Amparo Vera MD - 01/08/2024 9:45 AM EDT HISTORY AND PHYSICAL Paco K Vandana 1975 REFERRING PHYSICIAN: Pascual Mccall CNP CHIEF COMPLAINT: Consult (colonoscopy) HPI: The patient is a 48 year old female presents for screening for colon cancer via colonoscopy She had a colonoscopy in 2018 with findings of hyperplastic polyp. Her mother had colon polyps. She notes no family history of colon cancer The patient denies blood in stools, denies abdominal pain, and denies changes in bowel habits. Patient's medical issues include hypertension and MICHELLE. BMI is 34. She is an ASA III PAST MEDICAL HISTORY PAST MEDICAL HISTORY Diagnosis Date Acid reflux Binge eating disorder Depression Endometriosis, site unspecified Endometriosis Essential hypertension Obesity MICHELLE on CPAP auto CPAP PMH - PAST MEDICAL HISTORY OF INTERSTITIAL CYSTITIS Snoring Urinary calculus, unspecified Renal stones PAST SURGICAL HISTORY PAST SURGICAL HISTORY Procedure Laterality Date CATH & SALINE/CONTRAST SONOHYSTER/HYSTEROSALPI COLONOSCOPY 02/24/2018 COLONOSCOPY FLX DX W/COLLJ SPEC WHEN PFRMD 03/03/2013 Colonoscopy CYSTOURETHROSCOPY Cystoscopy DILATION & CURETTAGE DX&/THER NONOBSTETRIC 2000 Dilation & curettage DILATION & CURETTAGE DX&/THER NONOBSTETRIC 2004 Dilation & curettage EXTRACTION, ERUPTED TOOTH OR EXPOSED ROOT (ELEVATION AND/OR FORCEPS REMOVAL) 1991 LAPS ABD PRTM&OMENTUM DX W/WO SPEC BR/WA SPX 1996 Laparoscopy LAPS ABD PRTM&OMENTUM DX W/WO SPEC BR/WA SPX 2005 Laparoscopy,REMOVAL OF ADHESIONS & ENDOMETRIOSIS ADDISON 2011 THERMAL ENDOMETRIAL ABLATION CURRENT MEDICATIONS Current Outpatient Medications Medication Sig buPROPion XL (WELLBUTRIN XL) 150 mg 24 hr tablet Phentermine HCl 15 mg capsule Take 1 capsule by mouth daily before breakfast for 90 days. metFORMIN (GLUCOPHAGE) 1,000 mg tablet Take 1 tablet by mouth two times a day with meals. topiramate (TOPAMAX) 25 mg tablet Take 2 tablets by mouth daily at bedtime. biotin 1 mg cap Take by mouth once daily. desmopressin acetate (DDAVP) 0.2 mg tablet Take 0.1 mg by mouth daily at bedtime. 2 tabs GEMTESA 75 mg tablet Take 75 mg by mouth once daily. omeprazole (PRILOSEC) 20 mg capsule Take by mouth q 24 HR. cholecalciferol, vitamin D3, (VITAMIN D3 ORAL) Take by mouth once daily. DULoxetine (CYMBALTA) 60 mg capsule Take 60 mg by mouth once daily. multivitamins(DAILY MULTIPLE TAB) Take one(1) tablet daily. No current facility-administered medications for this visit. ALLERGIES: Morphine and Tape [Adhesive Tape (Rosins)] PERSONAL HISTORY: SOCIAL HISTORY Social History Tobacco Use Smoking status: Never Smokeless tobacco: Never Vaping Use Vaping Use: Never used Substance Use Topics Alcohol use: Yes Comment: occ Drug use: No FAMILY HISTORY FAMILY HISTORY Problem Relation Age of Onset Hypertension Mother Arthritis Mother Lipids Mother Obesity Mother Alzheimer's Disease Mother Heart disease Mother a fib Colon Polyps Mother Hypertension Father Obesity Father Heart disease Father Hypertension Sister Stroke Maternal Grandmother Alzheimer's Disease Maternal Grandmother Obesity Maternal Grandmother Colon Cancer Maternal Grandfather 50 [address] Paternal Grandfather [address] Obesity Paternal Grandfather No Known Problems Daughter No Known Problems Son Colon Cancer Maternal Uncle 50 REVIEW OF SYSTEMS: Denies fevers Denies shortness of breath Denies chest pain PHYSICAL EXAMINATION: General: The patient is 48 year old female, well nourished, well hydrated in no acute distress. Thepatient is oriented to time, place, and person. VITALS: Blood pressure 114/72, pulse 93, temperature 36.2 C (97.2 F), height 161.3 cm (5' 3.5), weight 89.3 kg (196 lb 12.8 oz), last menstrual period 05/05/2016, SpO2 100%. Body mass index is 34.31kg/m . Head: Normal cephalic, atraumatic Eyes: pupils are equally round, sclera are clear/anicteric Neck is supple with no tracheal deviation Cardiac: normal heart sounds, regular Respiratory: Normal respiratory excursion and pattern. Abdominal exam: benign Extremities: no clubbing, cyanosis or edema. Neuro: non focal Psych: normal mood IMPRESSION: history of colon polyp PLAN: I have discussed the above with the patient. I have offered colonoscopy , possible biopsies I have explained the procedure to the patient. I have counseled the patient as to the risks of the procedure, including but not limited to: infection, bleeding, injury to any intrabdominal organs such as liver/spleen, perforation of the GI tract,inability to complete the procedure, complications of anesthesia, etc. - the patient understands. The patient wishes to proceed. I have answered all questions to the patient s satisfaction and the patient has no further questions. Diagnoses: (Z12.11) Screening for colon cancer (Z86.010) History of colonic polyps (Z68.34) BMI 34.0-34.9,adult * Amparo Vera MD - 01/08/2024 9:45 AM EDT HISTORY AND PHYSICAL Paco Ross 1975 REFERRING PHYSICIAN: Pascual Mccall CNP CHIEF COMPLAINT: Consult (colonoscopy) HPI: The patient is a 48 year old female presents for screening for colon cancer via colonoscopy She had a colonoscopy in 2018 with findings of hyperplastic polyp. Her mother had colon polyps. She notes no family history of colon cancer The patient denies blood in stools, denies abdominal pain, and denies changes in bowel habits. Patient's medical issues include hypertension and MICHELLE. BMI is 34. She is an ASA III PAST MEDICAL HISTORY PAST MEDICAL HISTORY Diagnosis Date Acid reflux Binge eating disorder Depression Endometriosis, site unspecified Endometriosis Essential hypertension Obesity MICHELLE on CPAP auto CPAP PMH - PAST MEDICAL HISTORY OF INTERSTITIAL CYSTITIS Snoring Urinary calculus, unspecified Renal stones PAST SURGICAL HISTORY PAST SURGICAL HISTORY Procedure Laterality Date CATH & SALINE/CONTRAST SONOHYSTER/HYSTEROSALPI COLONOSCOPY 02/24/2018 COLONOSCOPY FLX DX W/COLLJ SPEC WHEN PFRMD 03/03/2013 Colonoscopy CYSTOURETHROSCOPY Cystoscopy DILATION & CURETTAGE DX&/THER NONOBSTETRIC 2000 Dilation & curettage DILATION & CURETTAGE DX&/THER NONOBSTETRIC 2005 Dilation & curettage EXTRACTION, ERUPTED TOOTH OR EXPOSED ROOT (ELEVATION AND/OR FORCEPS REMOVAL) 1991 LAPS ABD PRTM&OMENTUM DX W/WO SPEC BR/WA SPX 1996 Laparoscopy LAPS ABD PRTM&OMENTUM DX W/WO SPEC BR/WA SPX 2006 Laparoscopy,REMOVAL OF ADHESIONS & ENDOMETRIOSIS ADDISON 2012 THERMAL ENDOMETRIAL ABLATION CURRENT MEDICATIONS Current Outpatient Medications Medication Sig buPROPion XL (WELLBUTRIN XL) 150 mg 24 hr tablet Phentermine HCl 15 mg capsule Take 1 capsule by mouth daily before breakfast for 90 days. metFORMIN (GLUCOPHAGE) 1,000 mg tablet Take 1 tablet by mouth two times a day with meals. topiramate (TOPAMAX) 25 mg tablet Take 2 tablets by mouth daily at bedtime. biotin 1 mg cap Take by mouth once daily. desmopressin acetate (DDAVP) 0.2 mg tablet Take 0.1 mg by mouth daily at bedtime. 2 tabs GEMTESA 75 mg tablet Take 75 mg by mouth once daily. omeprazole (PRILOSEC) 20 mg capsule Take by mouth q 24 HR. cholecalciferol, vitamin D3, (VITAMIN D3 ORAL) Take by mouth once daily. DULoxetine (CYMBALTA) 60 mg capsule Take 60 mg by mouth once daily. multivitamins(DAILY MULTIPLE TAB) Take one(1) tablet daily. No current facility-administered medications for this visit. ALLERGIES: Morphine and Tape [Adhesive Tape (Rosins)] PERSONAL HISTORY: SOCIAL HISTORY Social History Tobacco Use Smoking status: Never Smokeless tobacco: Never Vaping Use Vaping Use: Never used Substance Use Topics Alcohol use: Yes Comment: occ Drug use: No FAMILY HISTORY FAMILY HISTORY Problem Relation Age of Onset Hypertension Mother Arthritis Mother Lipids Mother Obesity Mother Alzheimer's Disease Mother Heart disease Mother a fib Colon Polyps Mother Hypertension Father Obesity Father Heart disease Father Hypertension Sister Stroke Maternal Grandmother Alzheimer's Disease Maternal Grandmother Obesity Maternal Grandmother Colon Cancer Maternal Grandfather 50 [address] Paternal Grandfather [address] Obesity Paternal Grandfather No Known Problems Daughter No Known Problems Son Colon Cancer Maternal Uncle 50 REVIEW OF SYSTEMS: Denies fevers Denies shortness of breath Denies chest pain PHYSICAL EXAMINATION: General: The patient is 48 year old female, well nourished, well hydrated in no acute distress. Thepatient is oriented to time, place, and person. VITALS: Blood pressure 114/72, pulse 93, temperature 36.2 C (97.2 F), height 161.3 cm (5' 3.5), weight 89.3 kg (196 lb 12.8 oz), last menstrual period 05/05/2016, SpO2 100%. Body mass index is 34.31kg/m . Head: Normal cephalic, atraumatic Eyes: pupils are equally round, sclera are clear/anicteric Neck is supple with no tracheal deviation Cardiac: normal heart sounds, regular Respiratory: Normal respiratory excursion and pattern. Abdominal exam: benign Extremities: no clubbing, cyanosis or edema. Neuro: non focal Psych: normal mood IMPRESSION: history of colon polyp PLAN: I have discussed the above with the patient. I have offered colonoscopy , possible biopsies I have explained the procedure to the patient. I have counseled the patient as to the risks of the procedure, including but not limited to: infection, bleeding, injury to any intrabdominal organs such as liver/spleen, perforation of the GI tract,inability to complete the procedure, complications of anesthesia, etc. - the patient understands. The patient wishes to proceed. I have answered all questions to the patient s satisfaction and the patient has no further questions. Diagnoses: (Z12.11) Screening for colon cancer (Z86.010) History of colonic polyps (Z68.34) BMI 34.0-34.9,adult [facility]* Katy Uribe RN - 01/08/2024 9:37 AM EDT pt arrived to phase 2 resting on left side. SR up x 2, call light in reach. Katy Uribe RN [facility]08-30-2024 Nurse Note* Katy Uribe RN - 01/08/2024 9:37 AM EDT pt arrived to phase 2 resting on left side. SR up x 2, call light in reach. Katy Uribe RN [facility] Note* Discharge Instr - Nursing - Katy Uribe RN - 01/08/2024 9:36 AM EDT The patient received a copy of Colonoscopy discharge instructions that contain information for how to contact the physician who performed the procedure and when to seek medical care. [facility]08-30-2024 Miscellaneous Notes* Discharge Instr - Nursing - Katy Uribe RN - 01/08/2024 9:36 AM EDT The patient received a copy of Colonoscopy discharge instructions that contain information for how to contact the physician who performed the procedure and when to seek medical care. [facility] Instructions* Patient Instructions* Ana Monroy APRN.CNP - 12/24/2023 9:40 AM EDT Constipation - Docusate sodium 200 mg or Clementina-colace 2 tablets at bedtime. Add Miralax in the morning as needed. [facility] in this encounter[facility] History of Present illness Narrative* Ana Monroy APRN.CNP - 12/24/2023 9:30 AM EDT Documentation from previous visit of 09/24/2023 was copied and pasted, documentation has been reviewed and edited as necessary for today's visit. Patient Summary: Paco is a 48 year old Female who presents for follow-up evaluation of obesity/weight management to treat MICHELLE, BED, HTN,GERD and prevent co-morbidities. In our previous visits we have discussed lifestyle intervention including a nutrition recommendations and physical activity optimization. Her last office visit was 3 months ago. Assessment/plan from last visit: Increased stress with care of mother mild MICHELLE - auto CPAP Binge eating, mild- BED was completely controlled with increased dose of Topiramate 50 mg 1000 and 1700 -Phentermine 15 mg 1000 -Metformin 1 gm with lunch and dinner Antihypertensive DC'd by PCP Cymbalta weaned completely last month. -Bupropion 150 24/hr Continues with constipation - 2 apricot seeds a day and the oil in her belly button Vacation - aware of protein, lots of seafood, protein shake in am. Missed a few phentermine doses and was more hungry. Interval History 0800 - 1130 coffee with SF creamer B - skip 3 days a week OR protein shake if not working, drinks a lot of water S - carrots or raw vegetable with her protein shake/[employer] regular yogurt if at work L - 1200 protein shake or Adkin's bar if home - tuna pouch or [place]ian yogurt with fruit or salad withcheese. Has been eating tomato sandwich on wheat bread with guzman with protein. Occasionally eats out. S - HB eggs or deer bologna D - 1900 - 2100 4 oz protein, unbreaded and grilled, varying vegetables, water S - 2/7 days - laughing cow cheese. [place] zero sugar romario lite beer Fluids - coffee and water Exercise: 5-7,000 steps/daily Stress: stable Sleep: stable 7 hours on auto CPAP - more rested Weight loss since last vist: 11 lbs for total of 64 lbs Date: Weight: BMI: Medications: 12/24/2023 181 lb 31.56 09/24/2023 192 lb 33.48 topiramate 50 mg 06/17/2023 195 lb 33.84 03/26/2023 205 lb 35.43 WC 45 in 02/06/2023 211 lb 36.57 long-term phentermine 01/02/2023 217 lb 12/05/2022 226 lb 11/07/2022 233 lb Metformin 10/10/2022 239 lb 14.4 oz (108.8 kg) Topiramate/phentermine 09/26/2022 245 lb 42.36 WC 50 in [place] body weight: 119 lb 7.6 oz (54.2 kg) Adjusted ideal body weight: 153 lb 11 oz (69.7 kg) Current contraception: vasectomy Phentermine Start date: ?10/10/2022 Start weight: ?239 lbs. Dose: 15mg capsule -- Patient reports suppression of her appetite and increase in satiety since starting -- Patient reports SE of constipation Topiramate Start date: ?10/10/2022 Start weight: ?239 lbs. Dose:25 mg, increased to bid 10/27/2022 -- Patient reports some suppression of her appetite and some increase in satiety since -- Patient reports no side effects after starting topiramate Metformin Start date: ?11/07/2022 Start weight: ?233 lbs. Dose:1.5 gm at dinner - increased to 1 gm twice a day -- Patient reports suppression of appetite and increase in satiety since starting -- Patient reports no side effects after starting metformin CrCl cannot be calculated (Patient's most recent lab result is older than the maximum 180 days allowed.). PAST MEDICAL HISTORY No date: Acid reflux No date: Binge eating disorder No date: Depression No date: Endometriosis, site unspecified Comment: Endometriosis No date: Essential hypertension No date: Obesity No date: MICHELLE on CPAP Comment: auto CPAP No date: PMH - PAST MEDICAL HISTORY OF Comment: INTERSTITIAL CYSTITIS No date: Snoring No date: Urinary calculus, unspecified Comment: Renal stones Current Outpatient Medications Medication Sig Dispense Refill topiramate (TOPAMAX) 50 mg tablet Take 1 tablet by mouth two times a day. 180 tablet 1 metFORMIN (GLUCOPHAGE) 1,000 mg tablet Take 1 tablet by mouth two times a day with meals. 180 tablet 1 Phentermine HCl 15 mg capsule Take 1 capsule by mouth daily before breakfast for 90 days. 90 capsule 0 buPROPion XL (WELLBUTRIN XL) 150 mg 24 hr tablet biotin 1 mg cap Take by mouth once daily. desmopressin acetate (DDAVP) 0.2 mg tablet Take 0.1 mg by mouth daily at bedtime. 2 tabs GEMTESA 75 mg tablet Take 75 mg by mouth once daily. omeprazole (PRILOSEC) 20 mg capsule Take by mouth q 24 HR. cholecalciferol, vitamin D3, (VITAMIN D3 ORAL) Take by mouth once daily. DULoxetine (CYMBALTA) 60 mg capsule Take 60 mg by mouth once daily. (Patient not taking: Reported on 09/24/2023) multivitamins(DAILY MULTIPLE TAB) Take one(1) tablet daily. 0 No current facility-administered medications for this visit. Current contraception: vasectomy ROS pertinent Chest pain: yes, occasional palpitations HTN: yes well-controlled with medication GI: GERD:yes well-controlled with PPI MSK: Joint Pain:yes, knees : Nephrolithiasis: yes - once age 13 BP 110/74 Pulse 76 Wt 82.1 kg (181 lb) LMP 05/05/2016 SpO2 97% BMI 31.56 kg/m Paco Ross is a 48 year old yo with Class III obesity who presented today for follow up forsupervised weight loss to treat MICHELLE, BED, HTN,GERD and prevent co-morbidities. ASSESSMENT/PLAN: 1. MICHELLE on CPAP - ICD9: 327.23, V46.8, ICD10: G47.33 (primary diagnosis) - mild, treatment with auto CPAP - feels much more rested and getting 8 hours of sleep a night - PHENTERMINE 15 MG CAPSULE - METFORMIN 1 gm TABLET - Topiramate 25 mg bid 2. Essential hypertension - ICD9: 401.9, ICD10: I10 - All anti-hypertensive medication discontinued. Encouraged home BP monitoring. - continue weight loss - PHENTERMINE 15 MG CAPSULE - METFORMIN 1 gm TABLET - Topiramate 25 mg bid 3. Gastroesophageal reflux disease without esophagitis - ICD9: 530.81, ICD10: K21.9 - well-controlled - Continue omeprazole - PHENTERMINE 15 MG CAPSULE - METFORMIN 1 gm TABLET - Topiramate 25 mg bid 4. IFG (impaired fasting glucose) - ICD9: 790.21, ICD10: R73.01 - PHENTERMINE 15 MG CAPSULE - METFORMIN 1gm TABLET - Topiramate 5. Binge eating disorder - ICD9: 307.50, ICD10: F50.81 - Topiramate increased to 50 mg twice a day with good control 6. Other depression - ICD9: 311, ICD10: F32.89 - bupropion for depression and weaned off Cymbalta 7. Class 3 severe obesity with serious comorbidity and body mass index (BMI) of 40.0 to 44.9 in adult, unspecified obesity type (HCC) - ICD9: 278.01, V85.41, ICD10: E66.01, Z68.41 - weight loss of 50 lbs -- congratulated!! - Topiramate 50 mg twice daily - PHENTERMINE 15 MG CAPSULE Patient has met the weight loss requirement of 5% TBW in initial 3 months using phentermine withoutany adverse side effects. Pt has responded well and would like to continue use for weight management. 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 The patient is currently enrolled in a diet and exercise program The patient has no known history of contraindications The patient is free from drug or ETHO abuse The patient is not or and is aware not to become while using this medication OARS was reviewed. PDMP website checked and validated. All prescriptions have been APPROPRIATELY filled. No suspicious activity was identified. - METFORMIN 1 gm TABLET - 1 gm twice a day with meals - continue Whole food balanced protein low-carb nutrition. Reinforced adding protein to any snack with carbs. Given updated information on protein requirements for weight loss and lists. - Continue trying to increase exercise.to goal of 150-200 min/wk. Follow up in 3 months. Ana Monroy APRN.CNP Advanced Education from the [employer] Medical Decision Making: Problems: Moderate: 1+ chronic illnesses with change and 2+ stable chronic illnesses Risk: Moderate: Drug management and Moderate risk from testing/treatment Medical Decision Making Level: 4 - Moderate documented in [facility] NoteHNO ID: [id number] Author: ANA MONROY APRN.CNP Service: ? Author Type: Nurse Practitioner Type: Progress Notes Filed: 12/24/2023 09:59 Note Text: Documentation from previous visit of 09/24/2023 was copied and pasted, documentation has been reviewed and edited as necessary for today's visit. Patient Summary: Paco is a 48 year old Female who presents for follow-up evaluation of obesity/weight management to treat MICHELLE, BED, HTN,GERD and prevent co-morbidities. In our previous visits we have discussed lifestyle intervention including a nutrition recommendations and physical activity optimization. Her last office visit was 3 months ago. Assessment/plan from last visit: Increased stress with care of mother mild MICHELLE - auto CPAP Binge eating, mild- BED was completely controlled with increased dose of Topiramate 50 mg 1000 and 1700 -Phentermine 15 mg 1000 -Metformin 1 gm with lunch and dinner Antihypertensive DC'd by PCP Matthew weaned completely last month. -Bupropion 150 24/hr Continues with constipation - 2 apricot seeds a day and the oil in her belly button Vacation - aware of protein, lots of seafood, protein shake in am. Missed a few phentermine doses and was more hungry. Interval History 0800 - 1130 coffee with SF creamer B - skip 3 days a week OR protein shake if not working, drinks a lot of water S - carrots or raw vegetable with her protein shake/Aldi regular yogurt if at work L - 1200 protein shake or Adkin's bar if home - tuna pouch or Bel[place]ian yogurt with fruit or salad with cheese. Has been eating tomato sandwich on wheat bread with guzman with protein. Occasionally eats out. S - HB eggs or deer bolsallya D - 1900 - 2100 4 oz protein, unbreaded and grilled, varying vegetables, water S - 2/7 days - laughing cow cheese. [place] zero sugar romario lite beer Fluids - coffee and water Exercise: 5-7,000 steps/daily Stress: stable Sleep: stable 7 hours on auto CPAP - more rested Weight loss since last vist: 11 lbs for total of 64 lbs Date: Weight: BMI: Medications: 12/24/2023 181 lb 31.56 09/24/2023 192 lb 33.48 topiramate 50 mg 06/17/2023 195 lb 33.84 03/26/2023 205 lb 35.43 WC 45 in 02/06/2023 211 lb 36.57 long-term phentermine 01/02/2023 217 lb 12/05/2022 226 lb 11/07/2022 233 lb Metformin 10/10/2022 239 lb 14.4 oz (108.8 kg) Topiramate/phentermine 09/26/2022 245 lb 42.36 WC 50 in [place] body weight: 119 lb 7.6 oz (54.2 kg) Adjusted ideal body weight: 153 lb 11 oz (69.7 kg) Current contraception: vasectomy Phentermine Start date: ?10/10/2022 Start weight: ?239 lbs. Dose: 15mg capsule -- Patient reports suppression of her appetite and increase in satiety since starting -- Patient reports SE of constipation Topiramate Start date: ?10/10/2022 Start weight: ?239 lbs. Dose:25 mg, increased to bid 10/27/2022 -- Patient reports some suppression of her appetite and some increase in satiety since -- Patient reports no side effects after starting topiramate Metformin Start date: ?11/07/2022 Start weight: ?233 lbs. Dose:1.5 gm at dinner - increased to 1 gm twice a day -- Patient reports suppression of appetite and increase in satiety since starting -- Patient reports no side effects after starting metformin CrCl cannot be calculated (Patient's most recent lab result is older than the maximum 180 days allowed.). PAST MEDICAL HISTORY No date: Acid reflux No date: Binge eating disorder No date: Depression No date: Endometriosis, site unspecified Comment: Endometriosis No date: Essential hypertension No date: Obesity No date: MICHELLE on CPAP Comment: auto CPAP No date: PMH - PAST MEDICAL HISTORY OF Comment: INTERSTITIAL CYSTITIS No date: Snoring No date: Urinary calculus, unspecified Comment: Renal stones Current Outpatient Medications Medication Sig Dispense Refill topiramate (TOPAMAX) 50 mg tablet Take 1 tablet by mouth two times a day. 180 tablet 1 metFORMIN (GLUCOPHAGE) 1,000 mg tablet Take 1 tablet by mouth two times a day with meals. 180 tablet 1 Phentermine HCl 15 mg capsule Take 1 capsule by mouth daily before breakfast for 90 days. 90 capsule 0 buPROPion XL (WELLBUTRIN XL) 150 mg 24 hr tablet biotin 1 mg cap Take by mouth once daily. desmopressin acetate (DDAVP) 0.2 mg tablet Take 0.1 mg by mouth daily at bedtime. 2 tabs GEMTESA 75 mg tablet Take 75 mg by mouth once daily. omeprazole (PRILOSEC) 20 mg capsule Take by mouth q 24 HR. cholecalciferol, vitamin D3, (VITAMIN D3 ORAL) Take by mouth once daily. DULoxetine (CYMBALTA) 60 mg capsule Take 60 mg by mouth once daily. (Patient not taking: Reported on 09/24/2023) multivitamins(DAILY MULTIPLE TAB) Take one(1) tablet daily. 0 No current facility-administered medications for this visit. Current contraception: vasectomy ROS pertinent Chest pain: yes, occasional palpitations HTN: yes well-controlled with medication GI: GERD:yes well-controlled w (more content not included)...[facility]05-16-[facility] Instructions* Patient Instructions* Ana Monroy APRN.[facility] - 09/24/2023 10:52 AM EDT Add docusate sodium 200 mg at bedtime Topiramate 50 mg - first dose at 10 with phentermine and second dose about 1.5-2 hours before urgesto eat/binge start. Currently, you need a minimum of 104 gm protein daily for continued weight loss - Whole food low-carb diet with 30 g of protein 3 times a day and up to 30 g of carbs at lunch and dinner only. Meals - protein is a goal and carbohydrates are a limit Snacks - all protein or more protein than carbs Use tracking log as a worksheet and bring with you to your next appointment. Protein - no carbs Egg 1 large - 6g Egg white 1 large 3.6g 3 oz is approximately the size of a deck of cards and equals 21 g protein so 4 oz is 28 gm protein Beef, Chicken, [place], Pork, Sultana 1 oz 7g Fish, Tuna Fish 1 oz 7g (Starkist tuna packet 2.6 oz 17 gm protein) Seafood (Crabmeat, Shrimp, Lobster) 1 oz 6g Protein shakes (read labels) Premier Protein or generic [employer] Equate, [employer] High Performance- 30g protein & 1g carb - meal replacement Premier Protein powder or generic- 30 gm protein, 1g carb Premier Protein plant protein powder - 25 gm protein, 0 suger/2 carb Vanilla and chocolate (not a meal replacement) Fairlife 30 gram protein - 30g protein & 3g carb BOOST Glucose Control Max 30g Protein Nutritional Drink - 30g protein & 1 carb - meal replacement Slimfast High Protein - 20g protein & 1g carb Ensure Max Protein Nutrition Shake 30g protein & 2 carb Protein AND carbs Beef/[place]lin Jerky 1 oz dried 10-15g protein - check carb count, can be high if sugar added Slim Suman - 6 gm protein and 4 net carb Great Value original turkey sausage sticks - 7 gm protein and 2 gm carb Froylan (at [employer]) Original smoked sausage sticks - 8 gm protein and 0 carb Imitation Crab Meat 1 oz - 2g protein & 4g carb Milk, skim 2% or 1% 8 oz - 8g protein & 12g carb [place] yogurt Full Fat [place] Yogurt 1 cup - 20.4g protein & 9.1g carb 2% [place] Yogurt 1 cup - 22.7g protein & 9.1g carb 0% (fat-free) [place] Yogurt - 1 cup 24g protein & 9.3g carb Aldi Protein [place] yogurt single svg - 15g protein & 7g carb Chobani Zero Sugar single svg: - 11g protein & 5g carb Dannon Light + Fit 1 single svg - 12g protein & 9g carb Oikos Pro single svg - 20g protein & 8g carb Oikos Triple Zero [place] Nonfat Yogurt 1 single svg - 15g protein & 7g carb :ratio, KETO Friendly Dairy Snack 1 single svg - 15g protein & 2g carb :ratio Protein 1 single svg - 25g protein & 8g carb Two Good Lowfat [place] Yogurt, Archie, Lower Sugar - 12g protein & 2g carb Cheese each oz Brie 5.9g protein & 0.1g carb Cheddar Cheese 7g protein & 0.4g carb Mozzarella Cheese 6.3g protein & 0.6g carb Tristian Cheese 6.7g protein & 0.7g carb Parmesan Cheese 10g protein & 0.9g carb Cream Cheese 1.7g protein & 1.2g carb Feta 4g protein & 1.2g carb Kyrgyz Cheese 7.6g protein & 1.5g carb Harris s Low Fat Cottage Cheese 1/2cup 12g protein & 4g carb Legumes Lentils cup 9g protein & 20g carb Mcnair beans cup 7g protein & 20g carb Kidney, Black, Likely, Cannellini beans cup 8g protein & 20g carb Soybeans 1/2 c 14g complete protein & 8.5g carb Peanut butter, natural 2 Tbsp 7-8g protein & 4g net carbs, 190 calories PB2 powder 2 Tbsp 6g protein & 5g carb [place] milk, unsweetened 8 oz 1g protein & 2g carb Soy milk 8 oz 3.5g protein & 1.6g carb Tofu 1/2 cup 10g protein & 2.3g carb Nuts and Seeds per oz Pumpkin Seeds - 6.9g protein & 5g carb Almonds - 5.9g protein & 6.1g carb [place] Seeds - 5.8g protein & 5.6g carb Pistachios - 5.8g protein & 7.8g carb Cashews - 5.1g protein & 9.2g carb Walnuts - 4.3g protein & 3.8g carb Hazelnuts - 4.2g protein & 4.7g carb [place] Nuts - 4.0g protein & 3.4g carb Pecans - 2.6g protein & 3.9g carb Peanuts - 7g protein & 4.6g carb Hemp seeds 3 T/30 gms - 9.5 gm complete protein and 2.5 gm carb <15 gram carb fruit options Berries have the lowest sugar content 1/2 medium apple - 12.5 carbs 1/2 medium avocado - 6.5 gm carbs 1/2 medium banana - 15 carbs 1/2 cup blueberries - 11 carbs - may actually help you lose weight 1/2 cup fresh cherries -11 carbs 1 medium Theresa -9 carbs 1/2 cup fresh cranberries - 6.5 carbs 1/2 c grapes - 15 carbs 1/2 medium grapefruit - 10.5 carbs 1/2 cup diced honeydew melon - 8 carbs 1 medium kiwi without skin - 11 carbs 1/2 cup sliced rosario -14 carbs 1 medium nectarine - 15 carbs 1 medium orange -15.5 carbs 1 medium peach -14.5 carbs 1/2 cup fresh pineapple -11 carbs 1 medium plum -7.5 carbs 1 prune - 6 carbs 1/2 cup raspberries -7.5 carbs 1/2 c strawberries - 12.7 carbs 1 medium tangerine -12 carbs 1/2 cup diced watermelon - 6 carbs 5 (FIVE) gram carb vegetable options 1 cup raw OR cup cooked: Asparagus Laboy sprouts Broccoli Brussel sprouts Cabbage Carrots Cauliflower Celery [place] Eggplant Green beans Lettuce Peppers Snap peas Spaghetti squash Spinach Tomato Turnips Zucchini 15 gram carb vegetable options cup cooked corn or hominy corn on the cob, large (5 oz) cup cooked green peas 1 small potato or sweet potato cup cooked potato, plain cup cooked sweet potato, plain 1 cup winter squash (pumpkin, acorn, butternut) 1 cup marinara or pasta sauce - check label cup tomato juice cup tomato puree Beans, Seeds, Nuts cup cooked beans (kidney, payton, red, green, etc.) cup cooked lentils cup baked beans 4 tablespoons nut butter Grains Brown rice 1/2 c 5.5g protein 24 carb White long-grain rice 1/2 c 2g protein 22.5 carb Quinoa 1/2 c 4 gm complete protein 25 carb Oatmeal, old fashioned 1/2 c 5g protein 27g carb High Protein Snack Ideas 1. Jerky 2. [place] mix without dried fruit 3. [place] roll-ups 4. [place]ian yogurt 5. Veggies and yogurt dip 6. Tuna 7. Hard-boiled eggs 8. Peanut butter with celery 9. Cheese slices/ Cheese Stick 10. Handful of almonds, peanuts or walnuts 11. Cottage Cheese 12. Beef sticks 13. Protein bars 14. Canned Sisters 15. Pumpkin seeds 16. Nut butter 17. Protein shakes 18. Avocado and chicken salad 19. Egg muffins 20. Leftover protein or lunch meat 21. 1/2 c blended cottage cheese with 1 Tbsp sugar-free dry cheesecake pudding mix 12g protein 10 carb 22. Pudding - 1 30 gm protein shake with 1/2 pkg sugar-free pudding 4 svgs - 7.8 gm protein, 5 carbeach svg documented in [facility] History of Present illness Narrative* Ana Monroy APRN.[facility] - 09/24/2023 10:30 AM EDT Images from the original note were not included. Documentation from previous visit of 06/17/2023 was copied and pasted, documentation has been reviewed and edited as necessary for today's visit. Patient Summary: Paco is a 48 year old Female who presents for follow-up evaluation of obesity/weight management to treat MICHELLE, BED, HTN,GERD and prevent co-morbidities. In our previous visits we have discussed lifestyle intervention including a nutrition recommendations and physical activity optimization. Her last office visit was 3 months ago. Assessment/plan from last visit: Increased stress with care of mother mild MICHELLE - auto CPAP Binge eating, mild- BED was completely controlled but now starting to present with symptoms Topiramate 25 mg 1200 and 1600 Phentermine 15 mg 1000 Metformin 1 gm with lunch and dinner Continues with constipation - 2 apricot seeds a day and the oil in her belly button and has BM every other day Antihypertensive DC'd by PCP Cymbalta weaned completely last month. Bupropion 150 24/hr Interval History 0800 - 1130 coffee with SF creamer B - skip 3 days a week OR protein shake if not working, drinks a lot of water S - carrots or raw vegetable with her protein shake/Aldi regular yogurt if at work L - 1200 protein shake or Adkin's bar if home - tuna pouch or [place]ian yogurt with fruit or salad withcheese. Occasionally eats out. S - HB eggs or deer bologna D - 1900 - 2100 4 oz protein, unbreaded and grilled, varying vegetables, water S - 2/7 days - laughing cow cheese. [place] zero sugar romario lite beer Fluids - coffee and water Exercise: 5-7,000 steps/daily plans to increase with better weather Stress: increased Sleep: decreased up to 7 hours on auto CPAP - more rested Weight loss since last vist: 3 lbs for total of 53 lbs Date: Wt: 09/24/23 192 lb BMI 33.48 06/17/2023 195 lb BMI 33.84 03/26/23 205 lb BMI 35.43 WC 45 in 02/06/2023 211 lb BMI 36.57 long-term phentermine 01/02/2023 217 lb 12/05/2022 226 lb 11/07/2022 233 lb Metformin 10/10/2022 239 lb 14.4 oz (108.8 kg) Topiramate/phentermine 09/26/2022 245 lb BMI 42.36 WC 50 in [place] body weight: 119 lb 7.6 oz (54.2 kg) Adjusted ideal body weight: 153 lb 11 oz (69.7 kg) Current contraception: vasectomy Phentermine Start date: ?10/10/2022 Start weight: ?239 lbs. Dose: 15mg capsule -- Patient reports suppression of her appetite and increase in satiety since starting -- Patient reports SE of constipation Topiramate Start date: ?10/10/2022 Start weight: ?239 lbs. Dose:25 mg, increased to bid 10/27/2022 -- Patient reports some suppression of her appetite and some increase in satiety since -- Patient reports no side effects after starting topiramate Metformin Start date: ?11/07/2022 Start weight: ?233 lbs. Dose:1.5 gm at dinner - increased to 1 gm twice a day -- Patient reports suppression of appetite and increase in satiety since starting -- Patient reports no side effects after starting metformin CrCl cannot be calculated (Patient's most recent lab result is older than the maximum 180 days allowed.). PAST MEDICAL HISTORY Diagnosis Date Acid reflux Binge eating disorder Depression Endometriosis, site unspecified Endometriosis Essential hypertension Obesity MICHELLE on CPAP auto CPAP PMH - PAST MEDICAL HISTORY OF INTERSTITIAL CYSTITIS Snoring Urinary calculus, unspecified Renal stones Current Outpatient Medications Medication Sig Dispense Refill buPROPion XL (WELLBUTRIN XL) 150 mg 24 hr tablet metFORMIN (GLUCOPHAGE) 1,000 mg tablet Take 1 tablet by mouth two times a day with meals. 180 tablet 1 topiramate (TOPAMAX) 25 mg tablet Take 2 tablets by mouth daily at bedtime. 180 tablet 3 biotin 1 mg cap Take by mouth once daily. desmopressin acetate (DDAVP) 0.2 mg tablet Take 0.1 mg by mouth daily at bedtime. 2 tabs GEMTESA 75 mg tablet Take 75 mg by mouth once daily. omeprazole (PRILOSEC) 20 mg capsule Take by mouth q 24 HR. cholecalciferol, vitamin D3, (VITAMIN D3 ORAL) Take by mouth once daily. DULoxetine (CYMBALTA) 60 mg capsule Take 60 mg by mouth once daily. multivitamins(DAILY MULTIPLE TAB) Take one(1) tablet daily. 0 No current facility-administered medications for this visit. Current contraception: vasectomy ROS pertinent Chest pain: yes, occasional palpitations HTN: yes well-controlled with medication GI: GERD:yes well-controlled with PPI MSK: Joint Pain:yes, knees : Nephrolithiasis: yes - once age 13 BP 126/88 Pulse 69 Wt 192 lb (87.1 kg) LMP 05/05/2016 SpO2 100% BMI 33.48 kg/m Paco Ross is a 48 year old yo with Class III obesity who presented today for follow up forsupervised weight loss to treat MICHELLE, BED, HTN,GERD and prevent co-morbidities. ASSESSMENT/PLAN: 1. MICHELLE on CPAP - ICD9: 327.23, V46.8, ICD10: G47.33 (primary diagnosis) - mild, treatment with auto CPAP - feels much more rested and getting 8 hours of sleep a night - PHENTERMINE 15 MG CAPSULE - METFORMIN 1 gm TABLET - Topiramate 25 mg bid 2. Essential hypertension - ICD9: 401.9, ICD10: I10 - All anti-hypertensive medication has been discontinued. Encouraged home BP monitoring. - continue weight loss - PHENTERMINE 15 MG CAPSULE - METFORMIN 1 gm TABLET - Topiramate 25 mg bid 3. Gastroesophageal reflux disease without esophagitis - ICD9: 530.81, ICD10: K21.9 - well-controlled - Continue omeprazole - PHENTERMINE 15 MG CAPSULE - METFORMIN 1 gm TABLET - Topiramate 25 mg bid 4. IFG (impaired fasting glucose) - ICD9: 790.21, ICD10: R73.01 - PHENTERMINE 15 MG CAPSULE - METFORMIN 1gm TABLET - Topiramate 5. Binge eating disorder - ICD9: 307.50, ICD10: F50.81 - Topiramate increased to 50 mg twice a day due to restart of mild BED 6. Other depression - ICD9: 311, ICD10: F32.89 - bupropion for depression and weaned off Cymbalta - Encouraged home BP monitoring. 7. Class 3 severe obesity with serious comorbidity and body mass index (BMI) of 40.0 to 44.9 in adult, unspecified obesity type (HCC) - ICD9: 278.01, V85.41, ICD10: E66.01, Z68.41 - weight loss of 50 lbs -- congratulated!! - Topiramate increased to 50 mg twice daily for BED symptoms recurrence - PHENTERMINE 15 MG CAPSULE Patient has met the weight loss requirement of 5% TBW in initial 3 months using phentermine withoutany adverse side effects. Pt has responded well and would like to continue use for weight management. 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 The patient is currently enrolled in a diet and exercise program The patient has no known history of contraindications The patient is free from drug or ETHO abuse The patient is not or and is aware not to become while using this medication OARS was reviewed. PDMP website checked and validated. All prescriptions have been APPROPRIATELY filled. No suspicious activity was identified. - METFORMIN 1 gm TABLET - 1 gm twice a day with meals - continue Whole food balanced protein low-carb nutrition. Reinforced adding protein to any snack with carbs. Given updated information on protein requirements for weight loss and lists. - Continue trying to increase exercise.to goal of 150-200 min/wk. Follow up in 3 months. Ana Monroy APRN.[facility] Advanced Education from the Obesity [employer] Medical Decision Making: Problems: Moderate: 1+ chronic illnesses with change and 2+ stable chronic illnesses Risk: Moderate: Drug management and Moderate risk from testing/treatment Medical Decision Making Level: 4 - Moderate documented in this encounterB[facility] Telephone encounter Note * Telephone Encounter - Kate Jean - 09/08/2023 9:59 AM EDT 11/06/2023 colon asc [facility] Miscellaneous Notes* Telephone Encounter - Kate Jean - 09/08/2023 9:59 AM EDT 11/06/2023 colon asc documented in this encounterBrec[facility] Instructions* Patient Instructions* Amparo Vera MD - 09/08/2023 9:17 AM EDT Images from the original note were not included. Bowel Preparation Instructions for: Golytely, Nulytely, Trilyte or Colyte (polyethylene glycol 3350and electrolytes) IF YOU DO NOT FOLLOW THESE DIRECTIONS, YOUR COLONOSCOPY WILL BE CANCELLED. Bright Instructions: Your bowel must be empty so that your doctor can clearly view your colon. Follow all of the instructions in this handout EXACTLY as they are written. Do NOT eat any solid food the ENTIRE day before your colonoscopy. Drink only clear liquids. Buy your bowel preparation at least 5 days before your colonoscopy. TRANSPORTATION on the Day of Your Exam A responsible person MUST be present with you at Check In prior to your colonoscopy and REMAIN in the endoscopy area until you are discharged. You are NOT ALLOWED to drive, take a taxi or bus, or leave the Endoscopy Center ALONE. If you do not have a responsible van cdl driver (family member or friend) with you to take you home, your exam cannot be done with sedation and will be cancelled. Please bring a list of all of your current medications, including any Over-the Counter medications with you. Medications If you take insulin, diabetic medications or blood thinners such as Coumadin (warfarin), Plavix (clopidogrel), Ticlid (ticlopidine hydrochloride), Agrylin (anagrelide), Xarelto (Rivaroxaban), Pradaxa(Dabigatran), Eliquis (Apixaban), and Effient (Prasugrel). You MUST call the doctors who orders those medicines for instructions on altering the dosage before your colonoscopy. All other medications should be taken the day of the exam with a sip of water including ASPIRIN. Five (5) Days Before Your Colonoscopy Do NOT take medicines that stop diarrhea - such as Imodium, Kaopectate, or Pepto Bismol. Do NOT take fiber supplements - such as Metamucil, Citrucel, or Perdiem. Do NOT take products that contain iron - such as multi-vitamins (the label lists what is in the products). Do NOT take Vitamin E. Buy the prescription bowel preparation solution at your local pharmacy or drugstore pharmacy. 04/2019 Bowel Preparation Instructions for: Golytely, Nulytely, Trilyte or Colyte (polyethylene glycol 3350and electrolytes) Three (3) Days Before Your Colonoscopy Do NOT eat high-fiber foods - such as popcorn, beans, seeds (flax, sunflower, quinoa), multigrain bread, nuts, salad/vegetables, or fresh and dried fruit. One (1) Day Before Your Colonoscopy Only drink clear liquids the ENTIRE DAY before your colonoscopy. Do NOT eat any solid foods. Drink at least 8 ounces of clear liquids every hour after waking up. The clear liquids you can drink include: Clear Liquid (NO RED LIQUIDS) DO NOT DRINK Gatorade, Pedialyte or Powerade Clear broth or bouillon Coffee or tea (no milk or non-dairy creamer) Carbonated and non-carbonated soft drinks Allen-Aid or other fruit flavored drinks Strained fruit juices (no pulp) Jell-O, popsicles, hard candy Water Alcohol Milk or non-dairy creamers Noodles or vegetables in soup Juice with pulp Liquid you cannot see through Do not use tobacco/vaping products The bowel preparation solution will be consumed in two parts. Mix the solution the evening before your colonoscopy and refrigerate before drinking. You may add the flavor pack that came with the bowel preparation. Do NOT add ice, sugar or any other flavorings to the solution. Part 1 At 6:00 PM - Evening before your colonoscopy Drink an 8-oz glass of bowel preparation every 10 minutes for a total of 8 glasses. You may continue to drink clear liquids until midnight. Part 2 On the day of your colonoscopy you may drink clear liquids up to (three) 3 hours before your procedure. 4 1/2 hours before your colonoscopy Drink an 8-oz glass of bowel preparation every 10 minutes for a total of 8 glasses. Fifteen (15) minutes later, drink an 8-oz glass of clear liquids every 15 minutes for a total of 2 glasses. You may continue to drink clear liquids up to (three) 3 hours before your exam. 2 04/2019 [facility] History of Present illness Narrative* Amparo Vera MD - 09/08/2023 9:13 AM EDT HISTORY AND PHYSICAL Paco Ross 1975 REFERRING PHYSICIAN: Pascual Mccall CNP CHIEF COMPLAINT: Consult (colonoscopy) HPI: The patient is a 48 year old female presents for screening for colon cancer via colonoscopy She had a colonoscopy in 2018 with findings of hyperplastic polyp. Her mother had colon polyps. She notes no family history of colon cancer The patient denies blood in stools, denies abdominal pain, and denies changes in bowel habits. Patient's medical issues include hypertension and MICHELLE. BMI is 34. She is an ASA III PAST MEDICAL HISTORY Diagnosis Date Acid reflux Binge eating disorder Depression Endometriosis, site unspecified Endometriosis Essential hypertension Obesity MICHELLE on CPAP auto CPAP PMH - PAST MEDICAL HISTORY OF INTERSTITIAL CYSTITIS Snoring Urinary calculus, unspecified Renal stones PAST SURGICAL HISTORY Procedure Laterality Date CATH & SALINE/CONTRAST SONOHYSTER/HYSTEROSALPI COLONOSCOPY 02/24/2018 COLONOSCOPY FLX DX W/COLLJ SPEC WHEN PFRMD 03/03/2013 Colonoscopy CYSTOURETHROSCOPY Cystoscopy DILATION & CURETTAGE DX&/THER NONOBSTETRIC 2000 Dilation & curettage DILATION & CURETTAGE DX&/THER NONOBSTETRIC 2005 Dilation & curettage EXTRACTION, ERUPTED TOOTH OR EXPOSED ROOT (ELEVATION AND/OR FORCEPS REMOVAL) 1991 LAPS ABD PRTM&OMENTUM DX W/WO SPEC BR/WA SPX 1996 Laparoscopy LAPS ABD PRTM&OMENTUM DX W/WO SPEC BR/WA SPX 2005 Laparoscopy,REMOVAL OF ADHESIONS & ENDOMETRIOSIS ADDISON 2011 THERMAL ENDOMETRIAL ABLATION Current Outpatient Medications Medication Sig buPROPion XL (WELLBUTRIN XL) 150 mg 24 hr tablet Phentermine HCl 15 mg capsule Take 1 capsule by mouth daily before breakfast for 90 days. metFORMIN (GLUCOPHAGE) 1,000 mg tablet Take 1 tablet by mouth two times a day with meals. topiramate (TOPAMAX) 25 mg tablet Take 2 tablets by mouth daily at bedtime. biotin 1 mg cap Take by mouth once daily. desmopressin acetate (DDAVP) 0.2 mg tablet Take 0.1 mg by mouth daily at bedtime. 2 tabs GEMTESA 75 mg tablet Take 75 mg by mouth once daily. omeprazole (PRILOSEC) 20 mg capsule Take by mouth q 24 HR. cholecalciferol, vitamin D3, (VITAMIN D3 ORAL) Take by mouth once daily. DULoxetine (CYMBALTA) 60 mg capsule Take 60 mg by mouth once daily. multivitamins(DAILY MULTIPLE TAB) Take one(1) tablet daily. No current facility-administered medications for this visit. ALLERGIES: Morphine and Tape [Adhesive Tape (Rosins)] PERSONAL HISTORY: Social History Tobacco Use Smoking status: Never Smokeless tobacco: Never Vaping Use Vaping Use: Never used Substance Use Topics Alcohol use: Yes Comment: occ Drug use: No FAMILY HISTORY Problem Relation Age of Onset Hypertension Mother Arthritis Mother Lipids Mother Obesity Mother Alzheimer's Disease Mother Heart disease Mother a fib Colon Polyps Mother Hypertension Father Obesity Father Heart disease Father Hypertension Sister Stroke Maternal Grandmother Alzheimer's Disease Maternal Grandmother Obesity Maternal Grandmother Colon Cancer Maternal Grandfather 50 Heart Paternal Grandfather CT Obesity Paternal Grandfather No Known Problems Daughter No Known Problems Son Colon Cancer Maternal Uncle 50 REVIEW OF SYMPTOMS: The review of systems data was entered by the nurse and reviewed by me There are no exam notes on file for this visit. PHYSICAL EXAMINATION: General: The patient is 48 year old female, well nourished, well hydrated in no acute distress. Thepatient is oriented to time, place, and person. VITALS: Blood pressure 114/72, pulse 93, temperature 36.2 C (97.2 F), height 161.3 cm (5' 3.5), weight 89.3 kg (196 lb 12.8 oz), last menstrual period 05/05/2016, SpO2 100%. Body mass index is 34.31kg/m . Head: Normal cephalic, atraumatic Eyes: pupils are equally round, sclera are clear/anicteric Neck is supple with no tracheal deviation Cardiac: normal heart sounds, regular Respiratory: Normal respiratory excursion and pattern. Abdominal exam: benign Extremities: no clubbing, cyanosis or edema. Neuro: non focal Psych: normal mood Assessment IMPRESSION: history of colon polyp PLAN: I have discussed the above with the patient. I have offered colonoscopy , possible biopsies I have explained the procedure to the patient. I have counseled the patient as to the risks of the procedure, including but not limited to: infection, bleeding, injury to any intrabdominal organs such as liver/spleen, perforation of the GI tract,inability to complete the procedure, complications of anesthesia, etc. - the patient understands. The patient wishes to proceed. I have answered all questions to the patient s satisfaction and the patient has no further questions. My clinic staff has educated the patient as to the colon cleansing regimen and I have prescribed Golytely for the colon cleansing solution. The patient will be scheduled for the procedure at [facility]. Diagnoses: (Z12.11) Screening for colon cancer (Z86.010) History of colonic polyps (Z68.34) BMI 34.0-34.9,adult I have confirmed and edited as necessary, the PFSH and ROS obtained by others. Consultation requested by Pascual Mccall for an opinion regarding patient's history of colon polyp.My final recommendations will be communicated back to the requesting physician by way of shared Medical record or letter to requesting physician via US mail. Medical Decision Making: Problems: Low: Stable chronic illness Risk: Low: Low risk from testing/treatment Medical Decision Making Level: 3 - Low Amparo Vera MD documented in this encounterB[facility] Instructions* Patient Instructions* Ana Monroy APRN.GAURAV - 06/17/2023 7:28 AM EST Consider starting bupropion and weaning duloxetine. 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 Documentation from previous visit of 03/26/2023 was copied and pasted, documentation has been reviewed and edited as necessary for today's visit. Patient Summary: Paco is a 48 year old Female who presents for follow-up evaluation of obesity/weight management to treat MICHELLE, BED, HTN,GERD and prevent co-morbidities. In our previous visits we have discussed lifestyle intervention including a nutrition recommendations and physical activity optimization. Her last office visit was 3 months ago. Assessment/plan from last visit: Feeling great - has recently had many people notice weight loss Diagnosed with mild MICHELLE - started auto CPAP and is feeling more rested Binge eating, mild- no binging with topiramate Topiramate 25 mg 1200 and 1600 Phentermine 15 mg 1000 Metformin 1 gm with lunch and dinner Continues with constipation - 2 apricot seeds a day and the oil in her belly button and has BM every other day Antihypertensive DC's by PCP Matthew for depression Interval History 0800 coffee with zero calorie syrup B - skip 3 days a week OR protein shake if not working, drinks a lot of water S - carrots or raw vegetable with her protein shake if at work L - 1200 protein shake or bar if home - tuna pouch or Belarusian yogurt with fruit or salad with cheese.Occasionally eats out. S - not usually but occasionally deer bologna D - 1900 - 2100 4 oz protein, unbreaded and grilled, varying vegetables, water S - 2/7 days - laughing cow cheese. [place] zero sugar romario lite beer Fluids - coffee and water Exercise: 5-7,000 steps/daily plans to increase with better weather Stress: stable Sleep: up to 8 hours on auto CPAP - more rested Weight loss since last vist: 10 lbs for total of 50 lbs Date: Wt: 06/17/2023 195 lbs BMI 33.84 03/26/2023 205 lb BMI 35.43 WC 45 in 02/06/2023 211 lb BMI 36.57 long-term phentermine 01/02/2023 217 lb 12/05/2022 226 lb 11/07/2022 233 lb Metformin 10/10/2022 239 lb 14.4 oz (108.8 kg) Topiramate/phentermine 09/26/2022 245 lb BMI 42.36 WC 50 in [place] body weight: 119 lb 7.6 oz (54.2 kg) Adjusted ideal body weight: 153 lb 11 oz (69.7 kg) Current contraception: vasectomy Phentermine Start date: ?10/10/2022 Start weight: ?239 lbs. Dose: 15mg capsule -- Patient reports suppression of her appetite and increase in satiety since starting -- Patient reports SE of constipation Topiramate Start date: ?10/10/2022 Start weight: ?239 lbs. Dose:25 mg, increased to bid 10/27/2022 -- Patient reports some suppression of her appetite and some increase in satiety since -- Patient reports no side effects after starting topiramate Metformin Start date: ?11/07/2022 Start weight: ?233 lbs. Dose:1.5 gm at dinner - increased to 1 gm twice a day -- Patient reports suppression of appetite and increase in satiety since starting -- Patient reports no side effects after starting metformin CrCl cannot be calculated (Patient's most recent lab result is older than the maximum 180 days allowed.). PAST MEDICAL HISTORY Diagnosis Date Acid reflux Depression Endometriosis, site unspecified Endometriosis Essential hypertension MICHELLE on CPAP auto CPAP PMH - PAST MEDICAL HISTORY OF INTERSTITIAL CYSTITIS Snoring Urinary calculus, unspecified Renal stones Current Outpatient Medications Medication Sig Dispense Refill Phentermine HCl 15 mg capsule Take 1 capsule by mouth daily before breakfast for 90 days. 90 capsule 0 metFORMIN (GLUCOPHAGE) 1,000 mg tablet Take 1 tablet by mouth two times a day with meals. 180 tablet 1 topiramate (TOPAMAX) 25 mg tablet Take 2 tablets by mouth daily at bedtime. 180 tablet 3 biotin 1 mg cap Take by mouth once daily. desmopressin acetate (DDAVP) 0.2 mg tablet Take 0.1 mg by mouth daily at bedtime. 2 tabs GEMTESA 75 mg tablet Take 75 mg by mouth once daily. omeprazole (PRILOSEC) 20 mg capsule Take by mouth q 24 HR. cholecalciferol, vitamin D3, (VITAMIN D3 ORAL) Take by mouth once daily. DULoxetine (CYMBALTA) 60 mg capsule Take 60 mg by mouth once daily. multivitamins(DAILY MULTIPLE TAB) Take one(1) tablet daily. 0 No current facility-administered medications for this visit. Current contraception: vasectomy ROS pertinent Chest pain: yes, occasional palpitations HTN: yes well-controlled with medication GI: GERD:yes well-controlled with PPI MSK: Joint Pain:yes, knees : Nephrolithiasis: yes - once age 13 BP 112/72 Pulse 85 Wt 195 lb 12.8 oz (88.8 kg) LMP 05/05/2016 SpO2 99% BMI 33.84 kg/m Paco Ross is a 47 year old yo with Class III obesity who presented today for follow up forsupervised weight loss to treat MICHELLE, BED, HTN,GERD and prevent co-morbidities. ASSESSMENT/PLAN: 1. MICHELLE on CPAP - ICD9: 327.23, V46.8, ICD10: G47.33 (primary diagnosis) - mild, treatment with auto CPAP - feels much more rested and getting 8 hours of sleep a night - PHENTERMINE 15 MG CAPSULE - METFORMIN 1 gm TABLET - Topiramate 25 mg bid 2. Essential hypertension - ICD9: 401.9, ICD10: I10 - All anti-hypertensive medication has been discontinued - continue weight loss - PHENTERMINE 15 MG CAPSULE - METFORMIN 1 gm TABLET - Topiramate 25 mg bid 3. Gastroesophageal reflux disease without esophagitis - ICD9: 530.81, ICD10: K21.9 - Continue omeprazole - PHENTERMINE 15 MG CAPSULE - METFORMIN 1 gm TABLET - Topiramate 25 mg bid 4. IFG (impaired fasting glucose) - ICD9: 790.21, ICD10: R73.01 - PHENTERMINE 15 MG CAPSULE - METFORMIN 1gm TABLET - Topiramate 25 mg bid 5. Binge eating disorder - ICD9: 307.50, ICD10: F50.81 - In remission with topiramate 6. Other depression - ICD9: 311, ICD10: F32.89 - on Cymbalta. Plans to discuss trial of bupropion for depression and weaning off Cymbalta with PCP. 7. Class 3 severe obesity with serious comorbidity and body mass index (BMI) of 40.0 to 44.9 in adult, unspecified obesity type (HCC) - ICD9: 278.01, V85.41, ICD10: E66.01, Z68.41 - weight loss of 50 lbs -- congratulated!! - Topiramate 25 mg twice daily - PHENTERMINE 15 MG CAPSULE Patient has met the weight loss requirement of 5% TBW in initial 3 months using phentermine withoutany adverse side effects. Pt has responded well and would like to continue use for weight management. She understands that continued use is off label for senior living management of weight control. The patient is currently enrolled in a diet and exercise program The patient has no known history of contraindications The patient is free from drug or ETHO abuse The patient is not or and is aware not to become while using this medication OARS was reviewed. PDMP website checked and validated. All prescriptions have been APPROPRIATELY filled. No suspicious activity was identified. - METFORMIN 1 gm TABLET - 1 gm twice a day with meals - continue Whole food balanced protein low-carb nutrition. Reinforced adding protein to any snack with carbs - Continue trying to increase exercise. Follow up in 3 months. Ana Monroy APRN.CNP Advanced Education from the [employer] Medical Decision Making: Problems: Moderate: 1+ chronic illnesses with change Risk: Moderate: Moderate risk from testing/treatment and Drug management Medical Decision Making Level: 4 - Moderate documented in this encounterB[facility]11[facility] Instructions* Patient Instructions* Ana Monroy APRN.CNP - 03/26/2023 9:58 AM EST Protein - no carbs Egg 1 large - 6g Egg white 1 large 3.6g 3 oz is approximately the size of a deck of cards and equals 21 g protein Beef, Chicken, [place], Pork, Sultana 1 oz 7g Fish, Tuna Fish 1 oz 7g Seafood (Crabmeat, Shrimp, Lobster) 1 oz 6g Protein shakes (read labels) Premier Protein or generic WalMart Equate, Aldi Elevate, Meijer High Performance- 30g protein &1g carb - meal replacement Premier Protein plant protein powder - 25 gm protein, 0 suger/2 carb Vanilla and chocolate (not a meal replacement) Fairlife 30 gram protein - 30g protein & 3g carb BOOST Glucose Control Max 30g Protein Nutritional Drink - 30g protein & 1 carb - meal replacement Slimfast High Protein - 20g protein & 1g carb Ensure Max Protein Nutrition Shake 30g protein & 2 carb Protein AND carbs Beef/Franklin Jerky 1 oz dried 10-15g protein - check carb count, can be high if sugar added Slim Suman - 6 gm protein and 4 net carb Great Value original turkey sausage sticks - 7 gm protein and 2 gm carb Imitation Crab Meat 1 oz - 2g protein & 4g carb Milk, skim 2% or 1% 8 oz - 8g protein & 12g carb Bel[place]ian yogurt Full Fat [place] Yogurt 1 cup - 20.4g protein & 9.1g carb 2% [place] Yogurt 1 cup - 22.7g protein & 9.1g carb 0% (fat-free) [place]ian Yogurt - 1 cup 24g protein & 9.3g carb :ratio, KETO Friendly Dairy Snack 1 single svg - 15g protein & 2g carb :ratio Protein 1 single svg - 25g protein & 8g carb Dannon Light + Fit 1 single csvg - 12g protein & 9g carb Two Good Lowfat [place] Yogurt, Archie, Lower Sugar - 12g protein & 2g carb Oikos Triple Zero [place]ian Nonfat Yogurt 1 single svg - 15g protein & 7g carb Cheese each oz Brie 5.9g protein & 0.1g carb Cheddar Cheese 7g protein & 0.4g carb Mozzarella Cheese 6.3g protein & 0.6g carb Tristian Cheese 6.7g protein & 0.7g carb Parmesan Cheese 10g protein & 0.9g carb Cream Cheese 1.7g protein & 1.2g carb Feta 4g protein & 1.2g carb Kyrgyz Cheese 7.6g protein & 1.5g carb Harris s Low Fat Cottage Cheese 1/2cup 12g protein & 4g carb Legumes Lentils cup 9g protein & 20g carb Mcnair beans cup 7g protein & 20g carb Kidney, Black, Likely, Cannellini beans cup 8g protein & 20g carb Soybeans 1/2 c 14g protein & 8.5g carb Peanut butter, natural 2 Tbsp 7-8g protein & 4g net carbs, 190 calories [place] milk, unsweetened 8 oz 1g protein & 2g carb Soy milk 8 oz 3.5g protein & 1.6g carb Tofu 1/2 cup 10g protein & 2.3g carb Nuts and Seeds per oz Pumpkin Seeds - 6.9g protein & 5g carb Almonds - 5.9g protein & 6.1g carb [place] Seeds - 5.8g protein & 5.6g carb Pistachios - 5.8g protein & 7.8g carb Cashews - 5.1g protein & 9.2g carb Walnuts - 4.3g protein & 3.8g carb Hazelnuts - 4.2g protein & 4.7g carb [place] Nuts - 4.0g protein & 3.4g carb Pecans - 2.6g protein & 3.9g carb Peanuts - 7g protein & 4.6g carb <15 gram carb fruit options Berries have the lowest sugar content 1/2 cup diced honeydew melon - 8 carbs 1/2 cup diced watermelon - 6 carbs One half medium grapefruit - 10.5 carbs 1 medium orange -15.5 carbs 1 medium peach -14.5 carbs 1/2 cup fresh cranberries - 6.5 carbs 1 medium plum -7.5 carbs 1/2 cup raspberries -7.5 carbs 1 medium Theresa -9 carbs 1/2 cup fresh pineapple -11 carbs 1 medium nectarine - 15 carbs 1/2 cup blueberries - 11 carbs - may actually help you lose weight 1 medium kiwi without skin - 11 carbs 1/2 cup fresh cherries -11 carbs 1 medium tangerine -12 carbs 1/2 cup sliced rosario -14 carbs 1/2 medium banana 1/2 c grapes 1/2 medium apple - 12.5 carbs 1/2 c strawberries - 12.7 carbs 5 (FIVE) gram carb vegetable options 1 cup raw OR cup cooked: Asparagus Cabbage Spinach Peppers Green beans Carrots Tomato [place] Laboy sprouts Cauliflower Lettuce Snap peas Broccoli Eggplant Zucchini Turnips Spaghetti squash Brussel sprouts 15 gram carb vegetable options cup cooked green peas cup cooked corn or hominy corn on the cob, large (5 oz) cup cooked sweet potato, plain cup cooked potato, plain 1 small potato or sweet potato 1 cup winter squash (pumpkin, acorn, butternut) 1 cup marinara or pasta sauce - check label cup tomato juice cup tomato puree Beans, Seeds, Nuts cup cooked beans (kidney, payton, red, green, etc.) cup cooked lentils cup baked beans 4 tablespoons nut butter documented in this encounterBrecksville [facility]11-16-[facility] History of Present illness Narrative* Ana Monroy APRN.CNP - 03/26/2023 9:30 AM EST 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 Documentation from previous visit of 02/06/2023 was copied and pasted, documentation has been reviewed and edited as necessary for today's visit. Patient Summary: Paco is a 47 year old Female who presents for follow-up evaluation of obesity/weight management to treat MICHELLE, BED, HTN,GERD and prevent co-morbidities. In our previous visits we have discussed lifestyle intervention including a nutrition recommendations and physical activity optimization. Her last office visit was 4 weeks ago. Assessment/plan from last visit: Diagnosed with mild MICHELLE - started auto CPAP and is feeling more rested Binge eating, mild- no binging with topiramate Topiramate 25 mg 1200 and 1600 Phentermine 15 mg 1000 Metformin 1 gm with lunch and dinner Continues with constipation - Citrucel daily, occasionally Miralax in the mornings. BM every 2-3 days Antihypertensive DC's by PCP Matthew for depression - considering trying to wean in the future to try a different medication. Interval History 0800 coffee with zero calorie syrup B - skip 3 days a week OR protein shake if not working, drinks a lot of water S - none L - 1200 protein shake if skipped breakfast OR tuna pouch or Belarusian yogurt with fruit or salad with cheese S - if eating late dinner, may eat a protein bar, 15 protein and 4 net bars or HB egg or nuts D - 1900 - 2100 4 oz protein, unbreaded and grilled, varying vegetables, water S - 2/7 days - laughing cow cheese. Less wine cooler or lite beer Had sugar cookie in the evening a couple of days Fluids - coffee and water Exercise: 5-7,000 steps/daily Has walked a few times with sister. Stress: stable Sleep: up to 6-8 hours on auto CPAP - more rested Weight loss since last vist: 6 lbs for total of 40 lbs Date: Wt: 03/26/2023 205 lb BMI 35.43 WC 45 in 02/06/2023 211 lb BMI 36.57 long-term phentermine 01/02/2023 217 lb 12/05/2022 226 lb 11/07/2022 233 lb Metformin 10/10/2022 239 lb 14.4 oz (108.8 kg) Topiramate/phentermine 09/26/2022 245 lb BMI 42.36 WC 50 in Current contraception: vasectomy Phentermine Start date: ?10/10/2022 Start weight: ?239 lbs. Dose: 15mg capsule -- Patient reports suppression of her appetite and increase in satiety since starting -- Patient reports SE of constipation Topiramate Start date: ?10/10/2022 Start weight: ?239 lbs. Dose:25 mg, increased to bid 10/27/2022 -- Patient reports some suppression of her appetite and some increase in satiety since -- Patient reports no side effects after starting topiramate Metformin Start date: ?11/07/2022 Start weight: ?233 lbs. Dose:1.5 gm at dinner - increased to 1 gm twice a day -- Patient reports suppression of appetite and increase in satiety since starting -- Patient reports no side effects after starting metformin Estimated Creatinine Clearance: 106.6 mL/min (based on SCr of 0.71 mg/dL). PAST MEDICAL HISTORY Diagnosis Date Acid reflux Depression Endometriosis, site unspecified Endometriosis Essential hypertension MICHELLE on CPAP auto CPAP PMH - PAST MEDICAL HISTORY OF INTERSTITIAL CYSTITIS Snoring Urinary calculus, unspecified Renal stones Current Outpatient Medications Medication Sig Dispense Refill Phentermine HCl 15 mg capsule Take 1 capsule by mouth daily before breakfast for 60 days. 60 capsule 0 metFORMIN (GLUCOPHAGE) 500 mg tablet Take 2 tablets by mouth twice daily with meals. 360 tablet 0 topiramate (TOPAMAX) 25 mg tablet Take 2 tablets by mouth daily at bedtime. 180 tablet 3 biotin 1 mg cap Take by mouth once daily. desmopressin acetate (DDAVP) 0.2 mg tablet Take 0.1 mg by mouth daily at bedtime. 2 tabs GEMTESA 75 mg tablet Take 75 mg by mouth once daily. omeprazole (PRILOSEC) 20 mg capsule Take by mouth q 24 HR. cholecalciferol, vitamin D3, (VITAMIN D3 ORAL) Take by mouth once daily. DULoxetine (CYMBALTA) 60 mg capsule Take 60 mg by mouth once daily. multivitamins(DAILY MULTIPLE TAB) Take one(1) tablet daily. 0 No current facility-administered medications for this visit. Current contraception: vasectomy ROS pertinent Chest pain: yes, occasional palpitations HTN: yes well-controlled with medication GI: GERD:yes well-controlled with PPI MSK: Joint Pain:yes, knees : Nephrolithiasis: yes - once age 13 BP 124/82 Pulse 80 Wt 205 lb (93 kg) LMP 05/05/2016 SpO2 97% BMI 35.43 kg/m Paco Ross is a 47 year old yo with Class III obesity who presented today for follow up forsupervised weight loss to treat MICHELLE, BED, HTN,GERD and prevent co-morbidities. ASSESSMENT/PLAN: 1. MICHELLE on CPAP - ICD9: 327.23, V46.8, ICD10: G47.33 (primary diagnosis) - mild, treatment with auto CPAP - feels much more rested - PHENTERMINE 15 MG CAPSULE - METFORMIN 1 gm TABLET - Topiramate 25 mg bid 2. Essential hypertension - ICD9: 401.9, ICD10: I10 - PCP discontinued anti-hypertensive medication - continue weight loss - PHENTERMINE 15 MG CAPSULE - METFORMIN 1 gm TABLET - Topiramate 25 mg bid 3. Gastroesophageal reflux disease without esophagitis - ICD9: 530.81, ICD10: K21.9 - Continue omeprazole - PHENTERMINE 15 MG CAPSULE - METFORMIN 1 gm TABLET - Topiramate 25 mg bid 4. IFG (impaired fasting glucose) - ICD9: 790.21, ICD10: R73.01 - PHENTERMINE 15 MG CAPSULE - METFORMIN 1gm TABLET - Topiramate 25 mg bid 5. Binge eating disorder - ICD9: 307.50, ICD10: F50.81 - In remission with topiramate 6. Other depression - ICD9: 311, ICD10: F32.89 - on Cymbalta. Has tried fluoxetine in the past. Can discuss trial of bupropion for depression and weaning off Cymbalta with PCP. 7. Class 3 severe obesity with serious comorbidity and body mass index (BMI) of 40.0 to 44.9 in adult, unspecified obesity type (HCC) - ICD9: 278.01, V85.41, ICD10: E66.01, Z68.41 - weight loss of 40 lbs - Topiramate 25 mg twice daily - PHENTERMINE 15 MG CAPSULE Patient has met the weight loss requirement of 5% TBW in initial 3 months using phentermine withoutany adverse side effects. Pt has responded well and would like to continue use for weight management. 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 The patient is currently enrolled in a diet and exercise program The patient has no known history of contraindications The patient is free from drug or ETHO abuse The patient is not or and is aware not to become while using this medication OARS was reviewed. PDMP website checked and validated. All prescriptions have been APPROPRIATELY filled. No suspicious activity was identified. - METFORMIN 1 gm TABLET - 1 gm twice a day with meals - continue Whole food balanced protein low-carb nutrition. Reinforced adding protein to any snack with carbs - Discussed strategies for holiday eating. - Continue trying to increase exercise. Follow up in 3 months. Ana Monroy APRN.CNP Medical Decision Making: Problems: Moderate: 1+ chronic illnesses with change Risk: Moderate: Drug management and Moderate risk from testing/treatment Medical Decision Making Level: 4 - Moderate documented in this encounterB[facility] Miscellaneous Notes* Letter - Coordinator, Mammography - 02/05/2023 11:03 AM EDT February 05, 2023 PID: [id number] Paco Ross [address] [place] [address] Dear Robert Ross, We are pleased to inform you that the results of your recent breast imaging exam on 02/04/2023 are normal. Early detection of cancer is very important. We also understand recommendations regarding breast cancer screening are controversial. Please discuss with your primary care provider which strategy is best for you and whether a mammogram is right for you. Your imaging studies and report will be kept on file at [facility] as part of your permanent medical record and are available for your continuing care. Thank you for allowing us to help in meeting your health care needs. Sincerely, Dr. Dowell Interpreting Radiologist [facility] (Normal over 40) documented in this encounterBrecksville [facility]08-25-[facility] Instructions* Patient Instructions* Ana Monroy APRN.CNP - 01/02/2023 9:41 AM EDT A Short Walk After Meals Is All It Takes to Lower Blood Sugar Researchers studying older adults with pre-diabetes found that 15 minutes of xnrd-vb-fpbedgzj exercise after every meal curbed risky blood sugar spikes all day. Seniors are more prone to developing diabetes, but a little exercise could make a big difference. Astudy published today in Diabetes Care found that three short walks each day after meals were as effective at reducing blood sugar over 24 hours as a single 45-minute walk at the same moderate pace. Even better, taking an evening constitutional was found to be much more effective at lowering bloodsugar following supper. The evening meal, often the largest of the day, can significantly raise 24-hour glucose levels. The innovative exercise science study was conducted at the Clinical Exercise Physiology Laboratory at the [facility] ([facility]) using whole room calorimeters. Arlin Dubois, Ph.D., chair of the [facility] Department of Exercise Science, led the study. These findings are good news for people in their 70s and 80s who may feel more capable of engaging in intermittent physical activity on a daily basis, Sherly said in a press release. Putting Humans in a Box to Measure Their Energy Use The whole room calorimeter (WRM), which looks like a very small hotel room, is a controlled-air environment for human study that allows scientists to calculate a person s energy expenditure by testing samples of air. The balance of oxygen consumed and carbon dioxide produced varies according to theactivity level of the person in the room. The WRM also measures the body s use of different food fuels, such as carbohydrates, proteins, and fats. The 10 study participants spent three 48-hour periods in the small calorimeter rooms. Each room wasequipped with a bed, toilet, sink, treadmill, television, and computer, leaving little room to movearound. Participants ate standardized meals, and their blood sugar levels were monitored continuously usingblood tests. The first day in the WRM served as a control period, with no exercise. On the second day, participants either walked at a moderate pace on the treadmill for 15 minutes after each meal, or for 45 minutes in either the late morning or before supper. The researchers observed that the evening post-meal walk was the most effective in lowering blood sugar levels for a full 24 hours. The typical exaggerated rise in blood sugar after supper--which often lasts well into the night andearly morning--was curbed significantly as soon as the participants started to walk on the treadmill, the study authors said. How Age Affects Insulin Resistance An estimated 79 million Americans have pre-diabetes, according to the National Diabetes Education Program run by the National Institutes of Health. But many people have no idea they are at risk. According to Sherly, older people may be particularly susceptible to poor blood sugar control after meals because inactive muscles contribute to insulin resistance. The problem is compounded by slow or low insulin secretion by the pancreas, which often occurs as the body ages. Post-meal high blood sugar is a bright risk factor in the progression from impaired glucose tolerance (pre-diabetes) to type 2 diabetes and cardiovascular disease, Sherly explained. Other studies have suggested that weight loss and exercise can prevent type 2 diabetes. The tami malins is the first study to examine short bouts of physical activity timed around the risky period following meals--a time when blood sugar can rise rapidly and potentially cause damage to internal organs and blood vessels. The muscle contractions connected with short walks were immediately effective in blunting the potentially damaging elevations in post-meal blood sugar commonly observed in older people, Sherly said. If the findings of this small study hold up to further testing, it could lead to an inexpensive prevention strategy for pre-diabetes, which can develop over time into type 2 diabetes. Back in the day, it was de rigueur to take a morning, noon, and evening walk. The time has come to get up from the table, tie on those walking shoes, and take a little stroll around the block. 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 Documentation from previous visit of 12/02/2022 was copied and pasted, documentation has been reviewed and edited as necessary for today's visit. Patient Summary: Paco is a 47 year old Female who presents for follow-up evaluation of obesity/weight management to treat and prevent co-morbidities. In our previous visits we have discussed lifestyle intervention including a nutrition recommendations and physical activity optimization. Her last office visit was 4 weeks ago. Assessment/plan from last visit: Diagnosed with mild MICHELLE - started auto CPAP Binge eating, mild- no binging with topiramate Topiramate 25 mg 1200 and 0400 Phentermine 15 mg 1000 Metformin 1.5 gm with dinner Less constipation - plans to restart [employer]. Interval History 0800 coffee with zero calorie syrup B - skip or breakfast sandwich on rare occasion, drinks a lot of water S - none L - 1200 protein shake S - if eating late dinner, may eat a protein bar, 15 protein and 4 net bars or HB egg D - 1900 - 2100 4 oz protein, unbreaded and grilled, varying vegetables, sometimes sweet corn water S - 2/7 days - laughing cow cheese and a wine cooler or lite beer Fluids - coffee and water Exercise: 5-7,000 steps/daily Stress: stable Sleep: up to 6-8 hours, interrupted voiding due to IC - will schedule sleep study Weight loss since last vist: 9 lbs for total of 26 lbs Last 2 Encounter Wt Readings: Date: Wt: 01/02/2023 217 lbs 12/05/2022 226 lb 11/07/2022 233 lb Metformin 10/10/2022 239 lb 14.4 oz (108.8 kg) Topiramate/phentermine 09/26/2022 245 lb 1.6 oz (111.2 kg) Current contraception: vasectomy Phentermine Start date: ?10/10/2022 Start weight: ?239 lbs. Dose: 15mg capsule -- Patient reports suppression of her appetite and increase in satiety since starting -- Patient reports no side effects Topiramate Start date: ?10/10/2022 Start weight: ?239 lbs. Dose:25 mg, increased to 50 mg 10/27/2022 -- Patient reports some suppression of her appetite and some increase in satiety since -- Patient reports no side effects after starting topiramate Metformin Start date: ?11/07/2022 Start weight: ?233 lbs. Dose:1.5 gm at dinner -- Patient reports suppression of appetite and increase in satiety since starting -- Patient reports no side effects after starting metformin Estimated Creatinine Clearance: 112.6 mL/min (based on SCr of 0.71 mg/dL). PAST MEDICAL HISTORY Diagnosis Date Acid reflux Depression Endometriosis, site unspecified Endometriosis Essential hypertension PMH - PAST MEDICAL HISTORY OF INTERSTITIAL CYSTITIS Snoring Urinary calculus, unspecified Renal stones Current Outpatient Medications Medication Sig Dispense Refill Phentermine HCl 15 mg capsule Take 1 capsule by mouth daily before breakfast for 30 days. 30 capsule 0 metFORMIN (GLUCOPHAGE) 500 mg tablet Take 1 tablet by mouth twice daily with meals. (Patient takingdifferently: Take 500 mg by mouth twice daily with meals. 1000 mg once daily) 180 tablet 0 topiramate (TOPAMAX) 25 mg tablet Take 2 tablets by mouth daily at bedtime. 180 tablet 3 biotin 1 mg cap Take by mouth once daily. desmopressin acetate (DDAVP) 0.2 mg tablet Take 0.1 mg by mouth daily at bedtime. 2 tabs GEMTESA 75 mg tablet Take 75 mg by mouth once daily. omeprazole (PRILOSEC) 20 mg capsule Take by mouth q 24 HR. amLODIPine-Olmesartan 5-20 mg tab Take 1 tablet by mouth once daily. cholecalciferol, vitamin D3, (VITAMIN D3 ORAL) Take by mouth once daily. DULoxetine (CYMBALTA) 60 mg capsule Take 60 mg by mouth once daily. multivitamins(DAILY MULTIPLE TAB) Take one(1) tablet daily. 0 No current facility-administered medications for this visit. ROS pertinent Chest pain: yes, occasional palpitations HTN: yes well-controlled with medication GI: GERD:yes well-controlled with PPI MSK: Joint Pain:yes, knees : Nephrolithiasis: yes - once age 13 BP 96/70 Pulse 75 Wt 217 lb (98.4 kg) LMP 05/05/2016 SpO2 98% BMI 37.51 kg/m Paco Ross is a 47 year old yo with Class III obesity who presented today for follow up forsupervised weight loss to treat and prevent co-morbidities. ASSESSMENT/PLAN: 1. MICHELLE on CPAP - ICD9: 327.23, V46.8, ICD10: G47.33 (primary diagnosis) - mild, treatment with auto CPAP - PHENTERMINE 15 MG CAPSULE - METFORMIN 500 MG TABLET - Topiramate 25 mg bid 2. Essential hypertension - ICD9: 401.9, ICD10: I10 Well-controlled with antihypertensive. BP has been low and plans to ask PCP about lowering dose. - continue weight loss - PHENTERMINE 15 MG CAPSULE - METFORMIN 500 MG TABLET - Topiramate 25 mg bid 3. Gastroesophageal reflux disease without esophagitis - ICD9: 530.81, ICD10: K21.9 - PHENTERMINE 15 MG CAPSULE - METFORMIN 500 MG TABLET - Topiramate 25 mg bid 4. IFG (impaired fasting glucose) - ICD9: 790.21, ICD10: R73.01 - PHENTERMINE 15 MG CAPSULE - METFORMIN 500 MG TABLET - Topiramate 25 mg bid 5. Binge eating disorder - ICD9: 307.50, ICD10: F50.81 - In remission with topiramate 6. Class 3 severe obesity with serious comorbidity and body mass index (BMI) of 40.0 to 44.9 in adult, unspecified obesity type (HCC) - ICD9: 278.01, V85.41, ICD10: E66.01, Z68.41 - Topiramate 25 mg twice daily - PHENTERMINE 15 MG CAPSULE - METFORMIN 500 MG TABLET - 1.5 mg with dinner - continue Whole food balanced protein low-carb nutrition - Continue trying to increase exercise. - given information about benefits to walking after meals. Follow up in 4 weeks. Ana Monroy APRN.CNP Medical Decision Making: Problems: Moderate: 1+ chronic illnesses with change Risk: Moderate: Drug management and Moderate risk from testing/treatment Medical Decision Making Level: 4 - Moderate documented in this encounterB[facility] Miscellaneous Notes* Telephone Encounter - Narcisa Malik RN - 12/09/2022 1:21 PM EDT Order signed by AILYN and faxed to [facility] Sleep Disorders center. Narcisa Malik RN * Telephone Encounter - Narcisa Malik RN - 12/09/2022 9:10 AM EDT Need updated [facility] Sleep study order stated home sleep study instead of PSG. Written order form to AGto sign. documented in this encounterBrecksville [facility]07-28-2023 Instructions* Patient Instructions* Ana Monroy APRN.CNP - 12/05/2022 1:22 PM EDT Images from the original note were not included. Colace 200 mg at bedtime Or Clementina-colace Increase metformin with goal of 1 gm at either breakfast or lunch and 1 gm at dinner. Phentermine - you can gradually move dose to later morning Topiramate - try one at noon and 4 pm TOPIRAMATE -- Take one tablet (25mg) every night for 2 weeks -- Then increase to 2 tablets at bedtime (50 mg) if there is no change in your appetite, cravings or weight. Or can move them up to dinner time- or you can do 25 mg in the am and 25 mg in the eveningif it doesn't make you tired. -- You can take the tablet it at night at first (because of potential sleepiness side effects), butthen you can take earlier around dinner after you have started the medication for a few days. You also may be able to take it in the morning if easier. -- We may increase the dose to 3 tablets (75mg) a few weeks later if there is no change with 2 tablets (50mg), either 1 in the morning, then 2 in the evening at dinner or bedtime or 3 (75 mg) in the evening. The maximum is usually 50 mg in the am and 50 mg in the evening or 100 mg in the evening and continue to increase the medication in this way (usually no more than 150mg). If at any point you are feeling the effects of the medication you can stay at that dose or if you experience side effects you can decrease it to the previous dose. -- Please see the handout to review the potential side effects and to explain this further -- Please let me know if you experience any changes in your vision, worsening depression or mood problems, or an increase in suicidal thoughts or behaviors. --This medication should NOT be combined with alcohol. Risks of drinking alcohol while taking this medication include mental and psychological side effects, including confusion, dizziness, drowsiness, and depression. -- There is an increased risk for oral clefts when topiramate is used in the first trimester of . -- There is a possible decrease in contraceptive efficacy when using estrogen- containing control with topiramate, please use a back up form of control such as condoms and monitor for throughout treatment. -- If you decide that you would like to get or if you have any of these side effects please let me know and we can safely discontinue the medication. - If you are on loop diuretic or thiazide diuretic we will want to monitor your potassium level, especially if you have a history of low potassium. - It is important to taper off of this medication when we finished with treatment, typically decreasing the dose 25 mg a week. Stopping Topiramate abruptly can cause irritability, anxiety and difficulty concentrating. -- The exact mechanism of topiramate on energy balance regulation is not clearly understood. Topiramate affects body mass index, fasting sgdutqv-jb-pwpdqvo ratio, and serum leptin and cortisol levels. It has shown to improve hypothalamic insulin and leptin signaling and action and reduce obesity inmice. These changes may be bright factors in weight loss due to topiramate. Topiramate (toe pyre a mate) What are the common names? Topamax Why is this medication prescribed? Topiramate is an anti-epileptic medications which has been approved by the FDA for patients 10 years of age or older for treatment of seizures. However, topiramate also has other uses such as the treatment of migraines. It also causes decrease in appetite and weight loss. The mechanism of weight loss is thought to be through inhibition of mitochondrial enzymes involved in energy expenditure and metabolism. Topiramate may work by helping you feel less hungry, less driven to eat, more satisfied with less food. What special precautions should I follow? Before having topiramate prescribed, tell your doctor and pharmacist: If you have allergies to any component of topiramate If you are , plan to become , are breast-feeding, or if you become while taking topiramate What are the warnings and precautions for this medication? Immediately discontinue the medicine and seek medical help if you have severe cognitive/neuropsychiatric adverse symptoms or eye symptoms. Cognitive/neuropsychiatric adverse events: symptoms may include confusion, psychomotor slowing, difficulty with concentration/attention, difficulty with memory, speech or language problems, particularily word-finding difficulties, somnolence or fatigue Acute myopia and secondary angle closure glaucoma, usually within 1 month of starting treatment: symptoms may include blurred vision, redness and/or pain in the eye Oligohydrosis (decrease sweating) and hyperthermia (elevation in body temperature) Increase in suicidal behavior or ideation Metabolic acidosis, non-gap hyperchloremic (decreased serum bicarbonate below normal levels) resulting in hyperventilation or fatigue Kidney stones Paresthesias (numbness or tingling in hands or feet) Ataxia Dizziness Increase in urination frequency Drug interactions. Use of monamine oxidase inhibitors (MAOI s), valproic acid, Caution use with dehydration or diarrheal illness, hepatic or renal impairment In case of emergency/overdose In case of overdose, call your local poison control center at or call local emergency services at 279. What other information should I know? Keep all appointments with your doctor and the laboratory. Do not let anyone else take your medication. Topiramate use needs to be monitored closely. Prescriptions may be refilled only a limited number of times. Keep a written list of all of your prescription and nonprescription (kuec-paz-kbjdeut) medicines, in addition to vitamins, minerals, or other dietary supplements. How should I monitor while on this medication? Your doctor will check your baseline kidney function and electrolytes prior to starting this medication, then periodically. Continue to improve your dietary and physical activity habits as the combination works best while on this medication. Start out by taking the medication at bedtime as it can cause fatigue and sleepiness. Be sure to eat regular meals. Less hunger does not make it appropriate to skip meals. Make sure to have an eye exam, including the pressure in your eyes (intra-ocular pressure), once a year. What should I do if I forget a dose? Skip the missed dose and continue your regular dosing schedule the next day. Do not take a double dose to make up for a missed one. 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 Documentation from previous visit of 11/07/2022 was copied and pasted, documentation has been reviewed and edited as necessary for today's visit. Patient Summary: Paco is a 47 year old Female who presents for follow-up evaluation of obesity/weight management to treat and prevent co-morbidities. In our previous visits we have discussed lifestyle intervention including a nutrition recommendations and physical activity optimization. Her last office visit was 4 weeks ago. Assessment/plan from last visit: Tracking and brought log with her. MICHELLE PSG and consult to sleep medicine - wanted in-hospital PSG but insurance will only cover at-home. She is in process of scheduling. Binge eating, mild- no binging with topiramate Topiramate 50 mg at bedtime Phentermine 15 mg 0800 Metformin 1 gm with dinner Starts to feel hungry about 3 pm Is having constipation. Interval History 0800 coffee with zero calorie syrup B - skip, drinks a lot of water S - none L - 1200 protein shake S - if eating late dinner, may eat a protein bar or HB egg D - 1900 - 2100 4 oz protein, unbreaded and grilled, varying vegetables, sometimes coleslaw or potato or noodles or stuffing, water S - 2-3/7 days - laughing cow cheese and a wine cooler or lite beer Weekends - Coolers at [employer] Fluids - coffee and water Exercise: 5-7,000 and up to 14,000 steps/daily Stress: stable Sleep: up to 7 hours, interrupted - will schedule sleep study Weight loss since last vist: 7 lbs for total of 19 lbs Last 2 Encounter Wt Readings: Date: Wt: 12/05/2022 226 lb 11/07/2022 233 lb Metformin 10/10/2022 239 lb 14.4 oz (108.8 kg) Topiramate/phentermine 09/26/2022 245 lb 1.6 oz (111.2 kg) Current contraception: vasectomy Phentermine Start date: ?10/10/2022 Start weight: ?239 lbs. Dose: 15mg capsule -- Patient reports suppression of her appetite and increase in satiety since starting -- Patient reports no side effects Topiramate Start date: ?10/10/2022 Start weight: ?239 lbs. Dose:25 mg, increased to 50 mg 10/27/2022 -- Patient reports some suppression of her appetite and some increase in satiety since -- Patient reports no side effects after starting topiramate Metformin Start date: ?11/07/2022 Start weight: ?233 lbs. Dose:1 gm at dinner -- Patient reports suppression of appetite and increase in satiety since starting -- Patient reports no side effects after starting metformin Estimated Creatinine Clearance: 114.4 mL/min (based on SCr of 0.71 mg/dL). PAST MEDICAL HISTORY Diagnosis Date Acid reflux Depression Endometriosis, site unspecified Endometriosis Essential hypertension PMH - PAST MEDICAL HISTORY OF INTERSTITIAL CYSTITIS Snoring Urinary calculus, unspecified Renal stones Current Outpatient Medications Medication Sig Dispense Refill metFORMIN (GLUCOPHAGE) 500 mg tablet Take 1 tablet by mouth twice daily with meals. 180 tablet 0 Phentermine HCl 15 mg capsule Take 1 capsule by mouth daily before breakfast for 30 days. 30 capsule 0 topiramate (TOPAMAX) 25 mg tablet Take 2 tablets by mouth daily at bedtime. 180 tablet 3 biotin 1 mg cap Take by mouth. desmopressin acetate (DDAVP) 0.2 mg tablet Take 0.1 mg by mouth daily at bedtime. 2 tabs GEMTESA 75 mg tablet Take 75 mg by mouth once daily. omeprazole (PRILOSEC) 20 mg capsule Take by mouth q 24 HR. amLODIPine-Olmesartan 5-20 mg tab Take 1 tablet by mouth once daily. cholecalciferol, vitamin D3, (VITAMIN D3 ORAL) Vitamin D3 Active DULoxetine (CYMBALTA) 60 mg capsule Take 60 mg by mouth once daily. multivitamins(DAILY MULTIPLE TAB) Take one(1) tablet daily. 0 No current facility-administered medications for this visit. ROS pertinent Chest pain: yes, occasional palpitations HTN: yes well-controlled with medication GI: GERD:yes well-controlled with PPI MSK: Joint Pain:yes, knees : Nephrolithiasis: yes - once age 13 LMP 05/05/2016 Assessment/Plan: Paco Ross is a 47 year old yo with Class III obesity who presented today for follow up forsupervised weight loss to treat and prevent co-morbidities. ASSESSMENT/PLAN: 1. Binge eating disorder - ICD9: 307.50, ICD10: F50.81 (primary diagnosis) - mild - TOPIRAMATE 50 mg - discussed changing timing of doses as needed 2. Gastroesophageal reflux disease without esophagitis - ICD9: 530.81, ICD10: K21.9 - continue weight loss 3. Essential hypertension - ICD9: 401.9, ICD10: I10 Well-controlled with antihypertensive - continue weight loss 4. Snoring - ICD9: 786.09, ICD10: R06.83 - pt to schedule in-home sleep study 5. IFG (impaired fasting glucose) - ICD9: 790.21, ICD10: R73.01 - continue weight loss - Metformin 1000 mg with dinner. Can gradually increase to 1 gm twice a day with meals. 6. Class 3 severe obesity with serious comorbidity and body mass index (BMI) of 40.0 to 44.9 in adult, unspecified obesity type (HCC) - ICD9: 278.01, V85.41, ICD10: E66.01, Z68.41 - Recommended low-carb diet with 30 g of protein 3 times a day and 30 g of carbs at lunch and dinner only. Continue tracking log. - PHENTERMINE 15 MG CAPSULE - encouraged to check BP regularly Constipation - Colace or clementina-colace, fiber - TOPIRAMATE 25 MG TABLET - 50 mg dose discussed changing timing of doses as needed - METFORMIN 500 MG TABLET - 1000 mg with dinner. Can gradually increase to 1 gm twice a day with meals. Follow up in 4 weeks. Ana Monroy APRN.CNP Medical Decision Making: Problems: Moderate: 1+ chronic illnesses with change Risk: Moderate: Drug management and Moderate risk from testing/treatment Medical Decision Making Level: 4 - Moderate [facility] Miscellaneous Notes* Telephone Encounter - Ana Monroy APRN.CNP - 10/31/2022 12:29 PM EDT Noted. Ana Monroy APRN.CNP * Telephone Encounter - Domitila Deal RN - 10/31/2022 10:49 AM EDT Patient notified. States she will speak with her respiratory therapist to see what medical reason she can try. Has an appointment with AG next week. Will let her know then. Domitila Deal RN * Telephone Encounter - Domitila Deal RN - 10/31/2022 10:46 AM EDT Ana Monroy APRN.CNP P tr [facility] Jeevan Paco had sent a message that she only wanted a PSG in-hospital. Please let her know this has been denied. She will need to have at-home study done unless she has a specific reason for needing it done in the hospital and the insurance company accepts that reason. Ana Monroy APRN.GAURAV documented in this encounterB[facility]20[facility] History of Present illness Narrative* Ana Monroy APRN.CNP - 10/10/2022 2:00 PM EDT Patient Summary: is 47 year old Female who presents for follow-up evaluation of obesity/weight management to treat and prevent co-morbidities. In our previous visits we have discussed lifestyle intervention including a nutrition recommendations and physical activity optimization. Her last office visit was 2 weeks ago. Assessment/plan from last visit: MICHELLE PSG and consult to sleep medicine - scheduling at [facility], order faxed 09/30/2022. She will call to schedule. Binge eating, mild-she feels that this is very mild and she can control it so she is not interestedin counseling at this time Stopped coffee creamer and substituting part of a protein drink, increased water Interval History 0800 coffee with 1/4 Protein drink - sips for 1.5 hours B - 1100 30 gm Protein Shake S - none L - 1430 skip or protein bar S - none D - 1900 4 oz protein, unbreaded and grilled, occasional vegetable, sometimes coleslaw or potato salad, water S - occasionally handful of crackers and a wine cooler Fluids - coffee and water Exercise: 8-10,000 steps/daily Stress: stable Sleep: up to 7 hours - will schedule sleep study Weight loss since last vist: 6 lbs Last 2 Encounter Wt Readings: Date: Wt: 10/10/2022 239 lb 14.4 oz (108.8 kg) 09/26/2022 245 lb 1.6 oz (111.2 kg) Current contraception: vasectomy Anti-Obesity Medications >Phentermine: No uncontrolled HTN, No CVD Hx or hx of seizure disorder. No MAOI inhibitor use. No drug abuse hx. Crcl > 15. >Topiramate/zonisamide: No seizure. One kidney stone age 13 only. . No hx of migraines, Positivehx of poor sleep. >Qsymia: see above Estimated Creatinine Clearance: 117.8 mL/min (based on SCr of 0.71 mg/dL). PAST MEDICAL HISTORY Diagnosis Date Acid reflux Depression Endometriosis, site unspecified Endometriosis Essential hypertension PMH - PAST MEDICAL HISTORY OF INTERSTITIAL CYSTITIS Snoring Urinary calculus, unspecified Renal stones Current Outpatient Medications Medication Sig Dispense Refill biotin 1 mg cap Take by mouth. desmopressin acetate (DDAVP) 0.2 mg tablet Take 0.1 mg by mouth daily at bedtime. 2 tabs GEMTESA 75 mg tablet Take 75 mg by mouth once daily. omeprazole (PRILOSEC) 20 mg capsule Take by mouth q 24 HR. amLODIPine-Olmesartan 5-20 mg tab Take 1 tablet by mouth once daily. cholecalciferol, vitamin D3, (VITAMIN D3 ORAL) Vitamin D3 Active DULoxetine (CYMBALTA) 60 mg capsule Take 60 mg by mouth once daily. multivitamins(DAILY MULTIPLE TAB) Take one(1) tablet daily. 0 No current facility-administered medications for this visit. ROS pertinent Chest pain: yes, occasional palpitations HTN: yes well-controlled with medication GI: GERD:yes well-controlled with PPI MSK: Joint Pain:yes, knees : Nephrolithiasis: yes - once age 13 BP 118/78 Wt 239 lb 14.4 oz (108.8 kg) LMP 05/05/2016 BMI 41.46 kg/m Assessment/Plan: Paco Ross is a 47 year old yo with Class III obesity who presented today for follow up forsupervised weight loss to treat and prevent co-morbidities. Topiramate. Discussed risks/benefits with the patient. Patient aware that this is an off-label use of the medication. Begin with 25 mg at bedtime and will increase to 2 tablets as tolerated. Will notify me if experiencing any adverse effects. Denies history of kidney stones, seizures or glaucoma. No hx of migraines Has history of poor sleep. Advised not to mix with alcohol. Educated on increased risk for drowsiness, dizziness, fatigue, kidney stones, osteoporosis and increased eye pressure. Canadd lemon to drinks to help prevent kidney stones. Phentermine. Risk/benefits discussed at length including potential side effects of increased anxiety, insomnia, increased heart rate, and increased blood pressure. I have asked the patient to monitorblood pressure and avoid any stimulants (in the form of caffeinated beverages like coffee, tea, sports drinks) initially. Patient denies history of arrhythmias, coronary artery disease (atherosclerosis), heart failure, pulmonary hypertension, stroke, valvular heart disease (prolapse, regurgitation,stenosis). The patient is currently enrolled in a diet and exercise program The patient has no known history of contraindications The patient is free from drug or ETHO abuse The patient is not or and is aware not to become while using this medication [place] was reviewed. PDMP website checked and validated. All prescriptions have been APPROPRIATELY filled. No suspicious activity was identified. ASSESSMENT/PLAN: 1. Binge eating disorder - ICD9: 307.50, ICD10: F50.81 (primary diagnosis) - mild - TOPIRAMATE 25 MG TABLET 2. Gastroesophageal reflux disease without esophagitis - ICD9: 530.81, ICD10: K21.9 - continue weight loss 3. Essential hypertension - ICD9: 401.9, ICD10: I10 Well-controlled with antihypertensive - continue weight loss 4. Snoring - ICD9: 786.09, ICD10: R06.83 - PSG ordered and pt will call to schedule 5. IFG (impaired fasting glucose) - ICD9: 790.21, ICD10: R73.01 - continue weight loss 6. Class 3 severe obesity with serious comorbidity and body mass index (BMI) of 40.0 to 44.9 in adult, unspecified obesity type (HCC) - ICD9: 278.01, V85.41, ICD10: E66.01, Z68.41 - Recommended low-carb diet with 30 g of protein 3 times a day and 30 g of carbs at lunch and dinner only. Given tracking log. - Given 15 gram carb whole food and protein suggestion list. - Given protein snack ideas - PHENTERMINE 15 MG CAPSULE - encouraged to check BP regularly - TOPIRAMATE 25 MG TABLET Follow up in 4 weeks. Ana Monroy APRN.CNP Medical Decision Making: Problems: Moderate: 1+ chronic illnesses with change Risk: Moderate: Drug management and Moderate risk from testing/treatment Medical Decision Making Level: 4 - Moderate documented in this encounterB[facility] Instructions* Patient Instructions* Ana Monroy APRN.CNP - 10/10/2022 1:59 PM EDT Images from the original note were not included. Protein shake - meal replacement 20 g protein & 20 % of daily requirement vitamins 30 g protein & 25 % of daily req vitamins Look for low carb alcohol/wine cooler and add protein. Avoid or minimize with Topiramate. How alcohol affects your weight loss 1. Alcohol is often empty calories Alcoholic drinks are often referred to as empty calories. This means that they provide your body with calories but contain very little nutrients. There are almost 155 calories in one 12-ounce can of beer, and 125 calories in a 5-ounce glass of red wine. By comparison, a recommended afternoon snack should have between 150 and 200 calories. A night out with several drinks can lead to consuming a few hundred extra calories. Drinks that have mixers, such as fruit juice or soda, contain even more calories. 2. Alcohol is used as a primary source of fuel There are also other elements that can cause weight gain outside of calorie content. When alcohol is consumed, it s burned first as a fuel source before your body uses anything else. This includes glucose from carbohydrates or lipids from fats. When your body is using alcohol as a primary source of energy, the excess glucose and lipids end up, unfortunately for us, as adipose tissue, or fat. 3. Alcohol can affect your organs The primary role of your liver is to act as the filter for any foreign substances that enter your body, such as drugs and alcohol. The liver also plays a role in the metabolism of fats, carbohydrates, and proteins. Excess alcohol consumption can lead to what is known as alcoholic fatty liver. This condition can damage your liver, affecting the way your body metabolizes and stores carbohydrates and fats. Changes in the way your body stores energy from food can make it very difficult to lose weight. 4. Alcohol can contribute to excess belly fat The beer gut isn t just a myth. Foods high in simple sugars, such as those found in candy, soda, and even beer, are also high in calories. Extra calories end up stored as fat in the body. Consuming foods and drinks high in sugar can quickly lead to weight gain. We can t choose where all that extra weight ends up. But the body tends to accumulate fat in the abdominal area. 5. Alcohol affects judgment calls especially with food Even the most -hard diet fan will have a hard time fighting the urge to dig in when intoxicated. Alcohol lowers inhibitions and can lead to poor decision-making in the heat of the moment -- especially when it comes to food choices. However, the effects of alcohol surpass even social drinking etiquette. A recent animal studyTrusted Source found that mice given ethanol over a period of three days demonstrated a significant increase in food intake. This study suggests that alcohol can actually triggerhunger signals in the brain, leading to an increased urge to eat more food. 6. Alcohol and sex hormones It s long been known that alcohol intake can affect levels of hormones in the body, especially testosteroneTrusted Source. Testosterone is a sex hormone that plays a role in many metabolic processes, including muscle formation and fat burning capabilities. One study found that low testosterone levels may predict the prevalence of metabolic syndrome in men. Metabolic syndrome is characterized by: high cholesterol high blood pressure high blood sugar levels high body mass index Plus, lower testosterone levels may affect quality of sleep, especially in older men. 7. Alcohol can negatively affect your sleep A nightcap before bed may sound like a ticket to a good night s rest but you may want to reconsider. ResearchTrusted Source suggests that alcohol can lead to increased periods of wakefulness during sleep cycles. Sleep deprivation, whether from lack of sleep or impaired sleep, can lead to an imbalance in the hormones related to hunger, satiety, and energy storage. 8. Alcohol affects digestion and nutrient uptake Your social anxiety isn t the only thing that alcohol inhibits. Intake of alcoholic beverages can also inhibit proper digestive function. Alcohol can cause stress on the stomach and the intestines. This leads to decreasedTrusted Source digestive secretions and movement of food through the tract. Digestive secretions are an essential element of healthy digestion. They break down food into the basic macro- and micronutrients that are absorbed and used by the body. Alcohol intake of all levels can lead to impaired digestion and absorption of these nutrients. Thiscan greatly affect the metabolism of organs that play a role in weight management. Best alcoholic drinks for weight loss This may all sound as if alcohol is ruining your chances of that beach body. But fear not -- watching your weight doesn t necessarily mean having to cut alcohol entirely out of your diet. Rather than reaching for drinks high in sugar or calories, enjoy some of these 100-calorie options instead: 1. Vodka Calories: 100 calories in 1.5 ounces of distilled 80-proof vodka Alternative cocktail: Choose low-calories mixers such as club soda and avoid overly sugary juices. 2. Whiskey Calories: 100 calories in 1.5 ounces of 86-proof whiskey Alternative cocktail: Ditch the cola and take your whiskey on the rocks for a low-calorie alternative. 3. Gin Calories: 115 calories in 1.5 ounces of 90-proof gin Alternative cocktail: Aim for something simple, such as a martini -- and don t skip the olives, they contain beneficial antioxidants such as vitamin E. 4. Tequila Calories: 100 calories in 1.5 ounces of tequila Alternative cocktail: The best part about tequila is that the customary tequila shot is just salt, tequila, and solomon. 5. Adrián Calories: 100 calories in 1.5 ounces of adrián Alternative cocktail: This drink is best served as an after-dinner digestif and a good adrián should be enjoyed slowly to savor the subtle fruity sweetness. The bottom line While cutting alcohol completely out of your diet isn t necessarily the only way to lose weight, there are many improvements that can be made in your health journey by simply cutting back on the booze. You can enjoy a healthier body, improved sleep, better digestion, and fewer of those excess empty calories. And if you do plan to drink, enjoy a vodka or whiskey on the rocks -- and skip the soda! [email or web address] Try tea with sweetener in the morning and drinking protein shake for lunch. - Whole food low-carb diet with 30 g of protein 3 times a day and limit 30 g of carbs at lunch and dinner only. Use tracking log as a worksheet and bring with you to your next appointment. Protein - no carbs Egg 1 large - 6g Egg white 1 large 3.6g 3 oz is approximately the size of a deck of cards and equals 21 g protein Beef, Chicken, Franklin, Pork, Sultana 1 oz 7g Fish, Tuna Fish 1 oz 7g Seafood (Crabmeat, Shrimp, Lobster) 1 oz 6g Protein shakes (read labels) Premier Protein or generic [employer] Equate, Aldi Elevate, [employer] High Performance- 30g protein &1g carb Fairlife 30 gram protein - 30g protein & 3g carb BOOST Glucose Control Max 30g Protein Nutritional Drink - 30g protein & 6 carb Slimfast High Protein - 20g protein & 1g carb Ensure Max Protein Nutrition Shake 30g protein & 2 carb ____ Protein AND carbs Beef/Franklin Jerky 1 oz dried 10-15g protein - check carb count, can be high if sugar added Imitation Crab Meat 1 oz - 2g protein & 4g carb Milk, skim 2% or 1% 8 oz - 8g protein & 12g carb Bel[place]ian yogurt Full Fat Bel[place]ian Yogurt 1 cup - 20.4g protein & 9.1g carb 2% Bel[place]ian Yogurt 1 cup - 22.7g protein & 9.1g carb 0% (fat-free) [place]ian Yogurt - 1 cup 24g protein & 9.3g carb :ratio, KETO Friendly Dairy Snack 1 single svg - 15g protein & 2g carb :ratio Protein 1 single svg - 25g protein & 8g carb Dannon Light + Fit 1 single csvg - 12g protein & 9g carb Two Good Lowfat [place] Yogurt, Archie, Lower Sugar - 12g protein & 2g carb Oikos Triple Zero [place]ian Nonfat Yogurt 1 single svg - 15g protein & 7g carb Cheese each oz Brie 5.9g protein & 0.1g carb Cheddar Cheese 7g protein & 0.4g carb Mozzarella Cheese 6.3g protein & 0.6g carb Tristian Cheese 6.7g protein & 0.7g carb Parmesan Cheese 10g protein & 0.9g carb Cream Cheese 1.7g protein & 1.2g carb Feta 4g protein & 1.2g carb Kyrgyz Cheese 7.6g protein & 1.5g carb Harris s Low Fat Cottage Cheese 1/2cup 12g protein & 4g carb Legumes Lentils cup 9g protein & 20g carb Mcnair beans cup 7g protein & 20g carb Kidney, Black, Likely, Cannellini beans cup 8g protein & 20g carb Soybeans 1/2 c 14g protein & 8.5g carb Peanut butter, natural 2 Tbsp 7-8g protein & 4g net carbs, 190 calories [place] milk, unsweetened 8 oz 1g protein & 2g carb Soy milk 8 oz 3.5g protein & 1.6g carb Tofu 1/2 cup 10g protein & 2.3g carb Nuts and Seeds per oz Pumpkin Seeds - 6.9g protein & 5g carb Almonds - 5.9g protein & 6.1g carb [place] Seeds - 5.8g protein & 5.6g carb Pistachios - 5.8g protein & 7.8g carb Cashews - 5.1g protein & 9.2g carb Walnuts - 4.3g protein & 3.8g carb Hazelnuts - 4.2g protein & 4.7g carb [place] Nuts - 4.0g protein & 3.4g carb Pecans - 2.6g protein & 3.9g carb < 15 gram carb fruit options Berries have the lowest sugar content 1/2 cup diced honeydew melon - 8 carbs 1/2 cup diced watermelon - 6 carbs One half medium grapefruit - 10.5 carbs 1 medium orange -15.5 carbs 1 medium peach -14.5 carbs 1/2 cup fresh cranberries - 6.5 carbs 1 medium plum -7.5 carbs 1/2 cup raspberries -7.5 carbs 1 medium Theresa -9 carbs 1/2 cup fresh pineapple -11 carbs 1 medium nectarine - 15 carbs 1/2 cup blueberries - 11 carbs - may actually help you lose weight 1 medium kiwi without skin - 11 carbs 1/2 cup fresh cherries -11 carbs 1 medium tangerine -12 carbs 1/2 cup sliced rosario -14 carbs 1/2 medium banana 1/2 c grapes 1/2 medium apple - 12.5 carbs 5 gram carb vegetable options 1 cup raw OR cup cooked: Asparagus Cabbage Spinach Peppers Green beans Carrots Tomato [place] Laboy sprouts Cauliflower Lettuce Snap peas Broccoli Eggplant Zucsarai Turnips Spaghetti squash 15 gram carb vegetable options cup cooked green peas cup cooked corn or hominy corn on the cob, large (5 oz) cup cooked sweet potato, plain cup cooked potato, plain 1 small potato or sweet potato 1 cup winter squash (pumpkin, acorn, butternut) 1 cup marinara or pasta sauce - check label cup tomato juice cup tomato puree Beans, Seeds, Nuts cup cooked beans (kidney, payton, red, green, etc.) cup cooked lentils cup baked beans 4 tablespoons nut butter 30 High Protein Snack Ideas 1. Jerky 2. [place] mix without or minimal dried fruit 3. Franklin roll-ups 4. Bel[place]ian yogurt 5. Veggies and yogurt dip 6. Tuna 7. Hard-boiled eggs 8. Peanut butter celery sticks 9. No-bake energy bites 10. Cheese slices/ Cheese Stick 11. Handful of almonds 12. Roasted chickpeas 13. Hummus and veggies 14. Cottage Cheese 15. Celery/fruit with peanut butter 16. Beef sticks (Grass-fed, natural ingredients) 17. Protein bars 18. Canned Sisters 19. Fito pudding 20. Homemade granola - rolled oats, nuts, and a little sweetener - 1/4 cup serving 21. Pumpkin seeds 22. Nut butter 23. Protein shakes 24. Edamame 25. Avocado and chicken salad 26. Fruit and nut bars - natural ingredients without added sugar. 27. Lentil salad 28. Overnight oatmeal 29. Egg muffins 30. Leftover protein or lunch meat TOPIRAMATE -- Take one tablet (25mg) every night for 2 weeks -- Then increase to 2 tablets at bedtime (50 mg) if there is no change in your appetite, cravings or weight. Or can move them up to dinner time- or you can do 25 mg in the am and 25 mg in the eveningif it doesn't make you tired. -- You can take the tablet it at night at first (because of potential sleepiness side effects), butthen you can take earlier around dinner after you have started the medication for a few days. You also may be able to take it in the morning if easier. -- We may increase the dose to 3 tablets (75mg) a few weeks later if there is no change with 2 tablets (50mg), either 1 in the morning, then 2 in the evening at dinner or bedtime or 3 (75 mg) in the evening. The maximum is usually 50 mg in the am and 50 mg in the evening or 100 mg in the evening and continue to increase the medication in this way (usually no more than 150mg). If at any point you are feeling the effects of the medication you can stay at that dose or if you experience side effects you can decrease it to the previous dose. -- Please see the handout to review the potential side effects and to explain this further -- Please let me know if you experience any changes in your vision, worsening depression or mood problems, or an increase in suicidal thoughts or behaviors. --This medication should NOT be combined with alcohol. Risks of drinking alcohol while taking this medication include mental and psychological side effects, including confusion, dizziness, drowsiness, and depression. -- There is an increased risk for oral clefts when topiramate is used in the first trimester of . -- There is a possible decrease in contraceptive efficacy when using estrogen- containing control with topiramate, please use a back up form of control such as condoms and monitor for throughout treatment. -- If you decide that you would like to get or if you have any of these side effects please let me know and we can safely discontinue the medication. - If you are on loop diuretic or thiazide diuretic we will want to monitor your potassium level, especially if you have a history of low potassium. - It is important to taper off of this medication when we finished with treatment, typically decreasing the dose 25 mg a week. Stopping Topiramate abruptly can cause irritability, anxiety and difficulty concentrating. -- The exact mechanism of topiramate on energy balance regulation is not clearly understood. Topiramate affects body mass index, fasting [id number] ratio, and serum leptin and cortisol levels. It has shown to improve hypothalamic insulin and leptin signaling and action and reduce obesity inmice. These changes may be bright factors in weight loss due to topiramate. Topiramate (toe pyre a mate) What are the common names? Topamax Why is this medication prescribed? Topiramate is an anti-epileptic medications which has been approved by the FDA for patients 10 years of age or older for treatment of seizures. However, topiramate also has other uses such as the treatment of migraines. It also causes decrease in appetite and weight loss. The mechanism of weight loss is thought to be through inhibition of mitochondrial enzymes involved in energy expenditure and metabolism. Topiramate may work by helping you feel less hungry, less driven to eat, more satisfied with less food. What special precautions should I follow? Before having topiramate prescribed, tell your doctor and pharmacist: If you have allergies to any component of topiramate If you are , plan to become , are breast-feeding, or if you become while taking topiramate What are the warnings and precautions for this medication? Immediately discontinue the medicine and seek medical help if you have severe cognitive/neuropsychiatric adverse symptoms or eye symptoms. Cognitive/neuropsychiatric adverse events: symptoms may include confusion, psychomotor slowing, difficulty with concentration/attention, difficulty with memory, speech or language problems, particularily word-finding difficulties, somnolence or fatigue Acute myopia and secondary angle closure glaucoma, usually within 1 month of starting treatment: symptoms may include blurred vision, redness and/or pain in the eye Oligohydrosis (decrease sweating) and hyperthermia (elevation in body temperature) Increase in suicidal behavior or ideation Metabolic acidosis, non-gap hyperchloremic (decreased serum bicarbonate below normal levels) resulting in hyperventilation or fatigue Kidney stones Paresthesias (numbness or tingling in hands or feet) Ataxia Dizziness Increase in urination frequency Drug interactions. Use of monamine oxidase inhibitors (MAOI s), valproic acid, Caution use with dehydration or diarrheal illness, hepatic or renal impairment In case of emergency/overdose In case of overdose, call your local poison control center at or call local emergency services at [phone]. What other information should I know? Keep all appointments with your doctor and the laboratory. Do not let anyone else take your medication. Topiramate use needs to be monitored closely. Prescriptions may be refilled only a limited number of times. Keep a written list of all of your prescription and nonprescription (lznw-[id number]-zuglimq) medicines, in addition to vitamins, minerals, or other dietary supplements. How should I monitor while on this medication? Your doctor will check your baseline kidney function and electrolytes prior to starting this medication, then periodically. Continue to improve your dietary and physical activity habits as the combination works best while on this medication. Start out by taking the medication at bedtime as it can cause fatigue and sleepiness. Be sure to eat regular meals. Less hunger does not make it appropriate to skip meals. Make sure to have an eye exam, including the pressure in your eyes (intra-ocular pressure), once a year. What should I do if I forget a dose? Skip the missed dose and continue your regular dosing schedule the next day. Do not take a double dose to make up for a missed one. Sources Pubmed Health: http://www.ncbi.nlm.nih.gov/pubmedhealth/XVQ2607537/ Drugs.com http://www.drugs.com/pro/topiramate.html PHENTERMINE -- Please take tablet or capsule as directed. May need to decrease dose or stop if uncontrolled BP or sustained elevated pulse. -- Please monitor your blood pressure (either purchase BP cuff, or go to pharmacy to check your BP at a local pharmacy). Please avoid any stimulants (in the form of caffeinated beverages like coffee,tea, sports drinks) and caution with decongestants. We will require an updated blood pressure and heart rate at follow up visits (this includes virtual visits). -- Please monitor for , if at any point you become please stop the medication. THIS IS A SUMMARY OF OUR DISCUSSION ABOUT THIS MEDICATION. PLEASE READ IT IS IMPORTANT FOR YOUR WEIGHT LOSS PLAN Per updated [place] state rules, initially, a one month supply of phentermine is prescribed. You will need to be seen every month for the first 3 months for follow-up and to assess effectiveness with a total 5% weight loss in that 3 month period. If the phentermine is effective for you, treatment with phentermine can continue with a one month supply of phentermine prescribed at a time with 2 refills. You, the patient, are responsible for making an appointment to see a provider within 12 weeks in order to get a refill of this medication. It is imperative that you get this (and future) phentermine prescriptions within 7 days as pharmacists will NOT refill prescriptions outside this 7 day window per State law. Phentermine can only be prescribed for a 3 month interval at a time. You are aware of the following statements per the [facility] pharmacy board rules. 1. Timely refills are required 2. Every 12 weeks office visits are required. 3. ALL prescriptions need to be filled within 7 days of the written prescription 4. Refills need to be done EVEN IF there is medication still available ? Phentermine (fen ter meen) What are the common names? Adipex-P, Ionamin Why is this medication prescribed? Phentermine was approved by the FDA in 1958 for short term weight loss. It works by decreasing appetite. Phentermine is absorbed by the body and travels to the appetite center of the brain. It works by helping you feel less hungry, less driven to eat, more satisfied with less food. I ve heard about fen-phen. Will phentermine affect my heart? The two drug combination fenfluramine/phentermine, usually called fen-phen, became popular in the early as a diet pill. However, it was withdrawn by the FDA in late 1996 after studies which showed that fenfluramine can cause fatal pulmonary hypertension and heart valve problems. Phentermine is not a combination medication and does not contain the compound fenfluramine. What special precautions should I follow? Before having phentermine prescribed, tell your doctor and pharmacist: If you have allergies to any component of phentermine If you are , plan to become , are breast-feeding, or if you become while taking phentermine What are the absolute contraindications? Stroke or Transient Ischemic Attacks Cardiac arrhythmias or Atrial fibrillation Coronary artery disease Seizure Disorder Uncontrolled blood pressure Angina Congestive Heart Failure Valvular Heart Disease or primary pulmonary hypertension Drug interactions. Use of monamine oxidase inhibitors (MAOI s) What are the side effects of phentermine? Immediately discontinue the medicine and seek medical help if you have severe symptoms such as chest pain, shortness of breath, feeling faint, ability to think clearly, eye pain or other visual symptoms: Palpitations (strong or rapid heartbeat) Difficulty sleeping or falling asleep Elevated blood pressure Dry mouth Anxiety or agitation Getting a stimulant/or hyper effect or jitteriness-(Usually goes away after a few days or weeks) Glaucoma In case of emergency/overdose In case of overdose, call your local poison control center at or call local emergency services at [phone]. What other information should I know? Keep all appointments with your doctor and the laboratory. Do not let anyone else take your medication. Phentermine is a controlled substance. It is FDA approved for up to 3 months. Prescriptions may be refilled only a limited number of times. Keep a written list of all of your prescription and nonprescription (sonk-rfw-iwjmeno) medicines, in addition to vitamins, minerals, or other dietary supplements. If you are taking the extended-release (long-acting) tablets, do not split, chew, or crush them tablet. There are some tablets that can be crushed and mixed with food Alcohol can make the side effects of phentermine worse How should I monitor while on this medication? Please check your blood pressure (BP) and resting pulse weekly (twice a week in the first 2 weeks).If the BP is over 140/90 (either one), or if the resting pulse is over 96 per minute (count for 10 seconds and multiply by 6), then stop the medication and call your doctor. Continue to improve your dietary and physical activity habits as the combination works best while on this medication. Start out by taking the medication in the morning at least 30 minutes prior to meals. If the effectseems to wear off by dinner time, try taking it later in the morning, but taking too late may result in trouble falling asleep. Be sure to eat regular meals. Less hunger does not make it appropriate to skip meals. Monitor your caffeine intake and use of decongestants as they may worsen the effects of phentermine Make sure to have an eye exam, including the pressure in your eyes (intra-ocular pressure), once a year. What should I do if I forget a dose? Skip the missed dose and continue your regular dosing schedule the next day. Do not take a double dose to make up for a missed one. Sources [facility] Consumer Medication Info: http://www.ncbi.nlm.nih.gov/pubmedhealth/HEG2853985/ AMA patient handouts: http://www.amaassn.org/ama1/pub/upload/mm/433/phrxsurgery.pdf Drugs.com: http://www.drugs.com/pro/phentermine.html documented in this encounter[facility] Miscellaneous Notes* Telephone Encounter - Narcisa Malik RN - 09/30/2022 11:17 AM EDT Order faxed to [facility] Sleep Disorders center. Patient notified. Narcisa Malik RN * Telephone Encounter - Ana Monroy APRN.CNP - 09/30/2022 10:46 AM EDT Order completed and given to nursing. Ana Monroy APRN.KITCHEN UTILITY ASSOCIATE * Telephone Encounter - Domitila Deal RN - 09/30/2022 8:28 AM EDT Consult order for sleep medicine was placed on Thursday. Patient would like to have done at [facility]. States she does not need a consult with her insurance. Wants an order for PSG (Polysomnogram) only. [facility] order form to [facility] to complete. Domitila Deal RN documented in this encounterBrecksville [facility]05[facility] History of Present illness Narrative* Juan Francisco Melvin MD - 09/23/2022 8:36 AM EDT Paco is a 47 year old who presents for an annual gynecologic exam with complaints, would like help w/ wt loss and hot flashes. S/p endometrial ablation. Rare spotting only, no regular menses . Dr. Sims started her on some bladder meds so doing better w/ that. Menses: n/a s/p ablation. Contraception: vasectomy HPV vaccine: No Last Pap: 05/03/2020 normal HPV: 04/30/2020 negative History of abnormal pap: No Last mammogram: 2021normal Sexually active: Yes OB History T2 L2 SAB1 IAB0 Ectopic0 Multiple0 Live Births2 Babcock Tester History LMP: 05/05/2016, Ablation Age at Menarche: Age at First : Age at Menopause: Babcock Tester History Comments: Sexual Activity: Yes; Male Contraception: Vasectomy PAST MEDICAL HISTORY Diagnosis Date Depression Endometriosis, site unspecified Endometriosis PMH - PAST MEDICAL HISTORY OF INTERSTITIAL CYSTITIS Snoring Urinary calculus, unspecified Renal stones PAST SURGICAL HISTORY Procedure Laterality Date CATH & SALINE/CONTRAST SONOHYSTER/HYSTEROSALPI COLONOSCOPY 02/24/2018 COLONOSCOPY FLX DX W/COLLJ SPEC WHEN PFRMD 03/03/13 Colonoscopy CYSTOURETHROSCOPY Cystoscopy DILATION & CURETTAGE DX&/THER NONOBSTETRIC 2000 Dilation & curettage DILATION & CURETTAGE DX&/THER NONOBSTETRIC 2004 Dilation & curettage EXTRACTION, ERUPTED TOOTH OR EXPOSED ROOT (ELEVATION AND/OR FORCEPS REMOVAL) 1991 LAPS ABD PRTM&OMENTUM DX W/WO SPEC BR/WA SPX 1996 Laparoscopy LAPS ABD PRTM&OMENTUM DX W/WO SPEC BR/WA SPX 2005 Laparoscopy,REMOVAL OF ADHESIONS & ENDOMETRIOSIS NOVASURE 2012 FAMILY HISTORY Problem Relation Age of Onset Hypertension Mother Arthritis Mother Lipids Mother Hypertension Father Stroke Maternal Grandmother Alzheimer's Disease Maternal Grandmother Colon Cancer Maternal Grandfather 50 Heart Paternal Grandfather CT Colon Cancer Maternal Uncle 50 SOCIAL HISTORY Social History Tobacco Use Smoking status: Never Smokeless tobacco: Never Vaping Use Vaping Use: Never used Substance Use Topics Alcohol use: Yes Comment: occ Drug use: No REVIEW OF SYSTEMS Abdomen: No abdominal pain, nausea, vomiting, diarrhea, or constipation. No bloating, early satiety, indigestion, or increased flatulence. Bladder: No new c/o Breast: No breast lumps, nipple d/c, overlying skin changes, redness or skin retraction. Allergies and current medication updated:Yes EXAM: LMP 05/05/2016 GENERAL: pleasant, female in no apparent distress HEENT: Normocephalic, atraumatic, mucus membranes moist, and no lesions NECK: Supple, full range of motion, no adenopathy, and thyroid normal DERMATOLOGY: Normal, without lesions, non-icteric, and non-hirsute BREAST: soft, non-tender, symmetric, no dominant mass, normal nipple-areolar complex, no lymphadenopathy, and no nipple discharge CHEST: Normal inspiratory effort ABDOMEN: soft, non-tender, and no masses PELVIC: external genitalia normal, normal Bartholin's glands, urethra, Amery's glands, no vulvar lesions, no cervical lesions, good vaginal support, physiologic discharge present, normal appearing perineal body and perianal region BIMANUAL: uterus normal size, shape and consistency, no adnexal masses, and non-tender RECTOVAGINAL: deferred. NEURO: alert and oriented x3,exam grossly non-focal EXTREMITIES: normal ASSESSMENT/PLAN: 1) Health maintenance: Pap done with reflex HPV. Mammogram ordered. 2) Contraception: vasectomy. Contraceptive options reviewed and information provided. 3) STD screening: Declined STD check. 4) Follow up one year or sooner as needed Juan Francisco Melvin MD documented in this encounterBrec[facility]11[facility] Miscellaneous Notes* Telephone Encounter - Narcisa Malik RN - 03/11/2022 11:30 AM EDT Order records to Dr. Sims's office. Narcisa Malik RN * Telephone Encounter - Juan Francisco Melvin MD - 03/11/2022 8:50 AM EDT No problem. Signed. Print and fax. Thanks. RLR * Telephone Encounter - Domitila Deal RN - 03/11/2022 8:33 AM EDT Patient last seen in June. States she wants to schedule with Dr. Sims's office, but they need an updated consult order faxed. Last one was when she was seen. New order pending. Domitila Deal RN documented in this encounterBrecksville [facility]09-15-[facility] Miscellaneous Notes* Letter - Mammography Coordinator - 01/23/2022 8:35 AM EDT January 23, 2022 PID: [id number] Paco Ross [facility] [place] [id number] Dear Ms. Ross, We are pleased to inform you that the results of your recent breast imaging exam on 01/23/2022 are normal. Early detection of cancer is very important. We also understand recommendations regarding breast cancer screening are controversial. Please discuss with your primary care provider which strategy is best for you and whether a mammogram is right for you. Your imaging studies and report will be kept on file at [facility] as part of your permanent medical record and are available for your continuing care. Thank you for allowing us to help in meeting your health care needs. Sincerely, Dr. Paul Interpreting Radiologist [facility] (Normal over 40) documented in this encounterBrecksville [facility]11-27-2012 History of Past illness Narrative* Problem Noted Date Resolved Date Post - coital bleeding 04/06/2012 0 Unspecified thrombosed hemorrhoids 02/04/2007 04/25/2020 Supervision of other normal 07/27/2006 02/24/2012 documented as of this encounter (statuses as of 01/25/2022) [facility] History of Past illness Narrative* Problem Noted Date Resolved Date Post - coital bleeding 04/06/2012 0 Unspecified thrombosed hemorrhoids 02/04/2007 04/25/2020 Supervision of other normal 07/27/2006 02/24/2012 documented as of this encounter (statuses as of 03/11/2022) [facility] History of Past illness Narrative* Problem Noted Date Resolved Date Post - coital bleeding 04/06/2012 0 Unspecified thrombosed hemorrhoids 02/04/2007 04/25/2020 Supervision of other normal 07/27/2006 02/24/2012 documented as of this encounter (statuses as of 09/23/2022) [facility] History of Past illness Narrative* Problem Noted Date Resolved Date Post - coital bleeding 04/06/2012 0 Unspecified thrombosed hemorrhoids 02/04/2007 04/25/2020 Supervision of other normal 07/27/2006 02/24/2012 documented as of this encounter (statuses as of 09/30/2022) [facility] History of Past illness Narrative* Problem Noted Date Resolved Date Post - coital bleeding 04/06/2012 0 Unspecified thrombosed hemorrhoids 02/04/2007 04/25/2020 Supervision of other normal 07/27/2006 02/24/2012 documented as of this encounter (statuses as of 10/11/2022) [address]27-2012 History of Past illness Narrative* Problem Noted Date Resolved Date Post - coital bleeding 04/06/2012 0 Unspecified thrombosed hemorrhoids 02/04/2007 04/25/2020 Supervision of other normal 07/27/2006 02/24/2012 documented as of this encounter (statuses as of 10/31/2022) [address]27-2012 History of Past illness Narrative* Problem Noted Date Diagnosed Date Resolved Date Post - coital bleeding 04/06/201204/25 Unspecified thrombosed hemorrhoids 02/04/2007 04/25/2020 Supervision of other normal 07/27/2006 02/24/2012 documented as of this encounter (statuses as of 12/05/2022) [address]27-2012 History of Past illness Narrative* Problem Noted Date Diagnosed Date Resolved Date Post - coital bleeding 04/06/201204/25 Unspecified thrombosed hemorrhoids 02/04/2007 04/25/2020 Supervision of other normal 07/27/2006 02/24/2012 documented as of this encounter (statuses as of 12/09/2022) [address]27-2012 History of Past illness Narrative* Problem Noted Date Diagnosed Date Resolved Date Post - coital bleeding 04/06/201204/25 Unspecified thrombosed hemorrhoids 02/04/2007 04/25/2020 Supervision of other normal 07/27/2006 02/24/2012 documented as of this encounter (statuses as of 01/02/2023) [address]27-2012 History of Past illness Narrative* Problem Noted Date Diagnosed Date Resolved Date Post - coital bleeding 04/06/201204/25 Unspecified thrombosed hemorrhoids 02/04/2007 04/25/2020 Supervision of other normal 07/27/2006 02/24/2012 documented as of this encounter (statuses as of 02/07/2023) [address]27-2012 History of Past illness Narrative* Problem Noted Date Diagnosed Date Resolved Date Post - coital bleeding 04/06/201204/25 Unspecified thrombosed hemorrhoids 02/04/2007 04/25/2020 Supervision of other normal 07/27/2006 02/24/2012 documented as of this encounter (statuses as of 03/26/2023) [facility] History of Past illness Narrative* Problem Noted Date Diagnosed Date Resolved Date Post - coital bleeding 04/06/201204/25 Unspecified thrombosed hemorrhoids 02/04/2007 04/25/2020 Supervision of other normal 07/27/2006 02/24/2012 documented as of this encounter (statuses as of 06/17/2023) [facility] note* Diagnosis LUIZ (stress urinary incontinence, female)- Primary Female stress incontinence documented in this encounter [facility] noteNo assessment information availableWCleveland Clinic [facility] Work Phone: Evaluation note* Diagnosis Encounter for gynecological examination (general) (routine) without abnormal findings- Primary Encounter for screening mammogram for breast cancer documented in this encounter [facility] note* Diagnosis Binge eating disorder- Primary Gastroesophageal reflux disease without esophagitis Esophageal reflux Essential hypertension Unspecified essential hypertension Snoring Other dyspnea and respiratory abnormality IFG (impaired fasting glucose) Impaired fasting glucose Class 3 severe obesity with serious comorbidity and body mass index (BMI) of 40.0 to 44.9 in adult, unspecified obesity type (HCC) documented in this encounter [facility] note* Diagnosis Essential hypertension- Primary Unspecified essential hypertension Gastroesophageal reflux disease without esophagitis Esophageal reflux IFG (impaired fasting glucose) Impaired fasting glucose Class 3 severe obesity with serious comorbidity and body mass index (BMI) of 40.0 to 44.9 in adult, unspecified obesity type (HCC) documented in this encounter [facility] note* Diagnosis MICHELLE on CPAP- Primary Obstructive sleep apnea (adult) (pediatric) Essential hypertension Unspecified essential hypertension Gastroesophageal reflux disease without esophagitis Esophageal reflux IFG (impaired fasting glucose) Impaired fasting glucose Binge eating disorder Class 3 severe obesity with serious comorbidity and body mass index (BMI) of 40.0 to 44.9 in adult, unspecified obesity type (HCC) documented in this encounter [facility] note* Diagnosis MICHELLE on CPAP- Primary Obstructive sleep apnea (adult) (pediatric) Essential hypertension Unspecified essential hypertension Gastroesophageal reflux disease without esophagitis Esophageal reflux IFG (impaired fasting glucose) Impaired fasting glucose Binge eating disorder Other depression Class 3 severe obesity with serious comorbidity and body mass index (BMI) of 40.0 to 44.9 in adult, unspecified obesity type (HCC) documented in this encounter [facility] note* Diagnosis MICHELLE on CPAP- Primary Obstructive sleep apnea (adult) (pediatric) Essential hypertension Unspecified essential hypertension Gastroesophageal reflux disease without esophagitis Esophageal reflux IFG (impaired fasting glucose) Impaired fasting glucose Binge eating disorder Other depression Class 3 severe obesity with serious comorbidity and body mass index (BMI) of 40.0 to 44.9 in adult, unspecified obesity type (HCC) documented in this encounter [facility] note* Diagnosis Screening for colon cancer Special screening for malignant neoplasms, colon History of colonic polyps Personal history of colonic polyps BMI 34.0-34.9,adult Body Mass Index 34.0-34.9, adult documented in this encounter [facility] note* Diagnosis MICHELLE on CPAP- Primary Obstructive sleep apnea (adult) (pediatric) Essential hypertension Unspecified essential hypertension Gastroesophageal reflux disease without esophagitis Esophageal reflux IFG (impaired fasting glucose) Impaired fasting glucose Binge eating disorder Other depression Class 3 severe obesity with serious comorbidity and body mass index (BMI) of 40.0 to 44.9 in adult, unspecified obesity type (HCC) documented in this encounter [facility] note* Diagnosis MICHELLE on CPAP- Primary Obstructive sleep apnea (adult) (pediatric) Essential hypertension Unspecified essential hypertension Gastroesophageal reflux disease without esophagitis Esophageal reflux IFG (impaired fasting glucose) Impaired fasting glucose Binge eating disorder Other depression Class 3 severe obesity with serious comorbidity and body mass index (BMI) of 40.0 to 44.9 in adult, unspecified obesity type (HCC) documented in this encounter [facility] note* Diagnosis Screening for colon cancer Special screening for malignant neoplasms, colon documented in this encounter [facility] note* Diagnosis MICHELLE on CPAP- Primary Obstructive sleep apnea (adult) (pediatric) Essential hypertension Unspecified essential hypertension Gastroesophageal reflux disease without esophagitis Esophageal reflux IFG (impaired fasting glucose) Impaired fasting glucose Binge eating disorder, unspecified severity Other depression Class 3 severe obesity with serious comorbidity and body mass index (BMI) of 40.0 to 44.9 in adult, unspecified obesity type (HCC) [facility] MICHELLE on CPAP- Primary Obstructive sleep apnea (adult) (pediatric) Essential hypertension Unspecified essential hypertension Gastroesophageal reflux disease without esophagitis Esophageal reflux IFG (impaired fasting glucose) Impaired fasting glucose Binge eating disorder, unspecified severity Other depression Class 3 severe obesity with serious comorbidity and body mass index (BMI) of 40.0 to 44.9 in adult, unspecified obesity type (HCC) documented in this encounter [facility]* Diagnosis MICHELLE on CPAP- Primary Obstructive sleep apnea (adult) (pediatric) Essential hypertension Unspecified essential hypertension Gastroesophageal reflux disease without esophagitis Esophageal reflux IFG (impaired fasting glucose) Impaired fasting glucose Binge eating disorder, unspecified severity Other depression Class 3 severe obesity with serious comorbidity and body mass index (BMI) of 40.0 to 44.9 in adult, unspecified obesity type documented in this encounter [facility]* Diagnosis Encounter for gynecological examination (general) (routine) without abnormal findings- Primary Screening for cervical cancer Screening for malignant neoplasm of the cervix Encounter for screening for human papillomavirus (HPV) Special screening examination for human papillomavirus (HPV) Encounter for screening mammogram for breast cancer Abnormal mammogram Abnormal mammogram, unspecified documented in this encounter [facility]* Name Dates Details How to access health informa tion online Indication:Current nonsmoker (Renamed from Current non-smoker) Start:20-Feb-2020 Instruction Type:Patient Education How to access health informa tion online - Detail Indication:Current nonsmoker (Renamed from Current non-smoker) Start:20-Feb-2020 Instruction Type:Patient Education Patient Instructions Indication:Current nonsmoker (Renamed from Current non-smoker) Start:20-Feb-2020 Instruction Type:Provider Instructions for Treatment How to access health informa tion online Indication:Current nonsmoker (Renamed from Current non-smoker) Start:15-Feb-2020 Instruction Type:Patient Education How to access health informa tion online - Detail Indication:Current nonsmoker (Renamed from Current non-smoker) Start:15-Feb-2020 Instruction Type:Patient Education Patient Instructions Indication:Current nonsmoker (Renamed from Current non-smoker) Start:15-Feb-2020 Instruction Type:Provider Instructions for Treatment How to access health informa tion online Indication:Current nonsmoker (Renamed from Current non-smoker) Start:13-Feb-2020 Instruction Type:Patient Education How to access health informa tion online - Detail Indication:Current nonsmoker (Renamed from Current non-smoker) Start:13-Feb-2020 Instruction Type:Patient Education Patient Instructions Indication:Current nonsmoker (Renamed from Current non-smoker) Start:13-Feb-2020 Instruction Type:Provider Instructions for Treatment Patient Instructions make fo llow up virtual on Wed Indication:BMI 40.0-44.9, adult Start:13-Feb-2020 Instruction Type:Provider Instructions for Treatment How to access health informa tion online Indication:Current nonsmoker (Renamed from Current non-smoker) Start:14-Oct-2019 Instruction Type:Patient Education How to access health informa tion online - Detail Indication:Current nonsmoker (Renamed from Current non-smoker) Start:14-Oct-2019 Instruction Type:Patient Education Patient Instructions Indication:Current nonsmoker (Renamed from Current non-smoker) Start:14-Oct-2019 Instruction Type:Provider Instructions for Treatment How to access health informa tion online Indication:Current nonsmoker (Renamed from Current non-smoker) Start:21-Jul-2018 Instruction Type:Patient Education How to access health informa tion online - Detail Indication:Current nonsmoker (Renamed from Current non-smoker) Start:21-Jul-2018 Instruction Type:Patient Education Patient Instructions Indication:Current nonsmoker (Renamed from Current non-smoker) Start:21-Jul-2018 Instruction Type:Provider Instructions for Treatment How to access health informa tion online Indication:Current nonsmoker (Renamed from Current non-smoker) Start:07-Jul-2018 Instruction Type:Patient Education How to access health informa tion online - Detail Indication:Current nonsmoker (Renamed from Current non-smoker) Start:07-Jul-2018 Instruction Type:Patient Education Patient Instructions Indication:Current nonsmoker (Renamed from Current non-smoker) Start:07-Jul-2018 Instruction Type:Provider Instructions for Treatment How to access health informa tion online Indication:Current nonsmoker (Renamed from Current non-smoker) Start:24-Jun-2018 Instruction Type:Patient Education How to access health informa tion online - Detail Indication:Current nonsmoker (Renamed from Current non-smoker) Start:24-Jun-2018 Instruction Type:Patient Education Patient Instructions Indication:Current nonsmoker (Renamed from Current non-smoker) Start:24-Jun-2018 Instruction Type:Provider Instructions for Treatment How to access health informa tion online Indication:Body mass index 37.0-37.9, adult Start:10-Jun-2018 Instruction Type:Patient Education How to access health informa tion online - Detail Indication:Body mass index 37.0-37.9, adult Start:10-Jun-2018 Instruction Type:Patient Education Patient Instructions Indication:Body mass index 37.0-37.9, adult Start:10-Jun-2018 Instruction Type:Provider Instructions for Treatment How to access health informa tion online Indication:Current nonsmoker (Renamed from Current non-smoker) Start:27-May-2018 Instruction Type:Patient Education How to access health informa tion online - Detail Indication:Current nonsmoker (Renamed from Current non-smoker) Start:27-May-2018 Instruction Type:Patient Education Patient Instructions Indication:Current nonsmoker (Renamed from Current non-smoker) Start:27-May-2018 Instruction Type:Provider Instructions for Treatment How to access health informa tion online Indication:Current nonsmoker (Renamed from Current non-smoker) Start:13-May-2018 Instruction Type:Patient Education How to access health informa tion online - Detail Indication:Current nonsmoker (Renamed from Current non-smoker) Start:13-May-2018 Instruction Type:Patient Education Patient Instructions Indication:Current nonsmoker (Renamed from Current non-smoker) Start:13-May-2018 Instruction Type:Provider Instructions for Treatment Patient Instructions Indication:Chronic pain of left knee Start:14-May-2016 Instruction Type:Provider Instructions for Treatment How to access health informa tion online Indication:Chronic pain of left knee Start:14-May-2016 Instruction Type:Patient Education How to access health informa tion online - Detail Indication:Chronic pain of left knee Start:14-May-2016 Instruction Type:Patient Education How to access health informa tion online Indication:Depression with anxiety Start:07-Mar-2016 Instruction Type:Patient Education How to access health informa tion online - Detail Indication:Depression with anxiety Start:07-Mar-2016 Instruction Type:Patient Education Patient Instructions Indication:Depression with anxiety Start:07-Mar-2016 Instruction Type:Provider Instructions for Treatment How to access health informa tion online Indication:BMI 33.0-33.9,adult Start:07-Sep-2015 Instruction Type:Patient Education How to access health informa tion online - Detail Indication:BMI 33.0-33.9,adult Start:07-Sep-2015 Instruction Type:Patient Education Patient Instructions Indication:BMI 33.0-33.9,adult Start:07-Sep-2015 Instruction Type:Provider Instructions for Treatment How to access health informa tion online Indication:Obesity, unspecified Start:13-Jul-2015 Instruction Type:Patient Education How to access health informa tion online - Detail Indication:Obesity, unspecified Start:13-Jul-2015 Instruction Type:Patient Education Patient Instructions Indication:Obesity, unspecified Start:13-Jul-2015 Instruction Type:Provider Instructions for Treatment How to access health informa tion online Indication:Obesity, unspecified Start:17-May-2015 Instruction Type:Patient Education How to access health informa tion online - Detail Indication:Obesity, unspecified Start:17-May-2015 Instruction Type:Patient Education Patient Instructions Indication:Obesity, unspecified Start:17-May-2015 Instruction Type:Provider Instructions for Treatment How to access health informa tion online Indication:Obesity, unspecified Start:11-Apr-2015 Instruction Type:Patient Education How to access health informa tion online - Detail Indication:Obesity, unspecified Start:11-Apr-2015 Instruction Type:Patient Education Patient Instructions Indication:Obesity, unspecified Start:11-Apr-2015 Instruction Type:Provider Instructions for Treatment How to access health informa tion online Indication:Depression with anxiety Start:15-Mar-2015 Instruction Type:Patient Education How to access health informa tion online - Detail Indication:Depression with anxiety Start:15-Mar-2015 Instruction Type:Patient Education Patient Instructions Indication:Depression with anxiety Start:15-Mar-2015 Instruction Type:Provider Instructions for Treatment Patient Instructions Indication:Depression with anxiety Start:22-Nov-2013 Instruction Type:Provider Instructions for Treatment Patient Instructions Indication:Depression with anxiety Start:09-Nov-2012 Instruction Type:Provider Instructions for Treatment [facility]; [facility] Work Phone: Instructions* Name Dates Details Patient Instructions Indication:Current nonsmoker (Renamed from Current non-smoker) Start:18-Jan-2021 Instruction Type:Provider Instructions for Treatment How to Access Health Informa tion Online using Patient Portal and [employer] Apps Indication:Current nonsmoker (Renamed from Current non-smoker) Start:18-Jan-2021 Instruction Type:Patient Education Patient Instructions Indication:Current nonsmoker (Renamed from Current non-smoker) Start:04-Jan-2021 Instruction Type:Provider Instructions for Treatment How to Access Health Informa tion Online using Patient Portal and [employer]rd [employer] Apps Indication:Current nonsmoker (Renamed from Current non-smoker) Start:04-Jan-2021 Instruction Type:Patient Education How to access health informa tion online Indication:Current nonsmoker (Renamed from Current non-smoker) Start:20-Feb-2020 Instruction Type:Patient Education How to access health informa tion online - Detail Indication:Current nonsmoker (Renamed from Current non-smoker) Start:20-Feb-2020 Instruction Type:Patient Education Patient Instructions Indication:Current nonsmoker (Renamed from Current non-smoker) Start:20-Feb-2020 Instruction Type:Provider Instructions for Treatment How to access health informa tion online Indication:Current nonsmoker (Renamed from Current non-smoker) Start:15-Feb-2020 Instruction Type:Patient Education How to access health informa tion online - Detail Indication:Current nonsmoker (Renamed from Current non-smoker) Start:15-Feb-2020 Instruction Type:Patient Education Patient Instructions Indication:Current nonsmoker (Renamed from Current non-smoker) Start:15-Feb-2020 Instruction Type:Provider Instructions for Treatment How to access health informa tion online Indication:Current nonsmoker (Renamed from Current non-smoker) Start:13-Feb-2020 Instruction Type:Patient Education How to access health informa tion online - Detail Indication:Current nonsmoker (Renamed from Current non-smoker) Start:13-Feb-2020 Instruction Type:Patient Education Patient Instructions Indication:Current nonsmoker (Renamed from Current non-smoker) Start:13-Feb-2020 Instruction Type:Provider Instructions for Treatment Patient Instructions make fo llow up virtual on Thu Indication:BMI 40.0-44.9, adult Start:13-Feb-2020 Instruction Type:Provider Instructions for Treatment How to access health informa tion online Indication:Current nonsmoker (Renamed from Current non-smoker) Start:14-Oct-2019 Instruction Type:Patient Education How to access health informa tion online - Detail Indication:Current nonsmoker (Renamed from Current non-smoker) Start:14-Oct-2019 Instruction Type:Patient Education Patient Instructions Indication:Current nonsmoker (Renamed from Current non-smoker) Start:14-Oct-2019 Instruction Type:Provider Instructions for Treatment How to access health informa tion online Indication:Current nonsmoker (Renamed from Current non-smoker) Start:21-Jul-2018 Instruction Type:Patient Education How to access health informa tion online - Detail Indication:Current nonsmoker (Renamed from Current non-smoker) Start:21-Jul-2018 Instruction Type:Patient Education Patient Instructions Indication:Current nonsmoker (Renamed from Current non-smoker) Start:21-Jul-2018 Instruction Type:Provider Instructions for Treatment How to access health informa tion online Indication:Current nonsmoker (Renamed from Current non-smoker) Start:07-Jul-2018 Instruction Type:Patient Education How to access health informa tion online - Detail Indication:Current nonsmoker (Renamed from Current non-smoker) Start:07-Jul-2018 Instruction Type:Patient Education Patient Instructions Indication:Current nonsmoker (Renamed from Current non-smoker) Start:07-Jul-2018 Instruction Type:Provider Instructions for Treatment How to access health informa tion online Indication:Current nonsmoker (Renamed from Current non-smoker) Start:24-Jun-2018 Instruction Type:Patient Education How to access health informa tion online - Detail Indication:Current nonsmoker (Renamed from Current non-smoker) Start:24-Jun-2018 Instruction Type:Patient Education Patient Instructions Indication:Current nonsmoker (Renamed from Current non-smoker) Start:24-Jun-2018 Instruction Type:Provider Instructions for Treatment How to access health informa tion online Indication:Body mass index 37.0-37.9, adult Start:10-Jun-2018 Instruction Type:Patient Education How to access health informa tion online - Detail Indication:Body mass index 37.0-37.9, adult Start:10-Jun-2018 Instruction Type:Patient Education Patient Instructions Indication:Body mass index 37.0-37.9, adult Start:10-Jun-2018 Instruction Type:Provider Instructions for Treatment How to access health informa tion online Indication:Current nonsmoker (Renamed from Current non-smoker) Start:27-May-2018 Instruction Type:Patient Education How to access health informa tion online - Detail Indication:Current nonsmoker (Renamed from Current non-smoker) Start:27-May-2018 Instruction Type:Patient Education Patient Instructions Indication:Current nonsmoker (Renamed from Current non-smoker) Start:27-May-2018 Instruction Type:Provider Instructions for Treatment How to access health informa tion online Indication:Current nonsmoker (Renamed from Current non-smoker) Start:13-May-2018 Instruction Type:Patient Education How to access health informa tion online - Detail Indication:Current nonsmoker (Renamed from Current non-smoker) Start:13-May-2018 Instruction Type:Patient Education Patient Instructions Indication:Current nonsmoker (Renamed from Current non-smoker) Start:13-May-2018 Instruction Type:Provider Instructions for Treatment Patient Instructions Indication:Chronic pain of left knee Start:14-May-2016 Instruction Type:Provider Instructions for Treatment How to access health informa tion online Indication:Chronic pain of left knee Start:14-May-2016 Instruction Type:Patient Education How to access health informa tion online - Detail Indication:Chronic pain of left knee Start:14-May-2016 Instruction Type:Patient Education How to access health informa tion online Indication:Depression with anxiety Start:07-Mar-2016 Instruction Type:Patient Education How to access health informa tion online - Detail Indication:Depression with anxiety Start:07-Mar-2016 Instruction Type:Patient Education Patient Instructions Indication:Depression with anxiety Start:07-Mar-2016 Instruction Type:Provider Instructions for Treatment How to access health informa tion online Indication:BMI 33.0-33.9,adult Start:07-Sep-2015 Instruction Type:Patient Education How to access health informa tion online - Detail Indication:BMI 33.0-33.9,adult Start:07-Sep-2015 Instruction Type:Patient Education Patient Instructions Indication:BMI 33.0-33.9,adult Start:07-Sep-2015 Instruction Type:Provider Instructions for Treatment How to access health informa tion online Indication:Obesity, unspecified Start:13-Jul-2015 Instruction Type:Patient Education How to access health informa tion online - Detail Indication:Obesity, unspecified Start:13-Jul-2015 Instruction Type:Patient Education Patient Instructions Indication:Obesity, unspecified Start:13-Jul-2015 Instruction Type:Provider Instructions for Treatment How to access health informa tion online Indication:Obesity, unspecified Start:17-May-2015 Instruction Type:Patient Education How to access health informa tion online - Detail Indication:Obesity, unspecified Start:17-May-2015 Instruction Type:Patient Education Patient Instructions Indication:Obesity, unspecified Start:17-May-2015 Instruction Type:Provider Instructions for Treatment How to access health informa tion online Indication:Obesity, unspecified Start:11-Apr-2015 Instruction Type:Patient Education How to access health informa tion online - Detail Indication:Obesity, unspecified Start:11-Apr-2015 Instruction Type:Patient Education Patient Instructions Indication:Obesity, unspecified Start:11-Apr-2015 Instruction Type:Provider Instructions for Treatment How to access health informa tion online Indication:Depression with anxiety Start:15-Mar-2015 Instruction Type:Patient Education How to access health informa tion online - Detail Indication:Depression with anxiety Start:15-Mar-2015 Instruction Type:Patient Education Patient Instructions Indication:Depression with anxiety Start:15-Mar-2015 Instruction Type:Provider Instructions for Treatment Patient Instructions Indication:Depression with anxiety Start:22-Nov-2013 Instruction Type:Provider Instructions for Treatment Patient Instructions Indication:Depression with anxiety Start:09-Nov-2012 Instruction Type:Provider Instructions for Treatment [facility]; [facility] Work Phone: Instructions* Name Dates Details Patient Instructions Indication:Current nonsmoker (Renamed from Current non-smoker) Start:18-Jan-2021 Instruction Type:Provider Instructions for Treatment How to Access Health Informa tion Online using Patient Portal and [employer] Apps Indication:Current nonsmoker (Renamed from Current non-smoker) Start:18-Jan-2021 Instruction Type:Patient Education Patient Instructions Indication:Current nonsmoker (Renamed from Current non-smoker) Start:04-Jan-2021 Instruction Type:Provider Instructions for Treatment How to Access Health Informa tion Online using Patient Portal and [employer] Apps Indication:Current nonsmoker (Renamed from Current non-smoker) Start:04-Jan-2021 Instruction Type:Patient Education How to access health informa tion online Indication:Current nonsmoker (Renamed from Current non-smoker) Start:20-Feb-2020 Instruction Type:Patient Education How to access health informa tion online - Detail Indication:Current nonsmoker (Renamed from Current non-smoker) Start:20-Feb-2020 Instruction Type:Patient Education Patient Instructions Indication:Current nonsmoker (Renamed from Current non-smoker) Start:20-Feb-2020 Instruction Type:Provider Instructions for Treatment How to access health informa tion online Indication:Current nonsmoker (Renamed from Current non-smoker) Start:15-Feb-2020 Instruction Type:Patient Education How to access health informa tion online - Detail Indication:Current nonsmoker (Renamed from Current non-smoker) Start:15-Feb-2020 Instruction Type:Patient Education Patient Instructions Indication:Current nonsmoker (Renamed from Current non-smoker) Start:15-Feb-2020 Instruction Type:Provider Instructions for Treatment How to access health informa tion online Indication:Current nonsmoker (Renamed from Current non-smoker) Start:13-Feb-2020 Instruction Type:Patient Education How to access health informa tion online - Detail Indication:Current nonsmoker (Renamed from Current non-smoker) Start:13-Feb-2020 Instruction Type:Patient Education Patient Instructions Indication:Current nonsmoker (Renamed from Current non-smoker) Start:13-Feb-2020 Instruction Type:Provider Instructions for Treatment Patient Instructions make fo llow up virtual on Thu Indication:BMI 40.0-44.9, adult Start:13-Feb-2020 Instruction Type:Provider Instructions for Treatment How to access health informa tion online Indication:Current nonsmoker (Renamed from Current non-smoker) Start:14-Oct-2019 Instruction Type:Patient Education How to access health informa tion online - Detail Indication:Current nonsmoker (Renamed from Current non-smoker) Start:14-Oct-2019 Instruction Type:Patient Education Patient Instructions Indication:Current nonsmoker (Renamed from Current non-smoker) Start:14-Oct-2019 Instruction Type:Provider Instructions for Treatment How to access health informa tion online Indication:Current nonsmoker (Renamed from Current non-smoker) Start:21-Jul-2018 Instruction Type:Patient Education How to access health informa tion online - Detail Indication:Current nonsmoker (Renamed from Current non-smoker) Start:21-Jul-2018 Instruction Type:Patient Education Patient Instructions Indication:Current nonsmoker (Renamed from Current non-smoker) Start:21-Jul-2018 Instruction Type:Provider Instructions for Treatment How to access health informa tion online Indication:Current nonsmoker (Renamed from Current non-smoker) Start:07-Jul-2018 Instruction Type:Patient Education How to access health informa tion online - Detail Indication:Current nonsmoker (Renamed from Current non-smoker) Start:07-Jul-2018 Instruction Type:Patient Education Patient Instructions Indication:Current nonsmoker (Renamed from Current non-smoker) Start:07-Jul-2018 Instruction Type:Provider Instructions for Treatment How to access health informa tion online Indication:Current nonsmoker (Renamed from Current non-smoker) Start:24-Jun-2018 Instruction Type:Patient Education How to access health informa tion online - Detail Indication:Current nonsmoker (Renamed from Current non-smoker) Start:24-Jun-2018 Instruction Type:Patient Education Patient Instructions Indication:Current nonsmoker (Renamed from Current non-smoker) Start:24-Jun-2018 Instruction Type:Provider Instructions for Treatment How to access health informa tion online Indication:Body mass index 37.0-37.9, adult Start:10-Jun-2018 Instruction Type:Patient Education How to access health informa tion online - Detail Indication:Body mass index 37.0-37.9, adult Start:10-Jun-2018 Instruction Type:Patient Education Patient Instructions Indication:Body mass index 37.0-37.9, adult Start:10-Jun-2018 Instruction Type:Provider Instructions for Treatment How to access health informa tion online Indication:Current nonsmoker (Renamed from Current non-smoker) Start:27-May-2018 Instruction Type:Patient Education How to access health informa tion online - Detail Indication:Current nonsmoker (Renamed from Current non-smoker) Start:27-May-2018 Instruction Type:Patient Education Patient Instructions Indication:Current nonsmoker (Renamed from Current non-smoker) Start:27-May-2018 Instruction Type:Provider Instructions for Treatment How to access health informa tion online Indication:Current nonsmoker (Renamed from Current non-smoker) Start:13-May-2018 Instruction Type:Patient Education How to access health informa tion online - Detail Indication:Current nonsmoker (Renamed from Current non-smoker) Start:13-May-2018 Instruction Type:Patient Education Patient Instructions Indication:Current nonsmoker (Renamed from Current non-smoker) Start:13-May-2018 Instruction Type:Provider Instructions for Treatment Patient Instructions Indication:Chronic pain of left knee Start:14-May-2016 Instruction Type:Provider Instructions for Treatment How to access health informa tion online Indication:Chronic pain of left knee Start:14-May-2016 Instruction Type:Patient Education How to access health informa tion online - Detail Indication:Chronic pain of left knee Start:14-May-2016 Instruction Type:Patient Education How to access health informa tion online Indication:Depression with anxiety Start:07-Mar-2016 Instruction Type:Patient Education How to access health informa tion online - Detail Indication:Depression with anxiety Start:07-Mar-2016 Instruction Type:Patient Education Patient Instructions Indication:Depression with anxiety Start:07-Mar-2016 Instruction Type:Provider Instructions for Treatment How to access health informa tion online Indication:BMI 33.0-33.9,adult Start:07-Sep-2015 Instruction Type:Patient Education How to access health informa tion online - Detail Indication:BMI 33.0-33.9,adult Start:07-Sep-2015 Instruction Type:Patient Education Patient Instructions Indication:BMI 33.0-33.9,adult Start:07-Sep-2015 Instruction Type:Provider Instructions for Treatment How to access health informa tion online Indication:Obesity, unspecified Start:13-Jul-2015 Instruction Type:Patient Education How to access health informa tion online - Detail Indication:Obesity, unspecified Start:13-Jul-2015 Instruction Type:Patient Education Patient Instructions Indication:Obesity, unspecified Start:13-Jul-2015 Instruction Type:Provider Instructions for Treatment How to access health informa tion online Indication:Obesity, unspecified Start:17-May-2015 Instruction Type:Patient Education How to access health informa tion online - Detail Indication:Obesity, unspecified Start:17-May-2015 Instruction Type:Patient Education Patient Instructions Indication:Obesity, unspecified Start:17-May-2015 Instruction Type:Provider Instructions for Treatment How to access health informa tion online Indication:Obesity, unspecified Start:11-Apr-2015 Instruction Type:Patient Education How to access health informa tion online - Detail Indication:Obesity, unspecified Start:11-Apr-2015 Instruction Type:Patient Education Patient Instructions Indication:Obesity, unspecified Start:11-Apr-2015 Instruction Type:Provider Instructions for Treatment How to access health informa tion online Indication:Depression with anxiety Start:15-Mar-2015 Instruction Type:Patient Education How to access health informa tion online - Detail Indication:Depression with anxiety Start:15-Mar-2015 Instruction Type:Patient Education Patient Instructions Indication:Depression with anxiety Start:15-Mar-2015 Instruction Type:Provider Instructions for Treatment Patient Instructions Indication:Depression with anxiety Start:22-Nov-2013 Instruction Type:Provider Instructions for Treatment Patient Instructions Indication:Depression with anxiety Start:09-Nov-2012 Instruction Type:Provider Instructions for Treatment [facility]; [facility] Work Phone: Instructions* Name Dates Details Patient Instructions Indication:Current nonsmoker (Renamed from Current non-smoker) Start:18-Jan-2021 Instruction Type:Provider Instructions for Treatment How to Access Health Informa tion Online using Patient Portal and [employer] Indication:Current nonsmoker (Renamed from Current non-smoker) Start:18-Jan-2021 Instruction Type:Patient Education Patient Instructions Indication:Current nonsmoker (Renamed from Current non-smoker) Start:04-Jan-2021 Instruction Type:Provider Instructions for Treatment How to Access Health Informa tion Online using Patient Portal and [employer] Apps Indication:Current nonsmoker (Renamed from Current non-smoker) Start:04-Jan-2021 Instruction Type:Patient Education How to access health informa tion online Indication:Current nonsmoker (Renamed from Current non-smoker) Start:20-Feb-2020 Instruction Type:Patient Education How to access health informa tion online - Detail Indication:Current nonsmoker (Renamed from Current non-smoker) Start:20-Feb-2020 Instruction Type:Patient Education Patient Instructions Indication:Current nonsmoker (Renamed from Current non-smoker) Start:20-Feb-2020 Instruction Type:Provider Instructions for Treatment How to access health informa tion online Indication:Current nonsmoker (Renamed from Current non-smoker) Start:15-Feb-2020 Instruction Type:Patient Education How to access health informa tion online - Detail Indication:Current nonsmoker (Renamed from Current non-smoker) Start:15-Feb-2020 Instruction Type:Patient Education Patient Instructions Indication:Current nonsmoker (Renamed from Current non-smoker) Start:15-Feb-2020 Instruction Type:Provider Instructions for Treatment How to access health informa tion online Indication:Current nonsmoker (Renamed from Current non-smoker) Start:13-Feb-2020 Instruction Type:Patient Education How to access health informa tion online - Detail Indication:Current nonsmoker (Renamed from Current non-smoker) Start:13-Feb-2020 Instruction Type:Patient Education Patient Instructions Indication:Current nonsmoker (Renamed from Current non-smoker) Start:13-Feb-2020 Instruction Type:Provider Instructions for Treatment Patient Instructions make fo llow up virtual on Wed Indication:BMI 40.0-44.9, adult Start:13-Feb-2020 Instruction Type:Provider Instructions for Treatment How to access health informa tion online Indication:Current nonsmoker (Renamed from Current non-smoker) Start:14-Oct-2019 Instruction Type:Patient Education How to access health informa tion online - Detail Indication:Current nonsmoker (Renamed from Current non-smoker) Start:14-Oct-2019 Instruction Type:Patient Education Patient Instructions Indication:Current nonsmoker (Renamed from Current non-smoker) Start:14-Oct-2019 Instruction Type:Provider Instructions for Treatment How to access health informa tion online Indication:Current nonsmoker (Renamed from Current non-smoker) Start:21-Jul-2018 Instruction Type:Patient Education How to access health informa tion online - Detail Indication:Current nonsmoker (Renamed from Current non-smoker) Start:21-Jul-2018 Instruction Type:Patient Education Patient Instructions Indication:Current nonsmoker (Renamed from Current non-smoker) Start:21-Jul-2018 Instruction Type:Provider Instructions for Treatment How to access health informa tion online Indication:Current nonsmoker (Renamed from Current non-smoker) Start:07-Jul-2018 Instruction Type:Patient Education How to access health informa tion online - Detail Indication:Current nonsmoker (Renamed from Current non-smoker) Start:07-Jul-2018 Instruction Type:Patient Education Patient Instructions Indication:Current nonsmoker (Renamed from Current non-smoker) Start:07-Jul-2018 Instruction Type:Provider Instructions for Treatment How to access health informa tion online Indication:Current nonsmoker (Renamed from Current non-smoker) Start:24-Jun-2018 Instruction Type:Patient Education How to access health informa tion online - Detail Indication:Current nonsmoker (Renamed from Current non-smoker) Start:24-Jun-2018 Instruction Type:Patient Education Patient Instructions Indication:Current nonsmoker (Renamed from Current non-smoker) Start:24-Jun-2018 Instruction Type:Provider Instructions for Treatment How to access health informa tion online Indication:Body mass index 37.0-37.9, adult Start:10-Jun-2018 Instruction Type:Patient Education How to access health informa tion online - Detail Indication:Body mass index 37.0-37.9, adult Start:10-Jun-2018 Instruction Type:Patient Education Patient Instructions Indication:Body mass index 37.0-37.9, adult Start:10-Jun-2018 Instruction Type:Provider Instructions for Treatment How to access health informa tion online Indication:Current nonsmoker (Renamed from Current non-smoker) Start:27-May-2018 Instruction Type:Patient Education How to access health informa tion online - Detail Indication:Current nonsmoker (Renamed from Current non-smoker) Start:27-May-2018 Instruction Type:Patient Education Patient Instructions Indication:Current nonsmoker (Renamed from Current non-smoker) Start:27-May-2018 Instruction Type:Provider Instructions for Treatment How to access health informa tion online Indication:Current nonsmoker (Renamed from Current non-smoker) Start:13-May-2018 Instruction Type:Patient Education How to access health informa tion online - Detail Indication:Current nonsmoker (Renamed from Current non-smoker) Start:13-May-2018 Instruction Type:Patient Education Patient Instructions Indication:Current nonsmoker (Renamed from Current non-smoker) Start:13-May-2018 Instruction Type:Provider Instructions for Treatment Patient Instructions Indication:Chronic pain of left knee Start:14-May-2016 Instruction Type:Provider Instructions for Treatment How to access health informa tion online Indication:Chronic pain of left knee Start:14-May-2016 Instruction Type:Patient Education How to access health informa tion online - Detail Indication:Chronic pain of left knee Start:14-May-2016 Instruction Type:Patient Education How to access health informa tion online Indication:Depression with anxiety Start:07-Mar-2016 Instruction Type:Patient Education How to access health informa tion online - Detail Indication:Depression with anxiety Start:07-Mar-2016 Instruction Type:Patient Education Patient Instructions Indication:Depression with anxiety Start:07-Mar-2016 Instruction Type:Provider Instructions for Treatment How to access health informa tion online Indication:BMI 33.0-33.9,adult Start:07-Sep-2015 Instruction Type:Patient Education How to access health informa tion online - Detail Indication:BMI 33.0-33.9,adult Start:07-Sep-2015 Instruction Type:Patient Education Patient Instructions Indication:BMI 33.0-33.9,adult Start:07-Sep-2015 Instruction Type:Provider Instructions for Treatment How to access health informa tion online Indication:Obesity, unspecified Start:13-Jul-2015 Instruction Type:Patient Education How to access health informa tion online - Detail Indication:Obesity, unspecified Start:13-Jul-2015 Instruction Type:Patient Education Patient Instructions Indication:Obesity, unspecified Start:13-Jul-2015 Instruction Type:Provider Instructions for Treatment How to access health informa tion online Indication:Obesity, unspecified Start:17-May-2015 Instruction Type:Patient Education How to access health informa tion online - Detail Indication:Obesity, unspecified Start:17-May-2015 Instruction Type:Patient Education Patient Instructions Indication:Obesity, unspecified Start:17-May-2015 Instruction Type:Provider Instructions for Treatment How to access health informa tion online Indication:Obesity, unspecified Start:11-Apr-2015 Instruction Type:Patient Education How to access health informa tion online - Detail Indication:Obesity, unspecified Start:11-Apr-2015 Instruction Type:Patient Education Patient Instructions Indication:Obesity, unspecified Start:11-Apr-2015 Instruction Type:Provider Instructions for Treatment How to access health informa tion online Indication:Depression with anxiety Start:15-Mar-2015 Instruction Type:Patient Education How to access health informa tion online - Detail Indication:Depression with anxiety Start:15-Mar-2015 Instruction Type:Patient Education Patient Instructions Indication:Depression with anxiety Start:15-Mar-2015 Instruction Type:Provider Instructions for Treatment Patient Instructions Indication:Depression with anxiety Start:22-Nov-2013 Instruction Type:Provider Instructions for Treatment Patient Instructions Indication:Depression with anxiety Start:09-Nov-2012 Instruction Type:Provider Instructions for Treatment [facility]; [facility] Work Phone: Instructions* Name Dates Details Patient Instructions Indication:BMI 40.0-44.9, adult Start:28-Mar-2022 Instruction Type:Provider Instructions for Treatment How to Access Health Informa tion Online using Patient Portal and [employer] Indication:BMI 40.0-44.9, adult Start:28-Mar-2022 Instruction Type:Patient Education Patient Instructions Indication:Current nonsmoker (Renamed from Current non-smoker) Start:18-Jan-2021 Instruction Type:Provider Instructions for Treatment How to Access Health Informa tion Online using Patient Portal and [employer] Indication:Current nonsmoker (Renamed from Current non-smoker) Start:18-Jan-2021 Instruction Type:Patient Education Patient Instructions Indication:Current nonsmoker (Renamed from Current non-smoker) Start:04-Jan-2021 Instruction Type:Provider Instructions for Treatment How to Access Health Informa tion Online using Patient Portal and [employer] Indication:Current nonsmoker (Renamed from Current non-smoker) Start:04-Jan-2021 Instruction Type:Patient Education How to access health informa tion online Indication:Current nonsmoker (Renamed from Current non-smoker) Start:20-Feb-2020 Instruction Type:Patient Education How to access health informa tion online - Detail Indication:Current nonsmoker (Renamed from Current non-smoker) Start:20-Feb-2020 Instruction Type:Patient Education Patient Instructions Indication:Current nonsmoker (Renamed from Current non-smoker) Start:20-Feb-2020 Instruction Type:Provider Instructions for Treatment How to access health informa tion online Indication:Current nonsmoker (Renamed from Current non-smoker) Start:15-Feb-2020 Instruction Type:Patient Education How to access health informa tion online - Detail Indication:Current nonsmoker (Renamed from Current non-smoker) Start:15-Feb-2020 Instruction Type:Patient Education Patient Instructions Indication:Current nonsmoker (Renamed from Current non-smoker) Start:15-Feb-2020 Instruction Type:Provider Instructions for Treatment How to access health informa tion online Indication:Current nonsmoker (Renamed from Current non-smoker) Start:13-Feb-2020 Instruction Type:Patient Education How to access health informa tion online - Detail Indication:Current nonsmoker (Renamed from Current non-smoker) Start:13-Feb-2020 Instruction Type:Patient Education Patient Instructions Indication:Current nonsmoker (Renamed from Current non-smoker) Start:13-Feb-2020 Instruction Type:Provider Instructions for Treatment Patient Instructions make fo llow up virtual on Wed Indication:BMI 40.0-44.9, adult Start:13-Feb-2020 Instruction Type:Provider Instructions for Treatment How to access health informa tion online Indication:Current nonsmoker (Renamed from Current non-smoker) Start:14-Oct-2019 Instruction Type:Patient Education How to access health informa tion online - Detail Indication:Current nonsmoker (Renamed from Current non-smoker) Start:14-Oct-2019 Instruction Type:Patient Education Patient Instructions Indication:Current nonsmoker (Renamed from Current non-smoker) Start:14-Oct-2019 Instruction Type:Provider Instructions for Treatment How to access health informa tion online Indication:Current nonsmoker (Renamed from Current non-smoker) Start:21-Jul-2018 Instruction Type:Patient Education How to access health informa tion online - Detail Indication:Current nonsmoker (Renamed from Current non-smoker) Start:21-Jul-2018 Instruction Type:Patient Education Patient Instructions Indication:Current nonsmoker (Renamed from Current non-smoker) Start:21-Jul-2018 Instruction Type:Provider Instructions for Treatment How to access health informa tion online Indication:Current nonsmoker (Renamed from Current non-smoker) Start:07-Jul-2018 Instruction Type:Patient Education How to access health informa tion online - Detail Indication:Current nonsmoker (Renamed from Current non-smoker) Start:07-Jul-2018 Instruction Type:Patient Education Patient Instructions Indication:Current nonsmoker (Renamed from Current non-smoker) Start:07-Jul-2018 Instruction Type:Provider Instructions for Treatment How to access health informa tion online Indication:Current nonsmoker (Renamed from Current non-smoker) Start:24-Jun-2018 Instruction Type:Patient Education How to access health informa tion online - Detail Indication:Current nonsmoker (Renamed from Current non-smoker) Start:24-Jun-2018 Instruction Type:Patient Education Patient Instructions Indication:Current nonsmoker (Renamed from Current non-smoker) Start:24-Jun-2018 Instruction Type:Provider Instructions for Treatment How to access health informa tion online Indication:Body mass index 37.0-37.9, adult Start:10-Jun-2018 Instruction Type:Patient Education How to access health informa tion online - Detail Indication:Body mass index 37.0-37.9, adult Start:10-Jun-2018 Instruction Type:Patient Education Patient Instructions Indication:Body mass index 37.0-37.9, adult Start:10-Jun-2018 Instruction Type:Provider Instructions for Treatment How to access health informa tion online Indication:Current nonsmoker (Renamed from Current non-smoker) Start:27-May-2018 Instruction Type:Patient Education How to access health informa tion online - Detail Indication:Current nonsmoker (Renamed from Current non-smoker) Start:27-May-2018 Instruction Type:Patient Education Patient Instructions Indication:Current nonsmoker (Renamed from Current non-smoker) Start:27-May-2018 Instruction Type:Provider Instructions for Treatment How to access health informa tion online Indication:Current nonsmoker (Renamed from Current non-smoker) Start:13-May-2018 Instruction Type:Patient Education How to access health informa tion online - Detail Indication:Current nonsmoker (Renamed from Current non-smoker) Start:13-May-2018 Instruction Type:Patient Education Patient Instructions Indication:Current nonsmoker (Renamed from Current non-smoker) Start:13-May-2018 Instruction Type:Provider Instructions for Treatment Patient Instructions Indication:Chronic pain of left knee Start:14-May-2016 Instruction Type:Provider Instructions for Treatment How to access health informa tion online Indication:Chronic pain of left knee Start:14-May-2016 Instruction Type:Patient Education How to access health informa tion online - Detail Indication:Chronic pain of left knee Start:14-May-2016 Instruction Type:Patient Education How to access health informa tion online Indication:Depression with anxiety Start:07-Mar-2016 Instruction Type:Patient Education How to access health informa tion online - Detail Indication:Depression with anxiety Start:07-Mar-2016 Instruction Type:Patient Education Patient Instructions Indication:Depression with anxiety Start:07-Mar-2016 Instruction Type:Provider Instructions for Treatment How to access health informa tion online Indication:BMI 33.0-33.9,adult Start:07-Sep-2015 Instruction Type:Patient Education How to access health informa tion online - Detail Indication:BMI 33.0-33.9,adult Start:07-Sep-2015 Instruction Type:Patient Education Patient Instructions Indication:BMI 33.0-33.9,adult Start:07-Sep-2015 Instruction Type:Provider Instructions for Treatment How to access health informa tion online Indication:Obesity, unspecified Start:13-Jul-2015 Instruction Type:Patient Education How to access health informa tion online - Detail Indication:Obesity, unspecified Start:13-Jul-2015 Instruction Type:Patient Education Patient Instructions Indication:Obesity, unspecified Start:13-Jul-2015 Instruction Type:Provider Instructions for Treatment How to access health informa tion online Indication:Obesity, unspecified Start:17-May-2015 Instruction Type:Patient Education How to access health informa tion online - Detail Indication:Obesity, unspecified Start:17-May-2015 Instruction Type:Patient Education Patient Instructions Indication:Obesity, unspecified Start:17-May-2015 Instruction Type:Provider Instructions for Treatment How to access health informa tion online Indication:Obesity, unspecified Start:11-Apr-2015 Instruction Type:Patient Education How to access health informa tion online - Detail Indication:Obesity, unspecified Start:11-Apr-2015 Instruction Type:Patient Education Patient Instructions Indication:Obesity, unspecified Start:11-Apr-2015 Instruction Type:Provider Instructions for Treatment How to access health informa tion online Indication:Depression with anxiety Start:15-Mar-2015 Instruction Type:Patient Education How to access health informa tion online - Detail Indication:Depression with anxiety Start:15-Mar-2015 Instruction Type:Patient Education Patient Instructions Indication:Depression with anxiety Start:15-Mar-2015 Instruction Type:Provider Instructions for Treatment Patient Instructions Indication:Depression with anxiety Start:22-Nov-2013 Instruction Type:Provider Instructions for Treatment Patient Instructions Indication:Depression with anxiety Start:09-Nov-2012 Instruction Type:Provider Instructions for Treatment [facility]; [facility] Work Phone: Instructions* Name Dates Details Patient Instructions Indication:BMI 40.0-44.9, adult Start:28-Mar-2022 Instruction Type:Provider Instructions for Treatment How to Access Health Informa tion Online using Patient Portal and [employer] Indication:BMI 40.0-44.9, adult Start:28-Mar-2022 Instruction Type:Patient Education Patient Instructions Indication:Current nonsmoker (Renamed from Current non-smoker) Start:18-Jan-2021 Instruction Type:Provider Instructions for Treatment How to Access Health Informa tion Online using Patient Portal and [employer] Indication:Current nonsmoker (Renamed from Current non-smoker) Start:18-Jan-2021 Instruction Type:Patient Education Patient Instructions Indication:Current nonsmoker (Renamed from Current non-smoker) Start:04-Jan-2021 Instruction Type:Provider Instructions for Treatment How to Access Health Informa tion Online using Patient Portal and [employer] Indication:Current nonsmoker (Renamed from Current non-smoker) Start:04-Jan-2021 Instruction Type:Patient Education How to access health informa tion online Indication:Current nonsmoker (Renamed from Current non-smoker) Start:20-Feb-2020 Instruction Type:Patient Education How to access health informa tion online - Detail Indication:Current nonsmoker (Renamed from Current non-smoker) Start:20-Feb-2020 Instruction Type:Patient Education Patient Instructions Indication:Current nonsmoker (Renamed from Current non-smoker) Start:20-Feb-2020 Instruction Type:Provider Instructions for Treatment How to access health informa tion online Indication:Current nonsmoker (Renamed from Current non-smoker) Start:15-Feb-2020 Instruction Type:Patient Education How to access health informa tion online - Detail Indication:Current nonsmoker (Renamed from Current non-smoker) Start:15-Feb-2020 Instruction Type:Patient Education Patient Instructions Indication:Current nonsmoker (Renamed from Current non-smoker) Start:15-Feb-2020 Instruction Type:Provider Instructions for Treatment How to access health informa tion online Indication:Current nonsmoker (Renamed from Current non-smoker) Start:13-Feb-2020 Instruction Type:Patient Education How to access health informa tion online - Detail Indication:Current nonsmoker (Renamed from Current non-smoker) Start:13-Feb-2020 Instruction Type:Patient Education Patient Instructions Indication:Current nonsmoker (Renamed from Current non-smoker) Start:13-Feb-2020 Instruction Type:Provider Instructions for Treatment Patient Instructions make fo llow up virtual on Thu Indication:BMI 40.0-44.9, adult Start:13-Feb-2020 Instruction Type:Provider Instructions for Treatment How to access health informa tion online Indication:Current nonsmoker (Renamed from Current non-smoker) Start:14-Oct-2019 Instruction Type:Patient Education How to access health informa tion online - Detail Indication:Current nonsmoker (Renamed from Current non-smoker) Start:14-Oct-2019 Instruction Type:Patient Education Patient Instructions Indication:Current nonsmoker (Renamed from Current non-smoker) Start:14-Oct-2019 Instruction Type:Provider Instructions for Treatment How to access health informa tion online Indication:Current nonsmoker (Renamed from Current non-smoker) Start:21-Jul-2018 Instruction Type:Patient Education How to access health informa tion online - Detail Indication:Current nonsmoker (Renamed from Current non-smoker) Start:21-Jul-2018 Instruction Type:Patient Education Patient Instructions Indication:Current nonsmoker (Renamed from Current non-smoker) Start:21-Jul-2018 Instruction Type:Provider Instructions for Treatment How to access health informa tion online Indication:Current nonsmoker (Renamed from Current non-smoker) Start:07-Jul-2018 Instruction Type:Patient Education How to access health informa tion online - Detail Indication:Current nonsmoker (Renamed from Current non-smoker) Start:07-Jul-2018 Instruction Type:Patient Education Patient Instructions Indication:Current nonsmoker (Renamed from Current non-smoker) Start:07-Jul-2018 Instruction Type:Provider Instructions for Treatment How to access health informa tion online Indication:Current nonsmoker (Renamed from Current non-smoker) Start:24-Jun-2018 Instruction Type:Patient Education How to access health informa tion online - Detail Indication:Current nonsmoker (Renamed from Current non-smoker) Start:24-Jun-2018 Instruction Type:Patient Education Patient Instructions Indication:Current nonsmoker (Renamed from Current non-smoker) Start:24-Jun-2018 Instruction Type:Provider Instructions for Treatment How to access health informa tion online Indication:Body mass index 37.0-37.9, adult Start:10-Jun-2018 Instruction Type:Patient Education How to access health informa tion online - Detail Indication:Body mass index 37.0-37.9, adult Start:10-Jun-2018 Instruction Type:Patient Education Patient Instructions Indication:Body mass index 37.0-37.9, adult Start:10-Jun-2018 Instruction Type:Provider Instructions for Treatment How to access health informa tion online Indication:Current nonsmoker (Renamed from Current non-smoker) Start:27-May-2018 Instruction Type:Patient Education How to access health informa tion online - Detail Indication:Current nonsmoker (Renamed from Current non-smoker) Start:27-May-2018 Instruction Type:Patient Education Patient Instructions Indication:Current nonsmoker (Renamed from Current non-smoker) Start:27-May-2018 Instruction Type:Provider Instructions for Treatment How to access health informa tion online Indication:Current nonsmoker (Renamed from Current non-smoker) Start:13-May-2018 Instruction Type:Patient Education How to access health informa tion online - Detail Indication:Current nonsmoker (Renamed from Current non-smoker) Start:13-May-2018 Instruction Type:Patient Education Patient Instructions Indication:Current nonsmoker (Renamed from Current non-smoker) Start:13-May-2018 Instruction Type:Provider Instructions for Treatment Patient Instructions Indication:Chronic pain of left knee Start:14-May-2016 Instruction Type:Provider Instructions for Treatment How to access health informa tion online Indication:Chronic pain of left knee Start:14-May-2016 Instruction Type:Patient Education How to access health informa tion online - Detail Indication:Chronic pain of left knee Start:14-May-2016 Instruction Type:Patient Education How to access health informa tion online Indication:Depression with anxiety Start:07-Mar-2016 Instruction Type:Patient Education How to access health informa tion online - Detail Indication:Depression with anxiety Start:07-Mar-2016 Instruction Type:Patient Education Patient Instructions Indication:Depression with anxiety Start:07-Mar-2016 Instruction Type:Provider Instructions for Treatment How to access health informa tion online Indication:BMI 33.0-33.9,adult Start:07-Sep-2015 Instruction Type:Patient Education How to access health informa tion online - Detail Indication:BMI 33.0-33.9,adult Start:07-Sep-2015 Instruction Type:Patient Education Patient Instructions Indication:BMI 33.0-33.9,adult Start:07-Sep-2015 Instruction Type:Provider Instructions for Treatment How to access health informa tion online Indication:Obesity, unspecified Start:13-Jul-2015 Instruction Type:Patient Education How to access health informa tion online - Detail Indication:Obesity, unspecified Start:13-Jul-2015 Instruction Type:Patient Education Patient Instructions Indication:Obesity, unspecified Start:13-Jul-2015 Instruction Type:Provider Instructions for Treatment How to access health informa tion online Indication:Obesity, unspecified Start:17-May-2015 Instruction Type:Patient Education How to access health informa tion online - Detail Indication:Obesity, unspecified Start:17-May-2015 Instruction Type:Patient Education Patient Instructions Indication:Obesity, unspecified Start:17-May-2015 Instruction Type:Provider Instructions for Treatment How to access health informa tion online Indication:Obesity, unspecified Start:11-Apr-2015 Instruction Type:Patient Education How to access health informa tion online - Detail Indication:Obesity, unspecified Start:11-Apr-2015 Instruction Type:Patient Education Patient Instructions Indication:Obesity, unspecified Start:11-Apr-2015 Instruction Type:Provider Instructions for Treatment How to access health informa tion online Indication:Depression with anxiety Start:15-Mar-2015 Instruction Type:Patient Education How to access health informa tion online - Detail Indication:Depression with anxiety Start:15-Mar-2015 Instruction Type:Patient Education Patient Instructions Indication:Depression with anxiety Start:15-Mar-2015 Instruction Type:Provider Instructions for Treatment Patient Instructions Indication:Depression with anxiety Start:22-Nov-2013 Instruction Type:Provider Instructions for Treatment Patient Instructions Indication:Depression with anxiety Start:09-Nov-2012 Instruction Type:Provider Instructions for Treatment [facility]; [facility] Work Phone: Instructions* Name Dates Details Patient Instructions Indication:BMI 40.0-44.9, adult Start:28-Mar-2022 Instruction Type:Provider Instructions for Treatment How to Access Health Informa tion Online using Patient Portal and [employer]rd [employer] Apps Indication:BMI 40.0-44.9, adult Start:28-Mar-2022 Instruction Type:Patient Education Patient Instructions Indication:Current nonsmoker (Renamed from Current non-smoker) Start:18-Jan-2021 Instruction Type:Provider Instructions for Treatment How to Access Health Informa tion Online using Patient Portal and [employer]rd [employer] Apps Indication:Current nonsmoker (Renamed from Current non-smoker) Start:18-Jan-2021 Instruction Type:Patient Education Patient Instructions Indication:Current nonsmoker (Renamed from Current non-smoker) Start:04-Jan-2021 Instruction Type:Provider Instructions for Treatment How to Access Health Informa tion Online using Patient Portal and [employer]rd [employer] Apps Indication:Current nonsmoker (Renamed from Current non-smoker) Start:04-Jan-2021 Instruction Type:Patient Education How to access health informa tion online Indication:Current nonsmoker (Renamed from Current non-smoker) Start:20-Feb-2020 Instruction Type:Patient Education How to access health informa tion online - Detail Indication:Current nonsmoker (Renamed from Current non-smoker) Start:20-Feb-2020 Instruction Type:Patient Education Patient Instructions Indication:Current nonsmoker (Renamed from Current non-smoker) Start:20-Feb-2020 Instruction Type:Provider Instructions for Treatment How to access health informa tion online Indication:Current nonsmoker (Renamed from Current non-smoker) Start:15-Feb-2020 Instruction Type:Patient Education How to access health informa tion online - Detail Indication:Current nonsmoker (Renamed from Current non-smoker) Start:15-Feb-2020 Instruction Type:Patient Education Patient Instructions Indication:Current nonsmoker (Renamed from Current non-smoker) Start:15-Feb-2020 Instruction Type:Provider Instructions for Treatment How to access health informa tion online Indication:Current nonsmoker (Renamed from Current non-smoker) Start:13-Feb-2020 Instruction Type:Patient Education How to access health informa tion online - Detail Indication:Current nonsmoker (Renamed from Current non-smoker) Start:13-Feb-2020 Instruction Type:Patient Education Patient Instructions Indication:Current nonsmoker (Renamed from Current non-smoker) Start:13-Feb-2020 Instruction Type:Provider Instructions for Treatment Patient Instructions make fo llow up virtual on Wed Indication:BMI 40.0-44.9, adult Start:13-Feb-2020 Instruction Type:Provider Instructions for Treatment How to access health informa tion online Indication:Current nonsmoker (Renamed from Current non-smoker) Start:14-Oct-2019 Instruction Type:Patient Education How to access health informa tion online - Detail Indication:Current nonsmoker (Renamed from Current non-smoker) Start:14-Oct-2019 Instruction Type:Patient Education Patient Instructions Indication:Current nonsmoker (Renamed from Current non-smoker) Start:14-Oct-2019 Instruction Type:Provider Instructions for Treatment How to access health informa tion online Indication:Current nonsmoker (Renamed from Current non-smoker) Start:21-Jul-2018 Instruction Type:Patient Education How to access health informa tion online - Detail Indication:Current nonsmoker (Renamed from Current non-smoker) Start:21-Jul-2018 Instruction Type:Patient Education Patient Instructions Indication:Current nonsmoker (Renamed from Current non-smoker) Start:21-Jul-2018 Instruction Type:Provider Instructions for Treatment How to access health informa tion online Indication:Current nonsmoker (Renamed from Current non-smoker) Start:07-Jul-2018 Instruction Type:Patient Education How to access health informa tion online - Detail Indication:Current nonsmoker (Renamed from Current non-smoker) Start:07-Jul-2018 Instruction Type:Patient Education Patient Instructions Indication:Current nonsmoker (Renamed from Current non-smoker) Start:07-Jul-2018 Instruction Type:Provider Instructions for Treatment How to access health informa tion online Indication:Current nonsmoker (Renamed from Current non-smoker) Start:24-Jun-2018 Instruction Type:Patient Education How to access health informa tion online - Detail Indication:Current nonsmoker (Renamed from Current non-smoker) Start:24-Jun-2018 Instruction Type:Patient Education Patient Instructions Indication:Current nonsmoker (Renamed from Current non-smoker) Start:24-Jun-2018 Instruction Type:Provider Instructions for Treatment How to access health informa tion online Indication:Body mass index 37.0-37.9, adult Start:10-Jun-2018 Instruction Type:Patient Education How to access health informa tion online - Detail Indication:Body mass index 37.0-37.9, adult Start:10-Jun-2018 Instruction Type:Patient Education Patient Instructions Indication:Body mass index 37.0-37.9, adult Start:10-Jun-2018 Instruction Type:Provider Instructions for Treatment How to access health informa tion online Indication:Current nonsmoker (Renamed from Current non-smoker) Start:27-May-2018 Instruction Type:Patient Education How to access health informa tion online - Detail Indication:Current nonsmoker (Renamed from Current non-smoker) Start:27-May-2018 Instruction Type:Patient Education Patient Instructions Indication:Current nonsmoker (Renamed from Current non-smoker) Start:27-May-2018 Instruction Type:Provider Instructions for Treatment How to access health informa tion online Indication:Current nonsmoker (Renamed from Current non-smoker) Start:13-May-2018 Instruction Type:Patient Education How to access health informa tion online - Detail Indication:Current nonsmoker (Renamed from Current non-smoker) Start:13-May-2018 Instruction Type:Patient Education Patient Instructions Indication:Current nonsmoker (Renamed from Current non-smoker) Start:13-May-2018 Instruction Type:Provider Instructions for Treatment Patient Instructions Indication:Chronic pain of left knee Start:14-May-2016 Instruction Type:Provider Instructions for Treatment How to access health informa tion online Indication:Chronic pain of left knee Start:14-May-2016 Instruction Type:Patient Education How to access health informa tion online - Detail Indication:Chronic pain of left knee Start:14-May-2016 Instruction Type:Patient Education How to access health informa tion online Indication:Depression with anxiety Start:07-Mar-2016 Instruction Type:Patient Education How to access health informa tion online - Detail Indication:Depression with anxiety Start:07-Mar-2016 Instruction Type:Patient Education Patient Instructions Indication:Depression with anxiety Start:07-Mar-2016 Instruction Type:Provider Instructions for Treatment How to access health informa tion online Indication:BMI 33.0-33.9,adult Start:07-Sep-2015 Instruction Type:Patient Education How to access health informa tion online - Detail Indication:BMI 33.0-33.9,adult Start:07-Sep-2015 Instruction Type:Patient Education Patient Instructions Indication:BMI 33.0-33.9,adult Start:07-Sep-2015 Instruction Type:Provider Instructions for Treatment How to access health informa tion online Indication:Obesity, unspecified Start:13-Jul-2015 Instruction Type:Patient Education How to access health informa tion online - Detail Indication:Obesity, unspecified Start:13-Jul-2015 Instruction Type:Patient Education Patient Instructions Indication:Obesity, unspecified Start:13-Jul-2015 Instruction Type:Provider Instructions for Treatment How to access health informa tion online Indication:Obesity, unspecified Start:17-May-2015 Instruction Type:Patient Education How to access health informa tion online - Detail Indication:Obesity, unspecified Start:17-May-2015 Instruction Type:Patient Education Patient Instructions Indication:Obesity, unspecified Start:17-May-2015 Instruction Type:Provider Instructions for Treatment How to access health informa tion online Indication:Obesity, unspecified Start:11-Apr-2015 Instruction Type:Patient Education How to access health informa tion online - Detail Indication:Obesity, unspecified Start:11-Apr-2015 Instruction Type:Patient Education Patient Instructions Indication:Obesity, unspecified Start:11-Apr-2015 Instruction Type:Provider Instructions for Treatment How to access health informa tion online Indication:Depression with anxiety Start:15-Mar-2015 Instruction Type:Patient Education How to access health informa tion online - Detail Indication:Depression with anxiety Start:15-Mar-2015 Instruction Type:Patient Education Patient Instructions Indication:Depression with anxiety Start:15-Mar-2015 Instruction Type:Provider Instructions for Treatment Patient Instructions Indication:Depression with anxiety Start:22-Nov-2013 Instruction Type:Provider Instructions for Treatment Patient Instructions Indication:Depression with anxiety Start:09-Nov-2012 Instruction Type:Provider Instructions for Treatment [facility]; [facility] Work Phone: Instructions* Name Dates Details Patient Instructions Indication:BMI 35.0-35.9,adult (Renamed from Body mass index (BMI) of 35.0 to 35.9 in adult) Start:27-Jan-2023 Instruction Type:Provider Instructions for Treatment How to Access Health Informa tion Online using Patient Portal and [employer]rd [employer] Apps Indication:BMI 35.0-35.9,adult (Renamed from Body mass index (BMI) of 35.0 to 35.9 in adult) Start:27-Jan-2023 Instruction Type:Patient Education Patient Instructions Indication:BMI 40.0-44.9, adult Start:28-Mar-2022 Instruction Type:Provider Instructions for Treatment How to Access Health Informa tion Online using Patient Portal and [employer]rd [employer] Apps Indication:BMI 40.0-44.9, adult Start:28-Mar-2022 Instruction Type:Patient Education Patient Instructions Indication:Current nonsmoker (Renamed from Current non-smoker) Start:18-Jan-2021 Instruction Type:Provider Instructions for Treatment How to Access Health Informa tion Online using Patient Portal and [employer]rd [employer] Apps Indication:Current nonsmoker (Renamed from Current non-smoker) Start:18-Jan-2021 Instruction Type:Patient Education Patient Instructions Indication:Current nonsmoker (Renamed from Current non-smoker) Start:04-Jan-2021 Instruction Type:Provider Instructions for Treatment How to Access Health Informa tion Online using Patient Portal and [employer] Apps Indication:Current nonsmoker (Renamed from Current non-smoker) Start:04-Jan-2021 Instruction Type:Patient Education How to access health informa tion online Indication:Current nonsmoker (Renamed from Current non-smoker) Start:20-Feb-2020 Instruction Type:Patient Education How to access health informa tion online - Detail Indication:Current nonsmoker (Renamed from Current non-smoker) Start:20-Feb-2020 Instruction Type:Patient Education Patient Instructions Indication:Current nonsmoker (Renamed from Current non-smoker) Start:20-Feb-2020 Instruction Type:Provider Instructions for Treatment How to access health informa tion online Indication:Current nonsmoker (Renamed from Current non-smoker) Start:15-Feb-2020 Instruction Type:Patient Education How to access health informa tion online - Detail Indication:Current nonsmoker (Renamed from Current non-smoker) Start:15-Feb-2020 Instruction Type:Patient Education Patient Instructions Indication:Current nonsmoker (Renamed from Current non-smoker) Start:15-Feb-2020 Instruction Type:Provider Instructions for Treatment How to access health informa tion online Indication:Current nonsmoker (Renamed from Current non-smoker) Start:13-Feb-2020 Instruction Type:Patient Education How to access health informa tion online - Detail Indication:Current nonsmoker (Renamed from Current non-smoker) Start:13-Feb-2020 Instruction Type:Patient Education Patient Instructions Indication:Current nonsmoker (Renamed from Current non-smoker) Start:13-Feb-2020 Instruction Type:Provider Instructions for Treatment Patient Instructions make fo llow up virtual on Wed Indication:BMI 40.0-44.9, adult Start:13-Feb-2020 Instruction Type:Provider Instructions for Treatment How to access health informa tion online Indication:Current nonsmoker (Renamed from Current non-smoker) Start:14-Oct-2019 Instruction Type:Patient Education How to access health informa tion online - Detail Indication:Current nonsmoker (Renamed from Current non-smoker) Start:14-Oct-2019 Instruction Type:Patient Education Patient Instructions Indication:Current nonsmoker (Renamed from Current non-smoker) Start:14-Oct-2019 Instruction Type:Provider Instructions for Treatment How to access health informa tion online Indication:Current nonsmoker (Renamed from Current non-smoker) Start:21-Jul-2018 Instruction Type:Patient Education How to access health informa tion online - Detail Indication:Current nonsmoker (Renamed from Current non-smoker) Start:21-Jul-2018 Instruction Type:Patient Education Patient Instructions Indication:Current nonsmoker (Renamed from Current non-smoker) Start:21-Jul-2018 Instruction Type:Provider Instructions for Treatment How to access health informa tion online Indication:Current nonsmoker (Renamed from Current non-smoker) Start:07-Jul-2018 Instruction Type:Patient Education How to access health informa tion online - Detail Indication:Current nonsmoker (Renamed from Current non-smoker) Start:07-Jul-2018 Instruction Type:Patient Education Patient Instructions Indication:Current nonsmoker (Renamed from Current non-smoker) Start:07-Jul-2018 Instruction Type:Provider Instructions for Treatment How to access health informa tion online Indication:Current nonsmoker (Renamed from Current non-smoker) Start:24-Jun-2018 Instruction Type:Patient Education How to access health informa tion online - Detail Indication:Current nonsmoker (Renamed from Current non-smoker) Start:24-Jun-2018 Instruction Type:Patient Education Patient Instructions Indication:Current nonsmoker (Renamed from Current non-smoker) Start:24-Jun-2018 Instruction Type:Provider Instructions for Treatment How to access health informa tion online Indication:Body mass index 37.0-37.9, adult Start:10-Jun-2018 Instruction Type:Patient Education How to access health informa tion online - Detail Indication:Body mass index 37.0-37.9, adult Start:10-Jun-2018 Instruction Type:Patient Education Patient Instructions Indication:Body mass index 37.0-37.9, adult Start:10-Jun-2018 Instruction Type:Provider Instructions for Treatment How to access health informa tion online Indication:Current nonsmoker (Renamed from Current non-smoker) Start:27-May-2018 Instruction Type:Patient Education How to access health informa tion online - Detail Indication:Current nonsmoker (Renamed from Current non-smoker) Start:27-May-2018 Instruction Type:Patient Education Patient Instructions Indication:Current nonsmoker (Renamed from Current non-smoker) Start:27-May-2018 Instruction Type:Provider Instructions for Treatment How to access health informa tion online Indication:Current nonsmoker (Renamed from Current non-smoker) Start:13-May-2018 Instruction Type:Patient Education How to access health informa tion online - Detail Indication:Current nonsmoker (Renamed from Current non-smoker) Start:13-May-2018 Instruction Type:Patient Education Patient Instructions Indication:Current nonsmoker (Renamed from Current non-smoker) Start:13-May-2018 Instruction Type:Provider Instructions for Treatment Patient Instructions Indication:Chronic pain of left knee Start:14-May-2016 Instruction Type:Provider Instructions for Treatment How to access health informa tion online Indication:Chronic pain of left knee Start:14-May-2016 Instruction Type:Patient Education How to access health informa tion online - Detail Indication:Chronic pain of left knee Start:14-May-2016 Instruction Type:Patient Education How to access health informa tion online Indication:Depression with anxiety Start:07-Mar-2016 Instruction Type:Patient Education How to access health informa tion online - Detail Indication:Depression with anxiety Start:07-Mar-2016 Instruction Type:Patient Education Patient Instructions Indication:Depression with anxiety Start:07-Mar-2016 Instruction Type:Provider Instructions for Treatment How to access health informa tion online Indication:BMI 33.0-33.9,adult Start:07-Sep-2015 Instruction Type:Patient Education How to access health informa tion online - Detail Indication:BMI 33.0-33.9,adult Start:07-Sep-2015 Instruction Type:Patient Education Patient Instructions Indication:BMI 33.0-33.9,adult Start:07-Sep-2015 Instruction Type:Provider Instructions for Treatment How to access health informa tion online Indication:Obesity, unspecified Start:13-Jul-2015 Instruction Type:Patient Education How to access health informa tion online - Detail Indication:Obesity, unspecified Start:13-Jul-2015 Instruction Type:Patient Education Patient Instructions Indication:Obesity, unspecified Start:13-Jul-2015 Instruction Type:Provider Instructions for Treatment How to access health informa tion online Indication:Obesity, unspecified Start:17-May-2015 Instruction Type:Patient Education How to access health informa tion online - Detail Indication:Obesity, unspecified Start:17-May-2015 Instruction Type:Patient Education Patient Instructions Indication:Obesity, unspecified Start:17-May-2015 Instruction Type:Provider Instructions for Treatment How to access health informa tion online Indication:Obesity, unspecified Start:11-Apr-2015 Instruction Type:Patient Education How to access health informa tion online - Detail Indication:Obesity, unspecified Start:11-Apr-2015 Instruction Type:Patient Education Patient Instructions Indication:Obesity, unspecified Start:11-Apr-2015 Instruction Type:Provider Instructions for Treatment How to access health informa tion online Indication:Depression with anxiety Start:15-Mar-2015 Instruction Type:Patient Education How to access health informa tion online - Detail Indication:Depression with anxiety Start:15-Mar-2015 Instruction Type:Patient Education Patient Instructions Indication:Depression with anxiety Start:15-Mar-2015 Instruction Type:Provider Instructions for Treatment Patient Instructions Indication:Depression with anxiety Start:22-Nov-2013 Instruction Type:Provider Instructions for Treatment Patient Instructions Indication:Depression with anxiety Start:09-Nov-2012 Instruction Type:Provider Instructions for Treatment [facility]; [facility] Work Phone: Instructions* Name Dates Details Patient Instructions Indication:BMI 35.0-35.9,adult (Renamed from Body mass index (BMI) of 35.0 to 35.9 in adult) Start:27-Jan-2023 Instruction Type:Provider Instructions for Treatment How to Access Health Informa tion Online using Patient Portal and [employer]rd [employer] Apps Indication:BMI 35.0-35.9,adult (Renamed from Body mass index (BMI) of 35.0 to 35.9 in adult) Start:27-Jan-2023 Instruction Type:Patient Education Patient Instructions Indication:BMI 40.0-44.9, adult Start:28-Mar-2022 Instruction Type:Provider Instructions for Treatment How to Access Health Informa tion Online using Patient Portal and [employer]rd [employer] Apps Indication:BMI 40.0-44.9, adult Start:28-Mar-2022 Instruction Type:Patient Education Patient Instructions Indication:Current nonsmoker (Renamed from Current non-smoker) Start:18-Jan-2021 Instruction Type:Provider Instructions for Treatment How to Access Health Informa tion Online using Patient Portal and [employer]rd [employer] Apps Indication:Current nonsmoker (Renamed from Current non-smoker) Start:18-Jan-2021 Instruction Type:Patient Education Patient Instructions Indication:Current nonsmoker (Renamed from Current non-smoker) Start:04-Jan-2021 Instruction Type:Provider Instructions for Treatment How to Access Health Informa tion Online using Patient Portal and [employer] Apps Indication:Current nonsmoker (Renamed from Current non-smoker) Start:04-Jan-2021 Instruction Type:Patient Education How to access health informa tion online Indication:Current nonsmoker (Renamed from Current non-smoker) Start:20-Feb-2020 Instruction Type:Patient Education How to access health informa tion online - Detail Indication:Current nonsmoker (Renamed from Current non-smoker) Start:20-Feb-2020 Instruction Type:Patient Education Patient Instructions Indication:Current nonsmoker (Renamed from Current non-smoker) Start:20-Feb-2020 Instruction Type:Provider Instructions for Treatment How to access health informa tion online Indication:Current nonsmoker (Renamed from Current non-smoker) Start:15-Feb-2020 Instruction Type:Patient Education How to access health informa tion online - Detail Indication:Current nonsmoker (Renamed from Current non-smoker) Start:15-Feb-2020 Instruction Type:Patient Education Patient Instructions Indication:Current nonsmoker (Renamed from Current non-smoker) Start:15-Feb-2020 Instruction Type:Provider Instructions for Treatment How to access health informa tion online Indication:Current nonsmoker (Renamed from Current non-smoker) Start:13-Feb-2020 Instruction Type:Patient Education How to access health informa tion online - Detail Indication:Current nonsmoker (Renamed from Current non-smoker) Start:13-Feb-2020 Instruction Type:Patient Education Patient Instructions Indication:Current nonsmoker (Renamed from Current non-smoker) Start:13-Feb-2020 Instruction Type:Provider Instructions for Treatment Patient Instructions make fo llow up virtual on Wed Indication:BMI 40.0-44.9, adult Start:13-Feb-2020 Instruction Type:Provider Instructions for Treatment How to access health informa tion online Indication:Current nonsmoker (Renamed from Current non-smoker) Start:14-Oct-2019 Instruction Type:Patient Education How to access health informa tion online - Detail Indication:Current nonsmoker (Renamed from Current non-smoker) Start:14-Oct-2019 Instruction Type:Patient Education Patient Instructions Indication:Current nonsmoker (Renamed from Current non-smoker) Start:14-Oct-2019 Instruction Type:Provider Instructions for Treatment How to access health informa tion online Indication:Current nonsmoker (Renamed from Current non-smoker) Start:21-Jul-2018 Instruction Type:Patient Education How to access health informa tion online - Detail Indication:Current nonsmoker (Renamed from Current non-smoker) Start:21-Jul-2018 Instruction Type:Patient Education Patient Instructions Indication:Current nonsmoker (Renamed from Current non-smoker) Start:21-Jul-2018 Instruction Type:Provider Instructions for Treatment How to access health informa tion online Indication:Current nonsmoker (Renamed from Current non-smoker) Start:07-Jul-2018 Instruction Type:Patient Education How to access health informa tion online - Detail Indication:Current nonsmoker (Renamed from Current non-smoker) Start:07-Jul-2018 Instruction Type:Patient Education Patient Instructions Indication:Current nonsmoker (Renamed from Current non-smoker) Start:07-Jul-2018 Instruction Type:Provider Instructions for Treatment How to access health informa tion online Indication:Current nonsmoker (Renamed from Current non-smoker) Start:24-Jun-2018 Instruction Type:Patient Education How to access health informa tion online - Detail Indication:Current nonsmoker (Renamed from Current non-smoker) Start:24-Jun-2018 Instruction Type:Patient Education Patient Instructions Indication:Current nonsmoker (Renamed from Current non-smoker) Start:24-Jun-2018 Instruction Type:Provider Instructions for Treatment How to access health informa tion online Indication:Body mass index 37.0-37.9, adult Start:10-Jun-2018 Instruction Type:Patient Education How to access health informa tion online - Detail Indication:Body mass index 37.0-37.9, adult Start:10-Jun-2018 Instruction Type:Patient Education Patient Instructions Indication:Body mass index 37.0-37.9, adult Start:10-Jun-2018 Instruction Type:Provider Instructions for Treatment How to access health informa tion online Indication:Current nonsmoker (Renamed from Current non-smoker) Start:27-May-2018 Instruction Type:Patient Education How to access health informa tion online - Detail Indication:Current nonsmoker (Renamed from Current non-smoker) Start:27-May-2018 Instruction Type:Patient Education Patient Instructions Indication:Current nonsmoker (Renamed from Current non-smoker) Start:27-May-2018 Instruction Type:Provider Instructions for Treatment How to access health informa tion online Indication:Current nonsmoker (Renamed from Current non-smoker) Start:13-May-2018 Instruction Type:Patient Education How to access health informa tion online - Detail Indication:Current nonsmoker (Renamed from Current non-smoker) Start:13-May-2018 Instruction Type:Patient Education Patient Instructions Indication:Current nonsmoker (Renamed from Current non-smoker) Start:13-May-2018 Instruction Type:Provider Instructions for Treatment Patient Instructions Indication:Chronic pain of left knee Start:14-May-2016 Instruction Type:Provider Instructions for Treatment How to access health informa tion online Indication:Chronic pain of left knee Start:14-May-2016 Instruction Type:Patient Education How to access health informa tion online - Detail Indication:Chronic pain of left knee Start:14-May-2016 Instruction Type:Patient Education How to access health informa tion online Indication:Depression with anxiety Start:07-Mar-2016 Instruction Type:Patient Education How to access health informa tion online - Detail Indication:Depression with anxiety Start:07-Mar-2016 Instruction Type:Patient Education Patient Instructions Indication:Depression with anxiety Start:07-Mar-2016 Instruction Type:Provider Instructions for Treatment How to access health informa tion online Indication:BMI 33.0-33.9,adult Start:07-Sep-2015 Instruction Type:Patient Education How to access health informa tion online - Detail Indication:BMI 33.0-33.9,adult Start:07-Sep-2015 Instruction Type:Patient Education Patient Instructions Indication:BMI 33.0-33.9,adult Start:07-Sep-2015 Instruction Type:Provider Instructions for Treatment How to access health informa tion online Indication:Obesity, unspecified Start:13-Jul-2015 Instruction Type:Patient Education How to access health informa tion online - Detail Indication:Obesity, unspecified Start:13-Jul-2015 Instruction Type:Patient Education Patient Instructions Indication:Obesity, unspecified Start:13-Jul-2015 Instruction Type:Provider Instructions for Treatment How to access health informa tion online Indication:Obesity, unspecified Start:17-May-2015 Instruction Type:Patient Education How to access health informa tion online - Detail Indication:Obesity, unspecified Start:17-May-2015 Instruction Type:Patient Education Patient Instructions Indication:Obesity, unspecified Start:17-May-2015 Instruction Type:Provider Instructions for Treatment How to access health informa tion online Indication:Obesity, unspecified Start:11-Apr-2015 Instruction Type:Patient Education How to access health informa tion online - Detail Indication:Obesity, unspecified Start:11-Apr-2015 Instruction Type:Patient Education Patient Instructions Indication:Obesity, unspecified Start:11-Apr-2015 Instruction Type:Provider Instructions for Treatment How to access health informa tion online Indication:Depression with anxiety Start:15-Mar-2015 Instruction Type:Patient Education How to access health informa tion online - Detail Indication:Depression with anxiety Start:15-Mar-2015 Instruction Type:Patient Education Patient Instructions Indication:Depression with anxiety Start:15-Mar-2015 Instruction Type:Provider Instructions for Treatment Patient Instructions Indication:Depression with anxiety Start:22-Nov-2013 Instruction Type:Provider Instructions for Treatment Patient Instructions Indication:Depression with anxiety Start:09-Nov-2012 Instruction Type:Provider Instructions for Treatment [facility] Work Phone: reason for referral (narrative)* Diagnostic Procedure Only (Routine) - Pending Review Specialty Diagnoses / Procedures Referred By Linnea wilson Referred To Contact [facility] Diagnoses Encounter for screening mammogram for breast cancer Procedures JON SCREENING SCREENING MAMMOGRAPHY BI 2-VIEW BREAST INC CAD Juan Francisco Melvin MD [address] [place] [address] [facility] [address] [place] [id number] Referral ID Status Reason Start Date Expiration Date Visits Requested Visits Authorized [id number] Pending Review Auto-Generat ed Referral 09/23/2022 10/23/2023 1 1 [facility] for referral (narrative)* Outpatient Procedure (Routine) - Authorized Specialty Diagnoses / Procedures Referred By Contmanuela wilson Referred To Contact [facility] Diagnoses Screening for colon cancer Procedures COLONOSCOPY SCREENING COLONOSCOPY FLX DX W/COLLJ SPEC WHEN Amparo Fallon MD [address] [place] [address] [address] Referral ID Status Reason Start Date Expiration Date Visits Requested Visits Authorized [id number] Authorized Auto-Generat ed Referral 09/08/2023 09/07/2024 1 1 [facility] for referral (narrative)* Outpatient Procedure (Routine) - Closed Specialty Diagnoses / Procedures Referred By Contac t Referred To Contact [facility] Diagnoses Screening for colon cancer Procedures COLONOSCOPY SCREENING COLONOSCOPY FLX DX W/COLLJ SPEC WHEN Amparo Fallon MD [address] [place] [address] [address] Referral ID Status Reason Start Date Expiration Date V isits Requested Visits Authorized [id number] Closed Auto-Generate d Referral 09/08/2023 09/07/2024 1 1 [facility] for referral (narrative)No reason for referral information availableWC[facility] Work Phone: [facility] for visit Narrative* Outpatient Procedure (Routine) - Closed Specialty Diagnoses / Procedures Referred By Linnea wilson Referred To Contact [facility] Diagnoses Screening for colon cancer Procedures COLONOSCOPY SCREENING COLONOSCOPY FLX DX W/COLLJ SPEC WHEN Amparo Fallon MD [address] [place] [place] [address] [facility] [address] [address] Referral ID Status Reason Start Date Expiration Date V isits Requested Visits Authorized [id number] Closed Auto-Generate d Referral 09/08/2023 09/07/2024 1 1 [facility] Family History No Family History Records FoundUnknown Family Member Name Dates Details Father Comments:HTN Status:Active First Degree Relatives Comments:Leukopenia, bowel C A(colon--grandpa and uncle), DM, Emotional prob, HBP, high cholesterol, Stroke Status:Active Mother Comments:HTN Status:Active Unknown Family Member Name Dates Details Father Comments:HTN Status:Active First Degree Relatives Comments:Leukopenia, bowel C A(colon--grandpa and uncle), DM, Emotional prob, HBP, high cholesterol, Stroke Status:Active Mother Comments:HTN Status:Active Unknown Family Member Name Dates Details Father Comments:HTN Status:Active First Degree Relatives Comments:Leukopenia, bowel C A(colon--grandpa and uncle), DM, Emotional prob, HBP, high cholesterol, Stroke Status:Active Mother Comments:HTN Status:Active Unknown Family Member Name Dates Details Father Comments:HTN Status:Active First Degree Relatives Comments:Leukopenia, bowel C A(colon--grandpa and uncle), DM, Emotional prob, HBP, high cholesterol, Stroke Status:Active Mother Comments:HTN Status:Active Unknown Family Member Name Dates Details Father Comments:HTN Status:Active First Degree Relatives Comments:Leukopenia, bowel C A(colon--grandpa and uncle), DM, Emotional prob, HBP, high cholesterol, Stroke Status:Active Mother Comments:HTN Status:Active Unknown Family Member Name Dates Details Father Comments:HTN Status:Active First Degree Relatives Comments:Leukopenia, bowel C A(colon--grandpa and uncle), DM, Emotional prob, HBP, high cholesterol, Stroke Status:Active Mother Comments:HTN Status:Active Unknown Family Member Name Dates Details Father Comments:HTN Status:Active First Degree Relatives Comments:Leukopenia, bowel C A(colon--grandpa and uncle), DM, Emotional prob, HBP, high cholesterol, Stroke Status:Active Mother Comments:HTN Status:Active Unknown Family Member Name Dates Details Father Comments:HTN Status:Active First Degree Relatives Comments:Leukopenia, bowel C A(colon--grandpa and uncle), DM, Emotional prob, HBP, high cholesterol, Stroke Status:Active Mother Comments:HTN Status:Active Unknown Family Member Name Dates Details Father Comments:HTN Status:Active First Degree Relatives Comments:Leukopenia, bowel C A(colon--grandpa and uncle), DM, Emotional prob, HBP, high cholesterol, Stroke Status:Active Mother Comments:HTN Status:Active Unknown Family Member Name Dates Details Father Comments:HTN Status:Active First Degree Relatives Comments:Leukopenia, bowel C A(colon--grandpa and uncle), DM, Emotional prob, HBP, high cholesterol, Stroke Status:Active Mother Comments:HTN Status:Active Unknown Family Member Name Dates Details Father Comments:HTN Status:Active First Degree Relatives Comments:Leukopenia, bowel C A(colon--grandpa and uncle), DM, Emotional prob, HBP, high cholesterol, Stroke Status:Active Mother Comments:HTN Status:Active Unknown Family Member Name Dates Details Father Comments:HTN Status:Active First Degree Relatives Comments:Leukopenia, bowel C A(colon--grandpa and uncle), DM, Emotional prob, HBP, high cholesterol, Stroke Status:Active Mother Comments:HTN Status:Active Unknown Family Member Name Dates Details Father Comments:HTN Status:Active First Degree Relatives Comments:Leukopenia, bowel C A(colon--grandpa and uncle), DM, Emotional prob, HBP, high cholesterol, Stroke Status:Active Mother Comments:HTN Status:Active Unknown Family Member Name Dates Details Father Comments:HTN Status:Active First Degree Relatives Comments:Leukopenia, bowel C A(colon--grandpa and uncle), DM, Emotional prob, HBP, high cholesterol, Stroke Status:Active Mother Comments:HTN Status:Active Unknown Family Member Name Dates Details Father Comments:HTN Status:Active First Degree Relatives Comments:Leukopenia, bowel C A(colon--grandpa and uncle), DM, Emotional prob, HBP, high cholesterol, Stroke Status:Active Mother Comments:HTN Status:Active Unknown Family Member Name Dates Details Father Comments:HTN Status:Active First Degree Relatives Comments:Leukopenia, bowel C A(colon--grandpa and uncle), DM, Emotional prob, HBP, high cholesterol, Stroke Status:Active Mother Comments:HTN Status:Active Unknown Family Member Name Dates Details Father Comments:HTN Status:Active First Degree Relatives Comments:Leukopenia, bowel C A(colon--grandpa and uncle), DM, Emotional prob, HBP, high cholesterol, Stroke Status:Active Mother Comments:HTN Status:Active Unknown Family Member Name Dates Details Father Comments:HTN Status:Active First Degree Relatives Comments:Leukopenia, bowel C A(colon--grandpa and uncle), DM, Emotional prob, HBP, high cholesterol, Stroke Status:Active Mother Comments:HTN Status:Active Unknown Family Member Name Dates Details Father Comments:HTN Status:Active First Degree Relatives Comments:Leukopenia, bowel C A(colon--grandpa and uncle), DM, Emotional prob, HBP, high cholesterol, Stroke Status:Active Mother Comments:HTN Status:Active Unknown Family Member Name Dates Details Father Comments:HTN Status:Active First Degree Relatives Comments:Leukopenia, bowel C A(colon--grandpa and uncle), DM, Emotional prob, HBP, high cholesterol, Stroke Status:Active Mother Comments:HTN Status:Active Unknown Family Member Name Dates Details Father Comments:HTN Status:Active First Degree Relatives Comments:Leukopenia, bowel C A(colon--grandpa and uncle), DM, Emotional prob, HBP, high cholesterol, Stroke Status:Active Mother Comments:HTN Status:Active Unknown Family Member Name Dates Details Father Comments:HTN Status:Active First Degree Relatives Comments:Leukopenia, bowel C A(colon--grandpa and uncle), DM, Emotional prob, HBP, high cholesterol, Stroke Status:Active Mother Comments:HTN Status:Active Unknown Family Member Name Dates Details Father Comments:HTN Status:Active First Degree Relatives Comments:Leukopenia, bowel C A(colon--grandpa and uncle), DM, Emotional prob, HBP, high cholesterol, Stroke Status:Active Mother Comments:HTN Status:Active Unknown Family Member Name Dates Details Father Comments:HTN Status:Active First Degree Relatives Comments:Leukopenia, bowel C A(colon--grandpa and uncle), DM, Emotional prob, HBP, high cholesterol, Stroke Status:Active Mother Comments:HTN Status:Active Unknown Family Member Name Dates Details Father Comments:HTN Status:Active First Degree Relatives Comments:Leukopenia, bowel C A(colon--grandpa and uncle), DM, Emotional prob, HBP, high cholesterol, Stroke Status:Active Mother Comments:HTN Status:Active Unknown Family Member Name Dates Details Father Comments:HTN Status:Active First Degree Relatives Comments:Leukopenia, bowel C A(colon--grandpa and uncle), DM, Emotional prob, HBP, high cholesterol, Stroke Status:Active Mother Comments:HTN Status:Active Relationship Condition Age at Onset Recorded Date/T wally mother Anemia Unknown Complication of anesthesia Unknown Anxiety Unknown Arthritis Unknown Depression Unknown Hypertension Unknown Hypercholesterolemia Unknown Osteoporosis Unknown grandmother Anemia Unknown sister Anxiety Unknown daughter Anxiety Unknown father Arthritis Unknown grandfather Arthritis Unknown Malignant neoplasm of colon Unknown Myocardial infarction 52 Cerebrovascular accident (CVA) Unknown Instructions Name Dates Details Current nonsmoker (Renamed f rom Current non-smoker) : How to access health information online Indication:Current nonsmoker (Renamed from Current non-smoker) Current nonsmoker (Renamed f rom Current non-smoker) : How to access health information online - Detail Indication:Current nonsmoker (Renamed from Current non-smoker) Current nonsmoker (Renamed f rom Current non-smoker) : Patient Instructions Indication:Current nonsmoker (Renamed from Current non-smoker) Chronic pain of left knee : Patient Instructions Indication:Chronic pain of left knee Chronic pain of left knee : How to access health information online Indication:Chronic pain of left knee Chronic pain of left knee : How to access health information online - Detail Indication:Chronic pain of left knee Depression with anxiety : Ho w to access health information online Indication:Depression with anxiety Depression with anxiety : Ho w to access health information online - Detail Indication:Depression with anxiety Depression with anxiety : Jeffrey dejesus Instructions Indication:Depression with anxiety BMI 33.0-33.9,adult : How to access health information online Indication:BMI 33.0-33.9,adult BMI 33.0-33.9,adult : How to access health information online - Detail Indication:BMI 33.0-33.9,adult BMI 33.0-33.9,adult : Patien t Instructions Indication:BMI 33.0-33.9,adult Obesity, unspecified : How t o access health information online Indication:Obesity, unspecified Obesity, unspecified : How t o access health information online - Detail Indication:Obesity, unspecified Obesity, unspecified : Patie nt Instructions Indication:Obesity, unspecified Name Dates Details Current nonsmoker (Renamed f rom Current non-smoker) : How to access health information online Indication:Current nonsmoker (Renamed from Current non-smoker) Current nonsmoker (Renamed f rom Current non-smoker) : How to access health information online - Detail Indication:Current nonsmoker (Renamed from Current non-smoker) Current nonsmoker (Renamed f rom Current non-smoker) : Patient Instructions Indication:Current nonsmoker (Renamed from Current non-smoker) Chronic pain of left knee : Patient Instructions Indication:Chronic pain of left knee Chronic pain of left knee : How to access health information online Indication:Chronic pain of left knee Chronic pain of left knee : How to access health information online - Detail Indication:Chronic pain of left knee Depression with anxiety : Ho w to access health information online Indication:Depression with anxiety Depression with anxiety : Ho w to access health information online - Detail Indication:Depression with anxiety Depression with anxiety : Jeffrey dejesus Instructions Indication:Depression with anxiety BMI 33.0-33.9,adult : How to access health information online Indication:BMI 33.0-33.9,adult BMI 33.0-33.9,adult : How to access health information online - Detail Indication:BMI 33.0-33.9,adult BMI 33.0-33.9,adult : Patien t Instructions Indication:BMI 33.0-33.9,adult Obesity, unspecified : How t o access health information online Indication:Obesity, unspecified Obesity, unspecified : How t o access health information online - Detail Indication:Obesity, unspecified Obesity, unspecified : Patie nt Instructions Indication:Obesity, unspecified Name Dates Details Body mass index 37.0-37.9, a dult : How to access health information online Indication:Body mass index 37.0-37.9, adult Body mass index 37.0-37.9, a dult : How to access health information online - Detail Indication:Body mass index 37.0-37.9, adult Body mass index 37.0-37.9, a dult : Patient Instructions Indication:Body mass index 37.0-37.9, adult Current nonsmoker (Renamed f rom Current non-smoker) : How to access health information online Indication:Current nonsmoker (Renamed from Current non-smoker) Current nonsmoker (Renamed f rom Current non-smoker) : How to access health information online - Detail Indication:Current nonsmoker (Renamed from Current non-smoker) Current nonsmoker (Renamed f rom Current non-smoker) : Patient Instructions Indication:Current nonsmoker (Renamed from Current non-smoker) Chronic pain of left knee : Patient Instructions Indication:Chronic pain of left knee Chronic pain of left knee : How to access health information online Indication:Chronic pain of left knee Chronic pain of left knee : How to access health information online - Detail Indication:Chronic pain of left knee Depression with anxiety : Ho w to access health information online Indication:Depression with anxiety Depression with anxiety : Ho w to access health information online - Detail Indication:Depression with anxiety Depression with anxiety : Jeffrey dejesus Instructions Indication:Depression with anxiety BMI 33.0-33.9,adult : How to access health information online Indication:BMI 33.0-33.9,adult BMI 33.0-33.9,adult : How to access health information online - Detail Indication:BMI 33.0-33.9,adult BMI 33.0-33.9,adult : Patien t Instructions Indication:BMI 33.0-33.9,adult Obesity, unspecified : How t o access health information online Indication:Obesity, unspecified Obesity, unspecified : How t o access health information online - Detail Indication:Obesity, unspecified Obesity, unspecified : Patie nt Instructions Indication:Obesity, unspecified Name Dates Details Current nonsmoker (Renamed f rom Current non-smoker) : How to access health information online Indication:Current nonsmoker (Renamed from Current non-smoker) Current nonsmoker (Renamed f rom Current non-smoker) : How to access health information online - Detail Indication:Current nonsmoker (Renamed from Current non-smoker) Current nonsmoker (Renamed f rom Current non-smoker) : Patient Instructions Indication:Current nonsmoker (Renamed from Current non-smoker) Body mass index 37.0-37.9, a dult : How to access health information online Indication:Body mass index 37.0-37.9, adult Body mass index 37.0-37.9, a dult : How to access health information online - Detail Indication:Body mass index 37.0-37.9, adult Body mass index 37.0-37.9, a dult : Patient Instructions Indication:Body mass index 37.0-37.9, adult Chronic pain of left knee : Patient Instructions Indication:Chronic pain of left knee Chronic pain of left knee : How to access health information online Indication:Chronic pain of left knee Chronic pain of left knee : How to access health information online - Detail Indication:Chronic pain of left knee Depression with anxiety : Ho w to access health information online Indication:Depression with anxiety Depression with anxiety : Ho w to access health information online - Detail Indication:Depression with anxiety Depression with anxiety : Pa thierrynt Instructions Indication:Depression with anxiety BMI 33.0-33.9,adult : How to access health information online Indication:BMI 33.0-33.9,adult BMI 33.0-33.9,adult : How to access health information online - Detail Indication:BMI 33.0-33.9,adult BMI 33.0-33.9,adult : Patien t Instructions Indication:BMI 33.0-33.9,adult Obesity, unspecified : How t o access health information online Indication:Obesity, unspecified Obesity, unspecified : How t o access health information online - Detail Indication:Obesity, unspecified Obesity, unspecified : Francis nt Instructions Indication:Obesity, unspecified Name Dates Details Current nonsmoker (Renamed f rom Current non-smoker) : How to access health information online Indication:Current nonsmoker (Renamed from Current non-smoker) Current nonsmoker (Renamed f rom Current non-smoker) : How to access health information online - Detail Indication:Current nonsmoker (Renamed from Current non-smoker) Current nonsmoker (Renamed f rom Current non-smoker) : Patient Instructions Indication:Current nonsmoker (Renamed from Current non-smoker) Body mass index 37.0-37.9, a dult : How to access health information online Indication:Body mass index 37.0-37.9, adult Body mass index 37.0-37.9, a dult : How to access health information online - Detail Indication:Body mass index 37.0-37.9, adult Body mass index 37.0-37.9, a dult : Patient Instructions Indication:Body mass index 37.0-37.9, adult Chronic pain of left knee : Patient Instructions Indication:Chronic pain of left knee Chronic pain of left knee : How to access health information online Indication:Chronic pain of left knee Chronic pain of left knee : How to access health information online - Detail Indication:Chronic pain of left knee Depression with anxiety : Ho w to access health information online Indication:Depression with anxiety Depression with anxiety : Ho w to access health information online - Detail Indication:Depression with anxiety Depression with anxiety : Jeffrey guadarramant Instructions Indication:Depression with anxiety BMI 33.0-33.9,adult : How to access health information online Indication:BMI 33.0-33.9,adult BMI 33.0-33.9,adult : How to access health information online - Detail Indication:BMI 33.0-33.9,adult BMI 33.0-33.9,adult : Patien t Instructions Indication:BMI 33.0-33.9,adult Obesity, unspecified : How t o access health information online Indication:Obesity, unspecified Obesity, unspecified : How t o access health information online - Detail Indication:Obesity, unspecified Obesity, unspecified : Francis nt Instructions Indication:Obesity, unspecified Name Dates Details Current nonsmoker (Renamed f rom Current non-smoker) : How to access health information online Indication:Current nonsmoker (Renamed from Current non-smoker) Current nonsmoker (Renamed f rom Current non-smoker) : How to access health information online - Detail Indication:Current nonsmoker (Renamed from Current non-smoker) Current nonsmoker (Renamed f rom Current non-smoker) : Patient Instructions Indication:Current nonsmoker (Renamed from Current non-smoker) Body mass index 37.0-37.9, a dult : How to access health information online Indication:Body mass index 37.0-37.9, adult Body mass index 37.0-37.9, a dult : How to access health information online - Detail Indication:Body mass index 37.0-37.9, adult Body mass index 37.0-37.9, a dult : Patient Instructions Indication:Body mass index 37.0-37.9, adult Chronic pain of left knee : Patient Instructions Indication:Chronic pain of left knee Chronic pain of left knee : How to access health information online Indication:Chronic pain of left knee Chronic pain of left knee : How to access health information online - Detail Indication:Chronic pain of left knee Depression with anxiety : Ho w to access health information online Indication:Depression with anxiety Depression with anxiety : Ho w to access health information online - Detail Indication:Depression with anxiety Depression with anxiety : Jeffrey dejesus Instructions Indication:Depression with anxiety BMI 33.0-33.9,adult : How to access health information online Indication:BMI 33.0-33.9,adult BMI 33.0-33.9,adult : How to access health information online - Detail Indication:BMI 33.0-33.9,adult BMI 33.0-33.9,adult : Patien t Instructions Indication:BMI 33.0-33.9,adult Obesity, unspecified : How t o access health information online Indication:Obesity, unspecified Obesity, unspecified : How t o access health information online - Detail Indication:Obesity, unspecified Obesity, unspecified : Patie nt Instructions Indication:Obesity, unspecified Name Dates Details Current nonsmoker (Renamed f rom Current non-smoker) : How to access health information online Indication:Current nonsmoker (Renamed from Current non-smoker) Current nonsmoker (Renamed f rom Current non-smoker) : How to access health information online - Detail Indication:Current nonsmoker (Renamed from Current non-smoker) Current nonsmoker (Renamed f rom Current non-smoker) : Patient Instructions Indication:Current nonsmoker (Renamed from Current non-smoker) Body mass index 37.0-37.9, a dult : How to access health information online Indication:Body mass index 37.0-37.9, adult Body mass index 37.0-37.9, a dult : How to access health information online - Detail Indication:Body mass index 37.0-37.9, adult Body mass index 37.0-37.9, a dult : Patient Instructions Indication:Body mass index 37.0-37.9, adult Chronic pain of left knee : Patient Instructions Indication:Chronic pain of left knee Chronic pain of left knee : How to access health information online Indication:Chronic pain of left knee Chronic pain of left knee : How to access health information online - Detail Indication:Chronic pain of left knee Depression with anxiety : Ho w to access health information online Indication:Depression with anxiety Depression with anxiety : Ho w to access health information online - Detail Indication:Depression with anxiety Depression with anxiety : Jeffrey dejesus Instructions Indication:Depression with anxiety BMI 33.0-33.9,adult : How to access health information online Indication:BMI 33.0-33.9,adult BMI 33.0-33.9,adult : How to access health information online - Detail Indication:BMI 33.0-33.9,adult BMI 33.0-33.9,adult : Patien t Instructions Indication:BMI 33.0-33.9,adult Obesity, unspecified : How t o access health information online Indication:Obesity, unspecified Obesity, unspecified : How t o access health information online - Detail Indication:Obesity, unspecified Obesity, unspecified : Patie nt Instructions Indication:Obesity, unspecified Name Dates Details How to access health informa tion online Indication:Current nonsmoker (Renamed from Current non-smoker) Start:13-Feb-2020 Instruction Type:Patient Education How to access health informa tion online - Detail Indication:Current nonsmoker (Renamed from Current non-smoker) Start:13-Feb-2020 Instruction Type:Patient Education Patient Instructions Indication:Current nonsmoker (Renamed from Current non-smoker) Start:13-Feb-2020 Instruction Type:Provider Instructions for Treatment Patient Instructions make fo llow up virtual on Wed Indication:BMI 40.0-44.9, adult Start:13-Feb-2020 Instruction Type:Provider Instructions for Treatment How to access health informa tion online Indication:Current nonsmoker (Renamed from Current non-smoker) Start:14-Oct-2019 Instruction Type:Patient Education How to access health informa tion online - Detail Indication:Current nonsmoker (Renamed from Current non-smoker) Start:14-Oct-2019 Instruction Type:Patient Education Patient Instructions Indication:Current nonsmoker (Renamed from Current non-smoker) Start:14-Oct-2019 Instruction Type:Provider Instructions for Treatment How to access health informa tion online Indication:Current nonsmoker (Renamed from Current non-smoker) Start:21-Jul-2018 Instruction Type:Patient Education How to access health informa tion online - Detail Indication:Current nonsmoker (Renamed from Current non-smoker) Start:21-Jul-2018 Instruction Type:Patient Education Patient Instructions Indication:Current nonsmoker (Renamed from Current non-smoker) Start:21-Jul-2018 Instruction Type:Provider Instructions for Treatment How to access health informa tion online Indication:Current nonsmoker (Renamed from Current non-smoker) Start:07-Jul-2018 Instruction Type:Patient Education How to access health informa tion online - Detail Indication:Current nonsmoker (Renamed from Current non-smoker) Start:07-Jul-2018 Instruction Type:Patient Education Patient Instructions Indication:Current nonsmoker (Renamed from Current non-smoker) Start:07-Jul-2018 Instruction Type:Provider Instructions for Treatment How to access health informa tion online Indication:Current nonsmoker (Renamed from Current non-smoker) Start:24-Jun-2018 Instruction Type:Patient Education How to access health informa tion online - Detail Indication:Current nonsmoker (Renamed from Current non-smoker) Start:24-Jun-2018 Instruction Type:Patient Education Patient Instructions Indication:Current nonsmoker (Renamed from Current non-smoker) Start:24-Jun-2018 Instruction Type:Provider Instructions for Treatment How to access health informa tion online Indication:Body mass index 37.0-37.9, adult Start:10-Jun-2018 Instruction Type:Patient Education How to access health informa tion online - Detail Indication:Body mass index 37.0-37.9, adult Start:10-Jun-2018 Instruction Type:Patient Education Patient Instructions Indication:Body mass index 37.0-37.9, adult Start:10-Jun-2018 Instruction Type:Provider Instructions for Treatment How to access health informa tion online Indication:Current nonsmoker (Renamed from Current non-smoker) Start:27-May-2018 Instruction Type:Patient Education How to access health informa tion online - Detail Indication:Current nonsmoker (Renamed from Current non-smoker) Start:27-May-2018 Instruction Type:Patient Education Patient Instructions Indication:Current nonsmoker (Renamed from Current non-smoker) Start:27-May-2018 Instruction Type:Provider Instructions for Treatment How to access health informa tion online Indication:Current nonsmoker (Renamed from Current non-smoker) Start:13-May-2018 Instruction Type:Patient Education How to access health informa tion online - Detail Indication:Current nonsmoker (Renamed from Current non-smoker) Start:13-May-2018 Instruction Type:Patient Education Patient Instructions Indication:Current nonsmoker (Renamed from Current non-smoker) Start:13-May-2018 Instruction Type:Provider Instructions for Treatment Patient Instructions Indication:Chronic pain of left knee Start:14-May-2016 Instruction Type:Provider Instructions for Treatment How to access health informa tion online Indication:Chronic pain of left knee Start:14-May-2016 Instruction Type:Patient Education How to access health informa tion online - Detail Indication:Chronic pain of left knee Start:14-May-2016 Instruction Type:Patient Education How to access health informa tion online Indication:Depression with anxiety Start:07-Mar-2016 Instruction Type:Patient Education How to access health informa tion online - Detail Indication:Depression with anxiety Start:07-Mar-2016 Instruction Type:Patient Education Patient Instructions Indication:Depression with anxiety Start:07-Mar-2016 Instruction Type:Provider Instructions for Treatment How to access health informa tion online Indication:BMI 33.0-33.9,adult Start:07-Sep-2015 Instruction Type:Patient Education How to access health informa tion online - Detail Indication:BMI 33.0-33.9,adult Start:07-Sep-2015 Instruction Type:Patient Education Patient Instructions Indication:BMI 33.0-33.9,adult Start:07-Sep-2015 Instruction Type:Provider Instructions for Treatment How to access health informa tion online Indication:Obesity, unspecified Start:13-Jul-2015 Instruction Type:Patient Education How to access health informa tion online - Detail Indication:Obesity, unspecified Start:13-Jul-2015 Instruction Type:Patient Education Patient Instructions Indication:Obesity, unspecified Start:13-Jul-2015 Instruction Type:Provider Instructions for Treatment How to access health informa tion online Indication:Obesity, unspecified Start:17-May-2015 Instruction Type:Patient Education How to access health informa tion online - Detail Indication:Obesity, unspecified Start:17-May-2015 Instruction Type:Patient Education Patient Instructions Indication:Obesity, unspecified Start:17-May-2015 Instruction Type:Provider Instructions for Treatment How to access health informa tion online Indication:Obesity, unspecified Start:11-Apr-2015 Instruction Type:Patient Education How to access health informa tion online - Detail Indication:Obesity, unspecified Start:11-Apr-2015 Instruction Type:Patient Education Patient Instructions Indication:Obesity, unspecified Start:11-Apr-2015 Instruction Type:Provider Instructions for Treatment How to access health informa tion online Indication:Depression with anxiety Start:15-Mar-2015 Instruction Type:Patient Education How to access health informa tion online - Detail Indication:Depression with anxiety Start:15-Mar-2015 Instruction Type:Patient Education Patient Instructions Indication:Depression with anxiety Start:15-Mar-2015 Instruction Type:Provider Instructions for Treatment Patient Instructions Indication:Depression with anxiety Start:22-Nov-2013 Instruction Type:Provider Instructions for Treatment Patient Instructions Indication:Depression with anxiety Start:09-Nov-2012 Instruction Type:Provider Instructions for Treatment Name Dates Details How to access health informa tion online Indication:Current nonsmoker (Renamed from Current non-smoker) Start:15-Feb-2020 Instruction Type:Patient Education How to access health informa tion online - Detail Indication:Current nonsmoker (Renamed from Current non-smoker) Start:15-Feb-2020 Instruction Type:Patient Education Patient Instructions Indication:Current nonsmoker (Renamed from Current non-smoker) Start:15-Feb-2020 Instruction Type:Provider Instructions for Treatment How to access health informa tion online Indication:Current nonsmoker (Renamed from Current non-smoker) Start:13-Feb-2020 Instruction Type:Patient Education How to access health informa tion online - Detail Indication:Current nonsmoker (Renamed from Current non-smoker) Start:13-Feb-2020 Instruction Type:Patient Education Patient Instructions Indication:Current nonsmoker (Renamed from Current non-smoker) Start:13-Feb-2020 Instruction Type:Provider Instructions for Treatment Patient Instructions make fo llow up virtual on Thu Indication:BMI 40.0-44.9, adult Start:13-Feb-2020 Instruction Type:Provider Instructions for Treatment How to access health informa tion online Indication:Current nonsmoker (Renamed from Current non-smoker) Start:14-Oct-2019 Instruction Type:Patient Education How to access health informa tion online - Detail Indication:Current nonsmoker (Renamed from Current non-smoker) Start:14-Oct-2019 Instruction Type:Patient Education Patient Instructions Indication:Current nonsmoker (Renamed from Current non-smoker) Start:14-Oct-2019 Instruction Type:Provider Instructions for Treatment How to access health informa tion online Indication:Current nonsmoker (Renamed from Current non-smoker) Start:21-Jul-2018 Instruction Type:Patient Education How to access health informa tion online - Detail Indication:Current nonsmoker (Renamed from Current non-smoker) Start:21-Jul-2018 Instruction Type:Patient Education Patient Instructions Indication:Current nonsmoker (Renamed from Current non-smoker) Start:21-Jul-2018 Instruction Type:Provider Instructions for Treatment How to access health informa tion online Indication:Current nonsmoker (Renamed from Current non-smoker) Start:07-Jul-2018 Instruction Type:Patient Education How to access health informa tion online - Detail Indication:Current nonsmoker (Renamed from Current non-smoker) Start:07-Jul-2018 Instruction Type:Patient Education Patient Instructions Indication:Current nonsmoker (Renamed from Current non-smoker) Start:07-Jul-2018 Instruction Type:Provider Instructions for Treatment How to access health informa tion online Indication:Current nonsmoker (Renamed from Current non-smoker) Start:24-Jun-2018 Instruction Type:Patient Education How to access health informa tion online - Detail Indication:Current nonsmoker (Renamed from Current non-smoker) Start:24-Jun-2018 Instruction Type:Patient Education Patient Instructions Indication:Current nonsmoker (Renamed from Current non-smoker) Start:24-Jun-2018 Instruction Type:Provider Instructions for Treatment How to access health informa tion online Indication:Body mass index 37.0-37.9, adult Start:10-Jun-2018 Instruction Type:Patient Education How to access health informa tion online - Detail Indication:Body mass index 37.0-37.9, adult Start:10-Jun-2018 Instruction Type:Patient Education Patient Instructions Indication:Body mass index 37.0-37.9, adult Start:10-Jun-2018 Instruction Type:Provider Instructions for Treatment How to access health informa tion online Indication:Current nonsmoker (Renamed from Current non-smoker) Start:27-May-2018 Instruction Type:Patient Education How to access health informa tion online - Detail Indication:Current nonsmoker (Renamed from Current non-smoker) Start:27-May-2018 Instruction Type:Patient Education Patient Instructions Indication:Current nonsmoker (Renamed from Current non-smoker) Start:27-May-2018 Instruction Type:Provider Instructions for Treatment How to access health informa tion online Indication:Current nonsmoker (Renamed from Current non-smoker) Start:13-May-2018 Instruction Type:Patient Education How to access health informa tion online - Detail Indication:Current nonsmoker (Renamed from Current non-smoker) Start:13-May-2018 Instruction Type:Patient Education Patient Instructions Indication:Current nonsmoker (Renamed from Current non-smoker) Start:13-May-2018 Instruction Type:Provider Instructions for Treatment Patient Instructions Indication:Chronic pain of left knee Start:14-May-2016 Instruction Type:Provider Instructions for Treatment How to access health informa tion online Indication:Chronic pain of left knee Start:14-May-2016 Instruction Type:Patient Education How to access health informa tion online - Detail Indication:Chronic pain of left knee Start:14-May-2016 Instruction Type:Patient Education How to access health informa tion online Indication:Depression with anxiety Start:07-Mar-2016 Instruction Type:Patient Education How to access health informa tion online - Detail Indication:Depression with anxiety Start:07-Mar-2016 Instruction Type:Patient Education Patient Instructions Indication:Depression with anxiety Start:07-Mar-2016 Instruction Type:Provider Instructions for Treatment How to access health informa tion online Indication:BMI 33.0-33.9,adult Start:07-Sep-2015 Instruction Type:Patient Education How to access health informa tion online - Detail Indication:BMI 33.0-33.9,adult Start:07-Sep-2015 Instruction Type:Patient Education Patient Instructions Indication:BMI 33.0-33.9,adult Start:07-Sep-2015 Instruction Type:Provider Instructions for Treatment How to access health informa tion online Indication:Obesity, unspecified Start:13-Jul-2015 Instruction Type:Patient Education How to access health informa tion online - Detail Indication:Obesity, unspecified Start:13-Jul-2015 Instruction Type:Patient Education Patient Instructions Indication:Obesity, unspecified Start:13-Jul-2015 Instruction Type:Provider Instructions for Treatment How to access health informa tion online Indication:Obesity, unspecified Start:17-May-2015 Instruction Type:Patient Education How to access health informa tion online - Detail Indication:Obesity, unspecified Start:17-May-2015 Instruction Type:Patient Education Patient Instructions Indication:Obesity, unspecified Start:17-May-2015 Instruction Type:Provider Instructions for Treatment How to access health informa tion online Indication:Obesity, unspecified Start:11-Apr-2015 Instruction Type:Patient Education How to access health informa tion online - Detail Indication:Obesity, unspecified Start:11-Apr-2015 Instruction Type:Patient Education Patient Instructions Indication:Obesity, unspecified Start:11-Apr-2015 Instruction Type:Provider Instructions for Treatment How to access health informa tion online Indication:Depression with anxiety Start:15-Mar-2015 Instruction Type:Patient Education How to access health informa tion online - Detail Indication:Depression with anxiety Start:15-Mar-2015 Instruction Type:Patient Education Patient Instructions Indication:Depression with anxiety Start:15-Mar-2015 Instruction Type:Provider Instructions for Treatment Patient Instructions Indication:Depression with anxiety Start:22-Nov-2013 Instruction Type:Provider Instructions for Treatment Patient Instructions Indication:Depression with anxiety Start:09-Nov-2012 Instruction Type:Provider Instructions for Treatment Name Dates Details How to access health informa tion online Indication:Current nonsmoker (Renamed from Current non-smoker) Start:15-Feb-2020 Instruction Type:Patient Education How to access health informa tion online - Detail Indication:Current nonsmoker (Renamed from Current non-smoker) Start:15-Feb-2020 Instruction Type:Patient Education Patient Instructions Indication:Current nonsmoker (Renamed from Current non-smoker) Start:15-Feb-2020 Instruction Type:Provider Instructions for Treatment How to access health informa tion online Indication:Current nonsmoker (Renamed from Current non-smoker) Start:13-Feb-2020 Instruction Type:Patient Education How to access health informa tion online - Detail Indication:Current nonsmoker (Renamed from Current non-smoker) Start:13-Feb-2020 Instruction Type:Patient Education Patient Instructions Indication:Current nonsmoker (Renamed from Current non-smoker) Start:13-Feb-2020 Instruction Type:Provider Instructions for Treatment Patient Instructions make fo llow up virtual on Thu Indication:BMI 40.0-44.9, adult Start:13-Feb-2020 Instruction Type:Provider Instructions for Treatment How to access health informa tion online Indication:Current nonsmoker (Renamed from Current non-smoker) Start:14-Oct-2019 Instruction Type:Patient Education How to access health informa tion online - Detail Indication:Current nonsmoker (Renamed from Current non-smoker) Start:14-Oct-2019 Instruction Type:Patient Education Patient Instructions Indication:Current nonsmoker (Renamed from Current non-smoker) Start:14-Oct-2019 Instruction Type:Provider Instructions for Treatment How to access health informa tion online Indication:Current nonsmoker (Renamed from Current non-smoker) Start:21-Jul-2018 Instruction Type:Patient Education How to access health informa tion online - Detail Indication:Current nonsmoker (Renamed from Current non-smoker) Start:21-Jul-2018 Instruction Type:Patient Education Patient Instructions Indication:Current nonsmoker (Renamed from Current non-smoker) Start:21-Jul-2018 Instruction Type:Provider Instructions for Treatment How to access health informa tion online Indication:Current nonsmoker (Renamed from Current non-smoker) Start:07-Jul-2018 Instruction Type:Patient Education How to access health informa tion online - Detail Indication:Current nonsmoker (Renamed from Current non-smoker) Start:07-Jul-2018 Instruction Type:Patient Education Patient Instructions Indication:Current nonsmoker (Renamed from Current non-smoker) Start:07-Jul-2018 Instruction Type:Provider Instructions for Treatment How to access health informa tion online Indication:Current nonsmoker (Renamed from Current non-smoker) Start:24-Jun-2018 Instruction Type:Patient Education How to access health informa tion online - Detail Indication:Current nonsmoker (Renamed from Current non-smoker) Start:24-Jun-2018 Instruction Type:Patient Education Patient Instructions Indication:Current nonsmoker (Renamed from Current non-smoker) Start:24-Jun-2018 Instruction Type:Provider Instructions for Treatment How to access health informa tion online Indication:Body mass index 37.0-37.9, adult Start:10-Jun-2018 Instruction Type:Patient Education How to access health informa tion online - Detail Indication:Body mass index 37.0-37.9, adult Start:10-Jun-2018 Instruction Type:Patient Education Patient Instructions Indication:Body mass index 37.0-37.9, adult Start:10-Jun-2018 Instruction Type:Provider Instructions for Treatment How to access health informa tion online Indication:Current nonsmoker (Renamed from Current non-smoker) Start:27-May-2018 Instruction Type:Patient Education How to access health informa tion online - Detail Indication:Current nonsmoker (Renamed from Current non-smoker) Start:27-May-2018 Instruction Type:Patient Education Patient Instructions Indication:Current nonsmoker (Renamed from Current non-smoker) Start:27-May-2018 Instruction Type:Provider Instructions for Treatment How to access health informa tion online Indication:Current nonsmoker (Renamed from Current non-smoker) Start:13-May-2018 Instruction Type:Patient Education How to access health informa tion online - Detail Indication:Current nonsmoker (Renamed from Current non-smoker) Start:13-May-2018 Instruction Type:Patient Education Patient Instructions Indication:Current nonsmoker (Renamed from Current non-smoker) Start:13-May-2018 Instruction Type:Provider Instructions for Treatment Patient Instructions Indication:Chronic pain of left knee Start:14-May-2016 Instruction Type:Provider Instructions for Treatment How to access health informa tion online Indication:Chronic pain of left knee Start:14-May-2016 Instruction Type:Patient Education How to access health informa tion online - Detail Indication:Chronic pain of left knee Start:14-May-2016 Instruction Type:Patient Education How to access health informa tion online Indication:Depression with anxiety Start:07-Mar-2016 Instruction Type:Patient Education How to access health informa tion online - Detail Indication:Depression with anxiety Start:07-Mar-2016 Instruction Type:Patient Education Patient Instructions Indication:Depression with anxiety Start:07-Mar-2016 Instruction Type:Provider Instructions for Treatment How to access health informa tion online Indication:BMI 33.0-33.9,adult Start:07-Sep-2015 Instruction Type:Patient Education How to access health informa tion online - Detail Indication:BMI 33.0-33.9,adult Start:07-Sep-2015 Instruction Type:Patient Education Patient Instructions Indication:BMI 33.0-33.9,adult Start:07-Sep-2015 Instruction Type:Provider Instructions for Treatment How to access health informa tion online Indication:Obesity, unspecified Start:13-Jul-2015 Instruction Type:Patient Education How to access health informa tion online - Detail Indication:Obesity, unspecified Start:13-Jul-2015 Instruction Type:Patient Education Patient Instructions Indication:Obesity, unspecified Start:13-Jul-2015 Instruction Type:Provider Instructions for Treatment How to access health informa tion online Indication:Obesity, unspecified Start:17-May-2015 Instruction Type:Patient Education How to access health informa tion online - Detail Indication:Obesity, unspecified Start:17-May-2015 Instruction Type:Patient Education Patient Instructions Indication:Obesity, unspecified Start:17-May-2015 Instruction Type:Provider Instructions for Treatment How to access health informa tion online Indication:Obesity, unspecified Start:11-Apr-2015 Instruction Type:Patient Education How to access health informa tion online - Detail Indication:Obesity, unspecified Start:11-Apr-2015 Instruction Type:Patient Education Patient Instructions Indication:Obesity, unspecified Start:11-Apr-2015 Instruction Type:Provider Instructions for Treatment How to access health informa tion online Indication:Depression with anxiety Start:15-Mar-2015 Instruction Type:Patient Education How to access health informa tion online - Detail Indication:Depression with anxiety Start:15-Mar-2015 Instruction Type:Patient Education Patient Instructions Indication:Depression with anxiety Start:15-Mar-2015 Instruction Type:Provider Instructions for Treatment Patient Instructions Indication:Depression with anxiety Start:22-Nov-2013 Instruction Type:Provider Instructions for Treatment Patient Instructions Indication:Depression with anxiety Start:09-Nov-2012 Instruction Type:Provider Instructions for Treatment Name Dates Details How to access health informa tion online Indication:Current nonsmoker (Renamed from Current non-smoker) Start:20-Feb-2020 Instruction Type:Patient Education How to access health informa tion online - Detail Indication:Current nonsmoker (Renamed from Current non-smoker) Start:20-Feb-2020 Instruction Type:Patient Education Patient Instructions Indication:Current nonsmoker (Renamed from Current non-smoker) Start:20-Feb-2020 Instruction Type:Provider Instructions for Treatment How to access health informa tion online Indication:Current nonsmoker (Renamed from Current non-smoker) Start:15-Feb-2020 Instruction Type:Patient Education How to access health informa tion online - Detail Indication:Current nonsmoker (Renamed from Current non-smoker) Start:15-Feb-2020 Instruction Type:Patient Education Patient Instructions Indication:Current nonsmoker (Renamed from Current non-smoker) Start:15-Feb-2020 Instruction Type:Provider Instructions for Treatment How to access health informa tion online Indication:Current nonsmoker (Renamed from Current non-smoker) Start:13-Feb-2020 Instruction Type:Patient Education How to access health informa tion online - Detail Indication:Current nonsmoker (Renamed from Current non-smoker) Start:13-Feb-2020 Instruction Type:Patient Education Patient Instructions Indication:Current nonsmoker (Renamed from Current non-smoker) Start:13-Feb-2020 Instruction Type:Provider Instructions for Treatment Patient Instructions make fo llow up virtual on Wed Indication:BMI 40.0-44.9, adult Start:13-Feb-2020 Instruction Type:Provider Instructions for Treatment How to access health informa tion online Indication:Current nonsmoker (Renamed from Current non-smoker) Start:14-Oct-2019 Instruction Type:Patient Education How to access health informa tion online - Detail Indication:Current nonsmoker (Renamed from Current non-smoker) Start:14-Oct-2019 Instruction Type:Patient Education Patient Instructions Indication:Current nonsmoker (Renamed from Current non-smoker) Start:14-Oct-2019 Instruction Type:Provider Instructions for Treatment How to access health informa tion online Indication:Current nonsmoker (Renamed from Current non-smoker) Start:21-Jul-2018 Instruction Type:Patient Education How to access health informa tion online - Detail Indication:Current nonsmoker (Renamed from Current non-smoker) Start:21-Jul-2018 Instruction Type:Patient Education Patient Instructions Indication:Current nonsmoker (Renamed from Current non-smoker) Start:21-Jul-2018 Instruction Type:Provider Instructions for Treatment How to access health informa tion online Indication:Current nonsmoker (Renamed from Current non-smoker) Start:07-Jul-2018 Instruction Type:Patient Education How to access health informa tion online - Detail Indication:Current nonsmoker (Renamed from Current non-smoker) Start:07-Jul-2018 Instruction Type:Patient Education Patient Instructions Indication:Current nonsmoker (Renamed from Current non-smoker) Start:07-Jul-2018 Instruction Type:Provider Instructions for Treatment How to access health informa tion online Indication:Current nonsmoker (Renamed from Current non-smoker) Start:24-Jun-2018 Instruction Type:Patient Education How to access health informa tion online - Detail Indication:Current nonsmoker (Renamed from Current non-smoker) Start:24-Jun-2018 Instruction Type:Patient Education Patient Instructions Indication:Current nonsmoker (Renamed from Current non-smoker) Start:24-Jun-2018 Instruction Type:Provider Instructions for Treatment How to access health informa tion online Indication:Body mass index 37.0-37.9, adult Start:10-Jun-2018 Instruction Type:Patient Education How to access health informa tion online - Detail Indication:Body mass index 37.0-37.9, adult Start:10-Jun-2018 Instruction Type:Patient Education Patient Instructions Indication:Body mass index 37.0-37.9, adult Start:10-Jun-2018 Instruction Type:Provider Instructions for Treatment How to access health informa tion online Indication:Current nonsmoker (Renamed from Current non-smoker) Start:27-May-2018 Instruction Type:Patient Education How to access health informa tion online - Detail Indication:Current nonsmoker (Renamed from Current non-smoker) Start:27-May-2018 Instruction Type:Patient Education Patient Instructions Indication:Current nonsmoker (Renamed from Current non-smoker) Start:27-May-2018 Instruction Type:Provider Instructions for Treatment How to access health informa tion online Indication:Current nonsmoker (Renamed from Current non-smoker) Start:13-May-2018 Instruction Type:Patient Education How to access health informa tion online - Detail Indication:Current nonsmoker (Renamed from Current non-smoker) Start:13-May-2018 Instruction Type:Patient Education Patient Instructions Indication:Current nonsmoker (Renamed from Current non-smoker) Start:13-May-2018 Instruction Type:Provider Instructions for Treatment Patient Instructions Indication:Chronic pain of left knee Start:14-May-2016 Instruction Type:Provider Instructions for Treatment How to access health informa tion online Indication:Chronic pain of left knee Start:14-May-2016 Instruction Type:Patient Education How to access health informa tion online - Detail Indication:Chronic pain of left knee Start:14-May-2016 Instruction Type:Patient Education How to access health informa tion online Indication:Depression with anxiety Start:07-Mar-2016 Instruction Type:Patient Education How to access health informa tion online - Detail Indication:Depression with anxiety Start:07-Mar-2016 Instruction Type:Patient Education Patient Instructions Indication:Depression with anxiety Start:07-Mar-2016 Instruction Type:Provider Instructions for Treatment How to access health informa tion online Indication:BMI 33.0-33.9,adult Start:07-Sep-2015 Instruction Type:Patient Education How to access health informa tion online - Detail Indication:BMI 33.0-33.9,adult Start:07-Sep-2015 Instruction Type:Patient Education Patient Instructions Indication:BMI 33.0-33.9,adult Start:07-Sep-2015 Instruction Type:Provider Instructions for Treatment How to access health informa tion online Indication:Obesity, unspecified Start:13-Jul-2015 Instruction Type:Patient Education How to access health informa tion online - Detail Indication:Obesity, unspecified Start:13-Jul-2015 Instruction Type:Patient Education Patient Instructions Indication:Obesity, unspecified Start:13-Jul-2015 Instruction Type:Provider Instructions for Treatment How to access health informa tion online Indication:Obesity, unspecified Start:17-May-2015 Instruction Type:Patient Education How to access health informa tion online - Detail Indication:Obesity, unspecified Start:17-May-2015 Instruction Type:Patient Education Patient Instructions Indication:Obesity, unspecified Start:17-May-2015 Instruction Type:Provider Instructions for Treatment How to access health informa tion online Indication:Obesity, unspecified Start:11-Apr-2015 Instruction Type:Patient Education How to access health informa tion online - Detail Indication:Obesity, unspecified Start:11-Apr-2015 Instruction Type:Patient Education Patient Instructions Indication:Obesity, unspecified Start:11-Apr-2015 Instruction Type:Provider Instructions for Treatment How to access health informa tion online Indication:Depression with anxiety Start:15-Mar-2015 Instruction Type:Patient Education How to access health informa tion online - Detail Indication:Depression with anxiety Start:15-Mar-2015 Instruction Type:Patient Education Patient Instructions Indication:Depression with anxiety Start:15-Mar-2015 Instruction Type:Provider Instructions for Treatment Patient Instructions Indication:Depression with anxiety Start:22-Nov-2013 Instruction Type:Provider Instructions for Treatment Patient Instructions Indication:Depression with anxiety Start:09-Nov-2012 Instruction Type:Provider Instructions for Treatment Name Dates Details How to access health informa tion online Indication:Current nonsmoker (Renamed from Current non-smoker) Start:20-Feb-2020 Instruction Type:Patient Education How to access health informa tion online - Detail Indication:Current nonsmoker (Renamed from Current non-smoker) Start:20-Feb-2020 Instruction Type:Patient Education Patient Instructions Indication:Current nonsmoker (Renamed from Current non-smoker) Start:20-Feb-2020 Instruction Type:Provider Instructions for Treatment How to access health informa tion online Indication:Current nonsmoker (Renamed from Current non-smoker) Start:15-Feb-2020 Instruction Type:Patient Education How to access health informa tion online - Detail Indication:Current nonsmoker (Renamed from Current non-smoker) Start:15-Feb-2020 Instruction Type:Patient Education Patient Instructions Indication:Current nonsmoker (Renamed from Current non-smoker) Start:15-Feb-2020 Instruction Type:Provider Instructions for Treatment How to access health informa tion online Indication:Current nonsmoker (Renamed from Current non-smoker) Start:13-Feb-2020 Instruction Type:Patient Education How to access health informa tion online - Detail Indication:Current nonsmoker (Renamed from Current non-smoker) Start:13-Feb-2020 Instruction Type:Patient Education Patient Instructions Indication:Current nonsmoker (Renamed from Current non-smoker) Start:13-Feb-2020 Instruction Type:Provider Instructions for Treatment Patient Instructions make fo llow up virtual on Wed Indication:BMI 40.0-44.9, adult Start:13-Feb-2020 Instruction Type:Provider Instructions for Treatment How to access health informa tion online Indication:Current nonsmoker (Renamed from Current non-smoker) Start:14-Oct-2019 Instruction Type:Patient Education How to access health informa tion online - Detail Indication:Current nonsmoker (Renamed from Current non-smoker) Start:14-Oct-2019 Instruction Type:Patient Education Patient Instructions Indication:Current nonsmoker (Renamed from Current non-smoker) Start:14-Oct-2019 Instruction Type:Provider Instructions for Treatment How to access health informa tion online Indication:Current nonsmoker (Renamed from Current non-smoker) Start:21-Jul-2018 Instruction Type:Patient Education How to access health informa tion online - Detail Indication:Current nonsmoker (Renamed from Current non-smoker) Start:21-Jul-2018 Instruction Type:Patient Education Patient Instructions Indication:Current nonsmoker (Renamed from Current non-smoker) Start:21-Jul-2018 Instruction Type:Provider Instructions for Treatment How to access health informa tion online Indication:Current nonsmoker (Renamed from Current non-smoker) Start:07-Jul-2018 Instruction Type:Patient Education How to access health informa tion online - Detail Indication:Current nonsmoker (Renamed from Current non-smoker) Start:07-Jul-2018 Instruction Type:Patient Education Patient Instructions Indication:Current nonsmoker (Renamed from Current non-smoker) Start:07-Jul-2018 Instruction Type:Provider Instructions for Treatment How to access health informa tion online Indication:Current nonsmoker (Renamed from Current non-smoker) Start:24-Jun-2018 Instruction Type:Patient Education How to access health informa tion online - Detail Indication:Current nonsmoker (Renamed from Current non-smoker) Start:24-Jun-2018 Instruction Type:Patient Education Patient Instructions Indication:Current nonsmoker (Renamed from Current non-smoker) Start:24-Jun-2018 Instruction Type:Provider Instructions for Treatment How to access health informa tion online Indication:Body mass index 37.0-37.9, adult Start:10-Jun-2018 Instruction Type:Patient Education How to access health informa tion online - Detail Indication:Body mass index 37.0-37.9, adult Start:10-Jun-2018 Instruction Type:Patient Education Patient Instructions Indication:Body mass index 37.0-37.9, adult Start:10-Jun-2018 Instruction Type:Provider Instructions for Treatment How to access health informa tion online Indication:Current nonsmoker (Renamed from Current non-smoker) Start:27-May-2018 Instruction Type:Patient Education How to access health informa tion online - Detail Indication:Current nonsmoker (Renamed from Current non-smoker) Start:27-May-2018 Instruction Type:Patient Education Patient Instructions Indication:Current nonsmoker (Renamed from Current non-smoker) Start:27-May-2018 Instruction Type:Provider Instructions for Treatment How to access health informa tion online Indication:Current nonsmoker (Renamed from Current non-smoker) Start:13-May-2018 Instruction Type:Patient Education How to access health informa tion online - Detail Indication:Current nonsmoker (Renamed from Current non-smoker) Start:13-May-2018 Instruction Type:Patient Education Patient Instructions Indication:Current nonsmoker (Renamed from Current non-smoker) Start:13-May-2018 Instruction Type:Provider Instructions for Treatment Patient Instructions Indication:Chronic pain of left knee Start:14-May-2016 Instruction Type:Provider Instructions for Treatment How to access health informa tion online Indication:Chronic pain of left knee Start:14-May-2016 Instruction Type:Patient Education How to access health informa tion online - Detail Indication:Chronic pain of left knee Start:14-May-2016 Instruction Type:Patient Education How to access health informa tion online Indication:Depression with anxiety Start:07-Mar-2016 Instruction Type:Patient Education How to access health informa tion online - Detail Indication:Depression with anxiety Start:07-Mar-2016 Instruction Type:Patient Education Patient Instructions Indication:Depression with anxiety Start:07-Mar-2016 Instruction Type:Provider Instructions for Treatment How to access health informa tion online Indication:BMI 33.0-33.9,adult Start:07-Sep-2015 Instruction Type:Patient Education How to access health informa tion online - Detail Indication:BMI 33.0-33.9,adult Start:07-Sep-2015 Instruction Type:Patient Education Patient Instructions Indication:BMI 33.0-33.9,adult Start:07-Sep-2015 Instruction Type:Provider Instructions for Treatment How to access health informa tion online Indication:Obesity, unspecified Start:13-Jul-2015 Instruction Type:Patient Education How to access health informa tion online - Detail Indication:Obesity, unspecified Start:13-Jul-2015 Instruction Type:Patient Education Patient Instructions Indication:Obesity, unspecified Start:13-Jul-2015 Instruction Type:Provider Instructions for Treatment How to access health informa tion online Indication:Obesity, unspecified Start:17-May-2015 Instruction Type:Patient Education How to access health informa tion online - Detail Indication:Obesity, unspecified Start:17-May-2015 Instruction Type:Patient Education Patient Instructions Indication:Obesity, unspecified Start:17-May-2015 Instruction Type:Provider Instructions for Treatment How to access health informa tion online Indication:Obesity, unspecified Start:11-Apr-2015 Instruction Type:Patient Education How to access health informa tion online - Detail Indication:Obesity, unspecified Start:11-Apr-2015 Instruction Type:Patient Education Patient Instructions Indication:Obesity, unspecified Start:11-Apr-2015 Instruction Type:Provider Instructions for Treatment How to access health informa tion online Indication:Depression with anxiety Start:15-Mar-2015 Instruction Type:Patient Education How to access health informa tion online - Detail Indication:Depression with anxiety Start:15-Mar-2015 Instruction Type:Patient Education Patient Instructions Indication:Depression with anxiety Start:15-Mar-2015 Instruction Type:Provider Instructions for Treatment Patient Instructions Indication:Depression with anxiety Start:22-Nov-2013 Instruction Type:Provider Instructions for Treatment Patient Instructions Indication:Depression with anxiety Start:09-Nov-2012 Instruction Type:Provider Instructions for Treatment Name Dates Details How to access health informa tion online Indication:Current nonsmoker (Renamed from Current non-smoker) Start:20-Feb-2020 Instruction Type:Patient Education How to access health informa tion online - Detail Indication:Current nonsmoker (Renamed from Current non-smoker) Start:20-Feb-2020 Instruction Type:Patient Education Patient Instructions Indication:Current nonsmoker (Renamed from Current non-smoker) Start:20-Feb-2020 Instruction Type:Provider Instructions for Treatment How to access health informa tion online Indication:Current nonsmoker (Renamed from Current non-smoker) Start:15-Feb-2020 Instruction Type:Patient Education How to access health informa tion online - Detail Indication:Current nonsmoker (Renamed from Current non-smoker) Start:15-Feb-2020 Instruction Type:Patient Education Patient Instructions Indication:Current nonsmoker (Renamed from Current non-smoker) Start:15-Feb-2020 Instruction Type:Provider Instructions for Treatment How to access health informa tion online Indication:Current nonsmoker (Renamed from Current non-smoker) Start:13-Feb-2020 Instruction Type:Patient Education How to access health informa tion online - Detail Indication:Current nonsmoker (Renamed from Current non-smoker) Start:13-Feb-2020 Instruction Type:Patient Education Patient Instructions Indication:Current nonsmoker (Renamed from Current non-smoker) Start:13-Feb-2020 Instruction Type:Provider Instructions for Treatment Patient Instructions make fo llow up virtual on Thu Indication:BMI 40.0-44.9, adult Start:13-Feb-2020 Instruction Type:Provider Instructions for Treatment How to access health informa tion online Indication:Current nonsmoker (Renamed from Current non-smoker) Start:14-Oct-2019 Instruction Type:Patient Education How to access health informa tion online - Detail Indication:Current nonsmoker (Renamed from Current non-smoker) Start:14-Oct-2019 Instruction Type:Patient Education Patient Instructions Indication:Current nonsmoker (Renamed from Current non-smoker) Start:14-Oct-2019 Instruction Type:Provider Instructions for Treatment How to access health informa tion online Indication:Current nonsmoker (Renamed from Current non-smoker) Start:21-Jul-2018 Instruction Type:Patient Education How to access health informa tion online - Detail Indication:Current nonsmoker (Renamed from Current non-smoker) Start:21-Jul-2018 Instruction Type:Patient Education Patient Instructions Indication:Current nonsmoker (Renamed from Current non-smoker) Start:21-Jul-2018 Instruction Type:Provider Instructions for Treatment How to access health informa tion online Indication:Current nonsmoker (Renamed from Current non-smoker) Start:07-Jul-2018 Instruction Type:Patient Education How to access health informa tion online - Detail Indication:Current nonsmoker (Renamed from Current non-smoker) Start:07-Jul-2018 Instruction Type:Patient Education Patient Instructions Indication:Current nonsmoker (Renamed from Current non-smoker) Start:07-Jul-2018 Instruction Type:Provider Instructions for Treatment How to access health informa tion online Indication:Current nonsmoker (Renamed from Current non-smoker) Start:24-Jun-2018 Instruction Type:Patient Education How to access health informa tion online - Detail Indication:Current nonsmoker (Renamed from Current non-smoker) Start:24-Jun-2018 Instruction Type:Patient Education Patient Instructions Indication:Current nonsmoker (Renamed from Current non-smoker) Start:24-Jun-2018 Instruction Type:Provider Instructions for Treatment How to access health informa tion online Indication:Body mass index 37.0-37.9, adult Start:10-Jun-2018 Instruction Type:Patient Education How to access health informa tion online - Detail Indication:Body mass index 37.0-37.9, adult Start:10-Jun-2018 Instruction Type:Patient Education Patient Instructions Indication:Body mass index 37.0-37.9, adult Start:10-Jun-2018 Instruction Type:Provider Instructions for Treatment How to access health informa tion online Indication:Current nonsmoker (Renamed from Current non-smoker) Start:27-May-2018 Instruction Type:Patient Education How to access health informa tion online - Detail Indication:Current nonsmoker (Renamed from Current non-smoker) Start:27-May-2018 Instruction Type:Patient Education Patient Instructions Indication:Current nonsmoker (Renamed from Current non-smoker) Start:27-May-2018 Instruction Type:Provider Instructions for Treatment How to access health informa tion online Indication:Current nonsmoker (Renamed from Current non-smoker) Start:13-May-2018 Instruction Type:Patient Education How to access health informa tion online - Detail Indication:Current nonsmoker (Renamed from Current non-smoker) Start:13-May-2018 Instruction Type:Patient Education Patient Instructions Indication:Current nonsmoker (Renamed from Current non-smoker) Start:13-May-2018 Instruction Type:Provider Instructions for Treatment Patient Instructions Indication:Chronic pain of left knee Start:14-May-2016 Instruction Type:Provider Instructions for Treatment How to access health informa tion online Indication:Chronic pain of left knee Start:14-May-2016 Instruction Type:Patient Education How to access health informa tion online - Detail Indication:Chronic pain of left knee Start:14-May-2016 Instruction Type:Patient Education How to access health informa tion online Indication:Depression with anxiety Start:07-Mar-2016 Instruction Type:Patient Education How to access health informa tion online - Detail Indication:Depression with anxiety Start:07-Mar-2016 Instruction Type:Patient Education Patient Instructions Indication:Depression with anxiety Start:07-Mar-2016 Instruction Type:Provider Instructions for Treatment How to access health informa tion online Indication:BMI 33.0-33.9,adult Start:07-Sep-2015 Instruction Type:Patient Education How to access health informa tion online - Detail Indication:BMI 33.0-33.9,adult Start:07-Sep-2015 Instruction Type:Patient Education Patient Instructions Indication:BMI 33.0-33.9,adult Start:07-Sep-2015 Instruction Type:Provider Instructions for Treatment How to access health informa tion online Indication:Obesity, unspecified Start:13-Jul-2015 Instruction Type:Patient Education How to access health informa tion online - Detail Indication:Obesity, unspecified Start:13-Jul-2015 Instruction Type:Patient Education Patient Instructions Indication:Obesity, unspecified Start:13-Jul-2015 Instruction Type:Provider Instructions for Treatment How to access health informa tion online Indication:Obesity, unspecified Start:17-May-2015 Instruction Type:Patient Education How to access health informa tion online - Detail Indication:Obesity, unspecified Start:17-May-2015 Instruction Type:Patient Education Patient Instructions Indication:Obesity, unspecified Start:17-May-2015 Instruction Type:Provider Instructions for Treatment How to access health informa tion online Indication:Obesity, unspecified Start:11-Apr-2015 Instruction Type:Patient Education How to access health informa tion online - Detail Indication:Obesity, unspecified Start:11-Apr-2015 Instruction Type:Patient Education Patient Instructions Indication:Obesity, unspecified Start:11-Apr-2015 Instruction Type:Provider Instructions for Treatment How to access health informa tion online Indication:Depression with anxiety Start:15-Mar-2015 Instruction Type:Patient Education How to access health informa tion online - Detail Indication:Depression with anxiety Start:15-Mar-2015 Instruction Type:Patient Education Patient Instructions Indication:Depression with anxiety Start:15-Mar-2015 Instruction Type:Provider Instructions for Treatment Patient Instructions Indication:Depression with anxiety Start:22-Nov-2013 Instruction Type:Provider Instructions for Treatment Patient Instructions Indication:Depression with anxiety Start:09-Nov-2012 Instruction Type:Provider Instructions for Treatment Name Dates Details Body mass index 37.0-37.9, a dult : How to access health information online Indication:Body mass index 37.0-37.9, adult Body mass index 37.0-37.9, a dult : How to access health information online - Detail Indication:Body mass index 37.0-37.9, adult Body mass index 37.0-37.9, a dult : Patient Instructions Indication:Body mass index 37.0-37.9, adult Current nonsmoker (Renamed f rom Current non-smoker) : How to access health information online Indication:Current nonsmoker (Renamed from Current non-smoker) Current nonsmoker (Renamed f rom Current non-smoker) : How to access health information online - Detail Indication:Current nonsmoker (Renamed from Current non-smoker) Current nonsmoker (Renamed f rom Current non-smoker) : Patient Instructions Indication:Current nonsmoker (Renamed from Current non-smoker) Chronic pain of left knee : Patient Instructions Indication:Chronic pain of left knee Chronic pain of left knee : How to access health information online Indication:Chronic pain of left knee Chronic pain of left knee : How to access health information online - Detail Indication:Chronic pain of left knee Depression with anxiety : Ho w to access health information online Indication:Depression with anxiety Depression with anxiety : Ho w to access health information online - Detail Indication:Depression with anxiety Depression with anxiety : Jeffrey dejesus Instructions Indication:Depression with anxiety BMI 33.0-33.9,adult : How to access health information online Indication:BMI 33.0-33.9,adult BMI 33.0-33.9,adult : How to access health information online - Detail Indication:BMI 33.0-33.9,adult BMI 33.0-33.9,adult : Patien t Instructions Indication:BMI 33.0-33.9,adult Obesity, unspecified : How t o access health information online Indication:Obesity, unspecified Obesity, unspecified : How t o access health information online - Detail Indication:Obesity, unspecified Obesity, unspecified : Patie nt Instructions Indication:Obesity, unspecified Name Dates Details How to access health informa tion online Indication:Current nonsmoker (Renamed from Current non-smoker) Start:14-Oct-2019 Instruction Type:Patient Education How to access health informa tion online - Detail Indication:Current nonsmoker (Renamed from Current non-smoker) Start:14-Oct-2019 Instruction Type:Patient Education Patient Instructions Indication:Current nonsmoker (Renamed from Current non-smoker) Start:14-Oct-2019 Instruction Type:Provider Instructions for Treatment How to access health informa tion online Indication:Current nonsmoker (Renamed from Current non-smoker) Start:21-Jul-2018 Instruction Type:Patient Education How to access health informa tion online - Detail Indication:Current nonsmoker (Renamed from Current non-smoker) Start:21-Jul-2018 Instruction Type:Patient Education Patient Instructions Indication:Current nonsmoker (Renamed from Current non-smoker) Start:21-Jul-2018 Instruction Type:Provider Instructions for Treatment How to access health informa tion online Indication:Current nonsmoker (Renamed from Current non-smoker) Start:07-Jul-2018 Instruction Type:Patient Education How to access health informa tion online - Detail Indication:Current nonsmoker (Renamed from Current non-smoker) Start:07-Jul-2018 Instruction Type:Patient Education Patient Instructions Indication:Current nonsmoker (Renamed from Current non-smoker) Start:07-Jul-2018 Instruction Type:Provider Instructions for Treatment How to access health informa tion online Indication:Current nonsmoker (Renamed from Current non-smoker) Start:24-Jun-2018 Instruction Type:Patient Education How to access health informa tion online - Detail Indication:Current nonsmoker (Renamed from Current non-smoker) Start:24-Jun-2018 Instruction Type:Patient Education Patient Instructions Indication:Current nonsmoker (Renamed from Current non-smoker) Start:24-Jun-2018 Instruction Type:Provider Instructions for Treatment How to access health informa tion online Indication:Body mass index 37.0-37.9, adult Start:10-Jun-2018 Instruction Type:Patient Education How to access health informa tion online - Detail Indication:Body mass index 37.0-37.9, adult Start:10-Jun-2018 Instruction Type:Patient Education Patient Instructions Indication:Body mass index 37.0-37.9, adult Start:10-Jun-2018 Instruction Type:Provider Instructions for Treatment How to access health informa tion online Indication:Current nonsmoker (Renamed from Current non-smoker) Start:27-May-2018 Instruction Type:Patient Education How to access health informa tion online - Detail Indication:Current nonsmoker (Renamed from Current non-smoker) Start:27-May-2018 Instruction Type:Patient Education Patient Instructions Indication:Current nonsmoker (Renamed from Current non-smoker) Start:27-May-2018 Instruction Type:Provider Instructions for Treatment How to access health informa tion online Indication:Current nonsmoker (Renamed from Current non-smoker) Start:13-May-2018 Instruction Type:Patient Education How to access health informa tion online - Detail Indication:Current nonsmoker (Renamed from Current non-smoker) Start:13-May-2018 Instruction Type:Patient Education Patient Instructions Indication:Current nonsmoker (Renamed from Current non-smoker) Start:13-May-2018 Instruction Type:Provider Instructions for Treatment Patient Instructions Indication:Chronic pain of left knee Start:14-May-2016 Instruction Type:Provider Instructions for Treatment How to access health informa tion online Indication:Chronic pain of left knee Start:14-May-2016 Instruction Type:Patient Education How to access health informa tion online - Detail Indication:Chronic pain of left knee Start:14-May-2016 Instruction Type:Patient Education How to access health informa tion online Indication:Depression with anxiety Start:07-Mar-2016 Instruction Type:Patient Education How to access health informa tion online - Detail Indication:Depression with anxiety Start:07-Mar-2016 Instruction Type:Patient Education Patient Instructions Indication:Depression with anxiety Start:07-Mar-2016 Instruction Type:Provider Instructions for Treatment How to access health informa tion online Indication:BMI 33.0-33.9,adult Start:07-Sep-2015 Instruction Type:Patient Education How to access health informa tion online - Detail Indication:BMI 33.0-33.9,adult Start:07-Sep-2015 Instruction Type:Patient Education Patient Instructions Indication:BMI 33.0-33.9,adult Start:07-Sep-2015 Instruction Type:Provider Instructions for Treatment How to access health informa tion online Indication:Obesity, unspecified Start:13-Jul-2015 Instruction Type:Patient Education How to access health informa tion online - Detail Indication:Obesity, unspecified Start:13-Jul-2015 Instruction Type:Patient Education Patient Instructions Indication:Obesity, unspecified Start:13-Jul-2015 Instruction Type:Provider Instructions for Treatment How to access health informa tion online Indication:Obesity, unspecified Start:17-May-2015 Instruction Type:Patient Education How to access health informa tion online - Detail Indication:Obesity, unspecified Start:17-May-2015 Instruction Type:Patient Education Patient Instructions Indication:Obesity, unspecified Start:17-May-2015 Instruction Type:Provider Instructions for Treatment How to access health informa tion online Indication:Obesity, unspecified Start:11-Apr-2015 Instruction Type:Patient Education How to access health informa tion online - Detail Indication:Obesity, unspecified Start:11-Apr-2015 Instruction Type:Patient Education Patient Instructions Indication:Obesity, unspecified Start:11-Apr-2015 Instruction Type:Provider Instructions for Treatment How to access health informa tion online Indication:Depression with anxiety Start:15-Mar-2015 Instruction Type:Patient Education How to access health informa tion online - Detail Indication:Depression with anxiety Start:15-Mar-2015 Instruction Type:Patient Education Patient Instructions Indication:Depression with anxiety Start:15-Mar-2015 Instruction Type:Provider Instructions for Treatment Patient Instructions Indication:Depression with anxiety Start:22-Nov-2013 Instruction Type:Provider Instructions for Treatment Patient Instructions Indication:Depression with anxiety Start:09-Nov-2012 Instruction Type:Provider Instructions for Treatment Name Dates Details How to access health informa tion online Indication:Current nonsmoker (Renamed from Current non-smoker) Start:15-Feb-2020 Instruction Type:Patient Education How to access health informa tion online - Detail Indication:Current nonsmoker (Renamed from Current non-smoker) Start:15-Feb-2020 Instruction Type:Patient Education Patient Instructions Indication:Current nonsmoker (Renamed from Current non-smoker) Start:15-Feb-2020 Instruction Type:Provider Instructions for Treatment How to access health informa tion online Indication:Current nonsmoker (Renamed from Current non-smoker) Start:13-Feb-2020 Instruction Type:Patient Education How to access health informa tion online - Detail Indication:Current nonsmoker (Renamed from Current non-smoker) Start:13-Feb-2020 Instruction Type:Patient Education Patient Instructions Indication:Current nonsmoker (Renamed from Current non-smoker) Start:13-Feb-2020 Instruction Type:Provider Instructions for Treatment Patient Instructions make fo llow up virtual on Wed Indication:BMI 40.0-44.9, adult Start:13-Feb-2020 Instruction Type:Provider Instructions for Treatment How to access health informa tion online Indication:Current nonsmoker (Renamed from Current non-smoker) Start:14-Oct-2019 Instruction Type:Patient Education How to access health informa tion online - Detail Indication:Current nonsmoker (Renamed from Current non-smoker) Start:14-Oct-2019 Instruction Type:Patient Education Patient Instructions Indication:Current nonsmoker (Renamed from Current non-smoker) Start:14-Oct-2019 Instruction Type:Provider Instructions for Treatment How to access health informa tion online Indication:Current nonsmoker (Renamed from Current non-smoker) Start:21-Jul-2018 Instruction Type:Patient Education How to access health informa tion online - Detail Indication:Current nonsmoker (Renamed from Current non-smoker) Start:21-Jul-2018 Instruction Type:Patient Education Patient Instructions Indication:Current nonsmoker (Renamed from Current non-smoker) Start:21-Jul-2018 Instruction Type:Provider Instructions for Treatment How to access health informa tion online Indication:Current nonsmoker (Renamed from Current non-smoker) Start:07-Jul-2018 Instruction Type:Patient Education How to access health informa tion online - Detail Indication:Current nonsmoker (Renamed from Current non-smoker) Start:07-Jul-2018 Instruction Type:Patient Education Patient Instructions Indication:Current nonsmoker (Renamed from Current non-smoker) Start:07-Jul-2018 Instruction Type:Provider Instructions for Treatment How to access health informa tion online Indication:Current nonsmoker (Renamed from Current non-smoker) Start:24-Jun-2018 Instruction Type:Patient Education How to access health informa tion online - Detail Indication:Current nonsmoker (Renamed from Current non-smoker) Start:24-Jun-2018 Instruction Type:Patient Education Patient Instructions Indication:Current nonsmoker (Renamed from Current non-smoker) Start:24-Jun-2018 Instruction Type:Provider Instructions for Treatment How to access health informa tion online Indication:Body mass index 37.0-37.9, adult Start:10-Jun-2018 Instruction Type:Patient Education How to access health informa tion online - Detail Indication:Body mass index 37.0-37.9, adult Start:10-Jun-2018 Instruction Type:Patient Education Patient Instructions Indication:Body mass index 37.0-37.9, adult Start:10-Jun-2018 Instruction Type:Provider Instructions for Treatment How to access health informa tion online Indication:Current nonsmoker (Renamed from Current non-smoker) Start:27-May-2018 Instruction Type:Patient Education How to access health informa tion online - Detail Indication:Current nonsmoker (Renamed from Current non-smoker) Start:27-May-2018 Instruction Type:Patient Education Patient Instructions Indication:Current nonsmoker (Renamed from Current non-smoker) Start:27-May-2018 Instruction Type:Provider Instructions for Treatment How to access health informa tion online Indication:Current nonsmoker (Renamed from Current non-smoker) Start:13-May-2018 Instruction Type:Patient Education How to access health informa tion online - Detail Indication:Current nonsmoker (Renamed from Current non-smoker) Start:13-May-2018 Instruction Type:Patient Education Patient Instructions Indication:Current nonsmoker (Renamed from Current non-smoker) Start:13-May-2018 Instruction Type:Provider Instructions for Treatment Patient Instructions Indication:Chronic pain of left knee Start:14-May-2016 Instruction Type:Provider Instructions for Treatment How to access health informa tion online Indication:Chronic pain of left knee Start:14-May-2016 Instruction Type:Patient Education How to access health informa tion online - Detail Indication:Chronic pain of left knee Start:14-May-2016 Instruction Type:Patient Education How to access health informa tion online Indication:Depression with anxiety Start:07-Mar-2016 Instruction Type:Patient Education How to access health informa tion online - Detail Indication:Depression with anxiety Start:07-Mar-2016 Instruction Type:Patient Education Patient Instructions Indication:Depression with anxiety Start:07-Mar-2016 Instruction Type:Provider Instructions for Treatment How to access health informa tion online Indication:BMI 33.0-33.9,adult Start:07-Sep-2015 Instruction Type:Patient Education How to access health informa tion online - Detail Indication:BMI 33.0-33.9,adult Start:07-Sep-2015 Instruction Type:Patient Education Patient Instructions Indication:BMI 33.0-33.9,adult Start:07-Sep-2015 Instruction Type:Provider Instructions for Treatment How to access health informa tion online Indication:Obesity, unspecified Start:13-Jul-2015 Instruction Type:Patient Education How to access health informa tion online - Detail Indication:Obesity, unspecified Start:13-Jul-2015 Instruction Type:Patient Education Patient Instructions Indication:Obesity, unspecified Start:13-Jul-2015 Instruction Type:Provider Instructions for Treatment How to access health informa tion online Indication:Obesity, unspecified Start:17-May-2015 Instruction Type:Patient Education How to access health informa tion online - Detail Indication:Obesity, unspecified Start:17-May-2015 Instruction Type:Patient Education Patient Instructions Indication:Obesity, unspecified Start:17-May-2015 Instruction Type:Provider Instructions for Treatment How to access health informa tion online Indication:Obesity, unspecified Start:11-Apr-2015 Instruction Type:Patient Education How to access health informa tion online - Detail Indication:Obesity, unspecified Start:11-Apr-2015 Instruction Type:Patient Education Patient Instructions Indication:Obesity, unspecified Start:11-Apr-2015 Instruction Type:Provider Instructions for Treatment How to access health informa tion online Indication:Depression with anxiety Start:15-Mar-2015 Instruction Type:Patient Education How to access health informa tion online - Detail Indication:Depression with anxiety Start:15-Mar-2015 Instruction Type:Patient Education Patient Instructions Indication:Depression with anxiety Start:15-Mar-2015 Instruction Type:Provider Instructions for Treatment Patient Instructions Indication:Depression with anxiety Start:22-Nov-2013 Instruction Type:Provider Instructions for Treatment Patient Instructions Indication:Depression with anxiety Start:09-Nov-2012 Instruction Type:Provider Instructions for Treatment Advance Directives No Advanced Directives Records Found Name Dates Details Immunization Registry [place] - Effective on 05/13/2018. Expiration date unspecified Effective:13-May-2018 Name Dates Details Immunization Registry [place] - Effective on 05/13/2018. Expiration date unspecified Effective:13-May-2018 Name Dates Details Immunization Registry [place] - Effective on 05/13/2018. Expiration date unspecified Effective:13-May-2018 Name Dates Details Immunization Registry [place] - Effective on 05/13/2018. Expiration date unspecified Effective:13-May-2018 Name Dates Details Immunization Registry [place] - Effective on 05/13/2018. Expiration date unspecified Effective:13-May-2018 Name Dates Details Immunization Registry [place] - Effective on 05/13/2018. Expiration date unspecified Effective:13-May-2018 Name Dates Details Immunization Registry [place] - Effective on 05/13/2018. Expiration date unspecified Effective:13-May-2018 Name Dates Details Immunization Registry [place] - Effective on 05/13/2018. Expiration date unspecified Effective:13-May-2018 Name Dates Details Immunization Registry [place] - Effective on 05/13/2018. Expiration date unspecified Effective:13-May-2018 Name Dates Details Immunization Registry [place] - Effective on 05/13/2018. Expiration date unspecified Effective:13-May-2018 Name Dates Details Immunization Registry [place] - Effective on 05/13/2018. Expiration date unspecified Effective:13-May-2018 Name Dates Details Immunization Registry [place] - Effective on 05/13/2018. Expiration date unspecified Effective:13-May-2018 Name Dates Details Immunization Registry [place] - Effective on 05/13/2018. Expiration date unspecified Effective:13-May-2018 Name Dates Details Immunization Registry [place] - Effective on 05/13/2018. Expiration date unspecified Effective:13-May-2018 Name Dates Details Immunization Registry [place] - Effective on 05/13/2018. Expiration date unspecified Effective:13-May-2018 Name Dates Details Immunization Registry [place] - Effective on 05/13/2018. Expiration date unspecified Effective:13-May-2018 Name Dates Details Immunization Registry [place] - Effective on 05/13/2018. Expiration date unspecified Effective:13-May-2018 Name Dates Details Immunization Registry [place] - Effective on 05/13/2018. Expiration date unspecified Effective:13-May-2018 Name Dates Details Immunization Registry [place] - Effective on 05/13/2018. Expiration date unspecified Effective:13-May-2018 Name Dates Details Immunization Registry [place] - Effective on 05/13/2018. Expiration date unspecified Effective:13-May-2018 Name Dates Details Immunization Registry [place] - Effective on 05/13/2018. Expiration date unspecified Effective:13-May-2018 Name Dates Details Immunization Registry [place] - Effective on 05/13/2018. Expiration date unspecified Effective:13-May-2018 Name Dates Details Immunization Registry [place] - Effective on 05/13/2018. Expiration date unspecified Effective:13-May-2018 Name Dates Details Immunization Registry [place] - Effective on 05/13/2018. Expiration date unspecified Effective:13-May-2018 Reason for Referral Specialty Diagnoses / Procedures Referred By Contac t Referred To Contact Urology Diagnoses LUIZ (stress urinary incontinence, female) Procedures CONSULT TO UROLOGY OFFICE/OUTPATIENT [facility] 60-74 MINUTES Juan Francisco Melvin MD [address] [place] [address] Referral ID Status Reason Start Date Expiration Date Visits Requested Visits Authorized [id number] Pending Review PCP Requested Referral 03/11/2022 03/11/2023 1 1 Summary Purpose Chief Complaint and Reason for Visit Chief Complaint Nocturia Chief Complaint Nocturia SNORING, HTN, CLASS 3 OBESITY W/SERIOUCO-MORBIDITY Chief Complaint Admit Date Acid reflux September 08, 2024 8:09am Nocturia September 13, 2024 8:18am Reason for Visit Admit Date Gastroesophageal reflux disease September 08, 2024 8:09am Additional Source Comments Source Comments (unrecognize d section and content) In the event this informatio n is protected by the Federal Confidentiality of Alcohol and Drug Abuse Patient Records regulations: The Federal rules restrict any use of the information to criminally investigate or prosecute any alcohol or drug abuse patient.[facility] the event this information is protected by the Federal Confidentiality of Alcohol and Drug Abuse Patient Records regulations: The Federal rules restrict any use of the information to criminally investigate or prosecute any alcohol or drug abuse patient.[facility] the event this information is protected by the Federal Confidentiality of Alcohol and Drug Abuse Patient Records regulations: The Federal rules restrict any use of the information to criminally investigate or prosecute any alcohol or drug abuse patient.[facility] the event this information is protected by the Federal Confidentiality of Alcohol and Drug Abuse Patient Records regulations: The Federal rules restrict any use of the information to criminally investigate or prosecute any alcohol or drug abuse patient.[facility] the event this information is protected by the Federal Confidentiality of Alcohol and Drug Abuse Patient Records regulations: The Federal rules restrict any use of the information to criminally investigate or prosecute any alcohol or drug abuse patient.[facility] the event this information is protected by the Federal Confidentiality of Alcohol and Drug Abuse Patient Records regulations: The Federal rules restrict any use of the information to criminally investigate or prosecute any alcohol or drug abuse patient.[facility] the event this information is protected by the Federal Confidentiality of Alcohol and Drug Abuse Patient Records regulations: The Federal rules restrict any use of the information to criminally investigate or prosecute any alcohol or drug abuse patient.[facility] the event this information is protected by the Federal Confidentiality of Alcohol and Drug Abuse Patient Records regulations: The Federal rules restrict any use of the information to criminally investigate or prosecute any alcohol or drug abuse patient.[facility] the event this information is protected by the Federal Confidentiality of Alcohol and Drug Abuse Patient Records regulations: The Federal rules restrict any use of the information to criminally investigate or prosecute any alcohol or drug abuse patient.[facility] the event this information is protected by the Federal Confidentiality of Alcohol and Drug Abuse Patient Records regulations: The Federal rules restrict any use of the information to criminally investigate or prosecute any alcohol or drug abuse patient.[facility] the event this information is protected by the Federal Confidentiality of Alcohol and Drug Abuse Patient Records regulations: The Federal rules restrict any use of the information to criminally investigate or prosecute any alcohol or drug abuse patient.[facility] the event this information is protected by the Federal Confidentiality of Alcohol and Drug Abuse Patient Records regulations: The Federal rules restrict any use of the information to criminally investigate or prosecute any alcohol or drug abuse patient.[facility] the event this information is protected by the Federal Confidentiality of Alcohol and Drug Abuse Patient Records regulations: The Federal rules restrict any use of the information to criminally investigate or prosecute any alcohol or drug abuse patient.[facility] the event this information is protected by the Federal Confidentiality of Alcohol and Drug Abuse Patient Records regulations: The Federal rules restrict any use of the information to criminally investigate or prosecute any alcohol or drug abuse patient.[facility] the event this information is protected by the Federal Confidentiality of Alcohol and Drug Abuse Patient Records regulations: The Federal rules restrict any use of the information to criminally investigate or prosecute any alcohol or drug abuse patient.[facility] the event this information is protected by the Federal Confidentiality of Alcohol and Drug Abuse Patient Records regulations: The Federal rules restrict any use of the information to criminally investigate or prosecute any alcohol or drug abuse patient.[facility] the event this information is protected by the Federal Confidentiality of Alcohol and Drug Abuse Patient Records regulations: The Federal rules restrict any use of the information to criminally investigate or prosecute any alcohol or drug abuse patient.[facility] the event this information is protected by the Federal Confidentiality of Alcohol and Drug Abuse Patient Records regulations: The Federal rules restrict any use of the information to criminally investigate or prosecute any alcohol or drug abuse patient.[facility] the event this information is protected by the Federal Confidentiality of Alcohol and Drug Abuse Patient Records regulations: The Federal rules restrict any use of the information to criminally investigate or prosecute any alcohol or drug abuse patient.[facility] the event this information is protected by the Federal Confidentiality of Alcohol and Drug Abuse Patient Records regulations: The Federal rules restrict any use of the information to criminally investigate or prosecute any alcohol or drug abuse patient.[facility] the event this information is protected by the Federal Confidentiality of Alcohol and Drug Abuse Patient Records regulations: The Federal rules restrict any use of the information to criminally investigate or prosecute any alcohol or drug abuse patient.[facility] Care Teams (unrecognized sec tion and content) [employer] Relationship Specialty Start Date End Date Luna Pastrana MD PCP - General 05/17/08 Inspector [employer] Relationship Specialty Start Date End Date Luna Pastrana MD PCP - General 05/17/08 Team Status: Active Member Role Status Dates Dr. Helen Guthrie , DO Family Provider Active Dr. Helen Guthrie , DO Primary Care Provider Active Team Status: Inactive Member Role Status Dates Dr. Helen Guthrie , DO Primary Care Provider Active Dr. Alva Sims MD Attending Provider, Referring P lina Active Inspector [employer] Relationship Specialty Start Date End Date Luna Pastrana MD PCP - General 05/17/08 Inspector [employer]uminum [employer] Relationship Specialty Start Date End Date Luna Pastrana MD PCP - General 05/17/08 Inspector [employer] Relationship Specialty Start Date End Date Luna Pastrana MD PCP - General 05/17/08 Inspector [employer]uminum [employer] Relationship Specialty Start Date End Date Luna Pastrana MD PCP - General 05/17/08 Inspector [employer]uminum [employer] Relationship Specialty Start Date End Date Luna Pastrana MD PCP - General 05/17/08 Inspector [employer] Relationship Specialty Start Date End Date Luna Pastrana MD PCP - General 05/17/08 Team Status: Active Member Role Status Dates Dr. Helen Guthrie , DO Family Provider Active Pascual Mccall NP-Edgardo Primary Care Provider Active Team Status: Inactive Member Role Status Dates Ana Monroy NP, MAMMOGRAPHY TECHNOLOGIST-C Attending Provider, Referring Pro vider Active Pascual Mccall NP-C Primary Care Provider Active Inspector [employer] Relationship Specialty Start Date End Date Luna Pastrana MD PCP - General 05/17/08 Inspector [employer] Relationship Specialty Start Date End Date Luna Pastrana MD PCP - General 05/17/08 Inspector [employer] Relationship Specialty Start Date End Date Luna Pastrana MD PCP - General 05/17/08 Inspector [employer] Relationship Specialty Start Date End Date Luna Pastrana MD PCP - General 05/17/08 Inspector Aluminum [employer] Relationship Specialty Start Date End Date Pascual Mccall CNP [address] [facility] [address] [place] [address] PCP - General Family Medicine 09/08/23 Team Status: Inactive Member Role Status Dates Pascual Mccall , GENOVEVA-C Primary Care Provider Active Dr. Alva Sims MD Attending Provider, Kermit mills Active Inspector [employer] Relationship Specialty Start Date End Date Pascual Mccall CNP [address] [facility] [address] [place] [address] PCP - General Family Medicine 09/08/23 Inspector Aluminum Boat Relationship Specialty Start Date End Date Pascual Mccall CNP [address] [facility] [address] [place] [address] PCP - General Family Medicine 09/08/23 Inspector Aluminum Boat Relationship Specialty Start Date End Date Pascual Mccall CNP [address] [facility] [address] [place] [address] PCP - General Family Medicine 09/08/23 Inspector Aluminum Boat Relationship Specialty Start Date End Date Pascual Mccall CNP [address] [facility] [address] [place] [address] PCP - General Family Medicine 09/08/23 Inspector Aluminum Boat Relationship Specialty Start Date End Date CalPascual buck GAURAV [address] [place], [place] [id number] PCP - General Family Medicine 09/08/23 Inspector Aluminum Boat Relationship Specialty Start Date End Date CalPascual buck GAURAV [address] [place], [place] [id number] PCP - General Family Medicine 09/08/23 Inspector Aluminum Boat Relationship Specialty Start Date End Date CalMariahynGAURAV [address] [facility] [address] [place] [address] 242- PCP - General Family Medicine 09/08/23 Team Status: Active Member Role Status Dates IMAN Cobb Primary Care Provider Active Team Status: Inactive Member Role Status Dates IMAN Cobb Primary Care Provider Active Start: September 08, 2024 End: September 08, 2024 IMAN Cobb Referring Provider Active Start: September 08, 2024 End: September 08, 2024 IMAN Aponte Attending Provider Active S tart: September 08, 2024 End: September 08, 2024 Team Status: Inactive Member Role Status Dates IMAN Cobb Primary Care Provider Active Start: September 13, 2024 End: September 13, 2024 Dr. Alva Sims MD Attending Provider Active Start: September 13, 2024 End: September 13, 2024 Dr. Alva Sims MD Referring Provider Active Start: September 13, 2024 End: September 13, 2024 Inspector Aluminum Boat Relationship Specialty Start Date End Date Cal GAURAV Abdalla [address] [facility] [address] [place] [address] 974- PCP - General Family Medicine 09/08/23 Reason for Visit (unrecogniz ed section and content) Reason Comments Consult Order Reason Comments Well Woman Reason Comments Patient Question Orders Reason Comments Weight Management Reason Comments Patient Update Reason Comments Orders Reason Comments weight management follow up Reason Comments Consult colonoscopy Reason Comments Follow Up Weight Management Reason Comments 11/06/2023 colon asc Reason Comments Yearly Exam INFORMATION SOURCE (unrecogn ized section and content) DATE CREATED AUTHOR 03/13/2022 [facility] DATE CREATED AUTHOR AUTHOR'S ORGANIZ ATION 10/12/2024 [facility] DATE CREATED AUTHOR AUTHOR'S ORGANIZ ATION 10/26/2024 [facility] Goals (unrecognized section and content) Goals may be documented in a n alternate sectionGoals may be documented in an alternate sectionGoals may be documented in an alternate sectionGoals may be documented in an alternate sectionGoals may be documented in an alternate section FOR RECORDS PERTAINING TO PATIENTS WHO ARE OR HAVE BEEN ENROLLED IN A CHEMICAL DEPENDENCY/SUBSTANCEABUSE PROGRAM, SOME INFORMATION MAY BE OMITTED. This clinical summary was aggregated from multiple sources. Caution should be exercised in using it in the provision of clinical care. This summary normalizes information from multiple sources, and as a consequence, information in this document may materially change the coding, format and clinical context of patient data. In addition, data may be omitted in some cases. CLINICAL DECISIONS SHOULD BE BASED ON THE PRIMARY CLINICAL RECORDS. [employer] provides no warranty or guarantee of the accuracy or completeness of information in this document.
--- NOTE | 2024-10-28 06:54 | PCM.HP.STD ---
HPI - General General Date of Admission: 10/28/24 Date of Service: 10/28/24 Chief Complaint: GERD HPI Narrative PACO BRADSHAW, is a 49 F who presents for chronic concerns of heartburn. She had been on omeprazole for years but was weaning herself off of this medication d/t strong family traits for dementia. PCP recently placed her pantoprazole 40mg daily and she has been taking this for 2 wks. She reports frequent use of Tums throughout the day, worsening heartburn at HS, and waking up nauseous several times a wk. She reports a frequent cough and major throat burning from behind her tongue to the top of her stomach, history of IBS w/bloating, cramping, and occasional diarrhea. She states that when she's gardening, or leaning forward, she notices an increase in symptoms. She denies difficulty chewing and swallowing, throat clearing, sinus drainage, reflux, vomiting, abdominal pain, constipation, hematochezia, and melena. She denies food sensitivities or allergies. She states that she eats no later than 7p and stays up until 10:30p. [facility] Medical History Post-menopausal Alcohol use Depression History of kidney stones Bladder disease Sleep apnea CPAP (continuous positive airway pressure) dependence Non-smoker PONV (postoperative nausea and vomiting) Anxiety Status post hysteroscopy GERD (gastroesophageal reflux disease) Kidney stones IBS (irritable bowel syndrome) Hypercholesterolemia Hypertension Gastrointestinal problem Frequent UTI Arthritis Home Medications ?Medication ?Instructions ?Recorded ?Last Taken ?Type desmopressin 0.2 mg tablet 0.4 mg PO QHS 12/31/22 Unknown History multivitamin (Daily Multi-Vitamin 1 tab PO DAILY 12/31/22 Unknown History tablet) phentermine 15 mg disintegrating 15 mg PO QDAY 12/31/22 Unknown History tablet topiramate 25 mg sprinkle capsule 50 mg PO BID 12/31/22 Unknown History bupropion HCl 300 mg 24 hr tablet, 300 mg PO QAM 09/08/24 Unknown History extended release cholecalciferol (vitamin D3) 125 125 mcg PO QDAY 09/08/24 Unknown History mcg (5,000 unit) capsule cranberry 500 mg capsule 500 mg PO DAILY 09/08/24 Unknown History docusate sodium 100 mg capsule 200 mg PO QHS 09/08/24 Unknown History (Colace) metformin 500 mg tablet,extended 1,000 mg PO BID 09/08/24 Unknown History release 24 hr pantoprazole 40 mg tablet,delayed 40 mg PO BID #60 tabs 09/08/24 Unknown Rx release mirabegron 50 mg tablet,extended 50 mg PO DAILY 10/27/24 Unknown History release 24 hr Allergy/AdvReac Type Severity Reaction Status Date / Time adhesive tape (paper tape) Allergy Rash Verified 10/27/24 08:13 morphine AdvReac Nausea/Vom Verified 10/27/24 08:13 Family History Mother Anemia Anesthesia complication Anxiety Arthritis Depression Hypertension Hypercholesterolemia Osteoporosis Grandmother Anemia Arthritis Hypertension Sister Anxiety Daughter Anxiety Father Arthritis Hypertension Hypercholesterolemia Grandfather Arthritis Colon cancer Myocardial infarction, Onset Age: 53 CVA (cerebral vascular accident) Surgical History History of colonoscopy S/P endometrial ablation S/P dilation and curettage S/P laparoscopic appendectomy S/P wisdom tooth extraction Social History Smoking Status: Never smoker second hand exposure: Yes alcohol intake: current alcohol intake frequency: a few times a week Alcohol type: wine and hard liquor substance use type: does not use what type of physical activity do you participate in: walking frequency: 3-4 times per week ROS Constitutional Constitutional: Denies fatigue, fever(s), poor appetite, weight gain or weight loss Gastrointestinal Gastrointestinal: Denies belching, bloating, change in bowel habits, change in stool character, chewing difficulty, coffee ground emesis, constipation, cramping, diarrhea, dyspepsia, dysphagia, early satiety, excessive flatus, fecal incontinence, heartburn, hematemesis, hematochezia, hemorrhoids, loose stools, melena, nausea, odynophagia, rectal bleeding, tenesmus, vomiting or weight changes Physical Exam Const alert, oriented x3, no apparent distress and healthy appearing General Appearance: cooperative GI normal to inspection, nondistended, normoactive bowel sounds, soft to palpation, non-tender and non-distended Percussion: normal to percussion Rectal Exam: deferred Assessment & Plan Assessment/Plan (1) GERD (gastroesophageal reflux disease): (2) IBS (irritable bowel syndrome): PLAN: Assessment and Plan Assessment and Plan (1) Gastroesophageal reflux disease: Qualifiers: Esophagitis presence: esophagitis presence not specified Qualified Code(s): K21.9 - Gastro-esophageal reflux disease without esophagitis Medications: New pantoprazole Take 30 minutes before breakfast and dinner. 40 mg PO BID 60 tabs 2RF famotidine 40 mg PO QHS 30 tabs 0RF Discontinued pantoprazole Discontinued Reason: Order Changed 40 mg PO QAM Plan PACO SMLALSFORD, is a 49 F who presents to the office today for establishment with I for chronic concerns of heartburn. Differential diagnoses include: hiatal hernia, GERD w/esophagitis, gastritis. Discussed care plan with her. increase pantoprazole to twice daily before breakfast and dinner add famotidine QHS schedule EGD office FU for results
[2024-10-28] MEDS: Lactated Ringers 1,000 ML 15 ML IV (07:09)
--- NOTE | 2024-10-28 07:35 | PCM.PRE.AN2 ---
ASA Classification* ASA Classification ASA Classification: 2 Assessment & Plan Anesthesia* Anesthesia Assessment Anesthesia Assessment: Discussed sedation and/or anesthesia options, risks, benefits, and alternatives with patient/parents/legal guardian/POA. Questions invited. The patient/parents/legal guardian/POA seems to understand and agrees to proceed with anesthesia plan. Reviewed the physical assessment, medical history, allergy history and patient home medications list prior to surgery/procedure/anesthetic and documented any changes. Performed airway and anesthesia risk assessments. Anesthesia Type Anesthesia Type: MAC History Source History Obtained from:: Patient and Chart Anesthesia Focused Assessment* Temperature: 97.8 F Pulse Rate: 78 Blood Pressure: 139/87 Respiratory Rate: 16 Pulse Ox: 96 Oxygen Delivery Method: Room Air Airway Assessment Mouth opens: >3 cm Mallampati Score: II Teeth Condition: Intact Neck Range of motion (ROM): Full ROM Labs Anesthesia Preop lab: CBC CHEMISTRY Potassium 4.4 mmol/L (3.3-5.1) 09/13/24 08:25 09/13/24 Sodium 139 mmol/L (133-145) 09/13/24 08:25 09/13/24 BUN 19 mg/dL (4-19) 09/13/24 08:25 09/13/24 Creatinine 0.84 mg/dL (0.70-1.20) 09/13/24 08:25 09/13/24 Glucose 86 mg/dL (70-99) 09/13/24 08:25 09/13/24 COAG Pre-Assessment Diagnosis/Proposed Procedure Planned Operative Procedure(s): EGD Anesthesia History 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 When Was Last Pacemaker Check QUESTION #4 FULL TEXT: You/Your Family Experience fever (hyperthermia) with Anesthesia Last Oral Intake Last Oral intake: Last Oral Intake NPO since 20:00 10/28/24 07:09 Meds taken in AM with sips of water? 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 crew rodman Female Yes 10/27/24 08:21 HX of Motion Sickness Yes 10/27/24 08:21 HX of N/V After Surgery Yes 10/27/24 08:21 Non-Smoker Yes 10/27/24 08:21 Duration of Surgery greater No 10/27/24 08:21 than 60 minutes Number of Risk Factors 4 10/27/24 08:21 PONV Score Severe Risk 10/27/24 08:21 Height & Weight Height & Weight: Anesthesia: Height & Weight Height 5 ft 3 in 10/28/24 07:09 Weight: 84 kg 10/28/24 07:09 Body Mass Index (BMI) 32.8 10/28/24 07:09 Respiratory Assessment Respiratory Assessment - surveying crew rodman: Respiratory Tract Infection Hx - surveying crew rodman Hx Respiratory Tract Infection No 10/27/24 08:21 STOP Sleep Apnea STOP Sleep Apnea - surveying crew rodman: STOP Sleep Apnea - surveying crew rodman Hx Hypertension Yes: H/O, CONTROLLED POST WT 10/27/24 08:21 LOSS Hx Sleep Apnea Yes 10/27/24 08:21 CPAP Yes 10/27/24 08:21 BIPAP No 10/27/24 08:21 Do you snore loudly (louder than talking or can be heard Do you often feel tired/ fatigued/ sleepy during daytime? Has anyone observed you stop breathing during sleep? STOP Results Positive 10/27/24 08:21 QUESTION #5 FULL TEXT : Do you snore loudly (louder than talking or can be heard through closed doors)? Tobacco Use History Tobacco Use History - surveying crew rodman: Tobacco Use History - surveying crew rodman Tobacco Use Smoking Status Never smoker 10/27/24 08:21 Hx Tobacco Use No 10/27/24 08:21 Years Smoking Packs Smoked per Day Smoking Cessation Date was within the last 15 years Hx Smoking Cessation Date Hx Smoking Cessation Counseling Hematologic Medial History Hematologic Hx - surveying crew rodman: Hematologic Medical Hx - roll filler Hx of Blood Transfusion No 10/27/24 08:21 Hx of Transfusion in last 3 No 10/27/24 08:21 Months Date of Last Transfusion (if within last 3 months) Ever experience any problems No 10/27/24 08:21 with transfusion(s)? Specify any problems Hx of Preganancy in last 3 No 10/27/24 08:21 Months Nurse Filling Out Transfusion MGRIFFITH 10/27/24 08:21 & Questions: Date: 10/27/24 10/27/24 08:21 Time: 08:24 10/27/24 08:21 Patient unable to answer at this time (ie. confused, unrespo /Reproduction History /Reproductive History - surveying crew rodman: /Reproductive Hx- surveying crew rodman Hx Now No 10/27/24 08:21 Gestational Age (in weeks): EDC: Hx Hx Para Hx Section SAB No 10/27/24 08:21 Active Medications Active Medications: Current Medications Generic Name Dose Route Start Last Admin Trade Name Freq PRN Reason Stop Dose Admin Lactated Ringer's 1,000 mls @ 15 mls/hr 10/28/24 07:00 10/28/24 07:09 IV 15 mls/hr .Q48H MELODY Administration PFSH Medical History Post-menopausal Alcohol use Depression History of kidney stones Bladder disease Sleep apnea CPAP (continuous positive airway pressure) dependence Non-smoker PONV (postoperative nausea and vomiting) Anxiety Status post hysteroscopy GERD (gastroesophageal reflux disease) Kidney stones IBS (irritable bowel syndrome) Hypercholesterolemia Hypertension Gastrointestinal problem Frequent UTI Arthritis Home Medications ?Medication ?Instructions ?Recorded ?Last Taken ?Type desmopressin 0.2 mg tablet 0.4 mg PO QHS 12/31/22 10/27/24 History multivitamin (Daily Multi-Vitamin 1 tab PO DAILY 12/31/22 10/27/24 History tablet) phentermine 15 mg disintegrating 15 mg PO QDAY 12/31/22 10/27/24 History tablet topiramate 25 mg sprinkle capsule 50 mg PO BID 12/31/22 10/27/24 History bupropion HCl 300 mg 24 hr tablet, 300 mg PO QAM 09/08/24 10/27/24 History extended release cholecalciferol (vitamin D3) 125 125 mcg PO QDAY 09/08/24 10/27/24 History mcg (5,000 unit) capsule cranberry 500 mg capsule 500 mg PO DAILY 09/08/24 10/27/24 History docusate sodium 100 mg capsule 200 mg PO QHS 09/08/24 10/27/24 History (Colace) metformin 500 mg tablet,extended 1,000 mg PO BID 09/08/24 10/27/24 History release 24 hr pantoprazole 40 mg tablet,delayed 40 mg PO BID #60 tabs 09/08/24 10/27/24 Rx release mirabegron 50 mg tablet,extended 50 mg PO DAILY 10/27/24 10/27/24 History release 24 hr Allergy/AdvReac Type Severity Reaction Status Date / Time adhesive tape (paper tape) Allergy Rash Verified 10/28/24 07:08 morphine AdvReac Nausea/Vom Verified 10/28/24 07:08 Family History Mother Anemia Anesthesia complication Anxiety Arthritis Depression Hypertension Hypercholesterolemia Osteoporosis Grandmother Anemia Arthritis Hypertension Sister Anxiety Daughter Anxiety Father Arthritis Hypertension Hypercholesterolemia Grandfather Arthritis Colon cancer Myocardial infarction, Onset Age: 53 CVA (cerebral vascular accident) Surgical History History of colonoscopy S/P endometrial ablation S/P dilation and curettage S/P laparoscopic appendectomy S/P wisdom tooth extraction Social History Smoking Status: Never smoker second hand exposure: Yes alcohol intake: current alcohol intake frequency: a few times a week Alcohol type: wine and hard liquor substance use type: does not use what type of physical activity do you participate in: walking frequency: 3-4 times per week Review of Systems (Anesthesia) ROS Narrative System reviewed and no additional complaints, except as documented.
--- NOTE | 2024-10-28 07:45 | EGD_PTH ---
PATIENT: PACO BRADSHAW LOC: EN U#:[id number] AGE/SX: 49/F ROOM: RE10/28/[address]: Dr. Tony Melgar DO : 1975 BED: DIS: 10/28/2024 SPEC #: [id number] RECD: 10/28/24 13:57 STATUS: ALEJANDRO NORBERT #: [id number] ERNST: 10/28/24 07:[address]: Tony Melgar DEPT: SURGICAL PATHOLOGY RECD BY: Rafal Garcia ENTERED: 10/28/24 15:02 SP TYPE: EGD BIOPSY [facility] DR: Lianne Mccall, PUL[employer] OPERATOR-C Tissues: A - Gastric mucous membrane B - Esophagus, NOS Procedures: Surgery Specimen Level IV HEADER OPERATION: EGD, biopsy PRE-OP DIAGNOSIS: Gastroesophageal reflux disease TISSUE SUBMITTED: A- Gastric body biopsy, B- Distal esophagus biopsy MICROSCOPIC DIAGNOSIS A. Stomach, body, biopsy: Oxyntic mucosa with features of reactive gastropathy. Negative for Helicobacter-like organisms (H&E). B. Distal esophagus, biopsy: Squamous mucosa with reactive changes. Columnar mucosa, negative for goblet cell metaplasia. MICROSCOPIC DESCRIPTION Slides are reviewed. GROSS DESCRIPTION A. Received in fixative is one container labeled with the patient's name and designated Gastric body biopsy. The specimen consists of two irregular fragments of light cavazos soft tissue that in aggregate measure 0.5 and 0.7 cm. The specimen is totally submitted in one cassette. B. Received in fixative is one container labeled with the patient's name and designated Distal esophagus biopsy. The specimen consists of two irregular fragments of light cavazos soft tissue that in aggregate measure 0.3 and 0.6 cm. The specimen is totally submitted in one cassette. 10/28/2024 CPT:75944i5
--- NOTE | 2024-10-28 08:09 | OP.CCLET_ITS ---
10/28/2024 Anuja Cobb Re : Upper GI endoscopy procedure for Tosin Ross Dear [place] This procedure was performed on Monday, October 28, 2024. My impressions and recommendations are as follows: Impressions : - Z-line irregular, 40 cm from the incisors. Biopsied. - Erythematous mucosa in the gastric body. Biopsied. - Normal examined duodenum. Recommendations : - Await pathology results. - Continue present medications. My findings are described in the full procedure note, which is enclosed. If I can be of further assistance, please feel free to contact me at . Sincerely, Tony Melgar, 10/28/2024 8:08:55 AM This report has been signed electronically.
--- NOTE | 2024-10-28 08:09 | OP.EGD_ITS ---
Patient Name: Tosin Ross Procedure Date: 10/28/2024 7:55 AM Date of : 1975 Age: 49 Procedure: Upper GI endoscopy Indications: Functional Dyspepsia, Heartburn, Failure to respond to medical treatment Providers: Tony Melgar DO Referring MD: Anuja Cobb Medicines: Monitored Anesthesia Care Patient Profile: This is a 49 year old female. Refer to note in patient chart for documentation of history and physical. Patient has symptoms of chronic dyspepsia, acute heartburn and chronic heartburn. Complications: No immediate complications. Procedure: Pre-Anesthesia Assessment: - Prior to the procedure, a History and Physical was performed, and patient medications and allergies were reviewed. The patient is competent. The risks and benefits of the procedure and the sedation options and risks were discussed with the patient. All questions were answered and informed consent was obtained. Patient identification and proposed procedure were verified in the pre-procedure area. Mental Status Examination: alert and oriented. Airway Examination: normal oropharyngeal airway and neck mobility. Respiratory Examination: clear to auscultation. CV Examination: normal. Prophylactic Antibiotics: The patient does not require prophylactic antibiotics. Prior Anticoagulants: The patient has taken no anticoagulant or antiplatelet agents except for NSAID medication. ASA Grade Assessment: II - A patient with mild systemic disease. After reviewing the risks and benefits, the patient was deemed in satisfactory condition to undergo the procedure. The anesthesia plan was to use monitored anesthesia care (MAC). Immediately prior to administration of medications, the patient was re-assessed for adequacy to receive sedatives. The heart rate, respiratory rate, oxygen saturations, blood pressure, adequacy of pulmonary ventilation, and response to care were monitored throughout the procedure. The physical status of the patient was re-assessed after the procedure. After obtaining informed consent, the endoscope was passed under direct vision. Throughout the procedure, the patient's blood pressure, pulse, and oxygen saturations were monitored continuously. The gastroscope was introduced through the mouth, and advanced to the second part of duodenum. The upper GI endoscopy was accomplished without difficulty. The patient tolerated the procedure well. Scope In: 8:01:58 AM Scope Out: 8:05:35 AM Total Procedure Duration Time 0 hours 3 minutes 37 seconds Findings: The Z-line was irregular and was found 40 cm from the incisors. Biopsies were taken with a cold forceps for histology. Verification of patient identification for the specimen was done. Estimated blood loss was minimal. Patchy mildly erythematous mucosa without bleeding was found in the gastric body. Biopsies were taken with a cold forceps for histology. Verification of patient identification for the specimen was done. Biopsies were taken with a cold forceps for Helicobacter pylori testing. Verification of patient identification for the specimen was done. Estimated blood loss was minimal. The examined duodenum was normal. Impression: - Z-line irregular, 40 cm from the incisors. Biopsied. - Erythematous mucosa in the gastric body. Biopsied. - Normal examined duodenum. Recommendation: - Await pathology results. - Continue present medications. Procedure Code(s): --- Professional --- 16442, Esophagogastroduodenoscopy, flexible, transoral; with biopsy, single or multiple CPT copyright 2021 [employer]. All rights reserved. The codes documented in this report are preliminary and upon job order clerk review may be revised to meet current compliance requirements. Tony Melgar DO 10/28/2024 8:08:55 AM This report has been signed electronically. Number of Addenda: 0 Note Initiated On: 10/28/2024 7:55 AM
--- NOTE | 2024-10-28 08:14 | PCM.POST.ANE ---
Anesthesia: Postop Eval I Current Vital Signs Temperature: 97.8 F Pulse Rate: 78 Blood Pressure: 139/87 Respiratory Rate: 16 Pulse Ox: 96 Oxygen Delivery Method: Room Air Assessment Airway patent: Yes Spontaneous unlabored respirations: Yes Mental status: Awake and Calm nausea: No Vomiting: No Anesthesia Complication: No Fluid Hydration Crystalloid volume administer (ml): 700 Total IV fluid infused: 700 Progress Note Anesthesia document: Postop Eval 1 completed: Yes
--- NOTE | 2024-10-28 08:24 | PCM.POSTANE2 ---
Anesthesia Postop Eval I Sum Postop Eval Completion status Anesthesia document: Postop Eval 1 completed: Yes Anesthesia Postop Eval I Summary Anesthesia Postop Eval I Summary: Anesthesia Postop Eval I: Assessment Summary Airway patent Yes 10/28/24 07:24 [email or web address] Spontaneous unlabored Yes 10/28/24 07:24 [email or web address] respirations Mental status Awake,Calm 10/28/24 07:24 [email or web address] nausea No 10/28/24 07:24 [email or web address] Vomiting No 10/28/24 07:24 [email or web address] Anesthesia Postop Eval I: Fluid Summary Crystalloid volume administer 700 10/28/24 07:24 [email or web address] (ml) Colloids volume administered ( ml) Blood Product volume administered (ml) Total IV fluid infused 700 10/28/24 07:24 [email or web address] Anesthesia Postop Eval I: Summary Notes Anesthesia Complication No 10/28/24 07:24 [email or web address] Anesthesia Complication Comment: Post-operative progress note Anesthesia: Postop Eval II Evaluation Mental status: Awake Pain Level: 0 nausea: No Vomiting: No
== END 2024-10-28 08:52 | disposition home or self-care (01) ==
LOC: EN 06:39 → AC 06:43
PROVIDERS: PCP Nurse Practitioner Family; Referring Provider Nurse Practitioner Family; Visit Provider Internal Medicine Gastroenterology
PROC: 0DJ08ZZ Inspection of Upper Intestinal Tract, Via Natural or Artificial Opening Endoscopic (ICD-10-PCS; CPT 43235; principal; 2024-10-28 07:40)
DX: K21.9 Gastro-esophageal reflux disease without esophagitis (principal); K58.0 Irritable bowel syndrome with diarrhea; K31.89 Other diseases of stomach and duodenum; Z79.899 Other long term (current) drug therapy
CPT/HCPCS: 43239; 88305; J2405